=== PATIENT | female | born 1940 | race Caucasian/White ===

== ENCOUNTER → 2017-02-26 | Outpatient (CLI) | payer OTHER ==
[~2017-02-26] MED LIST: ALEN70TA4 PO; ASPEC81 PO; CALC-354 PO; CLB/200 PO; CYCL10TA6 PO; LOVA20TA4 PO; MULT-506 PO; SYN112 PO; [UNRECOGNIZED DRUG - CODE] PO
--- NOTE | 2017-02-26 13:04 | MAMMOGRAPHY REPORT ---
BILATERAL DIGITAL DIAGNOSTIC MAMMOGRAM TOMOSYNTHESIS WITH CAD AND TARGETED LEFT ULTRASOUND: 7 CLINICAL HISTORY: 77-year-old woman presents for second follow-up of faint clustered microcalcificat ions in the 12:00 left breast. Also time of annual bilateral screening exam. History of prior chris gn left breast surgery. TECHNIQUE: Bilateral CC and MLO to the digital and Tarik of this is images, spot magnification left CC and ML views were obtained. Current study was also evaluated with a Computer Aided Detection (C AD) system. COMPARISON: Comparison is made to exams dated: 06/14/2016 mammogram, 12/07/2015 mammogram, 10/26/2015 ma mmogram, 06/30/2014 mammogram, 04/22/2013 mammogram, and 02/28/2012 mammogram - [facility]. BREAST COMPOSITION: The tissue of both breasts is almost entirely fatty. FINDINGS: There are scattered and grouped stable microcalcifications in the lateral right breast. M ild vascular calcification. No obvious new mass, architectural distortion or suspicious clustered m icro-calcifications are seen in the right breast. There is expected architectural distortion in the anterior upper outer left breast, at the site of p rior benign surgery. There is an increasingly conspicuous 3 mm nodular asymmetry in the lateral mid dle one third of the left breast on the CC view, for which additional sonographic evaluation was per formed. Microcalcifications are again seen in the 12:00 versus retroareolar left breast, measuring around 3 mm. When comparing back to prior spot magnification views, these are unchanged dating back to 12/07/2015, and likely also stable dating back to the 04/22/2013 mammogram. The nodular asymmet ry in the lateral left breast also appears similar on that exam. No other new suspicious microcalci fications are seen. Another 12 month follow-up diagnostic left mammogram including spot magnificati on views is recommended to ensure longer stability. Annual right mammography will be due at that ti sc. Real-time high-resolution ultrasound was performed in the lateral left breast. In the 3:00 axis, 5 cm from the nipple, there is a small anechoic cystic appearing mass measuring 2.0 x 1.6 x 1.9 mm. T his is thought to correlate with the mammographic asymmetry and is considered benign. IMPRESSION: ACR-BI-RADS CATEGORY 3: PROBABLY BENIGN, TARGETED ULTRASOUND ACR-BI-RADS CATEGORY 3: [place] OBABLY BENIGN 1. A 12 month follow-up diagnostic left mammogram including spot magnification views is recommended to ensure longer stability of a small faint cluster of punctate microcalcifications in the 12:00 an terior versus retroareolar left breast. Annual right mammography will be due at that time. 2. A 3 mm nodular asymmetry in the lateral left breast is thought to correlate with a benign anecho ic cyst on ultrasound seen in the 3:00 axis. These results and recommendations were discussed with the patient at the time of the exam. She tent atively scheduled a follow-up appointment prior to leaving our department. Approximately 10% of breast cancers are not detected with mammography. A negative mammographic repor t should not delay biopsy if a clinically suggestive mass is present. Kadie Galvan M.D. ay/:02/26/2017 12:32:46 [employer] Associate: Nicolasa MARTE)(Buzz), [facility] letter sent: Follow Up Recommended 3 BI-RADS Code: ACR-BI-RADS Category 3: Probably Benign Ultrasound BI-RADS: ACR-BI-RADS Category 3: P robably Benign
== END | disposition home or self-care (01) ==
LOC: C.MAMM 10:54
PROVIDERS: ATTEND Family Medicine
DX: Z09 Encounter for follow-up examination after completed treatment for conditions other than malignant neoplasm (principal); R92.0 Mammographic microcalcification found on diagnostic imaging of breast

== ENCOUNTER → 2017-09-26 | Outpatient (CLI) | payer OTHER ==
[2017-09-26 13:13] LABS: ALT/SGPT 34 U/L (12-78); AST/SGOT 33 U/L (15-37); BLOOD UREA NITROGEN 45 mg/dl (7-18); BUN/CREATININE RATIO 34.4 (10-20); CARBON DIOXIDE 28 mmol/L (21-32); CHLORIDE 104 mmol/L (98-107); CREATININE 1.31 mg/dl (0.60-1.20); GLUCOSE,FASTING 102 mg/dl (70-99); POTASSIUM 3.9 mmol/L (3.5-5.1); SODIUM 136 mmol/L (136-145)
[2017-09-26 13:24] LABS: ALB/GLOB RATIO 0.8 (0.9-2); ALKALINE PHOSPHATASE 107 U/L (45-117); CHOLESTEROL 153 mg/dl (0-200); CHOLESTEROL/HDL RATIO 2.8; HDL CHOLESTEROL 54 mg/dl; LDL CHOLESTEROL CALCULATED 78 mg/dl; THYROID STIMULATING HORMONE 0.929 uIu/ml (0.300-4.500); TRIGLYCERIDES 106 mg/dl (0-150); VERY LOW DENSITY LIPOPROT CALC 21 mg/dl
== END | disposition home or self-care (01) ==
LOC: C.LABPBG 09:20
PROVIDERS: ATTEND Physician Assistant
DX: Z00.00 Encounter for general adult medical examination without abnormal findings (principal); E78.5 Hyperlipidemia, unspecified; E03.9 Hypothyroidism, unspecified

== ENCOUNTER → 2018-05-31 | Outpatient (CLI) | payer OTHER ==
[2018-05-31 13:43] LABS: HEMATOCRIT 37.2 % (37-47); HEMOGLOBIN 11.9 g/dL (12.0-16.0); MEAN CELL VOLUME 91.4 fL (80-100); MEAN CORPUSCULAR HEMOGLOBIN 29.2 pg (25-34); MEAN PLATELET VOLUME 10.2 fL (7.4-10.4); PLATELET COUNT 360 K/uL (130-400); RED CELL DISTRIBUTION WIDTH CV 14.8 % (11.5-14.5); RED CELL DISTRIBUTION WIDTH SD 49.7 fL (36.4-46.3); WHITE BLOOD COUNT 6.33 K/uL (4.8-10.8)
[2018-05-31 14:56] LABS: ALBUMIN 3.5 gm/dl (3.4-5.0); ALKALINE PHOSPHATASE 139 U/L (45-117); ALT/SGPT 35 U/L (12-78); AST/SGOT 32 U/L (15-37); BLOOD UREA NITROGEN 35 mg/dl (7-18); CALCIUM 9.2 mg/dl (8.5-10.1); CARBON DIOXIDE 23 mmol/L (21-32); CHOLESTEROL 149 mg/dl (0-200); CREATININE 1.25 mg/dl (0.60-1.20); GLUCOSE 91 mg/dl (70-99); LDL CHOLESTEROL CALCULATED 68 mg/dl; PHOSPHORUS 3.1 mg/dl (2.5-4.9); POTASSIUM 3.9 mmol/L (3.5-5.1); SODIUM 140 mmol/L (136-145); TOTAL PROTEIN 7.8 gm/dl (6.4-8.2)
== END | disposition home or self-care (01) ==
LOC: C.LABPBG 10:20
PROVIDERS: ATTEND Family Medicine
DX: N18.9 Chronic kidney disease, unspecified (principal); E78.5 Hyperlipidemia, unspecified; I12.9 Hypertensive chronic kidney disease with stage 1 through stage 4 chronic kidney disease, or unspecified chronic kidney disease; E03.9 Hypothyroidism, unspecified; M19.90 Unspecified osteoarthritis, unspecified site; M48.061 Spinal stenosis, lumbar region without neurogenic claudication

== ENCOUNTER 2019-08-05 20:01 | Inpatient (IN) ==
--- NOTE | 2019-08-05 20:22 | CT Scan Report ---
HEAD CT NONCONTRAST CT DOSE: 614.27 mGy.cm HISTORY: Right-sided weakness. Stroke evaluation TECHNIQUE: Multiaxial CT images of the head were performed without the use of intravenous contrast. A utomated exposure control was utilized for this study. A dose lowering technique was utilized adheri ng to the principles of ALARA. Comparison: Head CT 08/17/2018. Findings: The paranasal sinuses and mastoid air cells are clear. The calvarium and skull base are int act. There is no mass, hematoma, midline shift, acute infarct. White matter hypodensity is nonspecifi c but suggestive of microvascular ischemic change. The ventricles and sulci demonstrate mild age-rela shivani involutional changes. Old punctate lacunar infarcts within the right basal ganglia. This remains unchanged. Impression: No significant change compared to the prior study. No acute intracranial abnormality. Electronically signed by: Mannie Montelongo M.D. 08/05/2019 8:19 PM
[2019-08-05 20:33] LABS: Basophils # (auto) 0.02 K/uL (0-0.2); Basophils % (auto) 0.2 %; Eosinophils # (auto) 0.06 K/uL (0-0.5); Eosinophils % (auto) 0.7 %; Hematocrit (blood only) 34.5 % (37-47); Hemoglobin 11.4 g/dL (12.0-16.0); Immature Granulocytes # (auto) 0.01 K/uL (0.00-0.02); Immature Granulocytes % (auto) 0.1 %; Lymphocytes # (auto) 1.89 K/uL (1.2-3.4); Lymphocytes % (auto) 23.6 %; Mean Corpuscular Hemoglobin 29.4 pg (25-34); Mean Corpuscular Volume 88.9 fL (80-100); Mean Platelet Volume 9.6 fL (7.4-10.4); Monocytes # (auto) 0.61 K/uL (0.11-0.59); Monocytes % (auto) 7.6 %; Neutrophils # (auto) 5.43 K/uL (1.4-6.5); Neutrophils % (auto) 67.8 %; Platelet Count 344 K/uL (130-400); RDW Standard Deviation 48.8 fL (36.4-46.3); Red Blood Count 3.88 M/uL (4.2-5.4); White Blood Count 8.02 K/uL (4.8-10.8)
[2019-08-05 20:45] LABS: Partial Thromboplastin Ratio 0.8; Partial Thromboplastin Time 22.4 Seconds (21.0-31.0); Prothrombin Time 9.8 Seconds (9.0-12.0)
[2019-08-05 20:49] LABS: Alanine Aminotransferase 25 U/L (12-78); Albumin Level 3.8 gm/dl (3.4-5.0); Aspartate Aminotransferase 26 U/L (15-37); BUN Creatinine Ratio 31.4 (10-20); Blood Urea Nitrogen 53 mg/dl (7-18); Calcium 10.2 mg/dl (8.5-10.1); Carbon Dioxide 26 mmol/L (21-32); Chloride 105 mmol/L (98-107); Est GFR (African American) 32.2; Est GFR (Non-African American) 27.8; Glucose 96 mg/dl (70-99); Magnesium 1.9 mg/dl (1.8-2.4); Potassium 4.1 mmol/L (3.5-5.1); Sodium 139 mmol/L (136-145)
[2019-08-05 20:53] LABS: Albumin Globulin Ratio 0.9 (0.9-2); Alkaline Phosphatase 126 U/L (45-117); Bilirubin,Total 0.2 mg/dl (0.2-1); Globulin 4.3 gm/dl (2.5-4.0); Total Protein 8.1 gm/dl (6.4-8.2)
[2019-08-05] MEDS ORDERED: SODIUM CHLORIDE 0.9% 1000ML 250 ML IV ONE (21:07)
--- NOTE | 2019-08-05 22:09 | Emergency Department Note ---
Entered by Octavia Park acting as a scribe for History of Present Illness General Chief complaint: Stroke Alert Stated complaint: STROKE ALERT History of Present Illness Provider complaint: stroke-like symptoms Onset (ago): hour(s) 3 Pain Consistency: + other (episode) Maximum Pain Intensity: 8 Quality: + other (stroke-like symptoms) Associated symptoms: + denies other symptoms (recent falls, pain in her right arm, headache, blurry vision, being on blood thinners), + weakness and + other (went for 1 hour walk just prior to onset of symptoms, tried to write write something but her right hand would not work," dropping everything she tried to greens picker ); no headaches Treatments prior to arrival: other (3L oxygen via nasal cannula) The patient is an 79 year old female who presents to the ED with complaints of an episode of stroke-like symptoms that started 3 hours ago. The patient states that she went for a 1 hour long walk with her walker 4 hours ago. The patient states that her symptoms started directly after this walk. The patient states that she tried to write something but her right hand would not work. The patient states that she was also dropping everything that she tried to greens picker. The patient notes that she feels weaker than usual. The patient denies recent falls, pain in her right arm, headache, blurry vision and being on blood thinners. Per EMS, the patient was given 3L of oxygen via nasal cannula en route. Home Medications Home Medications Medication Instructions Recorded Confirmed Type celecoxib 200 mg capsule 200 mg PO DAILY #90 cap 04/14/19 08/05/19 Rx cholecalciferol (vitamin D3) 2,000 2,000 unit PO DAILY #90 cap 04/14/19 08/05/19 Rx unit capsule furosemide 20 mg tablet 20 mg PO DAILY #90 tab 04/14/19 08/05/19 Rx lovastatin 20 mg tablet 20 mg PO .COMPLEX #90 tab 04/14/19 08/05/19 Rx valsartan 320 1 tab PO DAILY #90 tab 04/14/19 08/05/19 Rx mg-hydrochlorothiazide 25 mg tablet levothyroxine 112 mcg tablet 112 mcg PO DAILY #90 tab 06/10/19 08/05/19 Rx tramadol 50 mg tablet 50 mg PO DAILY #30 tab 07/17/19 08/05/19 Rx acetaminophen [Tylenol Extra 500 mg PO Q6H PRN 08/05/19 08/05/19 History Strength] lidocaine 1 patch TOP DAILY PRN 08/05/19 08/05/19 History Allergies Allergy/AdvReac Type Severity Reaction Status Date / Time Sulfa (Sulfonamide Allergy Mild ITCHING- Verified 08/05/19 21:36 Antibiotics) PT TAKES CELEBREX AT HOME Past Med/Surg History Medical History Chronic kidney disease, stage 3 (moderate) Urinary incontinence Obstructive sleep apnea Venous hypertension Hearing difficulty Dyslipidemia Acid reflux Anemia Anxiety Arthritis, degenerative Hypertension Hypothyroidism Idiopathic scoliosis Lumbar spinal stenosis Lymphedema Osteoporosis Venous insufficiency SBO (small bowel obstruction) Contusion of right shoulder Surgical History H/O: knee surgery History of appendectomy History of appendectomy History of back surgery History of bilateral hip replacements History of colonoscopy History of esophagogastroduodenoscopy WITH BIOPSY History of lumbar fusion ;VERTEBRAL History of surgery UTERINE SURGERY History of total hip replacement RIGHT HIP- 02/17 History of total knee arthroplasty LEFT KNEE- 06/18 Family History Father Cardiac disorder Hypertension Mother History of cholecystectomy Hypertension Kidney disease History of kidney stones Grandmother Myocardial infarction 56 Social History Preferred Language: Maldivian Visual Impairment: No Limitations Hearing Ability: Hard of Hearing marital status: Current Living Situation: Spouse current occupational status: retired Feels Safe at Home: Yes Smoking Status: Never smoker Second Hand Exposure: No ; Hx Alcohol Use: Yes Alcohol Intake Frequency: Weekly Hx Substance Use: No Dental Care, Regularly: Yes Physical Activity Frequency: Daily Seatbelt Use: always Review of Systems See HPI for pertinent positives & negatives. and A total of 10 systems reviewed and were otherwise negative Physical Exam Vital Signs Vital Signs - 24 hr 08/05/19 20:00 08/05/19 20:50 08/05/19 21:08 Temperature 36.5 C Temperature Source Oral Sepsis Recent Fever Within 48 Hours No Sepsis New/Unexplained Change in Mental Status No Sepsis Action Taken by Nursing No Action Required Pulse Rate 90 Pulse Rate [Apical] 88 81 Pulse Rhythm Regular Pulse Strength Normal Respiratory Rate 16 20 20 Respiratory Effort / Characteristics Non-Labored Spontaneous Non-Labored Spontaneous Non-Labored Spontaneous Respiratory Depth Normal Normal Normal Respiratory Pattern Regular Regular Regular Blood Pressure 184/80 H Blood Pressure [Left Arm] 146/72 H 148/55 H Blood Pressure Mean 114 Blood Pressure Mean [Left Arm] 96 86 Blood Pressure Position Lying Blood Pressure Position [Left Arm] Lying Lying Pulse Oximetry 98 98 98 Oxygen Delivery Method Room Air Room Air Room Air GENERAL: Awake, alert, weak-appearing, in no distress, no slurred speech HENT: Normocephalic, atraumatic. EYES: Normal conjunctiva. Sclera non-icteric. NECK: Supple. No nuchal rigidity. RESPIRATORY: No wheezes. Normal respiratory effort. Diminished bases. CARDIAC: Normal rate. Normal rhythm. Extremities warm and well perfused. GI: Soft, non-distended. No tenderness to palpation. MUSCULOSKELETAL: Atraumatic. Chest examination reveals no tenderness. LOWER EXTREMITIES: Calves are non-tender. 2+ lower extremity edema, right greater than left. NEURO: Cranial nerves 2-10 grossly intact. No facial droop. Decreased strength in right upper extremity/hand. Inability to lift either lower extremity. Intact dorsal-plantar flexion. SKIN: Warm and dry. No jaundice noted. Scattered bruising on UEs 2/2 IV start attempts. Course 2001: Past medical records reviewed. The patient was evaluated in room B01. A complete history and physical exam was performed. 2008: I discussed the patient's case with Brooklyn Chicas. She will evaluate the patient via telestroke. 2036: I discussed telestroke and TPA considerations with the patient and she declined. 2055: I updated the patient's family on the test results and plan for admission/MRIs. 2103: I discussed the patient's case with Dr. Cedeno [facility], Hospitalist. He will evaluate the patient for further management. Consultations Consultation #1: I discussed the patient's case with Brooklyn Chicas. She will evaluate the patient via telestroke. Time: 20:09 Consultation #2: I discussed the patient's case with Dr. Cedeno [facility], Hospitalist. He will evaluate the patient for further management. Time: 21:04 Medical Decision Making Differential Diagnosis Differential diagnosis: Etiologies such as metabolic, infection, hypo/hyperglycemia, electrolyte abnormalities, cardiac sources, intracerebral event, toxicologic, neurologic, as well as others were entertained. Medical Records Attestation: I reviewed the patient's medical records. Home Medications Current Medication List: was personally reviewed by me Laboratory Data Attestation: I reviewed the patient's lab results. Result diagrams: 08/05/19 20:19 08/05/19 20:19 Lab Results 08/05/19 08/05/19 08/05/19 Range/Units 20:19 20:19 20:19 WBC 8.02 (4.8-10.8) K/uL RBC 3.88 L (4.2-5.4) M/uL Hgb 11.4 L (12.0-16.0) g/dL Hct 34.5 L (37-47) % MCV 88.9 (80-100) fL MCH 29.4 (25-34) pg MCHC 33.0 (32-36) g/dL RDW Std Deviation 48.8 H (36.4-46.3) fL RDW Coeff of Rika 15.0 H (11.5-14.5) % Plt Count 344 (130-400) K/uL MPV 9.6 (7.4-10.4) fL Immature Gran % (Auto) 0.1 % Neut % (Auto) 67.8 % Lymph % (Auto) 23.6 % Morrow % (Auto) 7.6 % Eos % (Auto) 0.7 % Baso % (Auto) 0.2 % Immature Gran # (Auto) 0.01 (0.00-0.02) K/uL Neut # (Auto) 5.43 (1.4-6.5) K/uL Lymph # (Auto) 1.89 (1.2-3.4) K/uL Morrow # (Auto) 0.61 H (0.11-0.59) K/uL Eos # (Auto) 0.06 (0-0.5) K/uL Baso # (Auto) 0.02 (0-0.2) K/uL PT 9.8 (9.0-12.0) Seconds INR 1.0 (0.9-1.1) APTT 22.4 (21.0-31.0) Seconds PTT Ratio 0.8 Sodium 139 (136-145) mmol/L Potassium 4.1 (3.5-5.1) mmol/L Chloride 105 (98-107) mmol/L Carbon Dioxide 26 (21-32) mmol/L Anion Gap 8.0 (3-11) BUN 53 H (7-18) mg/dl Creatinine 1.70 H (0.6-1.2) mg/dl Est Cr Clr Drug Dosing Not Reportable Est GFR ( Amer) 32.2 Est GFR (Non-Af Amer) 27.8 BUN/Creatinine Ratio 31.4 H (10-20) Glucose 96 (70-99) mg/dl Calcium 10.2 H (8.5-10.1) mg/dl Magnesium 1.9 (1.8-2.4) mg/dl Total Bilirubin 0.2 (0.2-1) mg/dl AST 26 (15-37) U/L ALT 25 (12-78) U/L Alkaline Phosphatase 126 H (45-117) U/L Troponin I 0.020 (0-0.045) ng/ml Total Protein 8.1 (6.4-8.2) gm/dl Albumin 3.8 (3.4-5.0) gm/dl Globulin 4.3 H (2.5-4.0) gm/dl Albumin/Globulin Ratio 0.9 (0.9-2) Blood Type Antibody Screen 08/05/19 Range/Units 20:19 WBC (4.8-10.8) K/uL RBC (4.2-5.4) M/uL Hgb (12.0-16.0) g/dL Hct (37-47) % MCV (80-100) fL MCH (25-34) pg MCHC (32-36) g/dL RDW Std Deviation (36.4-46.3) fL RDW Coeff of Rika (11.5-14.5) % Plt Count (130-400) K/uL MPV (7.4-10.4) fL Immature Gran % (Auto) % Neut % (Auto) % Lymph % (Auto) % [place]row % (Auto) % Eos % (Auto) % Baso % (Auto) % Immature Gran # (Auto) (0.00-0.02) K/uL Neut # (Auto) (1.4-6.5) K/uL Lymph # (Auto) (1.2-3.4) K/uL [place]row # (Auto) (0.11-0.59) K/uL Eos # (Auto) (0-0.5) K/uL Baso # (Auto) (0-0.2) K/uL PT (9.0-12.0) Seconds INR (0.9-1.1) APTT (21.0-31.0) Seconds PTT Ratio Sodium (136-145) mmol/L Potassium (3.5-5.1) mmol/L Chloride (98-107) mmol/L Carbon Dioxide (21-32) mmol/L Anion Gap (3-11) BUN (7-18) mg/dl Creatinine (0.6-1.2) mg/dl Est Cr Clr Drug Dosing Est GFR ( Amer) Est GFR (Non-Af Amer) BUN/Creatinine Ratio (10-20) Glucose (70-99) mg/dl Calcium (8.5-10.1) mg/dl Magnesium (1.8-2.4) mg/dl Total Bilirubin (0.2-1) mg/dl AST (15-37) U/L ALT (12-78) U/L Alkaline Phosphatase (45-117) U/L Troponin I (0-0.045) ng/ml Total Protein (6.4-8.2) gm/dl Albumin (3.4-5.0) gm/dl Globulin (2.5-4.0) gm/dl Albumin/Globulin Ratio (0.9-2) Blood Type AB Positive Antibody Screen NEGATIVE Imaging Data Radiologist's Impression: Radiology results as stated below per my review and the radiologist's interpretation: HEAD CT NONCONTRAST CT DOSE: 614.27 mGy.cm HISTORY: Right-sided weakness. Stroke evaluation TECHNIQUE: Multiaxial CT images of the head were performed without the use of intravenous contrast. Automated exposure control was utilized for this study. A dose lowering technique was utilized adhering to the principles of ALARA. Comparison: Head CT 08/17/2018. Findings: The paranasal sinuses and mastoid air cells are clear. The calvarium and skull base are intact. There is no mass, hematoma, midline shift, acute infarct. White matter hypodensity is nonspecific but suggestive of microvascular ischemic change. The ventricles and sulci demonstrate mild age-related involutional changes. Old punctate lacunar infarcts within the right basal ganglia. This remains unchanged. Impression: No significant change compared to the prior study. No acute intracranial abnormality. Electronically signed by: Mannie Montelongo M.D. 08/05/2019 8:19 PM ECG Data Attestation: I personally reviewed and interpreted this ECG as follows: Indication: other (stroke) Rate (beats per minute): 88 Rhythm: normal sinus ECG [place]: Normal ECG ST segments: Normal ST segments ECG Findings: Other (normal interval, no ectopy) Blood Pressure Blood Pressure Findings: Elevated blood pressure Blood Pressure Disposition: further management by hospitalist CLAIRE Narrative Patient is a 79-year-old with a past medical history including small bowel obstruction and chronic kidney disease presenting to the emergency department today via EMS with the onset of difficulty using her right hand and noted around 5 PM. Was not walking for the ER before then with her walker and did not notice significant problems. States at that point she tried to write and had some issues. Later called EMS and came here for further evaluation. Arrived just past the 3-hour mayur when she noted symptoms starting and thus will not be pr oceeding with TPA; do not feel in discussion with her that she meets criteria for extended window TPA. Discussed with the risks and benefits and she agrees to not use TPA. No significant lower extremity deficits noted though she is debilitated from prior orthopedic surgeries here and lymphedema. No significant facial droop or aphasia noted. Updated family and they arrived. GFR is low enough to preclude the use of IV contrast for CT angiograms. Kidney function is somewhat worse than priors. MRI MRA of the head have been ordered. Labs show no other significant abnormality with a detectable troponin that is been stable from previous values and not typical given her kidney dysfunction. Symptoms of her right arm weakness could be from overuse from her increased walking with a walker today however given the weakness I do of concern suspect with her comorbidities could definitely represent stroke. Discussed with the hospitalist and the family and will proceed with admission. Impression & Plan Right arm weakness, Stroke Discharge Plan Visit Data Chief Complaint: Stroke Alert Stated Complaint: STROKE ALERT ED Provider: Pierce Sepulveda Discharge Problem: Right arm weakness, Stroke Patient Disposition: Being Evaluated by Hospitalist Forms Stand Alone Forms: My [facility] [employer] Prescriptions Prescriptions: No Action levothyroxine 112 mcg tablet 112 mcg PO DAILY Qty: 90 RF: 1 tramadol 50 mg tablet 50 mg PO DAILY Qty: 30 RF: 0 celecoxib 200 mg capsule 200 mg PO DAILY Qty: 90 RF: 3 cholecalciferol (vitamin D3) [Vitamin D3] 2,000 unit capsule 2,000 unit PO DAILY Qty: 90 RF: 3 furosemide 20 mg tablet 20 mg PO DAILY Qty: 90 RF: 3 lovastatin 20 mg tablet 20 mg PO .COMPLEX Qty: 90 RF: 3 valsartan-hydrochlorothiazide [Diovan HCT] 320-25 mg tablet 1 tab PO DAILY Qty: 90 RF: 3 lidocaine 5 % adhesive patch,medicated 1 patch TOP DAILY PRN (Reason: Pain) RF: 0 acetaminophen [Tylenol Extra Strength] 500 mg Tablet 500 mg PO Q6H PRN (Reason: Pain) RF: 0 Referrals Referrals: Tami Shelby DO [Primary Care Provider] - Discharge Problem: Stroke Qualifiers: CVA mechanism: unspecified Qualified Code(s): I63.9 - Cerebral infarction, u nspecified The scribe's documentation has been prepared under my direction and personally reviewed by me in its entirety. I confirm that the note above accurately reflects all work, treatment, procedures, and medical decision making performed by me.
--- NOTE | 2019-08-05 22:38 | Magnetic Resonance Report ---
Brain MRI WITHOUT CONTRAST HISTORY: stroke, R weakness TECHNIQUE: Multiplanar multisequence MRI of the brain was performed without the use of contrast. COMPARISON STUDY: Head CT 08/05/2019. FINDINGS: Questionable small focus of restricted diffusion seen within the lateral cortex of the left parietal lobe on image 15 favors artifact. Otherwise, no areas of restricted diffusion to suggest ac ravinder infarction. The midline structures are intact. Multiple scattered foci of T2 hyperintensity seen within the white matter of the supratentorial brain. This is nonspecific but favors microvascular isc hemic change. There is no mass, hematoma, midline shift. Old small infarct seen within the right occi pital lobe. Old punctate lacunar infarct within the right cerebellar hemisphere. The paranasal sinuse s and mastoid air cells are clear. The major vascular flow voids at the skull base are well-maintaine d. Mild atrophic changes within the brain. IMPRESSION: No acute intracranial abnormality. Scattered foci of T2 hyperintensity seen within the periventricula r and subcortical white matter are nonspecific but favor moderate microvascular ischemic change. Electronically signed by: Mannie Montelongo M.D. 08/05/2019 10:37 PM
--- NOTE | 2019-08-05 22:42 | Magnetic Resonance Report ---
NECK MRA HISTORY: stroke, R weakness TECHNIQUE: Gadolinium-enhanced MRA of the neck was performed both before and after the intravenous ad ministration of contrast. 2-D [id number] imaging was not obtained as the patient terminated the e xam early. All measurements were calculated based on NASCET criteria. COMPARISON STUDY: None. FINDINGS: Motion artifact obscures the proximal right common carotid artery and the takeoff of the ri ght vertebral artery. Otherwise, the aortic arch and remaining proximal great vessels are widely reinoso nt. There is no definite stenosis, occlusion, or dissection identified within the bilateral common c arotid, internal carotid, or vertebral arteries. IMPRESSION: Motion artifact. However, no definite stenosis, occlusion, or dissection identified within the caroti d or vertebral arteries. Electronically signed by: Mannie Montelongo M.D. 08/05/2019 10:40 PM
--- NOTE | 2019-08-05 22:44 | Magnetic Resonance Report ---
Brain MRA HISTORY: R weakness TECHNIQUE: 3-D [id number] MRA of the brain was performed without contrast. COMPARISON STUDY: None. FINDINGS: Visualized intracranial internal carotid arteries, distal vertebral arteries, and basilar a rtery are widely patent. There is no significant stenosis, occlusion, or aneurysm seen within the ruslan ateral ACAs, MCAs, or audio/video technician. IMPRESSION: No significant stenosis, occlusion, or aneurysm within the [place]. Electronically signed by: Mannie Montelongo M.D. 08/05/2019 10:42 PM
[2019-08-05 23:44] LABS: Appearance Urine Clear (Clear); Bacteria Urine Automated Negative (Negative); Bilirubin Urine Negative (Negative); Blood Urine Negative (Negative); Cast Urine Automated 0 /lpf (0-5); Color Urine Yellow; Glucose Urine UA Negative (Negative); Ketones Urine Negative (Negative); Leukocyte Esterase Urine Trace (Negative); Nitrite Urine Negative (Negative); Protein Urine Negative (Negative); RBC Urine Automated 0-4 /hpf (0-4); Specific Gravity Urine 1.012 (1.000-1.030); Urobilinogen Urine Negative (Negative); pH Urine 5.5 (4.5-7.5)
[2019-08-06] MEDS ORDERED: ONDANSETRON INJ 2 MG/ML 2 ML VIAL IV PRN ×3 (00:31→08:59)
[2019-08-06] MEDS ORDERED: PHARMACIST DISCHARGE MED REC CONSULT PRN ×2 (00:31→08:59)
[2019-08-06] MEDS: ACETAMINOPHEN 325 MG TAB PO PRN ×3 (01:34→20:02)
--- NOTE | 2019-08-06 01:50 | History & Physical Report ---
Date of Service August 06, 2019 Assessment & Plan (1) Right arm weakness: 79-year-old female with a past medical history of hyperlipidemia, hypertension, diabetes, CKD 3, hypothyroidism, anxiety, ANTWAN, neuropathy presents with strokelike symptoms. Symptoms include upper and lower extremity weakness. The predominant symptom is right upper extremity weakness. The symptoms began this evening at 1700. Hospital stroke protocol was initiated, patient did not receive TPA. Is being admitted for continued work-up of right upper extremity weakness. Right upper extremity weakness CT head unremarkable MRI brain, no acute finding but did show signs of possible microvascular ischemia MRA neck/brain, unremarkable Starting aspirin, neurology consulted, appreciate recommendations Continue stroke protocolaspiration precautions, fall precautions, neurochecks Hyperlipidemia/hypertension Continue valsartan/hydrochlorothiazide Diabetes Sliding scale insulin, carb consistent diet Venous stasis Continue furosemide Osteoarthritis Hold Celebrex Tylenol for pain, K pad CODE STATUSDNR/DNI Dietcarb consistent DVT prophylaxisSCDs (2) Stroke: (3) Chronic kidney disease, stage 3 (moderate): (4) Obstructive sleep apnea: (5) Dyslipidemia: (6) Anxiety: (7) Hypertension: (8) Hypothyroidism: History of Present Illness Primary Care Provider: Tami Shelby DO 79-year-old female with a past medical history of hyperlipidemia, hypertension, diabetes, CKD 3, hypothyroidism, anxiety, ANTWAN, neuropathy presents with strokelike symptoms. Symptoms include upper and lower extremity weakness. The predominant symptom is right upper extremity weakness. The symptoms began this evening at 1700. She states that she was getting dinner together when she felt tingling in her hands. She states that she has neuropathy at baseline, but this felt different. She started noticing that she was weakness in her hands and she was dropping things. In addition, when she sat down to write a note she was unable to move the pen properly. She states that she could still think about what she wanted to say and write. She denies any dysarthria, slurred speech or comprehension issues. She became worried, when she went to stand up and walk towards the living room and actually fell on the ground. Her witness the fall. There was no head injury. She reports that she had a the day, traveling from [place] to [place]. She denies any recent illness. Review of systems Constitutional; no fevers, chills, night sweats HEENT; no runny nose, no throat pain, no sinus pressure Chest; no chest pain, no palpitations, no edema Respiratory; no shortness of breath, no wheezing, no cough Abdomen; no abdominal pain, no nausea/vomiting/diarrhea Allergies Allergy/AdvReac Type Severity Reaction Status Date / Time Sulfa (Sulfonamide Allergy Mild ITCHING- Verified 08/05/19 21:36 Antibiotics) PT TAKES CELEBREX AT HOME Home Medications Home Medications Medication Instructions Recorded Confirmed Type celecoxib 200 mg capsule 200 mg PO DAILY #90 cap 04/14/19 08/05/19 Rx cholecalciferol (vitamin D3) 2,000 2,000 unit PO DAILY #90 cap 04/14/19 08/05/19 Rx unit capsule furosemide 20 mg tablet 20 mg PO DAILY #90 tab 04/14/19 08/05/19 Rx lovastatin 20 mg tablet 20 mg PO .COMPLEX #90 tab 04/14/19 08/05/19 Rx valsartan 320 1 tab PO DAILY #90 tab 04/14/19 08/05/19 Rx mg-hydrochlorothiazide 25 mg tablet levothyroxine 112 mcg tablet 112 mcg PO DAILY #90 tab 06/10/19 08/05/19 Rx tramadol 50 mg tablet 50 mg PO DAILY #30 tab 07/17/19 08/05/19 Rx acetaminophen [Tylenol Extra 500 mg PO Q6H PRN 08/05/19 08/05/19 History Strength] lidocaine 1 patch TOP DAILY PRN 08/05/19 08/05/19 History Past Med/Surg History Medical History Chronic kidney disease, stage 3 (moderate) Urinary incontinence Obstructive sleep apnea Venous hypertension Hearing difficulty Dyslipidemia Acid reflux Anemia Anxiety Arthritis, degenerative Hypertension Hypothyroidism Idiopathic scoliosis Lumbar spinal stenosis Lymphedema Osteoporosis Venous insufficiency SBO (small bowel obstruction) Contusion of right shoulder Surgical History H/O: knee surgery History of appendectomy History of appendectomy History of back surgery History of bilateral hip replacements History of colonoscopy History of esophagogastroduodenoscopy WITH BIOPSY History of lumbar fusion ;VERTEBRAL History of surgery UTERINE SURGERY History of total hip replacement RIGHT HIP- 02/17 History of total knee arthroplasty LEFT KNEE- 06/18 Family History Father , age 80 of heart disease Cardiac disorder Hypertension Osteoarthritis Mother , age 82 of uncertain cause History of cholecystectomy Hypertension Kidney disease History of kidney stones Grandmother Myocardial infarction 56 Social History Preferred Language: [place]i Communication Ability: Effective Visual Impairment: No Limitations Hearing Ability: Hard of Hearing Beliefs That Will Affect Care: None marital status: Current Living Situation: Spouse current occupational status: retired Other Information That Helps Us Care for You: 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 Feels Safe at Home: Yes Safety Concerns: Feels Safe At This Time Smoking Status: Never smoker Second Hand Exposure: No ; Hx Alcohol Use: Yes Alcohol type: wine Alcohol Intake Frequency: Weekly Alcohol Intake Frequency Comment: One glass wine per week Hx Substance Use: No Dental Care, Regularly: Yes Physical Activity Frequency: Daily Seatbelt Use: always Review of Systems Review of Systems: All systems reviewed & are unremarkable except as noted in HPI & below Physical Exam Constitutional: WD/WN, vitals as above Eyes: PERRL, conjunctivae normal, anicteric sclerae ENMT: external ear and nose normal, oropharynx normal Neck: trachea midline, no thyromegaly Respiratory: normal respiratory effort, lungs clear to auscultation Cardiovascular: RRR, no murmur, no edema Gastrointestinal (Abdomen): normal bowel sounds, soft, nontender, no hepatosplenomegaly Musculoskeletal: Head/Neck/Chest: + head abnormal to inspection, normocephalic, head atraumatic and neck supple Extremities: + abnormal strength (Right upper extremity weakness, 3 out of 5. The rest of her extremities had 5 out of 5 strength) Skin: no rashes, warm and dry Neurologic: PERRL, EOMI, accommodation nl, no face palsy, no dysarthria normal touch/pain/proprioception and CN's II-XI intact bilaterally; not confused Speech / Cognition: normal speech, no expressive aphasia, no receptive aphasia and normal cognition Psychiatric: A+Ox3, euthymic affect Results & Data Vital Signs (Past 12 Hours) Vital Signs Temp Pulse Pulse Resp BP BP Pulse Ox 08/05/19 23:31 81 18 142/60 H 96 08/05/19 21:08 81 20 148/55 H 98 08/05/19 20:50 88 20 146/72 H 98 08/05/19 20:00 36.5 C 90 16 184/80 H 98 Code Status & VTE Plan Code Status full VTE Prophylaxis Plan VTE Prophylaxis will be ordered: Yes Supervising Physician Co-Signing Physician Notes Attending addendum: I have physically seen this patient, have supervised the medical residents activities, and agree with the H&P unless as otherwise noted. Assessment and Plan: Right upper extremity weakness- Initially presented a stroke alert to the ED. CT head without acute events. MRI brain with small vessel disease. MRA neck and head unremarkable. Start baby aspirin 81 mg chewable daily. Admit per stroke protocol. Permissive hypertension. Remaining orders and notations as noted. PG Care Time/CCT Total # of Minutes Spent Total Time Spent with Patient: Total time spent is greater than 50% in coordination of care (as documented) at patient's floor/unit and/or counseling patient: Resident Activity Tracking Resident Involvement: Resident Care Provided Care Provided: Adult Hospital Medicine (1) Stroke CVA mechanism: unspecified Qualified Code(s): I63.9 - Cerebral infarction, unspecified
[2019-08-06] MEDS ORDERED: ASPIRIN 81 MG ECTAB PO STA (02:00)
[2019-08-06] MEDS ORDERED: GLUCOSE 40% GEL 15 GM TUBE PO PRN (02:15)
[2019-08-06] MEDS ORDERED: CARBOHYDRATES FOR HYPOGLYCEMIA PO PRN (02:15)
[2019-08-06] MEDS ORDERED: GLUCAGON FOR INJ 1 MG VIAL SQ PRN (02:15)
[2019-08-06] MEDS ORDERED: GLUCOSE 10 TABS/TUBE PO PRN (02:15)
[2019-08-06] MEDS ORDERED: DEXTROSE 50% 50 ML SYRINGE IV PRN (02:15)
[2019-08-06] MEDS: LEVOTHYROXINE SODIUM 112 MCG TABLET PO SCH (05:13)
[2019-08-06 06:11] LABS: Basophils # (auto) 0.02 K/uL (0-0.2); Basophils % (auto) 0.3 %; Eosinophils # (auto) 0.09 K/uL (0-0.5); Eosinophils % (auto) 1.5 %; Hematocrit (blood only) 29.7 % (37-47); Hemoglobin 10.2 g/dL (12.0-16.0); Immature Granulocytes # (auto) 0.01 K/uL (0.00-0.02); Immature Granulocytes % (auto) 0.2 %; Lymphocytes # (auto) 2.08 K/uL (1.2-3.4); Lymphocytes % (auto) 34.9 %; Mean Corpuscular Hemoglobin 29.7 pg (25-34); Mean Corpuscular Hgb Conc 34.3 g/dL (32-36); Mean Corpuscular Volume 86.6 fL (80-100); Mean Platelet Volume 9.1 fL (7.4-10.4); Monocytes # (auto) 0.68 K/uL (0.11-0.59); Monocytes % (auto) 11.4 %; Neutrophils # (auto) 3.08 K/uL (1.4-6.5); Neutrophils % (auto) 51.7 %; Platelet Count 304 K/uL (130-400); RDW Coefficient of Variation 14.9 % (11.5-14.5); RDW Standard Deviation 47.3 fL (36.4-46.3); Red Blood Count 3.43 M/uL (4.2-5.4); White Blood Count 5.96 K/uL (4.8-10.8)
[2019-08-06 06:18] LABS: Estimated Average Glucose 123 mg/dl; Hemoglobin A1C 5.9 % (4.5-5.6)
[2019-08-06 06:22] LABS: Prothrombin Time 10.3 Seconds (9.0-12.0)
[2019-08-06 06:34] LABS: BUN Creatinine Ratio 34.9 (10-20); Calcium 9.6 mg/dl (8.5-10.1); Creatinine Clr Calc Pharmacy 36.2 ml/min; Est GFR (African American) 42.2; Est GFR (Non-African American) 36.4; Potassium 3.8 mmol/L (3.5-5.1)
[2019-08-06] MEDS ORDERED: INSULIN ASPART 100 UNITS/ML 3 ML PEN SC SCH (07:30)
[2019-08-06] MEDS: LIDOCAINE 5% 1 PATCH TD SCH (07:30)
[2019-08-06] MEDS: ASPIRIN 81 MG ECTAB PO SCH (07:31)
[2019-08-06] MEDS: hydroCHLOROthiazide 25 MG TAB PO SCH (07:31)
[2019-08-06] MEDS: FUROSEMIDE 20 MG TAB PO SCH (07:31)
[2019-08-06] MEDS: VALSARTAN 80 MG TAB PO SCH (07:31)
--- NOTE | 2019-08-06 08:55 | Neurology Consultation ---
Date of Consultation August 06, 2019 Assessment & Plan (1) Right arm weakness: (2) Lumbar spinal stenosis: (3) Chronic cerebral ischemia: Patient has a history of acute right hand weakness and dysesthesias after a prolonged walk using a walker August 05. This morning, there are no sensory deficits in the hand and her weakness is about 50 percent improved. She does have other right upper extremity weakness in the deltoid and rotator muscles. This is consistent with a chronic right rotator cuff injury. The left rotator cuff is also somewhat weak but not as bad as the right. MRI of the brain was unremarkable for stroke. MR angiography of the head neck were unremarkable. Overall, I do not believe this was a TIA or stroke. I think this is more consistent with a mechanical issue with the right upper extremity from the overuse of the arms with her prolonged walk with a walker. Positive Tinel sign and hand symptoms/history point towards a carpal tunnel syndrome that was aggravated with the walker. I believe the shoulder girdle was aggravated by the walk as well. Fortunately she is much better today. Patient does have stroke risk factors including hypertension and dyslipidemia. She has a history of chronic cerebral ischemia noted on MRI. Patient has a history of lumbar spinal stenosis post 2 major lumbar spine surgeries with persistent lower extremity weakness. EMG done in July of 2018 showed old scattered bilateral radiculopathy at multiple levels. Recommendations; 1. Because of her chronic cerebral ischemia I think it is reasonable for her to remain on 81 milligram aspirin tablet daily. 2. Her blood pressure is reasonably controlled currently and her lipid profile is unremarkable as well. She would not be a high-dose statin candidate anyway. 3. An echocardiogram is pending 4. Increase activity as able. Patient would probably benefit from some physical therapy and occupational therapy. 5. EMG and nerve conduction studies of both upper extremities as an outpatient would be reasonable as well. 6. Otherwise, I see no need for additional neurologic testing or treatment changes at this time. Overall, I spent a total of 90 minutes with this case including review of records, review of MRI films, direct evaluation patient bedside, and discussing the case with the patient at bedside, her RN, and Dr. Arrington , including differential diagnosis and treatment options. History of Present Illness Reason for Consultation: Patient is an 79 year old, who I was asked to see the request of Dr. Rivera, for neurologic consultation regarding acute onset right hand weakness question stroke. Requesting Physician: Dr. Rivera Attending Physician: Zaid Arrington History of Present Illness This patient has a history of hypertension and dyslipidemia. She has never been a cigarette smoker. Patient has a history of severe osteoarthritis and degenerative changes with longstanding lumbar spinal stenosis, requiring decompressive surgery in 1999 ([place]) and again decompression with fusion from T10-S1 [place] [address] Sanford. The patient has had bilateral lower extremity weakness and intermittent numbness and tingling in the feet and lower legs for over 5 years. She currently has to walk with a walker for the last year. She has had bilateral knee replacements twice on each side. She walked with a cane for many years and ended having rotator cuff problems because of the pressure she put on her arms using the cane. This is also a bit of a problem using the walker as well. Her biceps are weak bilaterally and over the last year she has had occasional tingling in the right hand that increases with activity. Around 3 o'clock in the afternoon on August 05, she went outside for a walk with her walker. She walked for about an hour but noted she had to stop because she was getting very tired and there was pressure on her arms. Typically she will walk 30-45 minutes but occasionally she will walk as much as 60 minutes. She went inside and did not notice any pain in her arms but her arms were tired. The right hand had little bit of tingling to it and she started to write and noticed that she could not hold a pen or feel the pen. 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 This only involve the hand and did not involve the upper arm, face, or leg. The left side was unchanged as well. She had no neck pain. Her right shoulder however was feeling weaker and worse because of the long walk she had with a walker. She arrived to the emergency room on August 05 2000 hours with a temperature 36.5, pulse 90 and regular, respirations 16, blood pressure 184/80, and O2 satu ration 98 percent. Exam noted some weakness in the right hand and both legs were weak. Her speech was unremarkable and she had no facial droop. Her mentation was clear. She was at the outer window for tPA and tele stroke and consultation with the patient elected not to use tPA as she was probably outside the window. CT scan of the head was unremarkable for acute changes. CBC showed anemia BUN was 53 and creatinine was 1.7. Urinalysis was unremarkable. MR angiography of the head and neck were unremarkable with no significant stenoses or vessel anomalies. MRI of the brain was unremarkable with no acute stroke or other acute changes. There was moderate generalized atrophy and old small vessel ischemic changes only. I reviewed these films. Today, CBC showed anemia, hemoglobin A1c was 5.9, BUN was 47 and creatinine 1.3, triglycerides 95 in total cholesterol 48. This morning, she feels nothing new in her limbs and feels that although the right hand has a little bit of tingling it is not numb and she can feel a pen if she holds it. Her flame planer is improved but not back to normal yet (about 40-50 percent better) She has no new issues and blood pressure was 127/68. Allergies Allergy/AdvReac Type Severity Reaction Status Date / Time Sulfa (Sulfonamide Allergy Mild ITCHING- Verified 08/05/19 21:36 Antibiotics) PT TAKES CELEBREX AT HOME Home Medications Home Medications Medication Instructions Recorded Confirmed Type celecoxib 200 mg capsule 200 mg PO DAILY #90 cap 04/14/19 08/05/19 Rx cholecalciferol (vitamin D3) 2,000 2,000 unit PO DAILY #90 cap 04/14/19 08/05/19 Rx unit capsule furosemide 20 mg tablet 20 mg PO DAILY #90 tab 04/14/19 08/05/19 Rx lovastatin 20 mg tablet 20 mg PO .COMPLEX #90 tab 04/14/19 08/05/19 Rx valsartan 320 1 tab PO DAILY #90 tab 04/14/19 08/05/19 Rx mg-hydrochlorothiazide 25 mg tablet levothyroxine 112 mcg tablet 112 mcg PO DAILY #90 tab 06/10/19 08/05/19 Rx tramadol 50 mg tablet 50 mg PO DAILY #30 tab 07/17/19 08/05/19 Rx acetaminophen [Tylenol Extra 500 mg PO Q6H PRN 08/05/19 08/05/19 History Strength] lidocaine 1 patch TOP DAILY PRN 08/05/19 08/05/19 History Patient History Medical History Chronic kidney disease, stage 3 (moderate) Urinary incontinence Obstructive sleep apnea Venous hypertension Hearing difficulty Dyslipidemia Acid reflux Anemia Anxiety Arthritis, degenerative Hypertension Hypothyroidism Idiopathic scoliosis Lumbar spinal stenosis Lymphedema Osteoporosis Venous insufficiency SBO (small bowel obstruction) Contusion of right shoulder Surgical History H/O: knee surgery History of appendectomy History of appendectomy History of back surgery History of bilateral hip replacements History of colonoscopy History of esophagogastroduodenoscopy WITH BIOPSY History of lumbar fusion ;VERTEBRAL History of surgery UTERINE SURGERY History of total hip replacement RIGHT HIP- 02/17 History of total knee arthroplasty LEFT KNEE- 06/18 Family History Father , age 80 of heart disease Cardiac disorder Hypertension Osteoarthritis Mother , age 82 of uncertain cause History of cholecystectomy Hypertension Kidney disease History of kidney stones Grandmother Myocardial infarction 56 Social History Preferred Language: Swedish Visual Impairment: No Limitations Hearing Ability: Hard of Hearing Beliefs That Will Affect Care: None marital status: Current Living Situation: Spouse current occupational status: retired Other Information That Helps Us Care for You: 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 Feels Safe at Home: Yes Safety Concerns: Feels Safe At This Time Smoking Status: Never smoker Second Hand Exposure: No ; Hx Alcohol Use: Yes Alcohol type: wine Alcohol Intake Frequency: Weekly Alcohol Intake Frequency Comment: One glass wine per week Hx Substance Use: No Dental Care, Regularly: Yes Physical Activity Frequency: Daily Seatbelt Use: always Review of Systems Constitutional: + fatigue; no fever and no weakness Eyes: no diplopia, no eye pain and no worsening vision Ear, Nose, Mouth, Throat: + hearing loss; no ear pain, no tinnitus, no dizziness, no snoring, no hoarseness and no dysphagia Respiratory: no cough and no dyspnea Cardiovascular: no chest pain, no palpitations and no lightheadedness Gastrointestinal: no abdominal pain, no nausea and no vomiting Genitourinary: + urinary incontinence; no dysuria and no urinary frequency Musculoskeletal: + back pain; no neck pain, no radicular pain, no joint pain and no myalgia Integumentary: no rash and no lesions Neurologic: + gait abnormality, + localized weakness, + tingling and + numbness; no generalized weakness, no tremor(s), no abnormal movements, no dizziness, no headache(s), no abnormal speech, no confusion and no memory loss Psychiatric: no depression, no irritability, no anxiety, no difficulty concentrating, no confusion and no hallucinations Endocrine: + fatigue; no flushing Hematologic / Lymphatic: no easy bleeding and no easy bruising Allergy / Immunological: no urticaria and no problem reported Physical Exam Physical Exam: The patient is right-handed. The patient is awake, alert, and attentive. Speech is normal without any aphasia or dysarthria. She can name objects, repeat phrases, and has normal spontaneous speech. Mentation and thought processes are intact, with orientation to person, place and time, and normal fund of knowledge. Attention and concentration are normal. Mood and affect are normal and appropriate. General appearance and grooming are normal. Short and long-term memory are intact. The discs are sharp with positive venous pulsations bilaterally. There are no exudates, hemorrhages, or blood vessel changes seen. Pupils are 4 mm bilaterally and reactive to light. Extraocular eye muscles are intact without nystagmus. Visual acuity and visual canales seem normal grossly to confrontation. There are no deficits to sensation in the face in all 3 distributions of the fifth cranial nerve bilaterally. Corneal reflexes are positive bilaterally. Facial strength and symmetry was normal bilaterally. Hearing is mildly decreased to voice bilaterally. Palate moves well without asymmetry. There is normal sternocleidomastoid and trapezius (shoulder shrug) strength bilaterally. Tongue is midline with good strength bilaterally. Neck has a full range of motion without discomfort. There are no cervical bruits bilaterally. There are no cranial or ocular bruits. Heart is without murmur. There is a regular rhythm and rate. Cervical, thoracic, and lumbar spine are nontender to palpation. Gait is poor and she has poor balance. Stance with feet together and eyes open needs the assistance of 1 as she has back pain and a stooped posture. Stance sitting is normal. With outstretched arms there is no drift. There are no resting, postural, or action tremors. There is no ataxia with finger to nose testing. There is good facility in the hands (the right is reasonable when the shoulder is isolated away). No other abnormal involuntary movements are noted. Motor strength is 4+/5 diffusely in the arms bilaterally including biceps, triceps, brachioradialis, wrist flexors and extensors, flame planer, and intrinsic hand muscles. The deltoid is 4-/5 on the right and 4/5 on the left. Motor strength is 4+/5 diffusely in the legs bilaterally including hip flexors, quadriceps, hamstrings, gastrocnemius, tibialis anterior, tibialis posterior, and Peroneii muscles. Toe extensors are normal and there is good bulk in the extensor digitorum brevis muscles bilaterally. Rotator muscles at the shoulder are 4/5 internally and 3/5 externally bilaterally. The limbs have good tone without rigidity or spasticity. There is no atrophy noted in the muscles. Muscle bulk is normal, there is no tenderness to palpation, no myotonia to percussion, and no fasciculations seen. Sensory examination is intact to touch and pin throughout all 4 limbs diffusely. She has a mildly positive Tinel sign over the median nerve at the wrist on the right. Reflexes are 2/4 in the biceps, triceps, and brachioradialis tendons bilaterally. Achilles tendon reflexes are absent bilaterally and quadriceps tendon reflexes are 1/4 bilaterally. There is no clonus bilaterally. Toes are neutral with plantar stimulation bilaterally. Peripheral pulses are present and of normal quality distally in all 4 limbs. There is peripheral edema noted in the lower extremities right greater than left side. Results & Data Vital Signs (Past 12 Hours) Vital Signs Temp Pulse Pulse Resp BP Pulse Ox Pulse Ox 08/06/19 04:15 36.3 C L 80 20 127/68 96 08/06/19 03:09 82 08/06/19 00:31 36.6 C 81 20 163/81 H 96 96 08/05/19 23:31 81 18 142/60 H 96 08/05/19 21:08 81 20 148/55 H 98 08/05/19 20:50 88 20 146/72 H 98 Diagnostic Findings Brain MRI WITHOUT CONTRAST HISTORY: stroke, R weakness TECHNIQUE: Multiplanar multisequence MRI of the brain was performed without the use of contrast. COMPARISON STUDY: Head CT 08/05/2019. FINDINGS: Questionable small focus of restricted diffusion seen within the lateral cortex of the left parietal lobe on image 15 favors artifact. Otherwise, no areas of restricted diffusion to suggest acute infarction. The midline structures are intact. Multiple scattered foci of T2 hyperintensity seen within the white matter of the supratentorial brain. This is nonspecific but favors savanna rovascular ischemic change. There is no mass, hematoma, midline shift. Old small infarct seen within the right occipital lobe. Old punctate lacunar infarct within the right cerebellar hemisphere. The paranasal sinuses and mastoid air cells are clear. The major vascular flow voids at the skull base are well- maintained. Mild atrophic changes within the brain. IMPRESSION: No acute intracranial abnormality. Scattered foci of T2 hyperintensity seen within the periventricular and subcortical white matter are nonspecific but favor moderate microvascular ischemic change. Electronically signed by: Mannie Montelongo M.D. 08/05/2019 10:37 PM PG Care Time/CCT Total # of Minutes Spent Total Time Spent with Patient: Total time spent is greater than 50% in coordination of care (as documented) at patient's floor/unit and/or counseling patient:
[2019-08-06] MEDS ORDERED: LOVASTATIN 20 MG TAB PO SCH ×3 (08:59→21:00)
[2019-08-06] MEDS ORDERED: LIDOCAINE 5% 1 PATCH TD PRN ×2 (08:59)
[2019-08-06] MEDS ORDERED: ACETAMINOPHEN 500 MG TAB PO PRN (08:59)
[2019-08-06] MEDS ORDERED: ACETAMINOPHEN 325 MG TAB PO PRN ×2 (08:59)
[2019-08-06] MEDS ORDERED: POLYETHYLENE (MIRALAX) 17 GM PACK PO PRN ×2 (08:59)
[2019-08-06] MEDS ORDERED: SODIUM CHLORIDE 0.9% 1000ML 1,000 ML IV SCH (08:59)
[2019-08-06] MEDS ORDERED: FUROSEMIDE 20 MG TAB PO SCH ×2 (09:00)
[2019-08-06] MEDS ORDERED: ASPIRIN 81 MG ECTAB PO SCH (09:00)
[2019-08-06] MEDS ORDERED: LEVOTHYROXINE SODIUM 112 MCG TABLET PO SCH ×2 (09:00)
[2019-08-06 10:17] LABS: Estimated Average Glucose 123 mg/dl; Hemoglobin A1C 5.9 % (4.5-5.6)
--- NOTE | 2019-08-06 18:16 | Hospitalist Progress Note ---
Date of Service August 06, 2019 Assessment & Plan (1) TIA (transient ischemic attack): presented with right hand weakness/numbness and ?right leg weakness. had fall prior to presentation - now stating she simply lost her balance because of not being able to prosthetic aide her walker. [id number] her entire TIA w/u is thus far negative - MRI brain neg CVA; MRA head/neck neg. Echo ordered/pending. Tele thus far neg. still having right hand weakness/numbness which makes me think this is either cervical radiculopathy OR carpal tunnel syndrome. Ordered MRI cervical spine. Agree with Dr Carter to have outpatient NCS/EMG of arms. Cont asa for secondary TIA/stroke prevention. PT/OT evals appreciated. Await echo. (2) Right hand weakness: see discussion above in "TIA" (3) Chronic kidney disease, stage 3 (moderate): creatinine stable BMP in am (4) Obstructive sleep apnea: noted (5) Hypertension: controlled cont home meds (6) Hypothyroidism: TSH wnl cont synthroid (7) Lymphedema: RLE - chronic cont diuretics hopefully home tomorrow Subjective pt continues with right hand weakness - entire hand/all fingers- and all fingers w/ numbness she has had b/l hand numbness in the past but this is much worse and much more severe denies focal RLE weakness tele wnl overnight denies left hand weakness has had neck troubles in the past but denies pain in neck today denies whole arm numbness Review of Systems Constitutional: no fever Respiratory: no cough and no dyspnea Cardiovascular: no chest pain Gastrointestinal: no abdominal pain Physical Exam Constitutional: well developed and well nourished; no acute distress and no altered mental status ENMT: external ear and nose normal, oropharynx normal Neck: passive ROM is restricted; crepitus with passive ROM Respiratory: normal respiratory effort, lungs clear to auscultation Cardiovascular: Rate/Rhythm: regular rate and regular rhythm Heart Sounds: normal S1 and normal S2; no murmur Vessels: no JVD Extremities: + edema (1+ right leg; none on left ) Gastrointestinal (Abdomen): normal bowel sounds, soft, nontender, no hepatosplenomegaly Musculoskeletal: muscle wasting of intrinsic muscles of both hands Neurologic: right hand prosthetic aide 4/5; left hand 5/5; b/l LEs 5/5 strength Psychiatric: A+Ox3, euthymic affect Results & Data Vital Signs (Past 12 Hours) Vital Signs Temp Pulse Resp BP Pulse Ox 08/06/19 15:51 37.1 C 78 20 107/63 95 08/06/19 13:00 36.7 C 78 18 148/73 H 97 Laboratory Results Laboratory Results - last 24 hr 08/05/19 08/05/19 08/05/19 20:19 20:19 20:19 WBC 8.02 RBC 3.88 L Hgb 11.4 L Hct 34.5 L MCV 88.9 MCH 29.4 MCHC 33.0 RDW Std Deviation 48.8 H RDW Coeff of Rika 15.0 H Plt Count 344 MPV 9.6 Immature Gran % (Auto) 0.1 Neut % (Auto) 67.8 Lymph % (Auto) 23.6 [place]row % (Auto) 7.6 Eos % (Auto) 0.7 Baso % (Auto) 0.2 Immature Gran # (Auto) 0.01 Neut # (Auto) 5.43 Lymph # (Auto) 1.89 [place]row # (Auto) 0.61 H Eos # (Auto) 0.06 Baso # (Auto) 0.02 PT 9.8 INR 1.0 APTT 22.4 PTT Ratio 0.8 Sodium 139 Potassium 4.1 Chloride 105 Carbon Dioxide 26 Anion Gap 8.0 BUN 53 H Creatinine 1.70 H Est Cr Clr Drug Dosing Not Reportable Est GFR ( Amer) 32.2 Est GFR (Non-Af Amer) 27.8 BUN/Creatinine Ratio 31.4 H Glucose 96 Estimat Average Glucose Hemoglobin A1c Calcium 10.2 H Magnesium 1.9 Total Bilirubin 0.2 AST 26 ALT 25 Alkaline Phosphatase 126 H Troponin I 0.020 Total Protein 8.1 Albumin 3.8 Globulin 4.3 H Albumin/Globulin Ratio 0.9 Triglycerides Cholesterol LDL Cholesterol, Calc VLDL Cholesterol, Calc HDL Cholesterol Cholesterol/HDL Ratio Urine Color Urine Appearance Urine pH Ur Specific Spur Urine Protein Urine Glucose (UA) Urine Ketones Urine Blood Urine Nitrite Urine Bilirubin Urine Urobilinogen Ur Leukocyte Esterase Urine WBC (Auto) Urine RBC (Auto) U Hyaline Cast (Auto) U Epithel Cells (Auto) Urine Bacteria (Auto) Blood Type Antibody Screen 08/05/19 08/05/19 08/06/19 20:19 23:26 05:51 WBC RBC Hgb Hct MCV MCH MCHC RDW Std Deviation RDW Coeff of Rika Plt Count MPV Immature Gran % (Auto) Neut % (Auto) Lymph % (Auto) [place]row % (Auto) Eos % (Auto) Baso % (Auto) Immature Gran # (Auto) Neut # (Auto) Lymph # (Auto) [place]row # (Auto) Eos # (Auto) Baso # (Auto) PT INR APTT PTT Ratio Sodium Potassium Chloride Carbon Dioxide Anion Gap BUN Creatinine Est Cr Clr Drug Dosing Est GFR ( Amer) Est GFR (Non-Af Amer) BUN/Creatinine Ratio Glucose Estimat Average Glucose 123 Hemoglobin A1c 5.9 H Calcium Magnesium Total Bilirubin AST ALT Alkaline Phosphatase Troponin I Total Protein Albumin Globulin Albumin/Globulin Ratio Triglycerides Cholesterol LDL Cholesterol, Calc VLDL Cholesterol, Calc HDL Cholesterol Cholesterol/HDL Ratio Urine Color Yellow Urine Appearance Clear Urine pH 5.5 Ur Specific Spur 1.012 Urine Protein Negative Urine Glucose (UA) Negative Urine Ketones Negative Urine Blood Negative Urine Nitrite Negative Urine Bilirubin Negative Urine Urobilinogen Negative Ur Leukocyte Esterase Trace H Urine WBC (Auto) 1-5 Urine RBC (Auto) 0-4 U Hyaline Cast (Auto) 0 U Epithel Cells (Auto) 10-20 H Urine Bacteria (Auto) Negative Blood Type AB Positive Antibody Screen NEGATIVE 08/06/19 08/06/19 08/06/19 05:51 05:51 05:51 WBC 5.96 RBC 3.43 L Hgb 10.2 L Hct 29.7 L MCV 86.6 MCH 29.7 MCHC 34.3 RDW Std Deviation 47.3 H RDW Coeff of Rika 14.9 H Plt Count 304 MPV 9.1 Immature Gran % (Auto) 0.2 Neut % (Auto) 51.7 Lymph % (Auto) 34.9 Morrow % (Auto) 11.4 Eos % (Auto) 1.5 Baso % (Auto) 0.3 Immature Gran # (Auto) 0.01 Neut # (Auto) 3.08 Lymph # (Auto) 2.08 Morrow # (Auto) 0.68 H Eos # (Auto) 0.09 Baso # (Auto) 0.02 PT 10.3 INR 1.0 APTT PTT Ratio Sodium 143 Potassium 3.8 Chloride 110 H Carbon Dioxide 25 Anion Gap 7.0 BUN 47 H Creatinine 1.36 H D Est Cr Clr Drug Dosing 36.2 Est GFR ( Amer) 42.2 Est GFR (Non-Af Amer) 36.4 BUN/Creatinine Ratio 34.9 H Glucose 97 Estimat Average Glucose Hemoglobin A1c Calcium 9.6 Magnesium Total Bilirubin AST ALT Alkaline Phosphatase Troponin I Total Protein Albumin Globulin Albumin/Globulin Ratio Triglycerides 95 Cholesterol 148 LDL Cholesterol, Calc 79 VLDL Cholesterol, Calc 19 HDL Cholesterol 50 Cholesterol/HDL Ratio 3 Urine Color Urine Appearance Urine pH Ur Specific Spur Urine Protein Urine Glucose (UA) Urine Ketones Urine Blood Urine Nitrite Urine Bilirubin Urine Urobilinogen Ur Leukocyte Esterase Urine WBC (Auto) Urine RBC (Auto) U Hyaline Cast (Auto) U Epithel Cells (Auto) Urine Bacteria (Auto) Blood Type Antibody Screen 08/06/19 09:21 WBC RBC Hgb Hct MCV MCH MCHC RDW Std Deviation RDW Coeff of Rika Plt Count MPV Immature Gran % (Auto) Neut % (Auto) Lymph % (Auto) Morrow % (Auto) Eos % (Auto) Baso % (Auto) Immature Gran # (Auto) Neut # (Auto) Lymph # (Auto) Morrow # (Auto) Eos # (Auto) Baso # (Auto) PT INR APTT PTT Ratio Sodium Potassium Chloride Carbon Dioxide Anion Gap BUN Creatinine Est Cr Clr Drug Dosing Est GFR ( Amer) Est GFR (Non-Af Amer) BUN/Creatinine Ratio Glucose Estimat Average Glucose 123 Hemoglobin A1c 5.9 H Calcium Magnesium Total Bilirubin AST ALT Alkaline Phosphatase Troponin I Total Protein Albumin Globulin Albumin/Globulin Ratio Triglycerides Cholesterol LDL Cholesterol, Calc VLDL Cholesterol, Calc HDL Cholesterol Cholesterol/HDL Ratio Urine Color Urine Appearance Urine pH Ur Specific Spur Urine Protein Urine Glucose (UA) Urine Ketones Urine Blood Urine Nitrite Urine Bilirubin Urine Urobilinogen Ur Leukocyte Esterase Urine WBC (Auto) Urine RBC (Auto) U Hyaline Cast (Auto) U Epithel Cells (Auto) Urine Bacteria (Auto) Blood Type Antibody Screen PG Care Time/CCT Total # of Minutes Spent Total Time Spent with Patient: Total time spent is greater than 50% in coordination of care (as documented) at patient's floor/unit and/or counseling patient: (1) Hypertension Hypertension type: essential hypertension Qualified Code(s): I10 - Essential (primary) hypertension (2) Hypothyroidism Hypothyroidism type: acquired Qualified Code(s): E03.9 - Hypothyroidism, unspecified
--- NOTE | 2019-08-06 21:30 | Magnetic Resonance Report ---
MR cervical spine wo con HISTORY: Pain. Neuropathy. right hand weakness/numbness/atrophy TECHNIQUE: Multiplanar multisequence MRI of the cervical spine was performed without the use of contr ast. COMPARISON STUDY: None. FINDINGS: Significant degenerative disc change throughout the entire cervical region. Vertebral body stature is normal. No evidence for bone marrow replacing process. Signal characteristics of the cervi steve cord appear unremarkable. C2-C3: No significant central canal or neural foraminal narrowing. C3-C4: No significant central canal or neural foraminal narrowing. C4-C5: Moderate broad-based disc herniation. Moderate impact anterior aspect of the cervical cord. Si gnificant narrowing of the left and right neural foramina. C5-C6: Broad-based bulging disc. Minimal impact anterior cervical cord. Mild osteophytic narrowing of the neural foramina bilaterally. C6-C7: Mild broad-based bulging disc. Minimal impact anterior cervical cord. Significant narrowing of the neural foramina bilaterally on a multifactorial basis. C7-T1: No significant central canal or neural foraminal narrowing. IMPRESSION: 1. Considerable degenerative disc changes throughout. 2. Broad-based disc herniation C4-C5 with moderate impact upon the anterior cervical cord and narrowi ng of the neural foramina bilaterally. 3. Broad-based bulging disc C5-C6 and C6-C7 with moderate to significant narrowing of the neural fora chadd as discussed. The above report was generated using voice recognition software. It may contain grammatical, syntax or spelling errors. Electronically signed by: Matt Garcia M.D. 08/06/2019 9:28 PM
[2019-08-07 06:40] LABS: Basophils # (auto) 0.02 K/uL (0-0.2); Basophils % (auto) 0.3 %; Eosinophils # (auto) 0.08 K/uL (0-0.5); Eosinophils % (auto) 1.3 %; Hematocrit (blood only) 34.1 % (37-47); Hemoglobin 11.2 g/dL (12.0-16.0); Immature Granulocytes # (auto) 0.01 K/uL (0.00-0.02); Immature Granulocytes % (auto) 0.2 %; Lymphocytes # (auto) 2.14 K/uL (1.2-3.4); Lymphocytes % (auto) 34.1 %; Mean Corpuscular Hemoglobin 29.2 pg (25-34); Mean Corpuscular Hgb Conc 32.8 g/dL (32-36); Mean Corpuscular Volume 88.8 fL (80-100); Mean Platelet Volume 9.9 fL (7.4-10.4); Monocytes # (auto) 0.57 K/uL (0.11-0.59); Monocytes % (auto) 9.1 %; Neutrophils # (auto) 3.46 K/uL (1.4-6.5); Platelet Count 346 K/uL (130-400); RDW Coefficient of Variation 15.2 % (11.5-14.5); RDW Standard Deviation 49.2 fL (36.4-46.3); Red Blood Count 3.84 M/uL (4.2-5.4); White Blood Count 6.28 K/uL (4.8-10.8)
[2019-08-07] MEDS: LEVOTHYROXINE SODIUM 112 MCG TABLET PO SCH (06:43)
[2019-08-07 07:12] LABS: BUN Creatinine Ratio 30.2 (10-20); Calcium 9.8 mg/dl (8.5-10.1); Creatinine Clr Calc Pharmacy 38.3 ml/min; Est GFR (African American) 45.4; Est GFR (Non-African American) 39.2; Potassium 4.2 mmol/L (3.5-5.1)
[2019-08-07] MEDS: LIDOCAINE 5% 1 PATCH TD SCH (08:09)
[2019-08-07] MEDS: FUROSEMIDE 20 MG TAB PO SCH (08:09)
[2019-08-07] MEDS: VALSARTAN 80 MG TAB PO SCH (08:10)
[2019-08-07] MEDS: hydroCHLOROthiazide 25 MG TAB PO SCH (08:10)
[2019-08-07] MEDS: ASPIRIN 81 MG ECTAB PO SCH (08:54)
[2019-08-07] MEDS ORDERED: dexAMETHasone 4 MG TAB PO ONE (14:11)
--- NOTE | 2019-08-07 17:53 | Hospitalist Progress Note ---
Date of Service August 07, 2019 Assessment & Plan (1) TIA (transient ischemic attack): presented with right hand weakness/numbness and ?right leg weakness. had fall prior to presentation - now stating she simply lost her balance because of not being able to seed potato cutter her walker. entire TIA w/u negative - MRI brain neg CVA; MRA head/neck neg. Echo w/o source of embolus. Tele negative for PAF. still having right hand weakness/numbness - suspect cervical radiculopathy AND/OR carpal tunnel syndrome on right. [facility] records suggest dx of right-sided carpal tunnel syndrome. I spoke with Dr Sanford who will see her as outpatient for neck issues. Agree with Dr Carter to have outpatient NCS/EMG of arms which will determine if cervical radiculopathy is at play, carpal tunnel, etc. Cont asa for secondary TIA/stroke prevention in the event that her presenting symptoms was indeed from TIA. PT/OT evals appreciated. Can return home with home PT/OT. 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 no new symptoms on right arm or leg. was at bedside during my visit today. tele normal overnight. eating fine. reports that numbness in hands often wakes her up during the night. expresses concerns about her returning home today. he mentions multiple health issues that he is dealing with (recent dx of cancer, lumbar back issues, etc). she and her have both seen Dr Sanford in the past. she indeed had lumbar surgery by Dr Sanford. office note from [facility] from this summer mentions b/l rotator cuff tears, chronic LE weakness, and carpal tunnel syndrome on right. Review of Systems Constitutional: no fever and no chills Respiratory: no cough and no dyspnea Cardiovascular: no chest pain Gastrointestinal: no abdominal pain, no nausea and no vomiting Physical Exam Constitutional: well developed and well nourished; no acute distress and no altered mental status ENMT: external ear and nose normal, oropharynx normal Respiratory: normal respiratory effort, lungs clear to auscultation Cardiovascular: Rate/Rhythm: regular rate and regular rhythm Heart Sounds: normal S1, normal S2 and + murmur (1-2/6 RUSB and LSB) Vessels: no JVD Extremities: + edema (1+ right leg; none on left ) Gastrointestinal (Abdomen): normal bowel sounds, soft, nontender, no hepatosplenomegaly Neurologic: handgrip 4-5/5 right hand; left hand 5/5; muscle wasting of intrinsic muscles of both hands; mild sensory loss of both hands to light touch; +phalen's sign right wrist/hand; right arm strength 5/5; b/l leg strength 5/5; no dysarthria or facial droop Psychiatric: A+Ox3, euthymic affect Results & Data Vital Signs (Past 12 Hours) Vital Signs Temp Pulse Resp BP Pulse Ox 08/07/19 15:51 36.7 C 82 18 114/69 96 08/07/19 11:31 36.7 C 67 16 140/80 98 08/07/19 07:36 36.8 C 70 114/63 95 Laboratory Results Laboratory Results - last 24 hr 08/07/19 08/07/19 06:10 06:10 WBC 6.28 RBC 3.84 L Hgb 11.2 L Hct 34.1 L MCV 88.8 MCH 29.2 MCHC 32.8 RDW Std Deviation 49.2 H RDW Coeff of Rika 15.2 H Plt Count 346 MPV 9.9 Immature Gran % (Auto) 0.2 Neut % (Auto) 55.0 Lymph % (Auto) 34.1 [place] % (Auto) 9.1 Eos % (Auto) 1.3 Baso % (Auto) 0.3 Immature Gran # (Auto) 0.01 Neut # (Auto) 3.46 Lymph # (Auto) 2.14 [place] # (Auto) 0.57 Eos # (Auto) 0.08 Baso # (Auto) 0.02 Sodium 142 Potassium 4.2 Chloride 109 H Carbon Dioxide 25 Anion Gap 8.0 BUN 39 H Creatinine 1.28 H Est Cr Clr Drug Dosing 38.3 Est GFR ( Amer) 45.4 Est GFR (Non-Af Amer) 39.2 BUN/Creatinine Ratio 30.2 H Glucose 104 H Calcium 9.8 Triglycerides 117 Cholesterol 186 LDL Cholesterol, Calc 108 VLDL Cholesterol, Calc 23 HDL Cholesterol 55 Cholesterol/HDL Ratio 3 PG Care Time/CCT Total # of Minutes Spent Total Time Spent with Patient: Total time spent is greater than 50% in coordination of care (as documented) at patient's floor/unit and/or counseling patient: (1) Hypothyroidism Hypothyroidism type: acquired Qualified Code(s): E03.9 - Hypothyroidism, unspecified (2) Hypertension Hypertension type: essential hypertension Qualified Code(s): I10 - Essential (primary) hypertension (3) DJD (degenerative joint disease) of cervical spine Spinal osteoarthritis complication: unspecified spinal osteoarthritis Qualified Code(s): M47.812 - Spondylosis without myelopathy or radiculopathy, cervical region
[2019-08-07] MEDS: ACETAMINOPHEN 325 MG TAB PO PRN (20:15)
[2019-08-08] MEDS: LEVOTHYROXINE SODIUM 112 MCG TABLET PO SCH (06:09)
[2019-08-08 07:07] LABS: Hemoglobin 10.5 g/dL (12.0-16.0); Immature Granulocytes # (auto) 0.01 K/uL (0.00-0.02); Immature Granulocytes % (auto) 0.2 %; Lymphocytes # (auto) 1.82 K/uL (1.2-3.4); Lymphocytes % (auto) 27.7 %; Mean Corpuscular Hemoglobin 29.8 pg (25-34); Mean Corpuscular Hgb Conc 33.9 g/dL (32-36); Mean Corpuscular Volume 88.1 fL (80-100); Mean Platelet Volume 9.6 fL (7.4-10.4); Monocytes % (auto) 7.6 %; Neutrophils # (auto) 4.24 K/uL (1.4-6.5); Neutrophils % (auto) 64.5 %; Platelet Count 328 K/uL (130-400); RDW Coefficient of Variation 15.2 % (11.5-14.5); RDW Standard Deviation 48.7 fL (36.4-46.3); Red Blood Count 3.52 M/uL (4.2-5.4); White Blood Count 6.57 K/uL (4.8-10.8)
[2019-08-08] MEDS: LIDOCAINE 5% 1 PATCH TD SCH (07:42)
[2019-08-08] MEDS: FUROSEMIDE 20 MG TAB PO SCH (07:43)
[2019-08-08] MEDS: VALSARTAN 80 MG TAB PO SCH (07:43)
[2019-08-08] MEDS: hydroCHLOROthiazide 25 MG TAB PO SCH (07:43)
[2019-08-08] MEDS: ASPIRIN 81 MG ECTAB PO SCH (07:43)
[2019-08-08 07:44] LABS: BUN Creatinine Ratio 37.7 (10-20); Calcium 9.2 mg/dl (8.5-10.1); Creatinine Clr Calc Pharmacy 42.4 ml/min; Est GFR (African American) 51.1; Est GFR (Non-African American) 44.1; Potassium 4.1 mmol/L (3.5-5.1)
--- NOTE | 2019-08-08 09:03 | Neurology Progress Note ---
Date of Service August 08, 2019 Assessment & Plan (1) Right arm weakness: (2) Lumbar spinal stenosis: (3) Chronic cerebral ischemia: (4) Cervical spinal stenosis: Patient has a history of acute right hand weakness and dysesthesias after a prolonged walk using a walker August 05. The patient is deficits have improved and she has no numbness or weakness in the right upper extremity compared to baseline but she does have some dysesthesias still in the hand. She does have other right upper extremity weakness in the deltoid and rotator muscles, which I believe is old.. This is consistent with a chronic right rotator cuff injury. The left rotator cuff is also somewhat weak but not as bad as the right. MRI of the brain was unremarkable for stroke. MR angiography of the head neck were unremarkable. Overall, I do not believe this was a TIA or stroke. I think this is more co nsistent with a mechanical issue with the right upper extremity from the overuse of the arms with her prolonged walk with a walker. Positive Tinel sign and hand symptoms/history point towards a carpal tunnel syndrome that was aggravated with the walker. I believe the shoulder girdle was aggravated by the walk as well. Fortunately she is much better today. Patient does have stroke risk factors including hypertension and dyslipidemia. She has a history of chronic cerebral ischemia noted on MRI. Patient has a history of lumbar spinal stenosis post 2 major lumbar spine surgeries with persistent lower extremity weakness. EMG done in July of 2018 showed old scattered bilateral radiculopathy at multiple levels. In addition, the patient has a history of significant cervical spinal stenosis at multiple levels but most prominently at C4-5. This could be giving her some radicular issues in the arms. Recommendations; 1. Because of her chronic cerebral ischemia I think it is reasonable for her to remain on 81 milligram aspirin tablet daily. 2. Her blood pressure is reasonably controlled currently and her lipid profile is unremarkable as well. She would not be a high-dose statin candidate anyway. 3. Increase activity as able. Patient would probably benefit from some physical therapy and occupational therapy. 4. EMG and nerve conduction studies of both upper extremities as an outpatient,. I will evaluate for carpal tunnel syndrome and cervical radiculopathy. 5. We will have to follow her closely to make sure she is not developing a myelopathy from her cervical spinal stenosis. 6. Otherwise, I see no need for additional neurologic testing or treatment changes at this time. Overall, I spent a total of 35 minutes with this case including review of records, review of MRI films, direct evaluation patient bedside, and discussing the case with the patient at bedside and Dr. Arrington , including differential diagnosis and treatment options. Subjective Patient is doing much better since I last saw her 2 days ago. She has much better strength and sensation in her right upper extremity although there still little bit of tingling in the right hand. All fingers are involved. She denies neck pain. MRI of the cervical spine August 06 revealed significant spinal stenosis at C4-5 with lesser stenosis at C6-7 and C5-6. This was due to disc and bone disease. I reviewed these films. CBC showed a mild anemia as before. Chem profile showed a glucose of 111 hemoglobin A1c of 5.9. Echocardiogram was largely unremarkable. Physical Exam Physical Exam: The patient is awake and alert, with normal speech and communication. Mood and affect are normal appropriate. Thought processes are intact good long and short-term memory to conversation. There is no facial droop. Tongue is midline. Extraocular eye muscles are intact without nystagmus. Gait is not tested but stance sitting up in bed is reasonable. Coordination of the arms is normal without tremor or ataxia. Motor strength is 5/5 diffusely in the left up per extremity. The right deltoid is 4/5 and the biceps and triceps are 4+/5. Dry House Operator is 4 +/5 bilaterally. Leg strength is 4/5 diffusely. Results & Data Vital Signs (Past 12 Hours) Vital Signs Temp Pulse Pulse Resp BP BP Pulse Ox 08/08/19 08:14 36.9 C 82 20 126/65 96 08/08/19 00:52 75 08/07/19 23:20 37.0 C 79 18 125/62 95 PG Care Time/CCT Total # of Minutes Spent Total Time Spent with Patient: Total time spent is greater than 50% in coordination of care (as documented) at patient's floor/unit and/or counseling patient:
[2019-08-08] MEDS ORDERED: dexAMETHasone 1 MG TAB PO ONE (09:38)
--- NOTE | 2019-08-08 10:45 | Discharge Summary ---
Date of Service date of admission - August 06, 2019 date of discharge - August 08, 2019 Admission HPI Per Admitting Provider 79-year-old female with a past medical history of hyperlipidemia, hypertension, diabetes, CKD 3, hypothyroidism, anxiety, ANTWAN, neuropathy presents with strokeli ke symptoms. Symptoms include upper and lower extremity weakness. The predominant symptom is right upper extremity weakness. The symptoms began this evening at 1700. She states that she was getting dinner together when she felt tingling in her hands. She states that she has neuropathy at baseline, but this felt different. She started noticing that she was weak in her hands and she was dropping things. In addition, when she sat down to write a note she was unable to move the pen properly. She states that she could still think about what she wanted to say and write. She denies any dysarthria, slurred speech or comprehension issues. She became worried, and when she went to stand up and walk towards the living room she actually fell to the ground. Her witnessed the fall. There was no head injury. She has had other falls in the recent past. Principal Diagnosis possible TIA cervical radiculopathy +/- carpal tunnel syndrome contributing to right hand weakness/numbness Discharge Exam Constitutional well developed and well nourished; no acute distress and no altered mental status ENMT external ear and nose normal, oropharynx normal Respiratory normal respiratory effort, lungs clear to auscultation Cardiovascular Rate/Rhythm: regular rate and regular rhythm Heart Sounds: normal S1, normal S2 and + murmur (1-2/6 RUSB and LSB) Vessels: no JVD Extremities: + edema (1+ right leg; none on left ) Gastrointestinal (Abdomen) normal bowel sounds, soft, nontender, no hepatosplenomegaly Neurologic intrinsic muscle wasting b/l hands; handgrip left 5/5; handgrip right 4-5/5; sensation intact to light touch b/l hands; strength biceps/triceps b/l 5/5; strength b/l legs 5/5 Psychiatric A+Ox3, euthymic affect Discharge Data Allergies Allergy/AdvReac Type Severity Reaction Status Date / Time Sulfa (Sulfonamide Allergy Mild ITCHING- Verified 08/05/19 21:36 Antibiotics) PT TAKES CELEBREX AT HOME Consultations [facility] - Jamshid Carter MD PT, OT, speech Ordered Studies 1. CT head - neg for acute stroke or ICH. 2. MRI brain - neg for acute or old stroke. Microvascular ischemic changes only. 3. echocardiogram - EF >70%. Moderate LVH. Sclerotic aortic valve; trivial . 4. MRI cervical spine - IMPRESSION: 1. Considerable degenerative disc changes throughout. 2. Broad-based disc herniation C4-C5 with moderate impact upon the anterior cervical cord and narrowing of the neural foramina bilaterally. 3. Broad-based bulging disc C5-C6 and C6-C7 with moderate to significant narrowing of the neural foramina as discussed. 5. MRA head/neck - no stenosis, aneurysm, occlusion, etc. Hospital Course (1) TIA (transient ischemic attack): Presented with right hand weakness/numbness and ?right leg weakness. 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 Entire TIA work-up was negative - MRI brain negative CVA; MRA head/neck negative. Echo without source of embolus. Tele negative for PAF. About 36-48 hours into the stay she still was having right hand weakness/numbness - suspect cervical radiculopathy AND/OR carpal tunnel syndrome on right. [facility] records suggest a prior diagnosis of right-sided carpal tunnel syndrome. Seen in consult by Dr Jamshid Carter from [facility]. Since there was a question of right leg weakness in addition to right hand/arm symptoms it was felt she may have had a TIA but this was uncertain. He advised aspirin for secondary TIA/stroke prevention to be on safe side. PT/OT/speech evals were completed; patient was given hand exercises for the right hand weakness. She was cleared for home. Dr Carter recommended outpatient NCS/EMG of the arms which will determine if cervical radiculopathy is causing her right hand symptoms, carpal tunnel syndrome, etc. LDL was 79 on lipid profile check. Since it was uncertain if this was truly a TIA high-intensity statin therapy was deferred. (2) Right hand weakness: see discussion above in "TIA" suspect cervical radiculopathy +/- carpal tunnel syndrome (CTS) patient was given wrist splint for suspected CTS recommended she wear it at minimum at night-time (and daytime if symptoms are s evere) needs NCS/EMG as outpatient - will arrange such at [facility] clinic (3) Carpal tunnel syndrome of right wrist: suspected see discussion above (4) DJD (degenerative joint disease) of cervical spine: mod-severe as seen on CT cervical spine in 2018 and MRI cervical spine this admission. in the event her right hand symptoms were due to radiculopathy from c-spine she was given 2 days of decadron orally here followed by a 5-day course of decadron at discharge. she will follow-up with Dr Tomasz Sanford's office for her neck and hand. (5) Chronic kidney disease, stage 3 (moderate): creatinine stable during the stay creatinine 1.1 at discharge (6) Obstructive sleep apnea: (7) Hypertension: controlled throughout her stay with home regimen of medication (8) Hypothyroidism: TSH wnl cont synthroid (9) Lymphedema: RLE - chronic cont diuretics (10) Arthritis, degenerative: numerous sites - hips, knees, fingers, etc. had been taking celebrex at home since she will be on aspirin and also a short course of decadron recommended to HOLD the celebrex for now to prevent GI upset advised her to discuss with PCP about risks/benefits of resuming the celebrex at a later date Total Time Total Time Spent Total Time Spent (In Minutes): 45 Total Time Includes: Examination of the Patient, Discharge Planning, Medication Reconciliation and Communication With Other Providers Discharge Plan Discharge Items Patient Disposition: Home - Home Health Services Reason For Visit: right hand weakness & numbness Discharge Diagnosis: Right hand weakness & numbness - NO evidence of stroke. MRI brain negative. Question if hand weakness/numbness was from "TIA" vs carpal tunnel syndrome vs pinched nerve in your neck vs combination of factors. Activity: Resume your previous activity Non-emergency contact: Primary Care Provider, Surgeon and Neurologist Call non-emergency contact if: you have any medication questions, your symptoms worsen and you have a fever Follow-up/Referrals: Nakul Carter III, MD [Physician] - (Please, follow up at [facility] with Dr. Carter for nerve conduction studies. *A nurse will contact you with the appointment details. The office is located at [facility] in [place]. If you have any questions, call the office at [phone].) Tami Shelby DO [Primary Care Provider] - 08/13/19 1:20 pm (Please, follow up with Dr. Shelby on SundayAugust 13 at 1:20 pm. *If you need to change this appointment, call the office at [phone].) Leroy Barrett, [Staff Physician] - 08/11/19 11:15 am (Please, follow up at [facility] with Dr. Barrett on SundayAugust 11 at 11:15 am. *THE OFFICE IS LOCATED AT [address] [place] [address] [place]. If you need to change this appointment, call the office at [phone]. The sales operations associate said that they can arrange an appointment for you with Dr. Sanford, at that time, if you wish. They share an office.) Diet: Heart Healthy Addtl Attending Provider Instructions: You were evaluated for worsening numbness of the entire right hand along with hand/arm weakness on the same side. In the midst of this you also had weakness that led to a fall. STROKE WAS RULED OUT as your MRI of the brain was negative for such. Your circulation in your neck and head was normal on imaging. Your echocardiogram was normal. Your heart monitoring did not show atrial fibrillation which is an irregular heart rhythm that can cause strokes or TIAs. At this time your symptoms may be due to TIA (transient ischemic attack) vs carpal tunnel syndrome vs cervical spine arthritis with pinched nerve vs combination of factors. If this was indeed a TIA Dr Carter has recommended that you take aspirin 81mg daily for prevention of another TIA event. Additional recommendations -- 1. for your neck arthritis and the possible carpal tunnel syndrome take dexamethasone 2mg daily for 5 days. Start this TOMORROW on 08/09/19. Take with food. 2. because you will be taking daily aspirin I would STOP your celebrex. Taking celebrex and aspirin together could potentially cause stomach upset or even an ulcer. Please discuss this further with your family doctor. 3. follow-up with Dr Carter's office for nerve conduction studies to determine the exact cause of your hand symptoms. 4. follow-up with Dr Sanford for your neck. 5. see Dr Shelby as scheduled next week. 6. wear the wrist splint on your right wrist at NIGHT-time while sleeping at minimum. If your hand is bothering you severely during the day then try to wear it during the day, as tolerated. Additional TIA instructions - Risk Factors for TIA and Stroke: You can reduce your chances of stroke by working with your medical provider to adopt a healthy lifestyle. Some specific ways to lower your chance of stroke are: * If you are a smoker, now is the time to stop smoking cigarettes * If you are diabetic, improve the control of your blood sugars * Avoid excessive amounts of alcohol * Control high blood pressure * Lose weight if you are overweight * Be sure to lead an active lifestyle * Eat a healthy diet low in salt, cholesterol and fat You should know about other risk factors for stroke that you are unable to control. These include: * Age 55 years or older * Male gender * Certain racial groups: , or / * Family History of Stroke, Mini stroke or Heart Attack * Sickle Cell Disease Follow Up: It is important for you to keep your follow up appointments with your medical provider. Who to Call and When: Medical Emergencies: Call 911 immediately if you experience any of the following warning signs and symptoms of Stroke: * Sudden numbness or weakness of the face, arm or leg, especially on one side of the body * Sudden confusion, trouble speaking or understanding * Sudden trouble seeing in one or both eyes * Sudden trouble walking, dizziness, loss of balance or coordination * Sudden severe headache with no cause Do not delay calling 911 if you experience any warning signs or symptoms of a stroke. Delay in seeking medical attention may affect what treatments can be given to you. . Pending Studies at Discharge: No Stand-Alone Forms: My [facility], Smoking Cessation Medications and DC Order Prescriptions: New aspirin [Ecotrin Low Strength] 81 mg Tablet,Delayed Release (Dr/Ec) 81 mg PO QAM Qty: 90 RF: 3 dexamethasone 2 mg tablet 2 mg PO DAILY 5 Days Qty: 5 RF: 0 Continued levothyroxine 112 mcg tablet 112 mcg PO DAILY Qty: 90 RF: 1 tramadol 50 mg tablet 50 mg PO DAILY Qty: 30 RF: 0 cholecalciferol (vitamin D3) [Vitamin D3] 2,000 unit capsule 2,000 unit PO DAILY Qty: 90 RF: 3 furosemide 20 mg tablet 20 mg PO DAILY Qty: 90 RF: 3 lovastatin 20 mg tablet 20 mg PO .COMPLEX Qty: 90 RF: 3 valsartan-hydrochlorothiazide [Diovan HCT] 320-25 mg tablet 1 tab PO DAILY Qty: 90 RF: 3 acetaminophen [Tylenol Extra Strength] 500 mg Tablet 500 mg PO Q6H PRN (Reason: Pain) RF: 0 Changed lidocaine 5 % adhesive patch,medicated 2 patch TOP DAILY PRN (Reason: Pain) Qty: 60 RF: 0 Discontinued celecoxib 200 mg capsule 200 mg PO DAILY Qty: 90 RF: 3 Discharge Orders: Discharge Order (Routine); Ordered 08/08/19 Ordered By: Zaid Billingsley/Other Patient Handouts: Syndrome Carpal Tunnel, ED Transient Ischemic Attack Admission Data Admit Date/Time: 08/05/19 23:17 Attending Provider: Zaid Arrington Admit Provider: John Carvajal Primary Care Provider: Tami Shelby Other Providers: Nakul Carter III ; Chandana Rivera Other Interventions: Discharge Summary Assessment (RN) Last Done: 08/08/19 11:36 DC Date/Time DO NOT enter until pt leaves facility: 08/08/19 12:55
--- NOTE | 2019-08-22 13:08 | Coding Query ---
CODING QUERY To promote full compliance with coding requirements relating to patient care, provider participation is requested in all cases of cradle placer uncertainty. Please assist us with the question(s) below: Coding Question(s): Possible TIA is documented on the Discharge Summary, however, there is conflicting documentation in the record with documentation of, "Entire TIA work-up was negative", and "Seen in consult by Dr Jamshid Carter from [facility]. Since there was a question of right leg weakness in addition to right hand/arm symptoms it was felt she may have had a TIA but this was uncertain. He advised aspirin for secondary TIA/stroke prevention to be on safe side" and the Neurology Progress Note on 08/08 documents, "Overall, I do not believe this was a TIA or stroke". Please clarify below, in your clinical opinion, regarding Possible TIA. ( x) Possible TIA ( ) TIA is Ruled-Out ( ) Other: Please Specify Physician's Response(s): Thank you Annel Hunt Principal Diagnosis: "that condition established after study, to be chiefly responsible for occasioning the admission of the patient to the hospital for care." Co-Existing Principal Diagnosis: "when two or more diagnoses equally meet the criteria for principal diagnosis as determined by the circumstances of admission, diagnostic work up, and/or therapy provided, and the Alphabetic Index, Tabular List, or another coding guideline does not provide sequencing direction, any one of the diagnoses may be sequenced first." "When the physician has documented what appears to be a current diagnosis in the body of the record, but has not included the diagnosis in the final diagnostic statement, the physician should be asked whether the diagnosis should be added." (Source Coding Clinic 2 QTR90. p3-4) [facility]
== END 2019-08-08 12:55 | disposition home health service (06) | DRG 74 ==
LOC: ED 20:01 → 2N 23:17 → SUATTDRO 23:17 → 2N 23:49

== ENCOUNTER 2019-09-06 16:15 | Inpatient (IN) ==
[2019-09-06] MEDS ORDERED: SODIUM CHLORIDE 0.9% 500 ML IV SCH (16:45)
--- NOTE | 2019-09-06 17:06 | Emergency Department Note ---
Entered by Johanne Chamorro acting as a scribe for Piyush Sharma MD History of Present Illness General Chief complaint: Fall Stated complaint: FELL, NUMBNESS IN RIGHT LEG, UNSTABLE Time Seen by Provider: 09/06/19 16:22 Source: patient and family History of Present Illness Onset (ago): hour(s) (today) Location: head, neck, pelvis and buttocks Maximum Pain Intensity: 5 Current Pain Intensity: 0 Associated symptoms: + denies other symptoms (diarrhea, urinary sx, neck pain, back pain, lumps/bumps on head from fall ); no fever/chills and no nausea/vomiting The patient is an 79 year old female with a history of recurrent falls, trouble ambulating, knee and hip replacements, and chronic left hip pain who presents to the Emergency Room for an evaluation of a fall. The patient explains that she normally uses a walker and a cane to ambulate without trouble. Today she states that she was using her walker to go to the bathroom when all of the sudden she fell backwards onto the floor landing on her buttocks and hitting her posterior head and neck. She explains that her family had to help her get up from the fall. The patient states that she did not get hurt from the fall and explains that she does not have any pain from the fall. She only complains of left hip pain but she reports that this is chronic and not new from the fall. She reports bilateral leg weakness this morning and since the fall she states that she feels like she cannot stand. The patient admits that there is a possibility that she is dehydrated. Of note, she is currently not on blood thinners and has not had any recent medication changes. She denies fever, vomiting, diarrhea, urinary symptoms, neck pain, back pain, and any lumps or bumps on her head from the fall. The patient offers no additional concerns at this time. Home Medications Home Medications Medication Instructions Recorded Confirmed Type acetaminophen [Tylenol Extra 500 mg PO Q6H PRN 08/05/19 09/06/19 History Strength] celecoxib [Celebrex] 200 mg PO QAM 09/06/19 09/06/19 History cholecalciferol (vitamin D3) 2,000 unit PO QAM 09/06/19 09/06/19 History [Vitamin D3] levothyroxine [Synthroid] 112 mcg PO QAM 09/06/19 09/06/19 History lidocaine 1 patch TOP Q12 PRN 09/06/19 09/06/19 History lovastatin 20 mg PO Q OTHER DAY 09/06/19 09/06/19 History valsartan-hydrochlorothiazide 1 tab PO QAM 09/06/19 09/06/19 History [Diovan HCT] Allergies Allergy/AdvReac Type Severity Reaction Status Date / Time Sulfa (Sulfonamide Allergy Mild ITCHING- Verified 09/06/19 18:22 Antibiotics) PT TAKES CELEBREX AT HOME Past Med/Surg History Medical History Acid reflux Anemia Anxiety Arthritis, degenerative Chronic kidney disease, stage 3 (moderate) Contusion of right shoulder Dyslipidemia Hearing difficulty Hypertension Hypothyroidism Idiopathic scoliosis Lumbar spinal stenosis Lymphedema Obstructive sleep apnea Osteoporosis SBO (small bowel obstruction) Urinary incontinence Venous hypertension Venous insufficiency Surgical History H/O: knee surgery History of appendectomy History of appendectomy History of back surgery History of bilateral hip replacements History of colonoscopy History of esophagogastroduodenoscopy WITH BIOPSY History of lumbar fusion ;VERTEBRAL History of surgery UTERINE SURGERY History of total hip replacement RIGHT HIP- 02/17 History of total knee arthroplasty LEFT KNEE- 06/18 Family History Father , age 80 of heart disease Cardiac disorder Hypertension Osteoarthritis Mother , age 82 of uncertain cause History of cholecystectomy Hypertension Kidney disease History of kidney stones Grandmother Myocardial infarction 56 Social History Preferred Language: Malian Communication Ability: Effective Visual Impairment: No Limitations Hearing Ability: Hard of Hearing Irrigation Engineer Required: No Beliefs That Will Affect Care: None marital status: Current Living Situation: Spouse current occupational status: retired 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 Feels Safe at Home: Yes Smoking Status: Never smoker Second Hand Exposure: No ; Hx Alcohol Use: Yes Alcohol type: wine Alcohol Intake Frequency: Weekly Alcohol Intake Frequency Comment: One glass wine per week Hx Substance Use: No caffeine: Yes Dental Care, Regularly: Yes Physical Activity Frequency: Daily Seatbelt Use: always Sunscreen Use: Yes Review of Systems See HPI for pertinent positives & negatives. and A total of 10 systems reviewed and were otherwise negative Physical Exam Vital Signs Vital Signs - 24 hr 09/06/19 16:18 09/06/19 17:19 09/06/19 17:25 Temperature 36.4 C L Temperature Source Oral Pulse Rate 83 Pulse Rate [Finger] 67 Pulse Rate from SpO2 Sensor Respiratory Rate 18 18 Respiratory Effort / Characteristics Non-Labored Non-Labored Respiratory Depth Normal Normal Blood Pressure 166/72 H Blood Pressure [Left Arm] 171/76 H Blood Pressure Mean 103 Blood Pressure Mean [Left Arm] 107 Blood Pressure Position Sitting Pulse Oximetry 99 97 97 Oxygen Delivery Method Room Air Room Air Room Air Sepsis Recent Fever Within 48 Hours No Sepsis New/Unexplained Change in Mental Status No Sepsis Action Taken by Nursing No Action Required 09/06/19 18:30 09/06/19 18:39 Temperature Temperature Source Pulse Rate 75 78 Pulse Rate [Finger] Pulse Rate from SpO2 Sensor 76 77 Respiratory Rate 15 15 Respiratory Effort / Characteristics Respiratory Depth Blood Pressure 143/73 H Blood Pressure [Left Arm] Blood Pressure Mean 97 Blood Pressure Mean [Left Arm] Blood Pressure Position Pulse Oximetry 99 98 Oxygen Delivery Method Sepsis Recent Fever Within 48 Hours Sepsis New/Unexplained Change in Mental Status Sepsis Action Taken by Nursing GENERAL: Patient is in no acute distress. HEENT: No acute trauma, normocephalic atraumatic, mucous membranes moist, no nasal congestion, no scleral icterus. NECK: No stridor, no adenopathy, no meningismus, trachea is midline. No cervical spine tenderness. LUNGS: Clear to auscultation bilaterally, no wheeze, no rhonchi, breath sounds equal. HEART: 2/6 systolic murmur, mild tachycardia, regular rhythm. ABDOMEN: Soft, nontender, bowel sounds positive, no hernias, no peritonitis. EXTREMITIES: No cyanosis, bilateral pedal edema worse on the right, no signs for acute trauma. Chronic lower extremity skin changes noted. NEUROLOGIC: Oriented x 3, no acute motor or sensory deficits, no focal weakness. SKIN: No rash, no jaundice, no diaphoresis. Course Course 1625: Past medical records reviewed. The patient was evaluated in room A10. A complete history and physical exam was performed. 1809: I checked on the patient and updated her and her family on results and findings. I spoke to case management and Dr. Canales, [facility] Hospitalist who accepts the patient for admission. The patient verbally expressed understanding and agreement of the treatment plan. The patient will be evaluated for further treatment. Administered Medications Discontinued Medications Sodium Chloride (Nss) 500 mls @ 999 mls/hr IV .Q31M SANJAY Stop: 09/06/19 17:15 Last Infusion: 09/06/19 18:00 Dose: 0 mls/hr Documented by: [id number] Admin: 09/06/19 17:20 Dose: 999 mls/hr Documented by: [id number] Sodium Chloride (Nss 1000ml) 500 mls @ 999 mls/hr IV .Q31M ONE Stop: 09/06/19 18:27 Last Admin: 09/06/19 18:40 Dose: 999 mls/hr Documented by: [id number] Ceftriaxone Sodium (Rocephin) 2,000 mg in 70 mls @ 140 mls/hr IV NOW STA Stop: 09/06/19 18:36 Last Admin: 09/06/19 18:40 Dose: 140 mls/hr Documented by: [id number] Medical Decision Making Differential Diagnosis Differential diagnosis includes but is not limited to debilitation, severe arthritis, hip fracture, pelvis fracture, UTI, anemia, dehydration, electrolyte imbalance, cardiac ischemia. Medical Records Attestation: I reviewed the patient's medical records. Home Medications Current Medication List: was personally reviewed by me Laboratory Data Attestation: I reviewed the patient's lab results. Result diagrams: 09/06/19 17:17 09/06/19 17:17 Lab Results 09/06/19 09/06/19 09/06/19 Range/Units 17:17 17:17 17:35 WBC 7.04 (4.8-10.8) K/uL RBC 3.63 L (4.2-5.4) M/uL Hgb 10.7 L (12.0-16.0) g/dL Hct 32.8 L (37-47) % MCV 90.4 (80-100) fL MCH 29.5 (25-34) pg MCHC 32.6 (32-36) g/dL RDW Std Deviation 51.5 H (36.4-46.3) fL RDW Coeff of Rika 15.6 H (11.5-14.5) % Plt Count 402 H (130-400) K/uL MPV 9.2 (7.4-10.4) fL Immature Gran % (Auto) 0.1 % Neut % (Auto) 73.4 % Lymph % (Auto) 17.3 % Canyon % (Auto) 8.8 % Eos % (Auto) 0.3 % Baso % (Auto) 0.1 % Immature Gran # (Auto) 0.01 (0.00-0.02) K/uL Neut # (Auto) 5.16 (1.4-6.5) K/uL Lymph # (Auto) 1.22 (1.2-3.4) K/uL Canyon # (Auto) 0.62 H (0.11-0.59) K/uL Eos # (Auto) 0.02 (0-0.5) K/uL Baso # (Auto) 0.01 (0-0.2) K/uL Sodium 140 (136-145) mmol/L Potassium 3.9 (3.5-5.1) mmol/L Chloride 108 H (98-107) mmol/L Carbon Dioxide 27 (21-32) mmol/L Anion Gap 5.0 (3-11) BUN 25 H (7-18) mg/dl Creatinine 1.11 (0.6-1.2) mg/dl Est Cr Clr Drug Dosing Not Reportable Est GFR ( Amer) 53.9 Est GFR (Non-Af Amer) 46.5 BUN/Creatinine Ratio 22.5 H (10-20) Glucose 96 (70-99) mg/dl Calcium 9.4 (8.5-10.1) mg/dl Magnesium 2.0 (1.8-2.4) mg/dl Total Bilirubin 0.3 (0.2-1) mg/dl AST 29 (15-37) U/L ALT 32 (12-78) U/L Alkaline Phosphatase 155 H (45-117) U/L Troponin I 0.066 H* (0-0.045) ng/ml Total Protein 7.3 (6.4-8.2) gm/dl Albumin 3.2 L (3.4-5.0) gm/dl Globulin 4.1 H (2.5-4.0) gm/dl Albumin/Globulin Ratio 0.8 L (0.9-2) TSH 2.850 (0.300-4.500) uIu/ml Urine Color Yellow Urine Appearance Clear (Clear) Urine pH 5.5 (4.5-7.5) Ur Specific [place] 1.018 (1.000-1.030) Urine Protein Negative (Negative) Urine Glucose (UA) Negative (Negative) Urine Ketones Negative (Negative) Urine Blood Trace H (Negative) Urine Nitrite Positive A (Negative) Urine Bilirubin Negative (Negative) Urine Urobilinogen Negative (Negative) Ur Leukocyte Esterase 2+ H (Negative) Urine WBC (Auto) >30 H (0-5) /hpf Urine RBC (Auto) 0-4 (0-4) /hpf U Hyaline Cast (Auto) 1-5 (0-5) /lpf U Epithel Cells (Auto) 5-10 H (0-5) /lpf Urine Bacteria (Auto) 4+ H (Negative) Imaging Data Radiologist's Impression: Radiology results as stated below per my review and the radiologist's interpretation: XR chest 1V portable CLINICAL HISTORY: weakness dyspnea COMPARISON STUDY: 08/17/2018 FINDINGS: Mild stable cardiac enlargement. Compression deformity of a mid thoracic vertebral body unchanged. Lungs otherwise are clear. Postoperative changes thoracolumbar junction unchanged IMPRESSION: Chronic and postoperative change. No acute process. The above report was generated using voice recognition software. It may contain grammatical, syntax or spelling errors. Electronically signed by: Matt Garcia M.D. 09/06/2019 5:06 PM XR hip LT 2V w pelvis CLINICAL HISTORY: fall, pain trauma. Pain. COMPARISON: None. DISCUSSION: Severe degenerative change left hip. Sclerosis of the superior femoral head as well as superior acetabular margin. Total right hip arthroplasty in good position. Good contact between prosthetic in an Bone. There is no evidence for soft tissue swelling. IMPRESSION: Severe degenerative and postoperative changes as described. No acute posttraumatic abnormality. The above report was generated using voice recognition software. It may contain grammatical, syntax or spelling errors. Electronically signed by: Matt Garcia M.D. 09/06/2019 5:10 PM ECG Data Attestation: I personally reviewed and interpreted this ECG as follows: Indication: + other (fall) Rate (beats per minute): 75 Rhythm: + normal sinus ECG ST segments: no ST elevation ECG Findings: + Other (QTc is 422); no PVCs Blood Pressure Blood Pressure Findings: Elevated blood pressure Blood Pressure Disposition: further management by hospitalist MDM Narrative There is no leukocytosis. The patient is mildly anemic but this is baseline looking back at previous testing. No significant electrolyte abnormality or kidney failure. No worrisome liver enzyme elevation. The patient appears to be in a euthyroid state. EKG shows a sinus rhythm, no acute ischemia. Cardiac enzyme testing x1 does show a slight troponin elevation, this could be consistent with cardiac strain or injury. Urinalysis does suggest infection, urine culture is pending. Chest film does not show pneumonia or concerning CHF. Left hip and pelvis films show [id number] arthritis at the left hip, there was no pelvic or hip fracture. The patient received IV ceftriaxone as antibiotic coverage for the UTI. She received IV saline, 2/500 cc saline boluses. Patient presents with weakness to the point where she can no longer walk with her walker. This was a sudden change for her today. She fell but did not suffer any injury from the fall. On work-up, she has an elevation to her cardiac troponin, she has a UTI. I do think hospitalization is warranted. I spoke to the patient and case management. The on-call hospitalist was consulted. Impression & Plan Weakness, Elevated troponin, UTI (urinary tract infection), Fall, Left hip pain Discharge Plan Visit Data Chief Complaint: Fall Stated Complaint: FELL, NUMBNESS IN RIGHT LEG, UNSTABLE ED Provider: Piyush Sharma Discharge Problem: Weakness, Elevated troponin, UTI (urinary tract infection), Fall, Left hip pain Patient Disposition: Being Evaluated by Hospitalist Forms Stand Alone Forms: My [facility] [employer] Prescriptions Prescriptions: No Action acetaminophen [Tylenol Extra Strength] 500 mg Tablet 500 mg PO Q6H PRN (Reason: Pain) RF: 0 celecoxib [Celebrex] 200 mg capsule 200 mg PO QAM RF: 0 lidocaine 5 % adhesive patch,medicated 1 patch TOP Q12 PRN (Reason: Pain) RF: 0 lovastatin 20 mg tablet 20 mg PO Q OTHER DAY RF: 0 levothyroxine [Synthroid] 112 mcg tablet 112 mcg PO QAM RF: 0 valsartan-hydrochlorothiazide [Diovan HCT] 320-25 mg tablet 1 tab PO QAM RF: 0 cholecalciferol (vitamin D3) [Vitamin D3] 2,000 unit capsule 2,000 unit PO QAM RF: 0 Referrals Referrals: Tami Shelby DO [Primary Care Provider] - Discharge Problem: UTI (urinary tract infection) Qualifiers: Urinary tract infection type: site unspecified Hematuria presence: without hematuria Qualified Code(s): N39.0 - Urinary tract infection, site not specified Fall Qualifiers: Encounter type: initial encounter Qualified Code(s): W19.XXXA - Unspecified fall, initial encounter The scribe's documentation has been prepared under my direction and personally reviewed by me in its entirety. I confirm that the note above accurately reflects all work, treatment, procedures, and medical decision making performed by me.
--- NOTE | 2019-09-06 17:11 | XRay Report ---
XR hip LT 2V w pelvis CLINICAL HISTORY: fall, pain trauma. Pain. COMPARISON: None. DISCUSSION: Severe degenerative change left hip. Sclerosis of the superior femoral head as well as barrios perior acetabular margin. Total right hip arthroplasty in good position. Good contact between prosthetic in an Bone. There is no evidence for soft tissue swelling. IMPRESSION: Severe degenerative and postoperative changes as described. No acute posttraumatic abnorm ality. The above report was generated using voice recognition software. It may contain grammatical, syntax or spelling errors. Electronically signed by: Matt Garcia M.D. 09/06/2019 5:10 PM
[2019-09-06 17:26] LABS: Basophils # (auto) 0.01 K/uL (0-0.2); Basophils % (auto) 0.1 %; Eosinophils # (auto) 0.02 K/uL (0-0.5); Eosinophils % (auto) 0.3 %; Hematocrit (blood only) 32.8 % (37-47); Hemoglobin 10.7 g/dL (12.0-16.0); Immature Granulocytes # (auto) 0.01 K/uL (0.00-0.02); Immature Granulocytes % (auto) 0.1 %; Lymphocytes # (auto) 1.22 K/uL (1.2-3.4); Lymphocytes % (auto) 17.3 %; Mean Corpuscular Hemoglobin 29.5 pg (25-34); Mean Corpuscular Hgb Conc 32.6 g/dL (32-36); Mean Corpuscular Volume 90.4 fL (80-100); Mean Platelet Volume 9.2 fL (7.4-10.4); Monocytes # (auto) 0.62 K/uL (0.11-0.59); Monocytes % (auto) 8.8 %; Neutrophils # (auto) 5.16 K/uL (1.4-6.5); Neutrophils % (auto) 73.4 %; Platelet Count 402 K/uL (130-400); RDW Coefficient of Variation 15.6 % (11.5-14.5); RDW Standard Deviation 51.5 fL (36.4-46.3); Red Blood Count 3.63 M/uL (4.2-5.4); White Blood Count 7.04 K/uL (4.8-10.8)
[2019-09-06 17:42] LABS: Alanine Aminotransferase 32 U/L (12-78); Albumin Level 3.2 gm/dl (3.4-5.0); Aspartate Aminotransferase 29 U/L (15-37); BUN Creatinine Ratio 22.5 (10-20); Blood Urea Nitrogen 25 mg/dl (7-18); Calcium 9.4 mg/dl (8.5-10.1); Carbon Dioxide 27 mmol/L (21-32); Chloride 108 mmol/L (98-107); Est GFR (African American) 53.9; Est GFR (Non-African American) 46.5; Glucose 96 mg/dl (70-99); Potassium 3.9 mmol/L (3.5-5.1); Sodium 140 mmol/L (136-145)
[2019-09-06 17:49] LABS: Appearance Urine Clear (Clear); Bacteria Urine Automated 4+ (Negative); Bilirubin Urine Negative (Negative); Blood Urine Trace (Negative); Color Urine Yellow; Glucose Urine UA Negative (Negative); Ketones Urine Negative (Negative); Leukocyte Esterase Urine 2+ (Negative); Nitrite Urine Positive (Negative); Protein Urine Negative (Negative); RBC Urine Automated 0-4 /hpf (0-4); Specific Gravity Urine 1.018 (1.000-1.030); Urobilinogen Urine Negative (Negative); WBC Urine Automated >30 /hpf (0-5); pH Urine 5.5 (4.5-7.5)
[2019-09-06 17:56] LABS: Albumin Globulin Ratio 0.8 (0.9-2); Alkaline Phosphatase 155 U/L (45-117); Bilirubin,Total 0.3 mg/dl (0.2-1); Globulin 4.1 gm/dl (2.5-4.0); Total Protein 7.3 gm/dl (6.4-8.2); Troponin I 0.066 ng/ml (0-0.045)
[2019-09-06] MEDS ORDERED: SODIUM CHLORIDE 0.9% 1000ML 500 ML IV ONE (17:57)
[2019-09-06] MEDS ORDERED: cefTRIAXone SODIUM 2,000 MG/70 ML BAG IV STA (18:07)
[2019-09-06] MEDS ORDERED: POLYETHYLENE (MIRALAX) 17 GM PACK PO PRN (20:30)
[2019-09-06] MEDS ORDERED: ALUMINUM/MAGNESIUM SUSP 30 ML UDC PO PRN (20:30)
[2019-09-06] MEDS ORDERED: MAGNESIUM HYDROXIDE SUSP 30 ML UDC PO PRN (20:30)
[2019-09-06] MEDS ORDERED: ONDANSETRON INJ 2 MG/ML 2 ML VIAL IV PRN (20:30)
[2019-09-06 20:52] LABS: Basophils # (auto) 0.02 K/uL (0-0.2); Basophils % (auto) 0.3 %; Eosinophils # (auto) 0.06 K/uL (0-0.5); Eosinophils % (auto) 0.8 %; Hematocrit (blood only) 31.4 % (37-47); Hemoglobin 10.1 g/dL (12.0-16.0); Immature Granulocytes # (auto) 0.01 K/uL (0.00-0.02); Immature Granulocytes % (auto) 0.1 %; Lymphocytes % (auto) 27.2 %; Mean Corpuscular Hemoglobin 29.4 pg (25-34); Mean Corpuscular Hgb Conc 32.2 g/dL (32-36); Mean Corpuscular Volume 91.5 fL (80-100); Mean Platelet Volume 8.9 fL (7.4-10.4); Monocytes # (auto) 0.77 K/uL (0.11-0.59); Monocytes % (auto) 10.5 %; Neutrophils # (auto) 4.48 K/uL (1.4-6.5); Neutrophils % (auto) 61.1 %; Platelet Count 387 K/uL (130-400); RDW Coefficient of Variation 15.6 % (11.5-14.5); RDW Standard Deviation 52.2 fL (36.4-46.3); Red Blood Count 3.43 M/uL (4.2-5.4); White Blood Count 7.34 K/uL (4.8-10.8)
[2019-09-06 21:08] LABS: Albumin Level 2.9 gm/dl (3.4-5.0); BUN Creatinine Ratio 22.3 (10-20); Calcium 9.2 mg/dl (8.5-10.1); Creatinine Clr Calc Pharmacy 48.4 ml/min; Est GFR (African American) 57.7; Est GFR (Non-African American) 49.8; Potassium 3.9 mmol/L (3.5-5.1)
[2019-09-06 21:17] LABS: Albumin Globulin Ratio 0.7 (0.9-2); Bilirubin,Total 0.3 mg/dl (0.2-1); Globulin 4.1 gm/dl (2.5-4.0); Troponin I 0.073 ng/ml (0-0.045)
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
[2019-09-06] MEDS ORDERED: SODIUM CHLORIDE 0.9% 1000ML 1,000 ML IV SCH (21:30)
[2019-09-06] MEDS ORDERED: VANCOMYCIN CONSULT ACTIVE PRN (21:46)
--- NOTE | 2019-09-06 22:20 | Ultrasound Report ---
US venous doppler LE BI HISTORY: Pain. Edema. possible DVT COMPARISON STUDY: None. FINDINGS: There is normal compressibility, flow, and augmentation within the bilateral lower extremit y deep venous systems. IMPRESSION: No DVT within the right or left lower extremity. note is made of a 4 x 2 cm right popliteal cyst. The above report was generated using voice recognition software. It may contain grammatical, syntax or spelling errors. Electronically signed by: Matt Garcia M.D. 09/06/2019 10:19 PM
[2019-09-06] MEDS: ENOXAPARIN INJ 40 MG/0.4 ML SYR SQ SCH (22:42)
[2019-09-06] MEDS: LIDOCAINE 5% 1 PATCH TD PRN (22:45)
[2019-09-06] MEDS: ACETAMINOPHEN 325 MG TAB PO PRN (22:55)
[2019-09-06] MEDS ORDERED: VANCOMYCIN HCL 2,000 MG in SODIUM CHLORIDE 0.9% 500 ML IV SCH (23:00)
[2019-09-07 02:25] LABS: Basophils # (auto) 0.02 K/uL (0-0.2); Basophils % (auto) 0.3 %; Eosinophils # (auto) 0.11 K/uL (0-0.5); Eosinophils % (auto) 1.5 %; Hematocrit (blood only) 28.7 % (37-47); Hemoglobin 9.1 g/dL (12.0-16.0); Immature Granulocytes # (auto) 0.01 K/uL (0.00-0.02); Immature Granulocytes % (auto) 0.1 %; Lymphocytes # (auto) 1.72 K/uL (1.2-3.4); Lymphocytes % (auto) 23.2 %; Mean Corpuscular Hgb Conc 31.7 g/dL (32-36); Mean Corpuscular Volume 91.4 fL (80-100); Mean Platelet Volume 8.8 fL (7.4-10.4); Monocytes # (auto) 0.72 K/uL (0.11-0.59); Monocytes % (auto) 9.7 %; Neutrophils # (auto) 4.84 K/uL (1.4-6.5); Neutrophils % (auto) 65.2 %; Platelet Count 356 K/uL (130-400); RDW Coefficient of Variation 15.7 % (11.5-14.5); RDW Standard Deviation 52.7 fL (36.4-46.3); Red Blood Count 3.14 M/uL (4.2-5.4); White Blood Count 7.42 K/uL (4.8-10.8)
[2019-09-07 02:45] LABS: Albumin Level 2.5 gm/dl (3.4-5.0); BUN Creatinine Ratio 23.1 (10-20); Calcium 8.5 mg/dl (8.5-10.1); Creatinine Clr Calc Pharmacy 48.4 ml/min; Est GFR (African American) 57.7; Est GFR (Non-African American) 49.8; Potassium 3.8 mmol/L (3.5-5.1)
[2019-09-07 02:57] LABS: Albumin Globulin Ratio 0.7 (0.9-2); Bilirubin,Total 0.3 mg/dl (0.2-1); Globulin 3.6 gm/dl (2.5-4.0); Total Protein 6.1 gm/dl (6.4-8.2); Troponin I 0.066 ng/ml (0-0.045)
[2019-09-07] MEDS: LEVOTHYROXINE SODIUM 112 MCG TABLET PO SCH (05:53)
[2019-09-07] MEDS: VALSARTAN 80 MG TAB PO SCH (07:52)
[2019-09-07] MEDS: CHOLECALCIFEROL 1,000 UNITS TAB PO SCH (07:52)
[2019-09-07] MEDS: ACETAMINOPHEN 325 MG TAB PO PRN ×2 (07:52→22:27)
[2019-09-07] MEDS: CeleBREX 200 MG CAP PO SCH (07:52)
[2019-09-07] MEDS: DOCUSATE SODIUM/SENNA 50/8.6MG TAB PO SCH (07:52)
[2019-09-07] MEDS: hydroCHLOROthiazide 25 MG TAB PO SCH (07:52)
[2019-09-07] MEDS ORDERED: NON-FORMULARY MEDICATION (Valsartan-Hydrochlorothiazide [Diovan Hct] 1 TAB) PO SCH (09:00)
[2019-09-07] MEDS ORDERED: VANCOMYCIN HCL 1,000 MG in SODIUM CHLORIDE 0.9% 250 ML IV SCH (11:00)
--- NOTE | 2019-09-07 11:06 | Orthopedic Consultation ---
Date of Consultation September 07, 2019 Assessment & Plan (1) Osteoarthritis of left hip: She has severe end-stage left hip osteoarthritis with erosion of the femoral head and acetabulum. This has been known to her for quite a long time, and she is already getting treatment for this including hip joint steroid injections. However, her bigger problem is bilateral lower extremity weakness. This is her main reason that she has not gotten her hip replaced yet. This seems to have worsened significantly over the past 2 days. This caused her fall yesterday, and she has been unable to ambulate due to this weakness since then. She denies any change in her pre-existing left hip joint arthritis pain. She denies any change in her lower extremity sensation or bowel/bladder habits to indicate a spinal pathology. I am unsure what is causing her lower extremity weakness; she will require further medical work-up for this. She does not require any acute orthopedic surgical intervention; we will sign off for now. If the weakness improves over time and she would like to further pursue a left total hip arthroplasty, she can follow-up with Dr. Staley at [facility] after discharge. Call [phone] to set up an appointment. Present on Admission?: Yes History of Present Illness Reason for Consultation: Left hip arthritis Attending Physician: Marcell Daniel MD History of Present Illness Ms. Hogan is an 79-year-old female with chronic left hip pain with known severe arthritis in that left hip. She has had progressively worsening weakness in bilateral lower extremities with recurrent falls for quite some time, but had a fall another fall yesterday when her legs gave out. She denies that it was the left hip pain that caused the weakness. After her fall yesterday, she really did not have any significant strength in either leg and was unable to get up. She has been unable to ambulate since then. She denies any obvious change in her left hip pain from before the fall to after. She denies any change in her sensation in either leg. She denies change in her bowel or bladder habits. She has seen Dr. Barrett at [facility] pain management for this left hip pain. She has had 2 left hip joint steroid injections in the past. The first 1 worked for many months, but the second 1 this past spring really did not give her any significant relief. However, she has not pursued a hip replacement on this left side due to her chronic leg weakness. She has previously had a right total hip arthroplasty by Dr. Grace over 10 years ago, with a subsequent revision. She has also had bilateral total knee replacements with revisions of each. Dr. Grace and Dr. Stoddard were involved in those knee surgeries. She has also had lumbar spine surgery by Dr. Sanford. Allergies Allergy/AdvReac Type Severity Reaction Status Date / Time Sulfa (Sulfonamide Allergy Mild ITCHING- Verified 09/06/19 18:22 Antibiotics) PT TAKES CELEBREX AT HOME Home Medications Home Medications Medication Instructions Recorded Confirmed Type acetaminophen [Tylenol Extra 500 mg PO Q6H PRN 08/05/19 09/06/19 History Strength] celecoxib [Celebrex] 200 mg PO QAM 09/06/19 09/06/19 History cholecalciferol (vitamin D3) 2,000 unit PO QAM 09/06/19 09/06/19 History [Vitamin D3] levothyroxine [Synthroid] 112 mcg PO QAM 09/06/19 09/06/19 History lidocaine 1 patch TOP Q12 PRN 09/06/19 09/06/19 History lovastatin 20 mg PO Q OTHER DAY 09/06/19 09/06/19 History valsartan-hydrochlorothiazide 1 tab PO QAM 09/06/19 09/06/19 History [Diovan HCT] Patient History Medical History Acid reflux Anemia Anxiety Arthritis, degenerative Chronic kidney disease, stage 3 (moderate) Contusion of right shoulder Dyslipidemia Hearing difficulty Hypertension Hypothyroidism Idiopathic scoliosis Lumbar spinal stenosis Lymphedema Obstructive sleep apnea Osteoporosis SBO (small bowel obstruction) Urinary incontinence Venous hypertension Venous insufficiency Surgical History H/O: knee surgery History of appendectomy History of appendectomy History of back surgery History of bilateral hip replacements History of colonoscopy History of esophagogastroduodenoscopy WITH BIOPSY History of lumbar fusion ;VERTEBRAL History of surgery UTERINE SURGERY History of total hip replacement RIGHT HIP- 02/17 History of total knee arthroplasty LEFT KNEE- 06/18 Family History Father , age 80 of heart disease Cardiac disorder Hypertension Osteoarthritis Mother , age 82 of uncertain cause History of cholecystectomy Hypertension Kidney disease History of kidney stones Grandmother Myocardial infarction 56 Social History Preferred Language: Latvian Communication Ability: Effective Visual Impairment: No Limitations Hearing Ability: Hard of Hearing Bark Spudder Required: No Beliefs That Will Affect Care: None marital status: Current Living Situation: Spouse current occupational status: retired Other Information That Helps Us Care for You: 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 Feels Safe at Home: Yes Smoking Status: Never smoker Second Hand Exposure: No ; Hx Alcohol Use: Yes Alcohol type: wine Alcohol Intake Frequency: Weekly Alcohol Intake Frequency Comment: One glass wine per week Hx Substance Use: No caffeine: Yes Dental Care, Regularly: Yes Physical Activity Frequency: Daily Seatbelt Use: always Sunscreen Use: Yes Physical Exam Physical Exam: General: The patient appears well developed and well nourished. Awake, alert, and oriented x 3. Appropriate mood and affect. Gait and station were not assessed. Normal coordination and balance. Skin: The skin over the left hip shows no lesion or erythema. Inspection/Palpation: Visual inspection reveals no gross deformity of the left hip. There is no palpable focal swelling. No significant focal tenderness to palpation. Range of Motion: There is limited range of motion of the hip due to pain with arthritis. Stability: There is no gross ligamentous laxity. Strength: She has good ankle plantarflexion and dorsiflexion strength. She has intact great toe plantarflexion, but no significant great toe dorsiflexion strength. Sensation: The patient reports no numbness in the foot. Vascular: Foot is warm and well perfused. No diffuse edema. Results & Data Vital Signs (Past 12 Hours) Vital Signs Temp Pulse Pulse Resp BP Pulse Ox 09/07/19 08:16 36.5 C 77 19 147/78 H 95 09/07/19 08:00 99 H 09/07/19 04:00 36.6 C 85 18 159/81 H 97 09/07/19 00:00 99 H 09/06/19 23:15 36.6 C 78 18 144/74 H 97 Diagnostic Findings Left hip x-rays were reviewed. They show severe end-stage arthritis of the left hip joint. There is complete collapse of the joint space, with subchondral cyst formation and erosion of the superior aspect of the femoral head and superior acetabulum. There is resultant proximal migration of the femur. No acute fractures are seen. Also noted is a right total hip arthroplasty in good position. Also noted is lumbar spine hardware. (1) Osteoarthritis of left hip Osteoarthritis type: primary Qualified Code(s): M16.12 - Unilateral primary osteoarthritis, left hip
--- NOTE | 2019-09-07 12:13 | Hospitalist Progress Note ---
Date of Service September 07, 2019 Assessment & Plan (1) Discharge planning issues: Patient would most likely benefit from SNF physical and occupational therapy, after evaluation by orthopedics and their recommendations. (2) Weakness: PT/OT Ms. Hogan had a similar presentation earlier in the month and was worked up for a TIA. MRI, MRA head and neck were normal, echo without any evidence for thrombus at that time. She did follow up with Dr. 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 No myopathy or cervical radiculopathy. Will consult neurology - will hold off on ordering neuropathy lab work for now and await neurology input. May want to consider SPEP, UPEP, GMi/anti-MAG antibodies and LP depending on their recommendations. (3) Idiopathic polyneuropathy: As above (4) Elevated troponin: Peaked at 0.073 and trended down. No chest pain BNP pending (5) Fall: Discontinue ceftriaxone and vancomycin for right lower extremity cellulitis. Ms. Hogan reports her right leg is actually better than baseline at present and that it is always somewhat red and swollen. PT/OT Ortho consult - no further intervention at this time Total right hip arthroplasty in is in good position. Good contact between prostatic in the bone. There is no evidence of soft tissue swelling. Pain management She did not lose consciousness during the fall but it also does not sound mechanical. She describes it as her legs just giving out on her which has been happening over the last year (6) UTI (urinary tract infection): Discontinue antibiotics Patient does have culture growing gram negatives but she is having no symptoms - no aches, chills, dysuria, or leukocytosis (7) Left hip pain: Consulted ortho - no intervention at this time (8) DVT prophylaxis: enoxaparin Subjective Ms. Hogan is very weak. She denies any back pain or changes to bowels or bladder. She denies any headache. She hit her left knee during her fall and it is painful. ROS Constitutional: no chills, aches, sweats or fever Respiratory: no sob,cough, sputum, or wheezing Cardiac: no chest pain, palpitations, edema, orthopnea or lightheadedness GI: no abdominal pain, nausea, vomiting, diarrhea or constipation : no dysuria or hesitancy Extremities: see HPI Skin: right lower leg erythema All other systems reviewed and negative Physical Exam Physical Exam: General: no distress Eyes: normal inspection, PERLL Respiratory: chest non tender, clear to auscultation, normal breath sounds, no respiratory distress, no accessory muscle use Cardiac: regular rate and rhythm, no rub or gallop, no murmur, right leg with greater edema than left GI/: active bowel sounds, no abd pain or tenderness, soft, non distended Extremities: severe weakness bilateral lower extremities, upper extremities weak with right more so than left Neuro/Psych: alert and oriented x 3, normal mood and affect, CN II - XII intact, right arm drift Skin: normal color, dry, erythema bilaterally, right greater than left Results & Data Vital Signs (Past 12 Hours) Vital Signs Temp Pulse Pulse Resp BP Pulse Ox 09/07/19 11:03 36.7 C 79 19 125/61 96 09/07/19 08:16 36.5 C 77 19 147/78 H 95 09/07/19 08:00 99 H 09/07/19 04:00 36.6 C 85 18 159/81 H 97 PG Care Time/CCT Total # of Minutes Spent Total Time Spent with Patient: Total time spent is greater than 50% in coordination of care (as documented) at patient's floor/unit and/or counseling patient: (1) UTI (urinary tract infection) Hematuria presence: without hematuria Urinary tract infection type: site unspecified Qualified Code(s): N39.0 - Urinary tract infection, site not specified (2) Fall Encounter type: initial encounter Qualified Code(s): W19.XXXA - Unspecified fall, initial encounter
[2019-09-07] MEDS ORDERED: cefTRIAXone SODIUM 2,000 MG in DEXTROSE 5% 50 ML IV SCH (18:00)
[2019-09-07] MEDS: LIDOCAINE 5% 1 PATCH TD PRN (20:57)
[2019-09-07] MEDS: ENOXAPARIN INJ 40 MG/0.4 ML SYR SQ SCH (20:58)
[2019-09-08] MEDS: ACETAMINOPHEN 325 MG TAB PO PRN ×2 (03:39→22:02)
[2019-09-08] MEDS: LEVOTHYROXINE SODIUM 112 MCG TABLET PO SCH (06:20)
[2019-09-08 07:35] LABS: Basophils # (auto) 0.02 K/uL (0-0.2); Basophils % (auto) 0.2 %; Eosinophils # (auto) 0.13 K/uL (0-0.5); Eosinophils % (auto) 1.6 %; Hematocrit (blood only) 30.6 % (37-47); Immature Granulocytes # (auto) 0.01 K/uL (0.00-0.02); Immature Granulocytes % (auto) 0.1 %; Lymphocytes # (auto) 1.68 K/uL (1.2-3.4); Lymphocytes % (auto) 20.9 %; Mean Corpuscular Hemoglobin 29.5 pg (25-34); Mean Corpuscular Hgb Conc 32.7 g/dL (32-36); Mean Corpuscular Volume 90.3 fL (80-100); Mean Platelet Volume 9.4 fL (7.4-10.4); Monocytes # (auto) 0.77 K/uL (0.11-0.59); Monocytes % (auto) 9.6 %; Neutrophils # (auto) 5.42 K/uL (1.4-6.5); Neutrophils % (auto) 67.6 %; Platelet Count 368 K/uL (130-400); RDW Coefficient of Variation 15.9 % (11.5-14.5); RDW Standard Deviation 52.5 fL (36.4-46.3); Red Blood Count 3.39 M/uL (4.2-5.4); White Blood Count 8.03 K/uL (4.8-10.8)
[2019-09-08 08:04] LABS: Albumin Level 2.7 gm/dl (3.4-5.0); BUN Creatinine Ratio 19.7 (10-20); Calcium 9.2 mg/dl (8.5-10.1); Creatinine Clr Calc Pharmacy 52.3 ml/min; Est GFR (African American) 62.7; Est GFR (Non-African American) 54.1; Potassium 3.5 mmol/L (3.5-5.1)
[2019-09-08 08:07] LABS: Albumin Globulin Ratio 0.7 (0.9-2); Bilirubin,Total 0.4 mg/dl (0.2-1); Globulin 3.9 gm/dl (2.5-4.0); Total Protein 6.6 gm/dl (6.4-8.2)
[2019-09-08] MEDS: DOCUSATE SODIUM/SENNA 50/8.6MG TAB PO SCH (08:28)
[2019-09-08] MEDS: hydroCHLOROthiazide 25 MG TAB PO SCH (08:28)
[2019-09-08] MEDS: CeleBREX 200 MG CAP PO SCH (08:29)
[2019-09-08] MEDS: VALSARTAN 80 MG TAB PO SCH (08:29)
[2019-09-08] MEDS: CHOLECALCIFEROL 1,000 UNITS TAB PO SCH (08:29)
--- NOTE | 2019-09-08 11:06 | Neurology Consultation ---
Date of Consultation September 08, 2019 Assessment & Plan (1) Weakness: Persistent, progressive generalized weakness, especially the proximal legs with associated ambulatory dysfunction, inability to get up out of chairs or go up and down steps. No associated bulbar symptoms such as ptosis, o phthalmoplegia, or dysphagia. Has asymmetric quadriceps weakness, left greater than right. Has some associated distal lower extremity sensory loss and absent Achilles tendon reflexes. Proximal upper extremity weakness, especially with right shoulder abduction. Rotator cuff pathology not excluded. At this point, it is unclear to me if this patient's lower extremity weakness is due to the polyneuropathy identified on the upper extremity EMG completed last month. Clinically, she has bilateral quadriceps weakness, left greater than right. She could have femoral neuropathies or an acquired myositis such as inclusion body myositis or polymyositis. A neuromuscular junction disorder such as myasthenia gravis is also possible although she does not have associated ptosis or ophthalmoplegia. A multifocal neuropathy is also possible. I do not believe the observed mild cervical spinal stenosis is clinically significant. The extent to which her bilateral total knee arthroplasties and bilateral total knee arthroplasty revisions contributes to her lower extremity weakness is not entirely clear. She has been seen recently by orthopedics although the focus was primarily on the left hip. I would recommend some additional lab evaluation including a CK, aldolase, ESR, vitamin B12 level, acetylcholine receptor antibodies, WILLIAM screen with titer, rheumatoid factor. Patient should also have an outpatient EMG with repetitive stimulation of both lower limbs. I do not have a specific treatment recommendation at this time other than PT/OT and continued use of a walker. She will likely need inpatient rehabilitation. She should probably have a hospital follow-up with Dr. Carter as well, who has seen her previously. History of Present Illness Reason for Consultation: Progressive weakness, neuropathy Requesting Physician: LEVI Adair Attending Physician: García Vasquez DO History of Present Illness The patient is an 79-year-old female with a chief complaint of persistent, progressive generalized weakness and associated difficulty with ambulation that has been present for the past few years and has been getting progressively worse over the past few months. She complains of weakness affecting her proximal legs with inability to stand up out of chairs or go up and down steps. She has been using a walker for quite some time. She complains of some numbness and tingling affecting the distal lower limbs as well. Past medical history notable for lumbar spinal stenosis for which she underwent decompressive surgery several years ago with Dr. Sanford. She denies significant low back pain. History also notable for bilateral total knee arthroplasties and bilateral total knee revisions. She has also had a right total hip arthroplasty. Patient also has a chronic right rotator cuff injury. She denies experiencing diplopia, ptosis, or problems with speech or swallowing. She complains of diffuse musculoskeletal pain. An EMG of the upper limbs completed last month with Dr. Carter suggested an underlying polyneuropathy involving sensory motor fibers of mixed pathology. There is no evidence of myopathy or cervical radiculopathy bilaterally. An EMG of the lower limbs was not done. The question for neurology appears to be whether or not her chronic, progressive generalized weakness is related to the peripheral neuropathy seen on her upper limb EMG done last month and if additional testing for neuropathy needs to be completed. Allergies Allergy/AdvReac Type Severity Reaction Status Date / Time Sulfa (Sulfonamide Allergy Mild ITCHING- Verified 09/06/19 18:22 Antibiotics) PT TAKES CELEBREX AT HOME Home Medications Home Medications Medication Instructions Recorded Confirmed Type acetaminophen [Tylenol Extra 500 mg PO Q6H PRN 08/05/19 09/06/19 History Strength] celecoxib [Celebrex] 200 mg PO QAM 09/06/19 09/06/19 History cholecalciferol (vitamin D3) 2,000 unit PO QAM 09/06/19 09/06/19 History [Vitamin D3] levothyroxine [Synthroid] 112 mcg PO QAM 09/06/19 09/06/19 History lidocaine 1 patch TOP Q12 PRN 09/06/19 09/06/19 History lovastatin 20 mg PO Q OTHER DAY 09/06/19 09/06/19 History valsartan-hydrochlorothiazide 1 tab PO QAM 09/06/19 09/06/19 History [Diovan HCT] Patient History Medical History Acid reflux Anemia Anxiety Arthritis, degenerative Chronic kidney disease, stage 3 (moderate) Contusion of right shoulder Dyslipidemia Hearing difficulty Hypertension Hypothyroidism Idiopathic scoliosis Lumbar spinal stenosis Lymphedema Obstructive sleep apnea Osteoporosis SBO (small bowel obstruction) Urinary incontinence Venous hypertension Venous insufficiency Surgical History H/O: knee surgery History of appendectomy History of appendectomy History of back surgery History of bilateral hip replacements History of colonoscopy History of esophagogastroduodenoscopy WITH BIOPSY History of lumbar fusion ;VERTEBRAL History of surgery UTERINE SURGERY History of total hip replacement RIGHT HIP- 02/17 History of total knee arthroplasty LEFT KNEE- 06/18 Family History Father , age 80 of heart disease Cardiac disorder Hypertension Osteoarthritis Mother , age 82 of uncertain cause History of cholecystectomy Hypertension Kidney disease History of kidney stones Grandmother Myocardial infarction 56 Social History Preferred Language: Jordanian Communication Ability: Effective Visual Impairment: No Limitations Hearing Ability: Hard of Hearing Auto Clutch Rebuilder Required: No Beliefs That Will Affect Care: None marital status: Current Living Situation: Spouse current occupational status: retired Other Information That Helps Us Care for You: 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 Feels Safe at Home: Yes Smoking Status: Never smoker Second Hand Exposure: No ; Hx Alcohol Use: Yes Alcohol type: wine Alcohol Intake Frequency: Weekly Alcohol Intake Frequency Comment: One glass wine per week Hx Substance Use: No caffeine: Yes Dental Care, Regularly: Yes Physical Activity Frequency: Daily Seatbelt Use: always Sunscreen Use: Yes Review of Systems Constitutional: no fever and no chills Eyes: no blind spots and no diplopia Ear, Nose, Mouth, Throat: no tinnitus and no hearing loss Respiratory: no cough and no dyspnea Cardiovascular: no chest pain and no palpitations Gastrointestinal: no nausea and no vomiting Genitourinary: no urinary incontinence Musculoskeletal: + joint pain and + myalgia; no back pain Integumentary: no rash and no lesions Neurologic: as per Subjective / HPI Psychiatric: no depression and no anxiety Hematologic / Lymphatic: no easy bleeding and no easy bruising Physical Exam Physical Exam: The patient is a well-developed, well-nourished elderly female. She is alert and fully oriented. Recent and remote memory intact. Attention and concentration normal. Patient exhibits a normal spontaneous speech pattern as well as an age-appropriate fund of knowledge. Visual canales full to confrontation. Visual acuity normal. Pupils equal round reactive to light and accommodation. Eye movements normal. There is no ptosis, nystagmus, or oph thalmoplegia. Facial sensation intact. There is no facial droop or weakness. Hearing intact. Palate elevates to midline. Shoulder shrug intact. Tongue protrudes to midline. There is diminished sensation to vibration and temperature sensation at the ankles bilaterally. Deep tendon reflexes are intact and symmetrical for the arms and legs bilaterally although absent at the Achilles tendons bilaterally. Plantar responses downgoing bilaterally. There is no dysdiadochokinesia with [id number] bilaterally. Patient has difficulty performing [id number] bilaterally due to bilateral lower extremity weakness. Ophthalmoscopic examination reveals normal-appearing optic disks and posterior segments. No papilledema or hemorrhages. Carotid pulses normal bilaterally, no bruits to auscultation. Gait and station not tested due to weakness and safety concerns. Patient exhibits normal muscle strength and tone for the upper limbs bilaterally. She exhibits bilateral lower extremity weak ness, especially proximal and quadriceps muscle groups, left greater than right. Left quadricep strength 3 out of 5. Right quadricep strength 4 out of 5. There is no foot drop bilaterally. Strength testing for the upper limbs reveals some proximal weakness as well, right greater than left (rotator cuff issue?) Strength for the head and neck flexors and extensors is normal. Muscle tone normal. No atrophy. No abnormal movements observed. 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 There are bulging disks at C5-6 and C6-7 as well. Spinal cord signal normal. I reviewed the images as well as the radiology interpretation of this test. MRI of the brain completed August 05, 2019 reveals a moderate degree of scattered periventricular and subcortical microvascular ischemic change. There is a small chronic lacunar infarct within the right cerebellar hemisphere and right occipital lobe. There is mild generalized atrophy. I reviewed the images as well as the radiology interpretation of this test. MRA of the neck completed August 05, 2013- for definite stenosis, occlusion, or dissection. MRA of the head completed August 05, 2019- for stenosis, occlusion, or aneurysm. Lower extremity ultrasound completed September 06, 2019 reveals a 4 x 2 cm right popliteal cyst. Electrocardiogram reveals a normal sinus rhythm, 79 bpm. An echocardiogram completed August 07, 2019 reveals a normal left ventricular size with hyperdynamic systolic function, ejection fraction greater than 70%, no regional wall motion abnormalities. No obvious atrial septal defect. No visualized right to left shunt. PG Care Time/CCT Total # of Minutes Spent Total Time Spent with Patient: Total time spent is greater than 50% in coordination of care (as documented) at patient's floor/unit and/or counseling patient:
--- NOTE | 2019-09-08 11:13 | Hospitalist Progress Note ---
Date of Service September 08, 2019 Assessment & Plan (1) Discharge planning issues: I did note the recommendations of PT and OT, recommending acute inpatient rehab. I did transmit this recommendation to the patient she is agreeable to this.. (2) Weakness: Patient is have a history of recently diagnosed polyneuropathy which may be exacerbated by recently discovered urinary tract infection. I do see neurology is plan to see the patient and will await their input. In the meantime, we will treat her urinary tract infection as noted below. We will check x-ray of left knee as patient is complaining of pain. (3) Idiopathic polyneuropathy: As above (4) Elevated troponin: Peaked at 0.073 and trended down. No chest pain BNP noted to be normal and patient has no evidence of acute CHF. (5) Fall: Agree with discontinuation of the antibiotics as previously ordered. We will restart oral Keflex for her urinary tract infection as she does have 2 colonies of E. coli, one resistant to amoxicillin. Patient will require PT/OT and likely inpatient SNF placement. (6) UTI (urinary tract infection): Will restart Keflex as noted above for occult urinary tract infection as possible cause of her weakness. Plan for a short course. (7) Left hip pain: Consulted ortho - no intervention at this time (8) DVT prophylaxis: enoxaparin Subjective Patient tells me she is little depressed secondary to her multiple medical issues. Was not hoping to spend her time in the hospital for the holidays. She is also complaining of severe left knee pain which starts laterally and radiates to the inside. She tells me this pain is new and she did not mention it previously. Of note, the patient has a previous history of TKA on the left side. Her left hip is also in pain although no worse than previous. Physical Exam Physical Exam: Gen: AAOx3, NAD HEENT: neck supple, no JVD. MMM. Heart: RR, no murmurs Lungs: clear to auscultation in all canales Abd: soft, nontender, nondistended. Normal BS Neuro: awake, alert. Nonfocal Psych: appropriate mood and affect Ext: Left knee without effusion. Has evidence of previous surgery. Nontender. Knee flexion with pain on that side. On right pretibial area, evidence of chronic venous stasis change and minimal edema. No erythema. Nontender. Results & Data Vital Signs (Past 12 Hours) Vital Signs Temp Pulse Pulse Resp BP Pulse Ox 09/08/19 08:05 36.3 C L 73 17 167/78 H 95 09/08/19 04:20 36.8 C 76 18 161/70 H 95 09/08/19 00:00 80 PG Care Time/CCT Total # of Minutes Spent Total Time Spent with Patient: Total time spent is greater than 50% in coordination of care (as documented) at patient's floor/unit and/or counseling patient: (1) Fall Encounter type: initial encounter Qualified Code(s): W19.XXXA - Unspecified fall, initial encounter (2) UTI (urinary tract infection) Hematuria presence: without hematuria Urinary tract infection type: site unspecified Qualified Code(s): N39.0 - Urinary tract infection, site not specified
[2019-09-08] MEDS: cephALEXin 250 MG CAP PO SCH ×3 (12:35→20:56)
[2019-09-08 13:17] LABS: Lyme Ab IgG w/WB Rflx Negative (Negative); Lyme Ab IgM w/WB Rflx Negative (Negative)
--- NOTE | 2019-09-08 16:01 | XRay Report ---
XR knee LT 4V HISTORY: 79 years-old Female acute pain . Acute left-sided knee pain COMPARISON: Left knee radiographs 07/18/2013 TECHNIQUE: 4 views of the left knee FINDINGS: Left knee total joint arthroplasty and patella resurfacing. Demineralized appearance the bones. No ac ravinder fracture or dislocation. Progressive soft tissue calcifications of the upper calf. No large joint effusion or opaque foreign body. IMPRESSION: 1. Demineralized appearance of the bones without acute fracture or dislocation. 2. Total joint arthroplasty appears intact without evidence of hardware complication. The above report was generated using voice recognition software. It may contain grammatical, syntax o r spelling errors. Electronically signed by: Clint Quesada M.D. 09/08/2019 4:00 PM
[2019-09-08] MEDS: ENOXAPARIN INJ 40 MG/0.4 ML SYR SQ SCH (20:57)
[2019-09-08] MEDS ORDERED: LOVASTATIN 20 MG TAB PO SCH (21:00)
[2019-09-09] MEDS: LEVOTHYROXINE SODIUM 112 MCG TABLET PO SCH (06:05)
[2019-09-09] MEDS: ACETAMINOPHEN 325 MG TAB PO PRN ×2 (06:06→21:54)
[2019-09-09 07:26] LABS: Basophils # (auto) 0.02 K/uL (0-0.2); Basophils % (auto) 0.3 %; Eosinophils # (auto) 0.12 K/uL (0-0.5); Eosinophils % (auto) 1.7 %; Hematocrit (blood only) 30.4 % (37-47); Immature Granulocytes # (auto) 0.01 K/uL (0.00-0.02); Immature Granulocytes % (auto) 0.1 %; Lymphocytes # (auto) 1.65 K/uL (1.2-3.4); Mean Corpuscular Hemoglobin 29.7 pg (25-34); Mean Corpuscular Hgb Conc 32.9 g/dL (32-36); Mean Corpuscular Volume 90.2 fL (80-100); Mean Platelet Volume 9.5 fL (7.4-10.4); Monocytes # (auto) 0.83 K/uL (0.11-0.59); Monocytes % (auto) 11.6 %; Neutrophils # (auto) 4.55 K/uL (1.4-6.5); Neutrophils % (auto) 63.3 %; Platelet Count 367 K/uL (130-400); RDW Coefficient of Variation 15.8 % (11.5-14.5); RDW Standard Deviation 51.9 fL (36.4-46.3); Red Blood Count 3.37 M/uL (4.2-5.4); White Blood Count 7.18 K/uL (4.8-10.8)
[2019-09-09] MEDS: DOCUSATE SODIUM/SENNA 50/8.6MG TAB PO SCH (07:38)
[2019-09-09] MEDS: hydroCHLOROthiazide 25 MG TAB PO SCH (07:39)
[2019-09-09] MEDS: VALSARTAN 80 MG TAB PO SCH (07:39)
[2019-09-09] MEDS: CeleBREX 200 MG CAP PO SCH (07:40)
[2019-09-09] MEDS: cephALEXin 250 MG CAP PO SCH ×4 (07:40→20:38)
[2019-09-09] MEDS: CHOLECALCIFEROL 1,000 UNITS TAB PO SCH (07:40)
[2019-09-09 08:01] LABS: Albumin Level 2.5 gm/dl (3.4-5.0); BUN Creatinine Ratio 20.8 (10-20); Calcium 9.2 mg/dl (8.5-10.1); Creatinine Clr Calc Pharmacy 56.1 ml/min; Est GFR (African American) 68.6; Est GFR (Non-African American) 59.2; Potassium 3.6 mmol/L (3.5-5.1)
[2019-09-09 08:03] LABS: Albumin Globulin Ratio 0.7 (0.9-2); Bilirubin,Total 0.4 mg/dl (0.2-1); Globulin 3.8 gm/dl (2.5-4.0); Total Protein 6.3 gm/dl (6.4-8.2)
--- NOTE | 2019-09-09 11:01 | Hospitalist Progress Note ---
Date of Service September 09, 2019 Assessment & Plan (1) Discharge planning issues: I did note the recommendations of PT and OT, recommending acute inpatient rehab. Patient is unsure if she can tolerate 3 hours of therapy and was not seen by either service since last week. Will await their re-eval. I did discuss with case management regarding eventual placement upon discharge. (2) Weakness: Patient is have a history of recently diagnosed polyneuropathy which may be exacerbated by recently discovered urinary tract infection. I do see neurology is plan to see the patient and will await their input. In the meantime, we will treat her urinary tract infection as noted below. X-ray of the knee reviewed, patient has a total joint arthroplasty that appears to be intact. (3) Idiopathic polyneuropathy: As above (4) Elevated troponin: Continues to trend down, patient has no chest pain, shortness of breath, or other symptoms. BNP noted to be normal and patient has no evidence of acute CHF. For hypertension, patient is on valsartan 320 and HCTZ 25. We will add low-dose beta-donald with Toprol 25 mg daily. Monitor blood pressure which is been elevated since presentation. (5) Fall: Agree with discontinuation of the antibiotics as previously ordered. We will restart oral Keflex for her urinary tract infection as she does have 2 colonies of E. coli, one resistant to amoxicillin. Patient will require PT/OT and likely inpatient SNF placement. (6) UTI (urinary tract infection): Will restart Keflex as noted above for occult urinary tract infection as possible cause of her weakness. Plan for a short course. (7) Left hip pain: Consulted ortho - no intervention at this time (8) DVT prophylaxis: enoxaparin Subjective Patient seen and examined today. She is worried about her blood pressure which is mildly elevated at 164/72 today. Patient is also complaining of a headache and was just given Tylenol. She notes that she continues to be weak. I did see neurology's input and they are suggesting a continued work-up for polyneuropathy to be performed after the patient's discharge. Patient is aware of this. Physical Exam Physical Exam: Gen: AAOx3, mild distress secondary to headache HEENT: neck supple, no JVD. MMM. Heart: RR, no murmurs Lungs: clear to auscultation in all canales Abd: soft, nontender, nondistended. Normal BS Neuro: awake, alert. Nonfocal Psych: appropriate mood and affect Ext: No clubbing, cyanosis, edema Results & Data Vital Signs (Past 12 Hours) Vital Signs Temp Pulse Pulse Resp BP BP Pulse Ox 09/09/19 07:48 36.9 C 86 18 164/72 H 98 09/09/19 04:37 36.5 C 83 18 178/76 H 95 09/09/19 00:00 84 09/08/19 23:59 37.1 C 81 22 156/76 H 95 PG Care Time/CCT Total # of Minutes Spent Total Time Spent with Patient: Total time spent is greater than 50% in coordination of care (as documented) at patient's floor/unit and/or counseling patient: (1) Fall Encounter type: initial encounter Qualified Code(s): W19.XXXA - Unspecified fall, initial encounter (2) UTI (urinary tract infection) Hematuria presence: without hematuria Urinary tract infection type: site unspecified Qualified Code(s): N39.0 - Urinary tract infection, site not specified
[2019-09-09] MEDS: METOPROLOL SUCC 25MG EXT REL TAB PO SCH (12:22)
[2019-09-09] MEDS ORDERED: ACETAMINOPHEN 500 MG TAB PO PRN (18:09)
[2019-09-09] MEDS: ENOXAPARIN INJ 40 MG/0.4 ML SYR SQ SCH (20:38)
[2019-09-10] MEDS: LEVOTHYROXINE SODIUM 112 MCG TABLET PO SCH (05:27)
[2019-09-10 06:47] LABS: Basophils # (auto) 0.02 K/uL (0-0.2); Basophils % (auto) 0.3 %; Eosinophils # (auto) 0.12 K/uL (0-0.5); Eosinophils % (auto) 1.6 %; Hematocrit (blood only) 30.7 % (37-47); Hemoglobin 10.2 g/dL (12.0-16.0); Immature Granulocytes # (auto) 0.01 K/uL (0.00-0.02); Immature Granulocytes % (auto) 0.1 %; Lymphocytes # (auto) 1.79 K/uL (1.2-3.4); Lymphocytes % (auto) 23.8 %; Mean Corpuscular Hgb Conc 33.2 g/dL (32-36); Mean Corpuscular Volume 90.3 fL (80-100); Mean Platelet Volume 9.7 fL (7.4-10.4); Monocytes # (auto) 0.94 K/uL (0.11-0.59); Monocytes % (auto) 12.5 %; Neutrophils # (auto) 4.65 K/uL (1.4-6.5); Neutrophils % (auto) 61.7 %; Platelet Count 373 K/uL (130-400); RDW Coefficient of Variation 15.9 % (11.5-14.5); White Blood Count 7.53 K/uL (4.8-10.8)
[2019-09-10 07:25] LABS: Albumin Level 2.6 gm/dl (3.4-5.0); BUN Creatinine Ratio 17.8 (10-20); Calcium 9.3 mg/dl (8.5-10.1); Creatinine Clr Calc Pharmacy 48.6 ml/min; Est GFR (African American) 57.7; Est GFR (Non-African American) 49.8; Potassium 3.7 mmol/L (3.5-5.1)
[2019-09-10 07:29] LABS: Albumin Globulin Ratio 0.7 (0.9-2); Bilirubin,Total 0.4 mg/dl (0.2-1); Total Protein 6.6 gm/dl (6.4-8.2)
[2019-09-10] MEDS: DOCUSATE SODIUM/SENNA 50/8.6MG TAB PO SCH (08:30)
[2019-09-10] MEDS: VALSARTAN 80 MG TAB PO SCH (08:31)
[2019-09-10] MEDS: CHOLECALCIFEROL 1,000 UNITS TAB PO SCH (08:31)
[2019-09-10] MEDS: hydroCHLOROthiazide 25 MG TAB PO SCH (08:31)
[2019-09-10] MEDS: cephALEXin 250 MG CAP PO SCH ×2 (08:32→12:32)
[2019-09-10] MEDS: METOPROLOL SUCC 25MG EXT REL TAB PO SCH (08:32)
[2019-09-10] MEDS: CeleBREX 200 MG CAP PO SCH (08:32)
[2019-09-10] MEDS: LIDOCAINE 5% 1 PATCH TD PRN (09:40)
--- NOTE | 2019-09-10 12:02 | Hospitalist Progress Note ---
Date of Service September 10, 2019 Assessment & Plan (1) Discharge planning issues: I did note the recommendations of PT and OT, recommending acute inpatient rehab. Patient is unsure if she can tolerate 3 hours of therapy and was not seen by either service since last week. Will await their re-eval. I did discuss with case management regarding eventual placement upon discharge. (2) Weakness: Patient is have a history of recently diagnosed polyneuropathy which may be exacerbated by recently discovered urinary tract infection. I do see neurology is plan to see the patient and will await their input. In the meantime, we will treat her urinary tract infection as noted below. X-ray of the knee reviewed, patient has a total joint arthroplasty that appears to be intact. (3) Idiopathic polyneuropathy: As above (4) Elevated troponin: Continues to trend down, patient has no chest pain, shortness of breath, or other symptoms. BNP noted to be normal and patient has no evidence of acute CHF. For hypertension, patient is on valsartan 320 and HCTZ 25. We will add low-dose beta-donald with Toprol 25 mg daily. Monitor blood pressure which is been elevated since presentation. (5) Fall: Agree with discontinuation of the antibiotics as previously ordered. We will restart oral Keflex for her urinary tract infection as she does have 2 colonies of E. coli, one resistant to amoxicillin. Patient will require PT/OT and likely inpatient SNF placement. (6) UTI (urinary tract infection): Will restart Keflex as noted above for occult urinary tract infection as possible cause of her weakness. Plan for a short course. (7) Left hip pain: Consulted ortho - no intervention at this time (8) DVT prophylaxis: enoxaparin Results & Data Vital Signs (Past 12 Hours) Vital Signs Temp Pulse Resp BP Pulse Ox 09/10/19 07:23 36.4 C L 67 20 168/71 H 95 PG Care Time/CCT Total # of Minutes Spent Total Time Spent with Patient: Total time spent is greater than 50% in coordination of care (as documented) at patient's floor/unit and/or counseling patient: (1) Fall Encounter type: initial encounter Qualified Code(s): W19.XXXA - Unspecified fall, initial encounter (2) UTI (urinary tract infection) Hematuria presence: without hematuria Urinary tract infection type: site unspecified Qualified Code(s): N39.0 - Urinary tract infection, site not specified
--- NOTE | 2019-09-10 12:03 | Discharge Summary ---
Date of Service September 10, 2019 Admission HPI Per Admitting Provider Patient is an 79-year-old female with past medical history of right hand weakness, idiopathic polyneuropathy severe osteoarthritis of the left hip who presents to the emergency room with history of recurrent falls and trouble ambulating. Patient had a knee and hip replacements and chronic left hip pain and she was treated in the past by [facility]. Patient says that she normally uses a walker and cane to ambulate without problem. She said she chronically has swollen lower extremities lymphedema and her lower extremities are warm to touch and inflamed. Patient reports going to [facility] but states that success was not significant. Today patient was using her walker trying to get to the bathroom when she suddenly fell backwards on the floor landing on her buttock and hitting the posterior head and neck. Patient explains that her family had to help her to get up from the floor. The patient states that she did not get hurt from the fall and explained that she does not have any pain from the fall. Patient only complains of left hip pain which is chronic for her and nothing new. Patient reports bilateral leg weakness this morning and since the fall she states that she feels like she cannot stand anymore. Patient is not on blood thinners and she does not have any new medication changes. Patient denies fever, chills, chest pain, shortness of breath abdominal pain frequency or urgency. Patient was recently admitted for TIA/stroke and it was not completely clear that patient did not suffer from TIA and she was placed on aspirin 81 mg daily and EMG to evaluate for for carpal tunnel syndrome and cervical radiculopathy. EMG and MVC findings: This study is remarkable for a poly-neuropathy involving sensory and motor fibers of mixed pathology. There was no myopathy or cervical radiculopathy bilaterally. Decision was made to admit patient for frequent falls, PT OT evaluation and further management and treatment. Admission Exam Per Admitting Provider Constitutional: WD/WN, vitals as above well developed and + morbidly obese Resting in the bed Eyes: PERRL, conjunctivae normal, anicteric sclerae ENMT: external ear and nose normal, oropharynx normal Neck: trachea midline, no thyromegaly Respiratory: normal respiratory effort, lungs clear to auscultation Cardiovascular: Heart Sounds: normal S1 and normal S2 Palpation: normal PMI Vessels: dorsalis pedis pulses present Musculoskeletal: no cyanosis or clubbing, extremities motor strength 5/5 Skin: no rashes, warm and dry Right leg is warm and swollen. Patient says it always looks like that. Neurologic: patellar DTR's 2+ bilat, sensation intact Psychiatric: A+Ox3, euthymic affect Lymphatic: no cervical or axillary lymphadenopathy Principal Diagnosis 1. Generalized weakness 2. Polyneuropathy 3. Urinary tract infection with E. coli 4. Hypertension by history Discharge Exam Gen: AAOx3, NAD HEENT: neck supple, no JVD. MMM. Heart: RR, no murmurs Lungs: clear to auscultation in all canales Abd: soft, nontender, nondistended. Normal BS Neuro: awake, alert. Nonfocal Psych: appropriate mood and affect Ext: No clubbing, cyanosis, edema Discharge Data Allergies Allergy/AdvReac Type Severity Reaction Status Date / Time Sulfa (Sulfonamide Allergy Mild ITCHING- Verified 09/06/19 18:22 Antibiotics) PT TAKES CELEBREX AT HOME Consultations 09/06/19 18:06 ED Decision to Admit Stat 09/06/19 21:20 Consult Orthopedic Surgery Routine 09/07/19 12:05 Consult Neurology Routine Ordered Studies 09/06/19 21:[address] [facility] Hospital Course (1) Discharge planning issues: Patient is now agreeable to going to [facility] for rehab. I do see that arrangements have been made for patient be picked up at 230 this afternoon. Patient is agreeable to this course. I did also discuss with the patient's . (2) Weakness: Patient is have a history of recently diagnosed polyneuropathy which may be exacerbated by recently discovered urinary tract infection. I do see neurology is plan to see the patient and will await their input. In the meantime, we will treat her urinary tract infection as noted below. X-ray of the knee reviewed, patient has a total joint arthroplasty that appears to be intact. (3) Idiopathic polyneuropathy: Patient has history of idiopathic polyneuropathy. She was seen by neurology and recommendations for repeat EMG along with laboratory work. They suggested an outpatient follow-up once the patient has been discharged to proceed with this. Information was given to the patient regarding follow-up with neurology after discharge. (4) Elevated troponin: Continues to trend down, patient has no chest pain, shortness of breath, or other symptoms. BNP noted to be normal and patient has no evidence of acute CHF. For hypertension, patient is on valsartan 320 and HCTZ 25. We will add low-dose beta-donald with Toprol 25 mg daily. Blood pressure continues to be elevated on day of discharge although with pulses down to 67. Patient will continue medications as noted above, will likely need titration versus another agent after discharge and will defer this to inpatient rehab if hypertension persists. (5) Fall: Agree with discontinuation of the antibiotics as previously ordered. We will restart oral Keflex for her urinary tract infection as she does have 2 colonies of E. coli, one resistant to amoxicillin. Patient to finish 4 more days of antibiotics after discharge. (6) UTI (urinary tract infection): Will restart Keflex as noted above for occult urinary tract infection as possible cause of her weakness. Plan for a short course. (7) Left hip pain: Consulted ortho - no intervention at this time (8) DVT prophylaxis: enoxaparin Total Time Total Time Spent Total Time Spent (In Minutes): Time to prepare discharge in excess of 30 minutes Total Time Includes: Examination of the Patient, Discharge Planning and Medication Reconciliation Discharge Plan Discharge Items Patient Disposition: Transfer Inpatient Rehab Fac Reason For Visit: FREQUENT FALLS, ELEVATED TROPONIN Discharge Diagnosis: 1. Generalized weakness, multifactorial 2. Polyneuropathy 3. Urinary tract infection 4. left hip pain, evidence of severe osteoarthritis Activity: Resume your previous activity Lifting: Gradually increase as tolerated Sexual Activity: When tolerated Weightbearing: Full weightbearing Non-emergency contact: Primary Care Provider Call non-emergency contact if: your symptoms worsen and your temperature is above 101 Follow-up/Referrals: Nakul Carter III, MD [Physician] - (Follow-up for outpatient EMG study.) Mauri Staley DO [Physician] - Diet: Heart Healthy Addtl Attending Provider Instructions: Finish PT/OT at [facility], follow with neurology and orthopedics at discharge. Pending Studies at Discharge: No Stand-Alone Forms: My [facility] Skilled Items Patient informed of condition?: Yes DNR: No Discharge Level of Care: Acute rehab Communicable Disease: No Discharge Prognosis: Stable Lines: None Urinary Catheter: No Medications and DC Order Prescriptions: New cephalexin 250 mg Capsule 250 mg PO QID 4 Days Qty: 16 RF: 0 metoprolol succinate 25 mg Tablet Extended Release 24 Hr 25 mg PO QAM Qty: 30 RF: 0 enoxaparin 40 mg/0.4 mL Syringe 40 mg subcut Q24H Qty: 4 RF: 0 Continued acetaminophen [Tylenol Extra Strength] 500 mg Tablet 500 mg PO Q6H PRN (Reason: Pain) RF: 0 celecoxib [Celebrex] 200 mg capsule 200 mg PO QAM RF: 0 lidocaine 5 % adhesive patch,medicated 1 patch TOP Q12 PRN (Reason: Pain) RF: 0 lovastatin 20 mg tablet 20 mg PO Q OTHER DAY RF: 0 levothyroxine [Synthroid] 112 mcg tablet 112 mcg PO QAM RF: 0 valsartan-hydrochlorothiazide [Diovan HCT] 320-25 mg tablet 1 tab PO QAM RF: 0 cholecalciferol (vitamin D3) [Vitamin D3] 2,000 unit capsule 2,000 unit PO QAM RF: 0 Discharge Orders: Discharge Order (Routine); Ordered 09/10/19 Ordered By: García Vasquez Admission Data Admit Date/Time: 09/06/19 19:23 Attending Provider: García Vasquez Admit Provider: Deepthi Canales Primary Care Provider: Tami Shelby Other Providers: Marcell Daniel ; Oscar Giang ; [facility] ; Deepthi Canales ; Meng Ochoa ; Imani Sepulveda
[2019-09-12 08:38] LABS: Anti Nuclear Antibody Screen NEGATIVE
[2019-09-12 08:39] LABS: Receptor Binding Ab <0.30
[2019-09-12 08:40] LABS: Acetylcholine Recep Modulating 15; Acetylcholine Recept Blocking <15
[2019-09-12 08:41] LABS: Aldolase 5.5
[2019-09-12 08:42] LABS: Rheumatoid Factor <14
== END 2019-09-10 14:46 | DRG 74 ==
LOC: ED 16:15 → SUATTDRO 19:23 → 2S 19:23 → 4W 09-09 16:35

== ENCOUNTER 2020-02-28 09:44 | Inpatient (IN) ==
[2020-02-28] MEDS ORDERED: ONDANSETRON INJ 2 MG/ML 2 ML VIAL IV STA (09:55)
[2020-02-28] MEDS ORDERED: SODIUM CHLORIDE 0.9% 1000ML 1,000 ML IV SCH (10:00)
--- NOTE | 2020-02-28 10:09 | Emergency Department Note ---
History of Present Illness General Chief Complaint: GI Assessment Source: patient and EMS Mode of arrival: EMS Limitations: no limitations History of Present Illness Provider Complaint: abdominal pain Onset (ago): 1 day(s) Pain Consistency: constant Location: diffuse Radiation: none Migration to: no migration Severity: severe Maximum Pain Intensity: 8 Current Pain Intensity: 8 Quality: + aching and + fullness Relieved By: + nothing Exacerbated By: + vomiting and + movement Context: + history of similar episodes; no foreign travel and no recent antibiotic use Associated Symptoms: + nausea, + vomiting and + constipation The patient is an 80-year-old female who presents to the ED with a chief complaint of no bowel movement for the past 5 days. She also reports abdominal pain that started yesterday. She has had 4 episodes of nausea and vomiting since her pain started yesterday. She has a reported history of small bowel obstruction. The patient had an enema yesterday that did not seem to improve her symptoms. EMS stated that her blood pressure was low. The patient has no other complaints at this time. Her symptoms are moderate. Home Medications Home Medications Medication Instructions Recorded Confirmed Type acetaminophen [Tylenol Extra 500 mg PO Q6H PRN 08/05/19 02/28/20 History Strength] cholecalciferol (vitamin D3) 2,000 unit PO QAM 09/06/19 02/28/20 History [Vitamin D3] lidocaine 1 patch TOP Q12 PRN 09/06/19 02/28/20 History hydrochlorothiazide 25 mg tablet 25 mg PO DAILY #90 tab 09/24/19 02/28/20 Rx valsartan 320 mg tablet 320 mg PO DAILY #90 tab 10/27/19 02/28/20 Rx lovastatin 20 mg tablet 20 mg PO Q OTHER DAY #45 tab 10/31/19 02/28/20 Rx metoprolol succinate 25 mg 50 mg PO QAM #180 tab 10/31/19 02/28/20 Rx tablet,extended release 24 hr celecoxib 200 mg capsule 200 mg PO DAILY #90 cap 12/15/19 02/28/20 Rx Wheelchair (Manual or Powered) #1 ea 12/19/19 12/19/19 Rx furosemide 20 mg tablet 20 mg PO Q OTHER DAY 30 Days #15 12/19/19 02/28/20 Rx tab hydrocodone 5 mg-acetaminophen 325 1 tab PO Q12H PRN #30 tab 01/15/20 02/28/20 Rx mg tablet cyclobenzaprine 10 mg tablet 10 mg PO TID PRN #30 tab 01/30/20 02/28/20 Rx levothyroxine 150 mcg tablet 150 mcg PO DAILY #30 tab 02/20/20 02/28/20 Rx aspirin 81 mg PO DAILY 02/28/20 02/28/20 History lorazepam 0 mg PO DAILY PRN 02/28/20 02/28/20 History ctdvdfcv-huz-ID-lycopen-lutein 1 tab PO DAILY 02/28/20 02/28/20 History [Centrum Silver] Allergies Allergy/AdvReac Type Severity Reaction Status Date / Time Sulfa (Sulfonamide Allergy Mild ITCHING- Verified 02/28/20 11:06 Antibiotics) PT TAKES CELEBREX AT HOME Past Med/Surg History Medical History Acid reflux Anemia Anxiety Arthritis, degenerative Chronic kidney disease, stage 3 (moderate) Dyslipidemia Elevated alkaline phosphatase level Hypertension Hypothyroidism Idiopathic polyneuropathy Idiopathic scoliosis Lumbar spinal stenosis Lymphedema Obstructive sleep apnea Osteoarthritis of left hip Osteoporosis Prediabetes SBO (small bowel obstruction) Urinary incontinence Venous hypertension Surgical History (Updated 02/03/20 @ 14:59 by Tami Shelby DO) History of appendectomy History of back surgery (11/2011) post spine fixation devin History of esophagogastroduodenoscopy WITH BIOPSY History of lumbar fusion (1990) ;VERTEBRAL History of surgery UTERINE SURGERY History of total hip replacement (02/2013) RIGHT HIP- 02/17 History of total knee arthroplasty LEFT KNEE- 06/18 Hx of arthroscopy of shoulder (1997) S/P arthroscopic knee surgery (2008) Status post right knee replacement Social History Preferred Language: Luxembourger Communication Ability: Effective Visual Impairment: No Limitations Hearing Ability: Hard of Hearing Quality Compliance Consultant Required: No Beliefs That Will Affect Care: None marital status: Current Living Situation: Spouse current occupational status: retired 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 Feels Safe at Home: Yes Smoking Status: Never smoker Second Hand Exposure: No ; Hx Alcohol Use: Yes Alcohol type: wine Alcohol Intake Frequency: Weekly Alcohol Intake Frequency Comment: One glass wine per week Hx Substance Use: No caffeine: Yes Dental Care, Regularly: Yes Physical Activity Frequency: Daily Seatbelt Use: always Sunscreen Use: Yes Review of Systems A total of 10 systems reviewed and were otherwise negative Physical Exam Vital Signs: Vital Signs - 24 hr 02/28/20 09:44 02/28/20 09:49 02/28/20 09:53 Temperature 36.5 C Temperature Source Oral Pulse Rate 114 H 117 H 116 H Pulse Rate [Apical ] 114 H Pulse Rate from Sp O2 Sensor Pulse Rhythm Regular Pulse Rhythm [Apic al] Regular Pulse Strength Normal Pulse Strength [Ap ical] Normal Respiratory Rate 24 21 22 Respiratory Effort / Characteristics Non-Labored Sponta neous Respiratory Depth Normal Respiratory Patter n Regular Blood Pressure 148/103 H 148/123 H Blood Pressure [Ri ght Arm] 148/103 H Blood Pressure Evy n 118 132 Blood Pressure Evy n [Right Arm] 118 Blood Pressure Pos ition Lying Blood Pressure Pos ition [Right Arm] Lying Pulse Oximetry 100 100 98 Oxygen Delivery Me thod Nasal Cannula Nasal Cannula Nasal Cannula Oxygen Flow Rate 2 2 2 Sepsis Recent Feve r Within 48 Hours No Sepsis New/Unexpla ined Change in Men venessa Status No Sepsis Action Take n by Nursing No Action Required 02/28/20 10:00 02/28/20 10:10 02/28/20 10:20 Temperature Temperature Source Pulse Rate 117 H 116 H 112 H Pulse Rate [Apical ] Pulse Rate from Sp O2 Sensor Pulse Rhythm Pulse Rhythm [Apic al] Pulse Strength Pulse Strength [Ap ical] Respiratory Rate 24 22 20 Respiratory Effort / Characteristics Respiratory Depth Respiratory Patter n Blood Pressure Blood Pressure [Ri ght Arm] Blood Pressure Evy n Blood Pressure Evy n [Right Arm] Blood Pressure Pos ition Blood Pressure Pos ition [Right Arm] Pulse Oximetry 98 100 Oxygen Delivery Me thod Nasal Cannula Nasal Cannula Oxygen Flow Rate 2 2 Sepsis Recent Feve r Within 48 Hours Sepsis New/Unexpla ined Change in Men venessa Status Sepsis Action Take n by Nursing 02/28/20 10:21 02/28/20 10:22 02/28/20 10:28 Temperature Temperature Source Pulse Rate 111 H 111 H 111 H Pulse Rate [Apical ] Pulse Rate from Sp O2 Sensor 111 H 110 H Pulse Rhythm Pulse Rhythm [Apic al] Pulse Strength Pulse Strength [Ap ical] Respiratory Rate 17 20 23 Respiratory Effort / Characteristics Respiratory Depth Respiratory Patter n Blood Pressure 76/48 L 81/50 L 103/82 Blood Pressure [Ri ght Arm] Blood Pressure Evy n 55 61 88 Blood Pressure Evy n [Right Arm] Blood Pressure Pos ition Blood Pressure Pos ition [Right Arm] Pulse Oximetry 100 100 Oxygen Delivery Me thod Nasal Cannula Nasal Cannula Oxygen Flow Rate 2 2 Sepsis Recent Feve r Within 48 Hours Sepsis New/Unexpla ined Change in Men venessa Status Sepsis Action Take n by Nursing 02/28/20 10:40 02/28/20 10:41 02/28/20 10:42 Temperature Temperature Source Pulse Rate 112 H 109 H 103 H Pulse Rate [Apical ] Pulse Rate from Sp O2 Sensor 112 H 109 H 102 H Pulse Rhythm Regular Pulse Rhythm [Apic al] Pulse Strength Pulse Strength [Ap ical] Respiratory Rate 23 16 18 Respiratory Effort / Characteristics Respiratory Depth Respiratory Patter n Blood Pressure 109/64 Blood Pressure [Ri ght Arm] Blood Pressure Evy n 70 Blood Pressure Evy n [Right Arm] Blood Pressure Pos ition Blood Pressure Pos ition [Right Arm] Pulse Oximetry 100 100 100 Oxygen Delivery Me thod Nasal Cannula Room Air Oxygen Flow Rate 2 Sepsis Recent Feve r Within 48 Hours Sepsis New/Unexpla ined Change in Men venessa Status Sepsis Action Take n by Nursing 02/28/20 10:45 02/28/20 10:50 02/28/20 10:51 Temperature Temperature Source Pulse Rate 107 H 106 H 102 H Pulse Rate [Apical ] Pulse Rate from Sp O2 Sensor 107 H 106 H 106 H Pulse Rhythm Pulse Rhythm [Apic al] Pulse Strength Pulse Strength [Ap ical] Respiratory Rate 21 18 19 Respiratory Effort / Characteristics Respiratory Depth Respiratory Patter n Blood Pressure 110/65 97/70 L Blood Pressure [Ri ght Arm] Blood Pressure Evy n 69 72 Blood Pressure Evy n [Right Arm] Blood Pressure Pos ition Blood Pressure Pos ition [Right Arm] Pulse Oximetry 100 99 100 Oxygen Delivery Me thod Oxygen Flow Rate Sepsis Recent Feve r Within 48 Hours Sepsis New/Unexpla ined Change in Men venessa Status Sepsis Action Take n by Nursing 02/28/20 10:55 02/28/20 10:56 02/28/20 11:00 Temperature Temperature Source Pulse Rate 111 H 113 H 103 H Pulse Rate [Apical ] Pulse Rate from Sp O2 Sensor 113 H 112 H 103 H Pulse Rhythm Pulse Rhythm [Apic al] Pulse Strength Pulse Strength [Ap ical] Respiratory Rate 22 18 21 Respiratory Effort / Characteristics Respiratory Depth Respiratory Patter n Blood Pressure 100/63 93/46 L Blood Pressure [Ri ght Arm] Blood Pressure Evy n 72 61 Blood Pressure Evy n [Right Arm] Blood Pressure Pos ition Blood Pressure Pos ition [Right Arm] Pulse Oximetry 96 97 95 Oxygen Delivery Me thod Oxygen Flow Rate Sepsis Recent Feve r Within 48 Hours Sepsis New/Unexpla ined Change in Men venessa Status Sepsis Action Take n by Nursing 02/28/20 11:01 02/28/20 11:05 02/28/20 11:10 Temperature Temperature Source Pulse Rate 103 H 103 H 100 H Pulse Rate [Apical ] Pulse Rate from Sp O2 Sensor 104 H 103 H 100 H Pulse Rhythm Pulse Rhythm [Apic al] Pulse Strength Pulse Strength [Ap ical] Respiratory Rate 20 18 17 Respiratory Effort / Characteristics Respiratory Depth Respiratory Patter n Blood Pressure 106/58 L 110/59 L Blood Pressure [Ri ght Arm] Blood Pressure Evy n 83 77 Blood Pressure Evy n [Right Arm] Blood Pressure Pos ition Blood Pressure Pos ition [Right Arm] Pulse Oximetry 94 100 97 Oxygen Delivery Me thod Oxygen Flow Rate Sepsis Recent Feve r Within 48 Hours Sepsis New/Unexpla ined Change in Men venessa Status Sepsis Action Take n by Nursing 02/28/20 11:11 02/28/20 11:15 02/28/20 11:20 Temperature Temperature Source Pulse Rate 103 H 105 H 108 H Pulse Rate [Apical ] Pulse Rate from Sp O2 Sensor 100 H 105 H 106 H Pulse Rhythm Pulse Rhythm [Apic al] Pulse Strength Pulse Strength [Ap ical] Respiratory Rate 15 18 15 Respiratory Effort / Characteristics Respiratory Depth Respiratory Patter n Blood Pressure 116/48 L 116/65 Blood Pressure [Ri ght Arm] Blood Pressure Evy n 72 78 Blood Pressure Evy n [Right Arm] Blood Pressure Pos ition Blood Pressure Pos ition [Right Arm] Pulse Oximetry 100 100 100 Oxygen Delivery Me thod Oxygen Flow Rate Sepsis Recent Feve r Within 48 Hours Sepsis New/Unexpla ined Change in Men venessa Status Sepsis Action Take n by Nursing 02/28/20 11:25 02/28/20 11:30 02/28/20 11:31 Temperature Temperature Source Pulse Rate 106 H 105 H 102 H Pulse Rate [Apical ] Pulse Rate from Sp O2 Sensor 105 H 105 H 101 H Pulse Rhythm Pulse Rhythm [Apic al] Pulse Strength Pulse Strength [Ap ical] Respiratory Rate 16 15 18 Respiratory Effort / Characteristics Respiratory Depth Respiratory Patter n Blood Pressure 109/58 L 100/64 Blood Pressure [Ri ght Arm] Blood Pressure Evy n 88 73 Blood Pressure Evy n [Right Arm] Blood Pressure Pos ition Blood Pressure Pos ition [Right Arm] Pulse Oximetry 96 99 98 Oxygen Delivery Me thod Oxygen Flow Rate Sepsis Recent Feve r Within 48 Hours Sepsis New/Unexpla ined Change in Men venessa Status Sepsis Action Take n by Nursing 02/28/20 11:35 Temperature Temperature Source Pulse Rate 99 H Pulse Rate [Apical ] Pulse Rate from Sp O2 Sensor 102 H Pulse Rhythm Pulse Rhythm [Apic al] Pulse Strength Pulse Strength [Ap ical] Respiratory Rate 17 Respiratory Effort / Characteristics Respiratory Depth Respiratory Patter n Blood Pressure 97/50 L Blood Pressure [Ri ght Arm] Blood Pressure Evy n 62 Blood Pressure Evy n [Right Arm] Blood Pressure Pos ition Blood Pressure Pos ition [Right Arm] Pulse Oximetry 100 Oxygen Delivery Me thod Oxygen Flow Rate Sepsis Recent Feve r Within 48 Hours Sepsis New/Unexpla ined Change in Men venessa Status Sepsis Action Take n by Nursing Physical Exam: CONSTITUTIONAL/VITAL SIGNS: Reviewed / noted above. GENERAL: Non-toxic in appearance. INTEGUMENTARY: Warm, dry, and [place]. HEAD: Normocephalic. EYES: without scleral icterus or trauma. ENT/OROPHARYNX: clear and moist. LYMPHADENOPATHY/NECK: Is supple without lymphadenopathy or meningismus. RESPIRATORY: Lungs clear and equal. CARDIOVASCULAR: Regular rate and rhythm. GI/ABDOMEN: Soft and diffusely tender. No organomegaly or pulsatile mass. No rebound or guarding. Decreased bowel sounds. EXTREMITIES: Warm and well perfused. BACK: No CVA tenderness. NEUROLOGICAL: Intact without focal deficits. PSYCHIATRIC: normal affect. MUSCULOSKELETAL: Normally developed with good muscle tone. TRIAGE NURSING DOCUMENTATION REVIEWED. Course Administered Medications Discontinued Medications Sodium Chloride (Nss 1000ml) 1,000 mls @ 999 mls/hr IV .[id number] SANJAY Stop: 02/28/20 11:00 Last Infusion: 02/28/20 11:38 Dose: 0 mls/hr Documented by: [id number] Admin: 02/28/20 10:10 Dose: 999 mls/hr Documented by: [id number] Piperacillin Sod/Tazobactam Sod (Zosyn) 4.5 gm in 120 mls @ 240 mls/hr IV NOW ONE Stop: 02/28/20 11:27 Last Infusion: 02/28/20 11:38 Dose: 0 mls/hr Documented by: [id number] Admin: 02/28/20 11:05 Dose: 240 mls/hr Documented by: [id number] Morphine Sulfate (Morphine Sulfate) 2 mg IV NOW STA Stop: 02/28/20 10:11 Last Admin: 02/28/20 10:50 Dose: 2 mg Documented by: [id number] Ondansetron HCl (Zofran) 4 mg IV NOW STA Stop: 02/28/20 09:56 Last Admin: 02/28/20 10:10 Dose: 4 mg Documented by: [id number] Medical Decision Making Differential Diagnosis Differential considered: pancreatitis, hepatitis, acute cholecystitis, AAA, UTI, pyelonephritis, kidney stones, appendicitis, diverticulitis, shingles, bowel obstruction, mesenteric ischemia, intussusception,hernia. Medical Records Attestation: I reviewed the patient's medical records. Home Medications Current Medication List: was personally reviewed by me Laboratory Data Attestation: I reviewed the patient's lab results. Result diagrams: 02/28/20 10:05 02/28/20 10:05 Lab Results 02/28/20 02/28/20 02/28/20 Range/Units 09:57 10:05 10:05 WBC 31.06 H* (4.8-10.8) K/uL RBC 4.17 L (4.2-5.4) M/uL Hgb 12.4 (12.0-16.0) g/dL POC Hgb (12.0-16.0) g/dl Hct 36.4 L (37-47) % POC Hct (37-47) % MCV 87.3 (80-100) fL MCH 29.7 (25-34) pg MCHC 34.1 (32-36) g/dL RDW Std Deviation 51.6 H (36.4-46.3) fL RDW Coeff of Rika 16.4 H (11.5-14.5) % Plt Count 410 H (130-400) K/uL MPV 10.3 (7.4-10.4) fL Immature Gran % (Auto) 0.5 % Neut % (Auto) 92.1 % Lymph % (Auto) 3.3 % Desha % (Auto) 4.0 % Eos % (Auto) 0.0 % Baso % (Auto) 0.1 % Immature Gran # (Auto) 0.17 H (0.00-0.02) K/uL Neut # (Auto) 28.62 H (1.4-6.5) K/uL Lymph # (Auto) 1.02 L (1.2-3.4) K/uL Desha # (Auto) 1.23 H (0.11-0.59) K/uL Eos # (Auto) 0.00 (0-0.5) K/uL Baso # (Auto) 0.02 (0-0.2) K/uL POC Sodium (135-144) mmol/L Sodium 136 (136-145) mmol/L POC Potassium (3.3-5.0) mmol/L Potassium 5.1 (3.5-5.1) mmol/L POC Chloride (101-112) mmol/L Chloride 102 (98-107) mmol/L Carbon Dioxide 18 L (21-32) mmol/L POC Total CO2 (24-31) mmol/L Anion Gap 16.0 H (3-11) POC Anion Gap (16-25) mmol/L POC BUN (7-18) mg/dl BUN 87 H (7-18) mg/dl Creatinine 2.55 H (0.6-1.2) mg/dl POC Creatinine (0.6-1.3) mg/dl Est Cr Clr Drug Dosing 17.9 ml/min Est GFR ( Amer) 19.6 Est GFR (Non-Af Amer) 16.9 BUN/Creatinine Ratio 33.9 H (10-20) Glucose 161 H (70-99) mg/dl POC Glucose 130 H (70-99) mg/dl POC Glucose (other) (70-99) mg/dl Lactate (0.4-2.0) mmol/L Calcium 10.0 (8.5-10.1) mg/dl POC Ioniz Calcium Luis M (1.12-1.32) mmol/l Total Bilirubin 1.0 (0.2-1) mg/dl AST 37 (15-37) U/L ALT 33 (12-78) U/L Alkaline Phosphatase 293 H (45-117) U/L Total Protein 7.3 (6.4-8.2) gm/dl Albumin 2.8 L (3.4-5.0) gm/dl Globulin 4.5 H (2.5-4.0) gm/dl Albumin/Globulin Ratio 0.6 L (0.9-2) Lipase 202 (73-393) U/L Urine Color Urine Appearance (Clear) Urine pH (4.5-7.5) Ur Specific Randolph (1.000-1.030) Urine Protein (Negative) Urine Glucose (UA) (Negative) Urine Ketones (Negative) Urine Blood (Negative) Urine Nitrite (Negative) Urine Bilirubin (Negative) Urine Urobilinogen (Negative) Ur Leukocyte Esterase (Negative) Urine WBC (Auto) (0-5) /hpf Urine RBC (Auto) (0-4) /hpf U Hyaline Cast (Auto) (0-5) /lpf U Epithel Cells (Auto) (0-5) /lpf Urine Bacteria (Auto) (Negative) Ur Renal Epithelial Cell 02/28/20 02/28/20 02/28/20 Range/Units 10:05 10:11 10:20 WBC (4.8-10.8) K/uL RBC (4.2-5.4) M/uL Hgb (12.0-16.0) g/dL POC Hgb 13.3 (12.0-16.0) g/dl Hct (37-47) % POC Hct 39 (37-47) % MCV (80-100) fL MCH (25-34) pg MCHC (32-36) g/dL RDW Std Deviation (36.4-46.3) fL RDW Coeff of Rika (11.5-14.5) % Plt Count (130-400) K/uL MPV (7.4-10.4) fL Immature Gran % (Auto) % Neut % (Auto) % Lymph % (Auto) % Desha % (Auto) % Eos % (Auto) % Baso % (Auto) % Immature Gran # (Auto) (0.00-0.02) K/uL Neut # (Auto) (1.4-6.5) K/uL Lymph # (Auto) (1.2-3.4) K/uL Desha # (Auto) (0.11-0.59) K/uL Eos # (Auto) (0-0.5) K/uL Baso # (Auto) (0-0.2) K/uL POC Sodium 134 L (135-144) mmol/L Sodium (136-145) mmol/L POC Potassium 5.1 H (3.3-5.0) mmol/L Potassium (3.5-5.1) mmol/L POC Chloride 105 (101-112) mmol/L Chloride (98-107) mmol/L Carbon Dioxide (21-32) mmol/L POC Total CO2 17 L (24-31) mmol/L Anion Gap (3-11) POC Anion Gap 18.0 (16-25) mmol/L POC BUN 76 H (7-18) mg/dl BUN (7-18) mg/dl Creatinine (0.6-1.2) mg/dl POC Creatinine 2.4 H (0.6-1.3) mg/dl Est Cr Clr Drug Dosing ml/min Est GFR ( Amer) Est GFR (Non-Af Amer) BUN/Creatinine Ratio (10-20) Glucose (70-99) mg/dl POC Glucose (70-99) mg/dl POC Glucose (other) 154 H (70-99) mg/dl Lactate 3.1 H* (0.4-2.0) mmol/L Calcium (8.5-10.1) mg/dl POC Ioniz Calcium Luis M 1.20 (1.12-1.32) mmol/l Total Bilirubin (0.2-1) mg/dl AST (15-37) U/L ALT (12-78) U/L Alkaline Phosphatase (45-117) U/L Total Protein (6.4-8.2) gm/dl Albumin (3.4-5.0) gm/dl Globulin (2.5-4.0) gm/dl Albumin/Globulin Ratio (0.9-2) Lipase (73-393) U/L Urine Color Dark Yellow Urine Appearance Cloudy A (Clear) Urine pH 5.0 (4.5-7.5) Ur Specific [place] 1.020 (1.000-1.030) Urine Protein Trace H (Negative) Urine Glucose (UA) Negative (Negative) Urine Ketones Negative (Negative) Urine Blood Trace H (Negative) Urine Nitrite Negative (Negative) Urine Bilirubin Negative (Negative) Urine Urobilinogen Negative (Negative) Ur Leukocyte Esterase 2+ H (Negative) Urine WBC (Auto) 1-5 (0-5) /hpf Urine RBC (Auto) 0-4 (0-4) /hpf U Hyaline Cast (Auto) 10-30 H (0-5) /lpf U Epithel Cells (Auto) >30 H (0-5) /lpf Urine Bacteria (Auto) 4+ H (Negative) Ur Renal Epithelial Cell Not Reportable Imaging Data Radiologist's Impression: CT scan of the abdomen and pelvis:1. Mild thickening and pericolonic fat stranding surrounding the majority of the colon. Findings are consistent with a pancolitis and therefore favor an infectious or inflammatory process. 2. Bilateral nephrolithiasis. No hydronephrosis. 3. A 5 mm indeterminate pulmonary nodule within the right middle lobe. 4. Soft tissue thickening and deformity within the left femoral head with a small joint effusion. There appears to be cement within the left hip space. Sclerosis and erosive change seen within the left acetabulum. There is also bony fragmentation within the left hip and erosion of the left femoral head. Findings raise the possibility of a chronic osteoarthritis/septic arthritis. 5. Additional findings as described above. ECG Data Attestation: I personally reviewed and interpreted this ECG as follows: Indication: abdominal pain Rate (beats per minute): 115 Rhythm: sinus tachycardia Findings: no PVC and no ST elevation Blood Pressure Blood Pressure Findings: Normal blood pressure MDM Narrative The patient is an 80-year-old female who presents to the ED with a chief complaint of no bowel movement for the past 5 days. She also reports abdominal pain that started yesterday. She has had 4 episodes of nausea and vomiting since her pain started yesterday. She has a reported history of small bowel obstruction. The patient had an enema yesterday that did not seem to improve her symptoms. EMS stated that her blood pressure was low. The patient has no other complaints at this time. Her symptoms are moderate. The patient's vital signs are stable. She is currently not hypotensive despite prehospital stating that she was. Her abdominal exam reveals diffuse abdominal tenderness. The patient's white blood cell count is 31,000. EKG showed a sinus tach at a rate of 115. The nurse reported her stool being guaiac positive and black. Lactic acid level was elevated at 3.1. BUN is 87 and creatinine is 2.55. This is up from 1.13 on 10/20/2019. Lipase was negative. Urine appears contaminated. A CT scan of the abdomen pelvis reveals findings concerning for pancolitis. There is also suggestion of a chronic osteo-or septic arthritis of the left hip. I did move the hip. It does not appear to be giving the patient pain. The patient was given 2 L of normal saline IV fluids as well as IV Zosyn. She was also give n IV morphine for pain and IV Zofran. She will be seen by the hospitalist for further inpatient evaluation and care. Impression & Plan Pancolitis, Leukocytosis, Abdominal pain, Acute kidney injury Critical Care Time Critical Care Time: Yes Total Critical Care Time: 40 I have personally spent 40 minutes of critical care time in the direct management of this patient. This includes bedside care, interpretation of diagnostic studies, and testing, discussion with consultants, patient, and family members, and other required patient management activities. This 40 minutes is in excess of all separately billable procedures. Discharge Plan Visit Data Chief Complaint: GI Assessment ED Provider: Andrews Avila Discharge Problem: Pancolitis, Leukocytosis, Abdominal pain, Acute kidney injury Patient Disposition: Being Evaluated by Hospitalist Forms Stand Alone Forms: My [facility] Prescriptions Prescriptions: No Action hydrochlorothiazide 25 mg tablet 25 mg PO DAILY Qty: 90 RF: 3 valsartan 320 mg tablet 320 mg PO DAILY Qty: 90 RF: 1 metoprolol succinate 25 mg tablet extended release 24 hr 50 mg PO QAM Qty: 180 RF: 1 Hold Instructions: Home Medication placed on hold at Doctor's office lovastatin 20 mg tablet 20 mg PO Q OTHER DAY Qty: 45 RF: 1 celecoxib [Celebrex] 200 mg capsule 200 mg PO DAILY Qty: 90 RF: 1 hydrocodone-acetaminophen 5-325 mg tablet 1 tab PO Q12H PRN (Reason: pain) Qty: 30 RF: 0 cyclobenzaprine 10 mg tablet 10 mg PO TID PRN (Reason: Pain) Qty: 30 RF: 0 levothyroxine 150 mcg tablet 150 mcg PO DAILY Qty: 30 RF: 2 (DME) Power Wheelchair Device See Rx Instructions .ROUTE .MEDSUPPLY Qty: 1 RF: 0 furosemide [Lasix] 20 mg tablet 20 mg PO Q OTHER DAY 30 Days Qty: 15 RF: 2 acetaminophen [Tylenol Extra Strength] 500 mg Tablet 500 mg PO Q6H PRN (Reason: Pain) RF: 0 aspirin 81 mg Tablet,Delayed Release (Dr/Ec) 81 mg PO DAILY RF: 0 lorazepam 0.5 mg Tablet 0 mg PO DAILY PRN (Reason: Anxiety) RF: 0 Centrum Silver 0.4-300-250 mg-mcg-mcg Tablet 1 tab PO DAILY RF: 0 lidocaine 5 % adhesive patch,medicated 1 patch TOP Q12 PRN (Reason: Pain) RF: 0 cholecalciferol (vitamin D3) [Vitamin D3] 2,000 unit capsule 2,000 unit PO QAM RF: 0 Referrals Referrals: Tami Shelby DO [Primary Care Provider] - Discharge Problem: Abdominal pain Qualifiers: Abdominal location: generalized Qualified Code(s): R10.84 - Generalized abdominal pain
[2020-02-28] MEDS ORDERED: MoRPHine SULFATE 2 MG/ML CARP IV STA (10:10)
[2020-02-28 10:24] LABS: iSTAT Creatinine 2.4 mg/dl (0.6-1.3); iSTAT Hemoglobin 13.3 g/dl (12.0-16.0); iSTAT Ionized Calcium 1.2 mmol/l (1.12-1.32); iSTAT Potassium 5.1 mmol/L (3.3-5.0)
[2020-02-28 10:31] LABS: Albumin Level 2.8 gm/dl (3.4-5.0); BUN Creatinine Ratio 33.9 (10-20); Creatinine Clr Calc Pharmacy 17.9 ml/min; Est GFR (African American) 19.6; Est GFR (Non-African American) 16.9; Potassium 5.1 mmol/L (3.5-5.1)
[2020-02-28 10:34] LABS: Albumin Globulin Ratio 0.6 (0.9-2); Globulin 4.5 gm/dl (2.5-4.0); Hematocrit (blood only) 36.4 % (37-47); Hemoglobin 12.4 g/dL (12.0-16.0); Mean Corpuscular Hemoglobin 29.7 pg (25-34); Mean Corpuscular Hgb Conc 34.1 g/dL (32-36); Mean Corpuscular Volume 87.3 fL (80-100); Mean Platelet Volume 10.3 fL (7.4-10.4); Platelet Count 410 K/uL (130-400); RDW Coefficient of Variation 16.4 % (11.5-14.5); RDW Standard Deviation 51.6 fL (36.4-46.3); Red Blood Count 4.17 M/uL (4.2-5.4); Total Protein 7.3 gm/dl (6.4-8.2); White Blood Count 31.06 K/uL (4.8-10.8)
[2020-02-28 10:35] LABS: Basophils # (auto) 0.02 K/uL (0-0.2); Basophils % (auto) 0.1 %; Immature Granulocytes # (auto) 0.17 K/uL (0.00-0.02); Immature Granulocytes % (auto) 0.5 %; Lymphocytes # (auto) 1.02 K/uL (1.2-3.4); Lymphocytes % (auto) 3.3 %; Monocytes # (auto) 1.23 K/uL (0.11-0.59); Neutrophils # (auto) 28.62 K/uL (1.4-6.5); Neutrophils % (auto) 92.1 %
[2020-02-28 10:38] LABS: Appearance Urine Cloudy (Clear); Bacteria Urine Automated 4+ (Negative); Blood Urine Trace (Negative); Color Urine Dark Yellow; Epithelial Cell Urine Auto >30 /lpf (0-5); Glucose Urine UA Negative (Negative); Ketones Urine Negative (Negative); Leukocyte Esterase Urine 2+ (Negative); Nitrite Urine Negative (Negative); Protein Urine Trace (Negative); RBC Urine Automated 0-4 /hpf (0-4); Urobilinogen Urine Negative (Negative)
[2020-02-28 10:47] LABS: Bilirubin Urine Negative (Negative); Ictotest Urine Negative (Negative)
[2020-02-28] MEDS ORDERED: PIPERACILL/TAZOBAC CONSULT ACTIVE PRN ×2 (10:58→17:36)
[2020-02-28] MEDS ORDERED: PIPERACILLIN/TAZOBACTAM 4.5 GM/120 ML BAG IV ONE (10:58)
--- NOTE | 2020-02-28 11:32 | CT Scan Report ---
ABDOMEN AND PELVIS CT WITHOUT CONTRAST CT DOSE: 1263.91 mGy.cm HISTORY: Generalized abdominal pain. TECHNIQUE: Multiaxial CT images of the abdomen and pelvis were performed without contrast. A dose lo wering technique was utilized adhering to the principles of ALARA. COMPARISON STUDY: None. FINDINGS: There is a 5 mm nodule within the right middle lobe on image 20. No pneumoperitoneum. No pn eumatosis. There is a right total hip arthroplasty. Old right pubic ring fractures are noted. Soft ti ssue thickening and deformity within the left femoral head with a small joint effusion. There appears to be cement within the left hip space. Sclerosis and erosive change seen within the left acetabulum . There is also bony fragmentation within the left hip and erosion of the left femoral head. Findings raise the possibility of a chronic osteoarthritis/septic arthritis. Posterior decompression fusion w ithin the lower thoracic and lumbar spine. Dense mitral annulus calcifications are noted. Tiny fat-co ntaining umbilical hernia. Streak artifact from the patient's overlapping arms results in suboptimal evaluation abdominal structures. However, the unenhanced liver, gallbladder, pancreas, spleen, and ad renal glands are within normal limits. There are multiple bilateral renal calculi with the largest on the right measuring 7 mm. No ureteral stones. No hydronephrosis. The bladder is decompressed by a Fo [place] catheter. Normal caliber abdominal aorta. No retroperitoneal lymphadenopathy. Evidence for prior appendectomy. Prior hysterectomy. Colonic diverticulosis. Trace pelvic free fluid. Mild thickening an d pericolonic fat stranding surrounding the majority of the colon. Findings are consistent with a riggs colitis. No dilated loops of small bowel to suggest an obstruction. IMPRESSION: 1. Mild thickening and pericolonic fat stranding surrounding the majority of the colon. Findings are consistent with a pancolitis and therefore favor an infectious or inflammatory process. 2. Bilateral nephrolithiasis. No hydronephrosis. 3. A 5 mm indeterminate pulmonary nodule within the right middle lobe. 4. Soft tissue thickening and deformity within the left femoral head with a small joint effusion. The re appears to be cement within the left hip space. Sclerosis and erosive change seen within the left acetabulum. There is also bony fragmentation within the left hip and erosion of the left femoral head . Findings raise the possibility of a chronic osteoarthritis/septic arthritis. 5. Additional findings as described above. ACT 112: Negative or not required by law. Electronically signed by: Mannie Montelongo M.D. 02/28/2020 11:31 AM
[2020-02-28] MEDS ORDERED: SODIUM CHLORIDE 0.9% 1000ML 1,000 ML IV ONE (11:52)
--- NOTE | 2020-02-28 12:39 | XRay Report ---
XR chest 1V portable HISTORY: Generalized abdominal pain. COMPARISON: Chest 09/06/2019. FINDINGS: No pneumothorax. No pleural effusions. Advanced degenerative changes within the shoulders a re again noted. Posterior fusion hardware within the lumbar spine. Mitral anus calcifications. The he art remains enlarged. A few left basilar linear densities favor scarring or atelectasis. This remains unchanged. Focal hazy density within the right medial lung base. This likely represents vascular escrow clerk wding. There is no airspace opacities seen on the same day abdomen and pelvis CT at this location. No evidence for pulmonary edema. IMPRESSION: Chronic and postoperative change. No acute process within the chest. ACT 112: Negative or not required by law. Electronically signed by: Mannie Montelongo M.D. 02/28/2020 12:37 PM
--- NOTE | 2020-02-28 13:01 | History & Physical Report ---
Date of Service February 28, 2020 Assessment & Plan (1) Leukocytosis: Uncertain etiology, early sepsis given hypoTN, elevated lactic acid Pancolitis vs septic hip vs UTI Lactic acid elevated, repeat with slight improvement Blood cx drawn AFTER intial abx Zosyn started in the ED, will continue IVF HypoTN noted (2) ARF (acute renal failure): Cr 2.5 on admission Baseline 1.0 IVF (3) Pancolitis: Noted on CTAP Uncertain if this is etiology of pt's concerns given prior constipation Monitor with zosyn (4) Hypertension: HypoTN noted Holding home meds (5) Osteoarthritis of left hip: Noted as severe Pt states she cannot have surgery due to other health issues Abn CT read as OA vs septic arthritis Pt follows with Dr. Staley, c/s pending (6) Abnormal CT of the chest: Pulm nodule noted on CTAP, 5mm (7) Abnormal finding on urinalysis: UA noted for leuk est, neg nitrites Urine cx pending (8) Prediabetes: Denies hx of pre-DM No current DM meds A1c pending (9) Idiopathic polyneuropathy: Noted (10) Obstructive sleep apnea: States no current tx for this (11) Hypothyroidism: continue home meds (12) Dyslipidemia: continue home meds (13) Anxiety: continue home meds (14) Chronic kidney disease, stage 3 (moderate): See above (15) DVT prophylaxis: SCDs Pt takes aspirin 81mg for prevention, will hold other rx DVT proph to avoid GIB given high flow diarrhea History of Present Illness Primary Care Provider: Tami Shelby, DO 80 y/o F c/o n/v/d, abd pain. Pt states she did have have a bowel movement for about 5 days. She takes a stool softener PRN, so she tried taking this, but it did not help. Yesterday, pt tried an enema, however this progressed to watery stools repeatedly throughout the night without any formed stool. Her last diarrhea was in the ED. She has only had the one episode since coming to the ED. In addition to the watery diarrhea, pt developed n/v and RLQ abd pain last night as well. She states her last emesis was early this AM. She is still nauseated, but no emesis since [facility] [facility]. She feels bloated. Pt denies fever, SOB, chest pain, LE pain or swelling. She states she has never had diarrhea or abd pain like this prior. Pt states that she generally has constipation issues, but maybe 2-3 days between bowel movements at the worst. Never 5 days. Pt was given IVF, abx, zofran in the ED and states she feels much improved, but not at her usual. Still with mild nausea and abd pain. Allergies Allergy/AdvReac Type Severity Reaction Status Date / Time Sulfa (Sulfonamide Allergy Mild ITCHING- Verified 02/28/20 11:06 Antibiotics) PT TAKES CELEBREX AT HOME Home Medications Home Medications Medication Instructions Recorded Confirmed Type acetaminophen [Tylenol Extra 500 mg PO Q6H PRN 08/05/19 02/28/20 History Strength] cholecalciferol (vitamin D3) 2,000 unit PO QAM 09/06/19 02/28/20 History [Vitamin D3] lidocaine 1 patch TOP Q12 PRN 09/06/19 02/28/20 History hydrochlorothiazide 25 mg tablet 25 mg PO DAILY #90 tab 09/24/19 02/28/20 Rx valsartan 320 mg tablet 320 mg PO DAILY #90 tab 10/27/19 02/28/20 Rx lovastatin 20 mg tablet 20 mg PO Q OTHER DAY #45 tab 10/31/19 02/28/20 Rx metoprolol succinate 25 mg 50 mg PO QAM #180 tab 10/31/19 02/28/20 Rx tablet,extended release 24 hr celecoxib 200 mg capsule 200 mg PO DAILY #90 cap 12/15/19 02/28/20 Rx Wheelchair (Manual or Powered) #1 ea 12/19/19 12/19/19 Rx furosemide 20 mg tablet 20 mg PO Q OTHER DAY 30 Days #15 12/19/19 02/28/20 Rx tab hydrocodone 5 mg-acetaminophen 325 1 tab PO Q12H PRN #30 tab 01/15/20 02/28/20 Rx mg tablet cyclobenzaprine 10 mg tablet 10 mg PO TID PRN #30 tab 01/30/20 02/28/20 Rx levothyroxine 150 mcg tablet 150 mcg PO DAILY #30 tab 02/20/20 02/28/20 Rx aspirin 81 mg PO DAILY 02/28/20 02/28/20 History lorazepam 0 mg PO DAILY PRN 02/28/20 02/28/20 History zmeupgvn-ivs-LR-lycopen-lutein 1 tab PO DAILY 02/28/20 02/28/20 History [Centrum Silver] Past Med/Surg History Medical History Acid reflux Anemia Anxiety Arthritis, degenerative Chronic kidney disease, stage 3 (moderate) Dyslipidemia Elevated alkaline phosphatase level Hypertension Hypothyroidism Idiopathic polyneuropathy Idiopathic scoliosis Lumbar spinal stenosis Lymphedema Obstructive sleep apnea Osteoarthritis of left hip Osteoporosis Prediabetes SBO (small bowel obstruction) Urinary incontinence Venous hypertension Surgical History History of appendectomy History of back surgery (11/2011) post spine fixation devin History of esophagogastroduodenoscopy WITH BIOPSY History of lumbar fusion (1990) ;VERTEBRAL History of surgery UTERINE SURGERY History of total hip replacement (02/2013) RIGHT HIP- 02/17 History of total knee arthroplasty LEFT KNEE- 06/18 Hx of arthroscopy of shoulder (1997) S/P arthroscopic knee surgery (2008) Status post right knee replacement Family History Father , age 80 of heart disease Cardiac disorder Hypertension Osteoarthritis Mother , age 82 of uncertain cause History of cholecystectomy Hypertension Kidney disease History of kidney stones Grandmother Myocardial infarction 56 Denies family history of Ovarian cancer Prostate cancer Breast cancer Colorectal cancer Social History Preferred Language: [place] Communication Ability: Effective Visual Impairment: No Limitations Hearing Ability: Hard of Hearing Manager Fine Required: No Beliefs That Will Affect Care: None marital status: Current Living Situation: Spouse current occupational status: retired 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 Feels Safe at Home: Yes Smoking Status: Never smoker Second Hand Exposure: No ; Hx Alcohol Use: Yes Alcohol type: wine Alcohol Intake Frequency: Weekly Alcohol Intake Frequency Comment: One glass wine per week Hx Substance Use: No caffeine: Yes Dental Care, Regularly: Yes Physical Activity Frequency: Daily Seatbelt Use: always Sunscreen Use: Yes Review of Systems Review of Systems: Pertinent positives and negatives reviewed in HPI--all others negative Physical Exam Constitutional: WD/WN, vitals as above Eyes: normal visual canales by confrontation and + anicteric sclerae Neck: normal visual inspection and trachea midline Respiratory: normal respiratory effort, lungs clear to auscultation Cardiovascular: Rate/Rhythm: regular rate and regular rhythm Gastrointestinal (Abdomen): Inspection/Auscultation: + abdomen distended (mild) Percussion/Palpation: + abdomen tender (diffuse) and abdomen soft Musculoskeletal: Head/Neck/Chest: normocephalic and head atraumatic negative for edema, peripheral pulses intact Skin: no rashes, warm and dry Neurologic: awake; not confused Speech / Cognition: normal speech Psychiatric: A+Ox3, euthymic affect Results & Data Results & Data ([facility]) Vital Signs (Past 12 Hours) Vital Signs Temp Pulse Pulse Resp BP BP Pulse Ox 02/28/20 12:20 102 H 18 100 02/28/20 12:17 103 H 18 100 02/28/20 11:55 98/61 L 02/28/20 11:50 99 H 17 94/61 L 100 02/28/20 11:47 98 H 17 119/51 L 100 02/28/20 11:45 98 H 14 89/54 L 100 02/28/20 11:41 105 H 18 100 02/28/20 11:40 105 H 19 105/60 100 02/28/20 11:35 99 H 17 97/50 L 100 02/28/20 11:31 102 H 18 98 02/28/20 11:30 105 H 15 100/64 99 02/28/20 11:25 106 H 16 109/58 L 96 02/28/20 11:20 108 H 15 116/65 100 02/28/20 11:15 105 H 18 116/48 L 100 02/28/20 11:11 103 H 15 100 02/28/20 11:10 100 H 17 110/59 L 97 02/28/20 11:05 103 H 18 106/58 L 100 02/28/20 11:01 103 H 20 94 02/28/20 11:00 103 H 21 93/46 L 95 02/28/20 10:56 113 H 18 97 02/28/20 10:55 111 H 22 100/63 96 02/28/20 10:51 102 H 19 100 02/28/20 10:50 106 H 18 97/70 L 99 02/28/20 10:45 107 H 21 110/65 100 02/28/20 10:42 103 H 18 100 02/28/20 10:41 109 H 16 109/64 100 02/28/20 10:40 112 H 23 100 02/28/20 10:28 111 H 23 103/82 100 02/28/20 10:22 111 H 20 81/50 L 100 02/28/20 10:21 111 H 17 76/48 L 02/28/20 10:20 112 H 20 02/28/20 10:10 116 H 22 100 02/28/20 10:00 117 H 24 98 02/28/20 09:53 116 H 22 98 02/28/20 09:49 117 H 21 148/123 H 100 02/28/20 09:44 36.5 C 114 H 114 H 24 148/103 H 148/103 H 100 Diagnostic Findings CXR: neg for acute CTAP: 1. Mild thickening and pericolonic fat stranding surrounding the majority of the colon. Findings are consistent with a pancolitis and therefore favor an infectious or inflammatory process. 2. Bilateral nephrolithiasis. No hydronephrosis. 3. A 5 mm indeterminate pulmonary nodule within the right middle lobe. 4. Soft tissue thickening and deformity within the left femoral head with a sm all joint effusion. There appears to be cement within the left hip space. Sclerosis and erosive change seen within the left acetabulum. There is also bony fragmentation within the left hip and erosion of the left femoral head. Findings raise the possibility of a chronic osteoarthritis/septic arthritis. 5. Additional findings as described above. Code Status & VTE Plan Code Status Full code VTE Prophylaxis Plan VTE Prophylaxis will be ordered: Yes PG Care Time/CCT Total # of Minutes Spent Total Time Spent with Patient: Total time spent is greater than 50% in coordination of care (as documented) at patient's floor/unit and/or counseling patient: Coding Level of Care Code 18035 Initial Inpt Care Lvl 3 Diagnoses Leukocytosis D72.829 ARF (acute renal failure) N17.9 Pancolitis K51.00 Hypertension I10 Hypertension type: essential hypertension Osteoarthritis of left hip M16.12 Osteoarthritis type: primary Abnormal CT of the chest R93.89 Abnormal finding on urinalysis R82.90 Prediabetes R73.03 Idiopathic polyneuropathy G60.9 Obstructive sleep apnea G47.33 Hypothyroidism E03.9 Hypothyroidism type: acquired Dyslipidemia E78.5 Anxiety F41.9 Chronic kidney disease, stage 3 (moderate) N18.3 DVT prophylaxis Z29.9 (1) Osteoarthritis of left hip Osteoarthritis type: primary Qualified Code(s): M16.12 - Unilateral primary osteoarthritis, left hip (2) Hypothyroidism Hypothyroidism type: acquired Qualified Code(s): E03.9 - Hypothyroidism, unspecified (3) Hypertension Hypertension type: essential hypertension Qualified Code(s): I10 - Essential (primary) hypertension
[2020-02-28] MEDS ORDERED: SODIUM CHLORIDE 0.9% 1000ML 500 ML IV ONE (16:32)
[2020-02-28] MEDS: SODIUM CHLORIDE 0.9% 1000ML 1,000 ML IV SCH (17:10)
[2020-02-28] MEDS ORDERED: MICONAZOLE NITRATE POWDER 43 GM EXT PRN (18:31)
[2020-02-28] MEDS ORDERED: MAGNESIUM HYDROXIDE SUSP 30 ML UDC PO PRN (18:53)
[2020-02-28] MEDS: PIPERACILLIN/TAZOBACTAM 3.375 GM in DEXTROSE 5% 100 ML IV SCH (19:37)
[2020-02-28] MEDS ORDERED: LORazepam 0.5 MG TAB PO PRN (19:41)
--- NOTE | 2020-02-28 21:33 | XRay Report ---
XR hip LT 2V w pelvis CLINICAL HISTORY: Abnormal CT of the left hip. COMPARISON STUDY: Abdomen and pelvis CT 02/28/2020. Left hip 09/06/2019. FINDINGS: Near complete erosion of the left femoral head with widening and erosive change of the left acetabulum. There is also sclerosis within the left hip. No acute fracture or dislocation. The right total arthroplasty. The hardware is intact. Mild bony fragmentation of the left hip. IMPRESSION: Near complete erosion of the left femoral head with erosive change, fragmentation, scler osis within the left hip. In conjunction with the same day CT this is concerning for a chronic osteom yelitis/septic arthritis. Long-standing avascular necrosis or a neuropathic joint could also have a s imilar appearance. ACT 112: Negative or not required by law. Electronically signed by: Mannie Montelongo M.D. 02/28/2020 9:31 PM
[2020-02-28] MEDS: ONDANSETRON INJ 2 MG/ML 2 ML VIAL IV PRN (21:43)
[2020-02-29] MEDS ORDERED: SODIUM CHLORIDE 0.9% 1000ML 500 ML IV ONE (03:38)
[2020-02-29] MEDS: SODIUM CHLORIDE 0.9% 1000ML 1,000 ML IV SCH ×3 (05:16→22:30)
[2020-02-29] MEDS: LEVOTHYROXINE SODIUM 150 MCG TABLET PO SCH (05:58)
[2020-02-29] MEDS: PIPERACILLIN/TAZOBACTAM 3.375 GM in DEXTROSE 5% 100 ML IV SCH ×2 (06:22→18:10)
[2020-02-29 07:12] LABS: Hematocrit (blood only) 31.8 % (37-47); Hemoglobin 10.6 g/dL (12.0-16.0); Mean Corpuscular Hemoglobin 29.4 pg (25-34); Mean Corpuscular Hgb Conc 33.3 g/dL (32-36); Mean Corpuscular Volume 88.1 fL (80-100); Mean Platelet Volume 10.3 fL (7.4-10.4); Platelet Count 376 K/uL (130-400); RDW Coefficient of Variation 16.9 % (11.5-14.5); RDW Standard Deviation 53.7 fL (36.4-46.3); Red Blood Count 3.61 M/uL (4.2-5.4); White Blood Count 29.03 K/uL (4.8-10.8)
[2020-02-29 07:38] LABS: BUN Creatinine Ratio 34.4 (10-20); Calcium 8.2 mg/dl (8.5-10.1); Est GFR (African American) 24.2; Est GFR (Non-African American) 20.9; Magnesium 1.3 mg/dl (1.8-2.4); Phosphorus 3.9 mg/dl (2.5-4.9); Potassium 4.2 mmol/L (3.5-5.1)
[2020-02-29 07:49] LABS: Basophils # (auto) 0.01 K/uL (0-0.2); Echinocytes 1+; Immature Granulocytes # (auto) 0.09 K/uL (0.00-0.02); Immature Granulocytes % (auto) 0.3 %; Lymphocytes # (auto) 1.41 K/uL (1.2-3.4); Lymphocytes % (auto) 4.9 %; Monocytes # (auto) 1.45 K/uL (0.11-0.59); Neutrophils # (auto) 26.07 K/uL (1.4-6.5); Neutrophils % (auto) 89.8 %
[2020-02-29] MEDS: MAGNESIUM SULFATE / D5W 1 GM/100 ML BAG IV SCH ×2 (08:24→10:50)
[2020-02-29] MEDS: ASPIRIN 81 MG ECTAB PO SCH (08:24)
[2020-02-29] MEDS: LOVASTATIN 20 MG TAB PO SCH (08:24)
[2020-02-29] MEDS: ONDANSETRON INJ 2 MG/ML 2 ML VIAL IV PRN ×3 (08:25→22:34)
[2020-02-29] MEDS: CHOLECALCIFEROL 1,000 UNITS 25 MCG TAB PO SCH (08:25)
[2020-02-29] MEDS: CEROVITE ADV FORMULA TAB PO SCH (08:25)
[2020-02-29] MEDS: LIDOCAINE 5% 1 PATCH TD SCH (08:26)
[2020-02-29] MEDS: CALCIUM CARBONATE 500 MG CHEWABLE TAB PO PRN (09:26)
--- NOTE | 2020-02-29 09:44 | Electrocardiogram Report ---
Test Reason : Blood Pressure : / mmHG Vent. Rate : 115 BPM Atrial Rate : 115 BPM P-R Int : 114 ms QRS Dur : 084 ms QT Int : 296 ms P-R-T Axes : 054 -16 033 degrees QTc Int : 409 ms Sinus tachycardia Inferior infarct , age undetermined Abnormal ECG When compared with ECG of 07-SEP-2019 06:39, Inferior infarct is now Present Confirmed by Howie Jeter ([id number]) on 02/29/2020 9:44:15 AM Referred By: REFERRED SELF Confirmed By:Howie Jeter
--- NOTE | 2020-02-29 12:02 | Hospitalist Progress Note ---
Date of Service February 29, 2020 Assessment & Plan (1) Sepsis: * Secondary to pancolitis/UTI (E coli in urine) vs septic hip , although white count elevated to 30k on admission, down to 29k less likely septic hip. Hypotension noted on admission. Elevated lactic acid. * Blood cx drawn AFTER initial abx -- follow * Continue Zosyn IV * Lactic elevated at 3.8 today after initially trending down. * IVF increased to 125cc/hr * Lactic trending down, 2.9 on repeat * Cdiff ordered -- would initiate Vanco PO pending results. * Stool studies pending * Hemoccult + * GI Consultation -- appreciate recommendations * Low threshold for repeat imaging if abdominal pain were to worsen/etc (2) UTI (urinary tract infection): * See above, E.Coli >100,000CFU. Sensitivities pending (3) Pancolitis: * Noted on CTAP * Monitor with Zosyn -- may need additional coverage pending results of cdiff * Low threshold for repeat imaging if concerns for ischemic bowel (4) Acute on chronic kidney failure: * Cr 2.5 on admission * Cr improved to 2.14 * IVF increased to 125/r * Continue to monitor (5) Hypertension: * HypoTN noted down to 50s systolically on 02/27. IVF increased as above * Holding home meds * BP stable at 112/72 * Continue to monitor (6) Osteoarthritis of left hip: * Noted as severe. Follows locally with Dr. Staley * Pt states she cannot have surgery due to other health issues * Abn CT read as OA vs septic arthritis * Ortho consult -- appreciate recommendations (7) Abnormal CT of the chest: * Pulm nodule noted on CTAP, 5mm * Follow up outpatient (8) Abnormal finding on urinalysis: * UA noted for leuk est, neg nitrites * Culture with E.coli, sensitivities to follow (Of note, patient previously with E. Coli UTI with int. immanuel to Unasyn and <=16 for Zosyn -- could consider switching to different agent as patient with only minimal improvement) * Continue Zosyn as previously ordered for now --> if no improvement after 48 hours, consider switching to cephalosporin + flagyl or other anaerobic coverage (9) Prediabetes: * Denies hx of pre-DM. A1c 5.8 * No current DM meds. Will need counselled on this (10) Idiopathic polyneuropathy: * Noted (11) Obstructive sleep apnea: * States no current tx for this (12) Hypothyroidism: * Continue home levothyroxine 150mcg daily. * Last TSH 5.12. * Repeat TSH 1.44, wnl (13) Dyslipidemia: * Continue home lovastatin (14) Anxiety: * Continue home ativan (15) Chronic kidney disease, stage 3 (moderate): * See above (16) Leukocytosis: * Improving, minimally * See above (17) Hypomagnesemia: * Mag 1.3 -- ordered 2gm IV given CKD. Episode of SVT morning of 02/28 * Repeat mag this afternoon -- replace as needed (18) DVT prophylaxis: * SCDs * Pt takes aspirin 81mg for prevention, will hold other rx DVT proph to avoid GIB given high flow diarrhea and heme+ stool Dispo: from home, likely to remain inpatient additional 2-3 nights. cdiff pending. +/- repeat imaging Admission and Anticipated Discharge Date Admission Date: February 28, 2020 Subjective Patient evaluated this morning. States she feels much better than when she came in yesterday, although does continue to have abdominal pain, now moreso LLQ compared to the RLQ when she came in. Improved energy, but still feels a little weak. She states she had two episodes of diarrhea this morning. Denies preston blood. Some nausea and indigestion, but this has improved with Tums this morning. Still with anorexia secondary to nausea. She states she has not had a fever but she does note chills. Some pain in Left hip, but not increased from previous days. States she has been followed by Orthopedics as an outpatient and was seen last week. Discussed lab findings and repeat labs this afternoon. Review of Systems Review of Systems: All systems reviewed & are unremarkable except as noted in HPI & below Constitutional: + chills and + anorexia; no fever Respiratory: no cough and no change in sputum Cardiovascular: no chest pain, no palpitations and no edema Gastrointestinal: + abdominal pain, + nausea, + vomiting and + diarrhea/loose stools; no hematemesis Genitourinary: no dysuria and no urinary frequency Integumentary: no rash and no lesions Neurologic: no falls, no numbness and no paresthesia Endocrine: no polydipsia and no polyphagia Physical Exam Constitutional: well developed, well nourished, + ill appearing and + obese; no acute distress Eyes: + anicteric sclerae and PERRL ENMT: Ears: no hearing impairment and no EAC abnormality Neck: trachea midline, no thyromegaly Respiratory: normal respiratory effort; no respiratory distress and no labored breathing Auscultation: lungs clear to auscultation bilaterally Cardiovascular: Rate/Rhythm: regular rate and regular rhythm Heart Sounds: no gallop, no murmur and no cardiac rub Extremities: + edema (non-pitting) Gastrointestinal (Abdomen): Inspection/Auscultation: + abdomen distended and normal bowel sounds Percussion/Palpation: + abdomen tender (diffusely, although greatest LLQ); no guarding, abdomen not rigid and no hepatosplenomegaly Musculoskeletal: no cyanosis or clubbing, extremities motor strength 5/5 Skin: warm, dry areas of erythema to b/l buttocks Neurologic: patellar DTR's 2+ bilat, sensation intact Psychiatric: A+Ox3, euthymic affect Lymphatic: no cervical or axillary lymphadenopathy Results & Data Results & Data ([facility]) Vital Signs (Past 12 Hours) Vital Signs Temp Pulse Pulse Resp BP Pulse Ox 02/29/20 10:58 102 H 02/29/20 08:00 36.5 C 102 H 18 114/73 99 02/29/20 03:22 36.2 C L 101 H 16 106/54 L 100 Laboratory Results 02/29/20 02/29/20 02/29/20 Range/Units 14:00 13:47 13:47 WBC (4.8-10.8) K/uL RBC (4.2-5.4) M/uL Hgb (12.0-16.0) g/dL Hct (37-47) % MCV (80-100) fL MCH (25-34) pg MCHC (32-36) g/dL RDW Std Deviation (36.4-46.3) fL RDW Coeff of Rika (11.5-14.5) % Plt Count (130-400) K/uL MPV (7.4-10.4) fL Immature Gran % (Auto) % Neut % (Auto) % Lymph % (Auto) % Burt % (Auto) % Eos % (Auto) % Baso % (Auto) % Immature Gran # (Auto) (0.00-0.02) K/uL Neut # (Auto) (1.4-6.5) K/uL Lymph # (Auto) (1.2-3.4) K/uL Burt # (Auto) (0.11-0.59) K/uL Eos # (Auto) (0-0.5) K/uL Baso # (Auto) (0-0.2) K/uL Echinocytes Sodium Pending (136-145) mmol/L Potassium Pending (3.5-5.1) mmol/L Chloride Pending (98-107) mmol/L Carbon Dioxide Pending (21-32) mmol/L Anion Gap Pending (3-11) BUN Pending (7-18) mg/dl Creatinine Pending (0.6-1.2) mg/dl Est Cr Clr Drug Dosing Pending ml/min Est GFR ( Amer) Pending Est GFR (Non-Af Amer) Pending BUN/Creatinine Ratio Pending (10-20) Glucose Pending (70-99) mg/dl Lactate Pending (0.4-2.0) mmol/L Calcium Pending (8.5-10.1) mg/dl Phosphorus (2.5-4.9) mg/dl Magnesium Pending (1.8-2.4) mg/dl Total Bilirubin (0.2-1) mg/dl Direct Bilirubin (0-0.2) mg/dl AST (15-37) U/L ALT (12-78) U/L Alkaline Phosphatase (45-117) U/L Total Protein (6.4-8.2) gm/dl Albumin (3.4-5.0) gm/dl Stool Occult Bld Scrn (Negative) 02/29/20 02/29/20 02/29/20 Range/Units 12:22 12:06 09:25 WBC (4.8-10.8) K/uL RBC (4.2-5.4) M/uL Hgb (12.0-16.0) g/dL Hct (37-47) % MCV (80-100) fL MCH (25-34) pg MCHC (32-36) g/dL RDW Std Deviation (36.4-46.3) fL RDW Coeff of Rika (11.5-14.5) % Plt Count (130-400) K/uL MPV (7.4-10.4) fL Immature Gran % (Auto) % Neut % (Auto) % Lymph % (Auto) % Burt % (Auto) % Eos % (Auto) % Baso % (Auto) % Immature Gran # (Auto) (0.00-0.02) K/uL Neut # (Auto) (1.4-6.5) K/uL Lymph # (Auto) (1.2-3.4) K/uL Burt # (Auto) (0.11-0.59) K/uL Eos # (Auto) (0-0.5) K/uL Baso # (Auto) (0-0.2) K/uL Echinocytes Sodium (136-145) mmol/L Potassium (3.5-5.1) mmol/L Chloride (98-107) mmol/L Carbon Dioxide (21-32) mmol/L Anion Gap (3-11) BUN (7-18) mg/dl Creatinine (0.6-1.2) mg/dl Est Cr Clr Drug Dosing ml/min Est GFR ( Amer) Est GFR (Non-Af Amer) BUN/Creatinine Ratio (10-20) Glucose (70-99) mg/dl Lactate 3.8 H* (0.4-2.0) mmol/L Calcium (8.5-10.1) mg/dl Phosphorus (2.5-4.9) mg/dl Magnesium (1.8-2.4) mg/dl Total Bilirubin 0.6 (0.2-1) mg/dl Direct Bilirubin 0.3 H (0-0.2) mg/dl AST 25 (15-37) U/L ALT 22 (12-78) U/L Alkaline Phosphatase 177 H (45-117) U/L Total Protein 5.8 L D (6.4-8.2) gm/dl Albumin 1.9 L (3.4-5.0) gm/dl Stool Occult Bld Scrn Positive A (Negative) 02/29/20 02/29/20 Range/Units 06:05 06:05 WBC 29.03 H (4.8-10.8) K/uL RBC 3.61 L (4.2-5.4) M/uL Hgb 10.6 L (12.0-16.0) g/dL Hct 31.8 L (37-47) % MCV 88.1 (80-100) fL MCH 29.4 (25-34) pg MCHC 33.3 (32-36) g/dL RDW Std Deviation 53.7 H (36.4-46.3) fL RDW Coeff of Rika 16.9 H (11.5-14.5) % Plt Count 376 (130-400) K/uL MPV 10.3 (7.4-10.4) fL Immature Gran % (Auto) 0.3 % Neut % (Auto) 89.8 % Lymph % (Auto) 4.9 % Burt % (Auto) 5.0 % Eos % (Auto) 0.0 % Baso % (Auto) 0.0 % Immature Gran # (Auto) 0.09 H (0.00-0.02) K/uL Neut # (Auto) 26.07 H (1.4-6.5) K/uL Lymph # (Auto) 1.41 (1.2-3.4) K/uL Burt # (Auto) 1.45 H (0.11-0.59) K/uL Eos # (Auto) 0.00 (0-0.5) K/uL Baso # (Auto) 0.01 (0-0.2) K/uL Echinocytes 1+ Sodium 141 (136-145) mmol/L Potassium 4.2 D (3.5-5.1) mmol/L Chloride 109 H (98-107) mmol/L Carbon Dioxide 18 L (21-32) mmol/L Anion Gap 14.0 H (3-11) BUN 74 H (7-18) mg/dl Creatinine 2.14 H D (0.6-1.2) mg/dl Est Cr Clr Drug Dosing 21.0 ml/min Est GFR ( Amer) 24.2 Est GFR (Non-Af Amer) 20.9 BUN/Creatinine Ratio 34.4 H (10-20) Glucose 113 H (70-99) mg/dl Lactate (0.4-2.0) mmol/L Calcium 8.2 L D (8.5-10.1) mg/dl Phosphorus 3.9 (2.5-4.9) mg/dl Magnesium 1.3 L (1.8-2.4) mg/dl Total Bilirubin (0.2-1) mg/dl Direct Bilirubin (0-0.2) mg/dl AST (15-37) U/L ALT (12-78) U/L Alkaline Phosphatase (45-117) U/L Total Protein (6.4-8.2) gm/dl Albumin (3.4-5.0) gm/dl Stool Occult Bld Scrn (Negative) PG Care Time/CCT Total # of Minutes Spent Total Time Spent with Patient: Total time spent is greater than 50% in coordination of care (as documented) at patient's floor/unit and/or counseling patient: Coding Level of Care Code 72500 Subseq Hosp Care Lvl 3 Diagnoses Sepsis A41.9 UTI (urinary tract infection) N39.0 Pancolitis K51.00 Acute on chronic kidney failure N17.9; N18.9 Hypertension I10 Hypertension type: essential hypertension Osteoarthritis of left hip M16.12 Osteoarthritis type: primary Abnormal CT of the chest R93.89 Abnormal finding on urinalysis R82.90 Prediabetes R73.03 Idiopathic polyneuropathy G60.9 Obstructive sleep apnea G47.33 Hypothyroidism E03.9 Hypothyroidism type: acquired Dyslipidemia E78.5 Anxiety F41.9 Chronic kidney disease, stage 3 (moderate) N18.3 Leukocytosis D72.829 Hypomagnesemia E83.42 DVT prophylaxis Z29.9 (1) Osteoarthritis of left hip Osteoarthritis type: primary Qualified Code(s): M16.12 - Unilateral primary osteoarthritis, left hip (2) Hypothyroidism Hypothyroidism type: acquired Qualified Code(s): E03.9 - Hypothyroidism, unspecified (3) Hypertension Hypertension type: essential hypertension Qualified Code(s): I10 - Essential (primary) hypertension
[2020-02-29 12:55] LABS: Albumin Level 1.9 gm/dl (3.4-5.0); Bilirubin Direct 0.3 mg/dl (0-0.2); Bilirubin,Total 0.6 mg/dl (0.2-1); Total Protein 5.8 gm/dl (6.4-8.2)
--- NOTE | 2020-02-29 14:09 | Orthopedic Consultation ---
Date of Consultation February 29, 2020 Assessment & Plan (1) Osteoarthritis of left hip: She has had longstanding arthritic change in the left hip. 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 It is possible that she has gone on to collapse of the femoral head with secondary debris and concomitant acetabular change. She does not have any history that would be consistent with the development of osteomyelitis in the left hip. She does have significant collapse of the femoral head on x-ray but that may be related to collapse secondary to neurogenic hip/avascular aggressive femoral head. I recommendation for now is to continue to monitor her hip pain. If this starts to increase in nature or if her blood cultures are positive for bacteria that would be more concerning for an orthopedic infection rather than something like E. coli as she has a UTI then my recommendation would be for radiology to perform an aspiration either under ultrasound or CT guidance. History of Present Illness Reason for Consultation: Abnormal findings on CT scan Attending Physician: Tarik Rosario MD History of Present Illness Patient is an 80-year-old female who was admitted to the hospital for evaluation treatment of abdominal pain nausea and vomiting. During her evaluation CT of the abdomen and pelvis were obtained. There is significant changes on the left hip. She has a long history of arthritic pain and change in the left hip. She denies any significant changes in that pain over the last several months. Prior to presentation she does not recall any episodes of fevers or chills or increase in her left hip pain. She states currently the hip is at baseline has pain with ambulation but no significant changes in her level of pain over the last several months. Allergies Allergy/AdvReac Type Severity Reaction Status Date / Time Sulfa (Sulfonamide Allergy Mild ITCHING- Verified 02/28/20 11:06 Antibiotics) PT TAKES CELEBREX AT HOME latex Allergy Rash Verified 02/28/20 18:46 Home Medications Home Medications Medication Instructions Recorded Confirmed Type acetaminophen [Tylenol Extra 500 mg PO Q6H PRN 08/05/19 02/28/20 History Strength] cholecalciferol (vitamin D3) 2,000 unit PO QAM 09/06/19 02/28/20 History [Vitamin D3] lidocaine 1 patch TOP Q12 PRN 09/06/19 02/28/20 History hydrochlorothiazide 25 mg tablet 25 mg PO DAILY #90 tab 09/24/19 02/28/20 Rx valsartan 320 mg tablet 320 mg PO DAILY #90 tab 10/27/19 02/28/20 Rx lovastatin 20 mg tablet 20 mg PO Q OTHER DAY #45 tab 10/31/19 02/28/20 Rx metoprolol succinate 25 mg 50 mg PO QAM #180 tab 10/31/19 02/28/20 Rx tablet,extended release 24 hr celecoxib 200 mg capsule 200 mg PO DAILY #90 cap 12/15/19 02/28/20 Rx Wheelchair (Manual or Powered) #1 ea 12/19/19 12/19/19 Rx furosemide 20 mg tablet 20 mg PO Q OTHER DAY 30 Days #15 12/19/19 02/28/20 Rx tab hydrocodone 5 mg-acetaminophen 325 1 tab PO Q12H PRN #30 tab 01/15/20 02/28/20 Rx mg tablet cyclobenzaprine 10 mg tablet 10 mg PO TID PRN #30 tab 01/30/20 02/28/20 Rx levothyroxine 150 mcg tablet 150 mcg PO DAILY #30 tab 02/20/20 02/28/20 Rx aspirin 81 mg PO DAILY 02/28/20 02/28/20 History lorazepam 0 mg PO DAILY PRN 02/28/20 02/28/20 History [id number]-PR-lycopen-lutein 1 tab PO DAILY 02/28/20 02/28/20 History [Centrum Silver] Patient History Medical History Acid reflux Anemia Anxiety Arthritis, degenerative Chronic kidney disease, stage 3 (moderate) Dyslipidemia Elevated alkaline phosphatase level Hypertension Hypothyroidism Idiopathic polyneuropathy Idiopathic scoliosis Lumbar spinal stenosis Lymphedema Obstructive sleep apnea Osteoarthritis of left hip Osteoporosis Prediabetes SBO (small bowel obstruction) Urinary incontinence Venous hypertension Surgical History History of appendectomy History of back surgery (11/2011) post spine fixation devin History of esophagogastroduodenoscopy WITH BIOPSY History of lumbar fusion (1990) ;VERTEBRAL History of surgery UTERINE SURGERY History of total hip replacement (02/2013) RIGHT HIP- 02/17 History of total knee arthroplasty LEFT KNEE- 06/18 Hx of arthroscopy of shoulder (1997) S/P arthroscopic knee surgery (2008) Status post right knee replacement Family History Father , age 80 of heart disease Cardiac disorder Hypertension Osteoarthritis Mother , age 82 of uncertain cause History of cholecystectomy Hypertension Kidney disease History of kidney stones Grandmother Myocardial infarction 56 Denies family history of Ovarian cancer Prostate cancer Breast cancer Colorectal cancer Social History Preferred Language: German Communication Ability: Effective Visual Impairment: No Limitations Hearing Ability: Hard of Hearing 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 Feels Safe at Home: Yes Safety Concerns: Feels Safe At This Time Smoking Status: Never smoker Second Hand Exposure: No ; Hx Alcohol Use: Yes Alcohol type: wine Alcohol Intake Frequency: Weekly Alcohol Intake Frequency Comment: One glass wine per week Hx Substance Use: No caffeine: Yes Dental Care, Regularly: Yes Physical Activity Frequency: Daily Seatbelt Use: always Sunscreen Use: Yes Physical Exam Constitutional: WD/WN, vitals as above Respiratory: normal respiratory effort Cardiovascular: Extremities: no edema Musculoskeletal: Left hip: No erythema. No tenderness palpation. No swelling. No tenderness along the thigh or calf she has no significant pain with internal or external rotation of the hip. She has some pain at terminal flexion but is not overly significant. Results & Data ([facility]) Vital Signs (Past 12 Hours) Vital Signs Temp Pulse Pulse Resp BP Pulse Ox 02/29/20 11:00 36.3 C L 88 112/72 100 02/29/20 10:58 102 H 02/29/20 08:00 36.5 C 102 H 18 114/73 99 02/29/20 03:22 36.2 C L 101 H 16 106/54 L 100 (1) Osteoarthritis of left hip Osteoarthritis type: primary Qualified Code(s): M16.12 - Unilateral primary osteoarthritis, left hip
[2020-02-29 14:21] LABS: BUN Creatinine Ratio 32.4 (10-20); Creatinine Clr Calc Pharmacy 21.8 ml/min; Est GFR (African American) 25.4; Est GFR (Non-African American) 21.9; Potassium 3.6 mmol/L (3.5-5.1)
[2020-02-29 14:48] LABS: Thyroid Stimulating Hormone 1.44 uIu/ml (0.300-4.500)
[2020-02-29 18:32] LABS: Cdiff Antigen Positive; Cdiff Toxin A+B Negative Cdiff Toxin (Negative)
[2020-02-29] MEDS: CYCLOBENZAPRINE HCL 10 MG TAB PO PRN (20:48)
[2020-02-29] MEDS: ACETAMINOPHEN 325 MG TAB PO PRN (20:48)
[2020-03-01] MEDS: PIPERACILLIN/TAZOBACTAM 3.375 GM in DEXTROSE 5% 100 ML IV SCH (05:53)
[2020-03-01] MEDS: LEVOTHYROXINE SODIUM 150 MCG TABLET PO SCH (06:00)
[2020-03-01] MEDS: SODIUM CHLORIDE 0.9% 1000ML 1,000 ML IV SCH ×3 (06:02→23:27)
[2020-03-01 06:13] LABS: Hematocrit (blood only) 26.2 % (37-47); Hemoglobin 8.8 g/dL (12.0-16.0); Mean Corpuscular Hemoglobin 29.3 pg (25-34); Mean Corpuscular Hgb Conc 33.6 g/dL (32-36); Mean Corpuscular Volume 87.3 fL (80-100); Mean Platelet Volume 9.9 fL (7.4-10.4); Platelet Count 318 K/uL (130-400); RDW Coefficient of Variation 16.9 % (11.5-14.5); RDW Standard Deviation 53.7 fL (36.4-46.3); White Blood Count 17.19 K/uL (4.8-10.8)
[2020-03-01 06:39] LABS: Albumin Level 1.7 gm/dl (3.4-5.0); BUN Creatinine Ratio 28.7 (10-20); Calcium 7.6 mg/dl (8.5-10.1); Creatinine Clr Calc Pharmacy 27.1 ml/min; Est GFR (African American) 33.2; Est GFR (Non-African American) 28.6; Potassium 3.1 mmol/L (3.5-5.1)
[2020-03-01 06:41] LABS: Basophils # (auto) 0.01 K/uL (0-0.2); Basophils % (auto) 0.1 %; Eosinophils # (auto) 0.02 K/uL (0-0.5); Eosinophils % (auto) 0.1 %; Immature Granulocytes # (auto) 0.05 K/uL (0.00-0.02); Immature Granulocytes % (auto) 0.3 %; Lymphocytes # (auto) 1.49 K/uL (1.2-3.4); Lymphocytes % (auto) 8.7 %; Monocytes # (auto) 1.26 K/uL (0.11-0.59); Monocytes % (auto) 7.3 %; Neutrophils # (auto) 14.36 K/uL (1.4-6.5); Neutrophils % (auto) 83.5 %
[2020-03-01 06:42] LABS: Albumin Globulin Ratio 0.5 (0.9-2); Bilirubin,Total 0.5 mg/dl (0.2-1); Globulin 3.7 gm/dl (2.5-4.0); Total Protein 5.4 gm/dl (6.4-8.2)
[2020-03-01] MEDS: CEROVITE ADV FORMULA TAB PO SCH (08:06)
[2020-03-01] MEDS: CHOLECALCIFEROL 1,000 UNITS 25 MCG TAB PO SCH (08:07)
[2020-03-01] MEDS: ASPIRIN 81 MG ECTAB PO SCH (08:07)
[2020-03-01] MEDS: LIDOCAINE 5% 1 PATCH TD SCH (08:08)
[2020-03-01] MEDS ORDERED: POTASSIUM CHLORIDE 20 MEQ TABCR PO STA (08:23)
--- NOTE | 2020-03-01 08:57 | Gastrointestinal Consultation ---
Date of Consultation March 01, 2020 Assessment & Plan (1) C. difficile colitis: Patient presenting with signs and symptoms suggestive of C. difficile colitis. This is confirmed by the C. difficile PCR which was done yesterday afternoon. Given the patient's discomfort uncontrolled diarrhea and significant elevation of her white blood cell count I would recommend Combination therapy of vancomycin with metronidazole. Recommendations Vancomycin 125 mg 4 times daily for 14 days Metronidazole 500 mg IV 3 times daily Once clinical condition improves and the metronidazole may be discontinued Recommend daily KUBs Can use Bentyl 10 mg twice daily for cramping History of Present Illness Reason for Consultation: diarrhea Requesting Physician: Dr. Daniel Attending Physician: Marcell Daniel MD History of Present Illness The patient is an 80-year-old female who presented to the hospital with over a week of abdominal discomfort cramping bloating and loose to liquid bowel movements with urgency incontinence. She does not recall any recent forces of antibiotics and no recent medication changes. She does recall having a colonoscopy with Dr. Garcia which showed diverticulosis of the sigmoid colon and was otherwise unremarkable. The patient had a history of an endoscopically unresectable colon polyp in 2006 and underwent ileocecectomy treatment. Allergies Allergy/AdvReac Type Severity Reaction Status Date / Time Sulfa (Sulfonamide Allergy Mild ITCHING- Verified 02/28/20 11:06 Antibiotics) PT TAKES CELEBREX AT HOME latex Allergy Rash Verified 02/28/20 18:46 Home Medications Home Medications Medication Instructions Recorded Confirmed Type acetaminophen [Tylenol Extra 500 mg PO Q6H PRN 08/05/19 02/28/20 History Strength] cholecalciferol (vitamin D3) 2,000 unit PO QAM 09/06/19 02/28/20 History [Vitamin D3] lidocaine 1 patch TOP Q12 PRN 09/06/19 02/28/20 History hydrochlorothiazide 25 mg tablet 25 mg PO DAILY #90 tab 09/24/19 02/28/20 Rx valsartan 320 mg tablet 320 mg PO DAILY #90 tab 10/27/19 02/28/20 Rx lovastatin 20 mg tablet 20 mg PO Q OTHER DAY #45 tab 10/31/19 02/28/20 Rx metoprolol succinate 25 mg 50 mg PO QAM #180 tab 10/31/19 02/28/20 Rx tablet,extended release 24 hr celecoxib 200 mg capsule 200 mg PO DAILY #90 cap 12/15/19 02/28/20 Rx Wheelchair (Manual or Powered) #1 ea 12/19/19 12/19/19 Rx furosemide 20 mg tablet 20 mg PO Q OTHER DAY 30 Days #15 12/19/19 02/28/20 Rx tab hydrocodone 5 mg-acetaminophen 325 1 tab PO Q12H PRN #30 tab 01/15/20 02/28/20 Rx mg tablet cyclobenzaprine 10 mg tablet 10 mg PO TID PRN #30 tab 01/30/20 02/28/20 Rx levothyroxine 150 mcg tablet 150 mcg PO DAILY #30 tab 02/20/20 02/28/20 Rx aspirin 81 mg PO DAILY 02/28/20 02/28/20 History lorazepam 0 mg PO DAILY PRN 02/28/20 02/28/20 History [id number]-SG-lycopen-lutein 1 tab PO DAILY 02/28/20 02/28/20 History [Centrum Silver] Patient History Medical History Acid reflux Anemia Anxiety Arthritis, degenerative Chronic kidney disease, stage 3 (moderate) Dyslipidemia Elevated alkaline phosphatase level Hypertension Hypothyroidism Idiopathic polyneuropathy Idiopathic scoliosis Lumbar spinal stenosis Lymphedema Obstructive sleep apnea Osteoarthritis of left hip Osteoporosis Prediabetes SBO (small bowel obstruction) Urinary incontinence Venous hypertension Surgical History History of appendectomy History of back surgery (11/2011) post spine fixation devin History of esophagogastroduodenoscopy WITH BIOPSY History of lumbar fusion (1990) ;VERTEBRAL History of surgery UTERINE SURGERY History of total hip replacement (02/2013) RIGHT HIP- 02/17 History of total knee arthroplasty LEFT KNEE- 06/18 Hx of arthroscopy of shoulder (1997) S/P arthroscopic knee surgery (2008) Status post right knee replacement Family History Father , age 80 of heart disease Cardiac disorder Hypertension Osteoarthritis Mother , age 82 of uncertain cause History of cholecystectomy Hypertension Kidney disease History of kidney stones Grandmother Myocardial infarction 56 Denies family history of Ovarian cancer Prostate cancer Breast cancer Colorectal cancer Social History Preferred Language: Ukrainian Communication Ability: Effective Visual Impairment: No Limitations Hearing Ability: Hard of Hearing 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 Feels Safe at Home: Yes Safety Concerns: Feels Safe At This Time Smoking Status: Never smoker Second Hand Exposure: No ; Hx Alcohol Use: Yes Alcohol type: wine Alcohol Intake Frequency: Weekly Alcohol Intake Frequency Comment: One glass wine per week Hx Substance Use: No caffeine: Yes Dental Care, Regularly: Yes Physical Activity Frequency: Daily Seatbelt Use: always Sunscreen Use: Yes Review of Systems Constitutional: + malaise; no fever, no sweats and no weight loss Eyes: no diplopia Ear, Nose, Mouth, Throat: no ear trauma Respiratory: no change in sputum Cardiovascular: no chest pain with activity Gastrointestinal: + bloating, + nausea, + cramping, + change in stools and + fecal incontinence; no hematemesis Genitourinary: + urinary frequency Musculoskeletal: no radicular pain Neurologic: no problem reported Psychiatric: no hopelessness Endocrine: no polydipsia Hematologic / Lymphatic: no coagulopathy Physical Exam Constitutional: well developed and well nourished; no acute distress Eyes: no conjunctival abnormality Neck: trachea midline, no thyromegaly Respiratory: normal respiratory effort, lungs clear to auscultation Cardiovascular: Heart Sounds: + murmur Gastrointestinal (Abdomen): Percussion/Palpation: + abdomen tender and abdomen soft; no guarding Results & Data ([facility]) Vital Signs (Past 12 Hours) Vital Signs Temp Pulse Pulse Resp BP Pulse Ox 03/01/20 07:43 36.4 C L 86 17 159/86 H 100 02/29/20 23:50 90 02/29/20 23:41 36.2 C L 90 20 103/53 L 94 Laboratory Results Laboratory Results - last 24 hr 02/29/20 02/29/20 02/29/20 09:25 12:06 12:22 WBC RBC Hgb Hct MCV MCH MCHC RDW Std Deviation RDW Coeff of Rika Plt Count MPV Immature Gran % (Auto) Neut % (Auto) Lymph % (Auto) Coffey % (Auto) Eos % (Auto) Baso % (Auto) Immature Gran # (Auto) Neut # (Auto) Lymph # (Auto) Coffey # (Auto) Eos # (Auto) Baso # (Auto) Sodium Potassium Chloride Carbon Dioxide Anion Gap BUN Creatinine Est Cr Clr Drug Dosing Est GFR ( Amer) Est GFR (Non-Af Amer) BUN/Creatinine Ratio Glucose Lactate 3.8 H* Calcium Magnesium Total Bilirubin 0.6 Direct Bilirubin 0.3 H AST 25 ALT 22 Alkaline Phosphatase 177 H Total Protein 5.8 L D Albumin 1.9 L Globulin Albumin/Globulin Ratio TSH Stool Occult Bld Scrn Positive A Stl C. diff Tox B Gene Stl C.difficile Tox A&B 02/29/20 02/29/20 02/29/20 13:47 13:47 14:00 WBC RBC Hgb Hct MCV MCH MCHC RDW Std Deviation RDW Coeff of Rika Plt Count MPV Immature Gran % (Auto) Neut % (Auto) Lymph % (Auto) Coffey % (Auto) Eos % (Auto) Baso % (Auto) Immature Gran # (Auto) Neut # (Auto) Lymph # (Auto) Coffey # (Auto) Eos # (Auto) Baso # (Auto) Sodium 139 Potassium 3.6 Chloride 109 H Carbon Dioxide 19 L Anion Gap 11.0 BUN 67 H Creatinine 2.06 H Est Cr Clr Drug Dosing 21.8 Est GFR ( Amer) 25.4 Est GFR (Non-Af Amer) 21.9 BUN/Creatinine Ratio 32.4 H Glucose 123 H Lactate 2.9 H* Calcium 8.0 L Magnesium 2.0 Total Bilirubin Direct Bilirubin AST ALT Alkaline Phosphatase Total Protein Albumin Globulin Albumin/Globulin Ratio TSH 1.440 Stool Occult Bld Scrn Stl C. diff Tox B Gene Stl C.difficile Tox A&B 02/29/20 03/01/20 03/01/20 16:20 05:45 05:45 WBC 17.19 H D RBC 3.00 L Hgb 8.8 L Hct 26.2 L MCV 87.3 MCH 29.3 MCHC 33.6 RDW Std Deviation 53.7 H RDW Coeff of Rika 16.9 H Plt Count 318 MPV 9.9 Immature Gran % (Auto) 0.3 Neut % (Auto) 83.5 Lymph % (Auto) 8.7 Coffey % (Auto) 7.3 Eos % (Auto) 0.1 Baso % (Auto) 0.1 Immature Gran # (Auto) 0.05 H Neut # (Auto) 14.36 H Lymph # (Auto) 1.49 Coffey # (Auto) 1.26 H Eos # (Auto) 0.02 Baso # (Auto) 0.01 Sodium 142 Potassium 3.1 L Chloride 115 H Carbon Dioxide 18 L Anion Gap 9.0 BUN 47 H Creatinine 1.65 H D Est Cr Clr Drug Dosing 27.1 Est GFR ( Amer) 33.2 Est GFR (Non-Af Amer) 28.6 BUN/Creatinine Ratio 28.7 H Glucose 102 H Lactate Calcium 7.6 L Magnesium Total Bilirubin 0.5 Direct Bilirubin AST 19 ALT 19 Alkaline Phosphatase 218 H Total Protein 5.4 L Albumin 1.7 L Globulin 3.7 Albumin/Globulin Ratio 0.5 L TSH Stool Occult Bld Scrn Stl C. diff Tox B Gene Positive Cdiff Gene H Stl C.difficile Tox A&B Negative Cdiff Toxin Diagnostic Findings BDOMEN AND PELVIS CT WITHOUT CONTRAST CT DOSE: 1263.91 mGy.cm HISTORY: Generalized abdominal pain. TECHNIQUE: Multiaxial CT images of the abdomen and pelvis were performed without contrast. A dose lowering technique was utilized adhering to the principles of ALARA. COMPARISON STUDY: None. FINDINGS: There is a 5 mm nodule within the right middle lobe on image 20. No pneumoperitoneum. No pneumatosis. There is a right total hip arthroplasty. Old right pubic ring fractures are noted. Soft tissue thickening and deformity with in the left femoral head with a small joint effusion. There appears to be cement within the left hip space. Sclerosis and erosive change seen within the left acetabulum. There is also bony fragmentation within the left hip and erosion of the left femoral head. Findings raise the possibility of a chronic osteoarthritis/septic arthritis. Posterior decompression fusion within the lower thoracic and lumbar spine. Dense mitral annulus calcifications are noted. Tiny fat-containing umbilical hernia. Streak artifact from the patient's overlapping arms results in suboptimal evaluation abdominal structures. However, the unenhanced liver, gallbladder, pancreas, spleen, and adrenal glands are within normal limits. There are multiple bilateral renal calculi with the largest on the right measuring 7 mm. No ureteral stones. No hydronephrosis. The bladder is decompressed by a Morel catheter. Normal caliber abdominal aorta. No retroperitoneal lymphadenopathy. Evidence for prior appendectomy. Prior hyst erectomy. Colonic diverticulosis. Trace pelvic free fluid. Mild thickening and pericolonic fat stranding surrounding the majority of the colon. Findings are consistent with a pancolitis. No dilated loops of small bowel to suggest an obstruction. IMPRESSION: 1. Mild thickening and pericolonic fat stranding surrounding the majority of the colon. Findings are consistent with a pancolitis and therefore favor an infectious or inflammatory process. 2. Bilateral nephrolithiasis. No hydronephrosis. 3. A 5 mm indeterminate pulmonary nodule within the right middle lobe. 4. Soft tissue thickening and deformity within the left femoral head with a small joint effusion. There appears to be cement within the left hip space. Sclerosis and erosive change seen within the left acetabulum. There is also bony fragmentation within the left hip and erosion of the left femoral head. Findings raise the possibility of a chronic osteoarthritis/septic arthritis. 5. Additional findings as described above.
[2020-03-01] MEDS: CALCIUM CARBONATE 500 MG CHEWABLE TAB PO PRN (09:00)
[2020-03-01] MEDS: metroNIDAZOLE 500 MG/100 ML BAG IV SCH ×2 (10:37→17:51)
[2020-03-01] MEDS: VANCOMYCIN HCL 125 MG/2.5ML SOLN PO SCH ×3 (11:48→23:16)
[2020-03-01] MEDS: RASPBERRY SYRUP 5 ML UDP PO SCH ×3 (11:48→23:17)
[2020-03-01] MEDS ORDERED: PIPERACILLIN/TAZOBACTAM 3.375 GM in DEXTROSE 5% 100 ML IV SCH (14:00)
--- NOTE | 2020-03-01 17:01 | Hospitalist Progress Note ---
Date of Service March 01, 2020 Assessment & Plan (1) Sepsis: * Secondary to C diff infection - patient positive for C diff gene but not toxin. Given symptoms and significant leukocytosis will treat as active infection per GI. IV metronidazole and po vancomycin * Blood cx drawn AFTER initial abx -- ngtd * discontinue Zosyn IV - patient growing E Coli in urine but never had any urinary symptoms, infectious source appears to be C diff * Lactic elevated at 3.8 today after initially trending down. * IVF increased to 125cc/hr due to increase in lactate which trended down- will continue * Stool culture negative * Hemoccult + * GI Consultation -- appreciate recommendations * leukocytosis improved to 17 from 31 (2) C. difficile colitis: As above (3) Pancolitis: * Noted on CTAP * daily KUBs per GI (4) Acute on chronic kidney failure: * Cr 2.5 on admission * Cr improved to 1.65 * Continue IVF (5) Blood loss anemia: Hgb 8.8 down from 10.6 with black stools. Stable on recheck Repeat hgb am (6) Hypertension: * HypoTN noted down to 50s systolically on 02/27. Resolved * continue IVF (7) Osteoarthritis of left hip: * Noted as severe. Follows locally with Dr. Staley * Ortho consulted - history of avascular necrosis - recommends treating hip pain. Cultures thus far positive for E.Coli. No growth from blood cultures so at this time would not recommend aspirating (8) Abnormal CT of the chest: * Pulm nodule noted on CTAP, 5mm * Follow up outpatient (9) Prediabetes: * Denies hx of pre-DM. A1c 5.8 * No current DM meds. Will need counselled on this and follow up (10) Idiopathic polyneuropathy: * Noted (11) Obstructive sleep apnea: * States no current tx for this (12) Hypothyroidism: * Continue home levothyroxine 150mcg daily. * Last TSH 5.12. * Repeat TSH 1.44, wnl (13) Dyslipidemia: * Continue home lovastatin (14) Anxiety: * Continue home ativan (15) Chronic kidney disease, stage 3 (moderate): * See above (16) Hypomagnesemia: * replaced adn resolved (17) DVT prophylaxis: * SCDs * Pt takes aspirin 81mg for prevention, will hold other rx DVT proph to avoid GIB given high flow diarrhea and heme+ stool Dispo: from home, likely to remain inpatient additional 2-3 nights. cdiff pending. +/- repeat imaging Admission and Anticipated Discharge Date Admission Date: February 28, 2020 Supervising Physician Co-Signing Physician Notes I supervised Marnie Zhao NP on this patient's care. I examined the patient today independently of her. I discussed the plan of care with her with the plan being as written in her note except for any following changes/exceptions: None. KUB this evening shows Questionable pneumatosis in the left midabdomen. No bowel obstruction. Will get CT a/p stat. Consult surgery. Patient was just examined and in no major distress, but still having watery BMs. Pain is improved from this morning and yesterday, but a bit lower in her abdomen. Subjective Ms. Hogan was experiencing some chest pain this morning 8/10 following taking her morning pills. She describes it as feeling like there was something stuck in there. Later in the morning she was experiencing decreased pain 3/10 but reported pain when swallowing her potassium pills. She is not sob. The pain is reproduced when palpating over the epigastrum. She is not nauseas, no vomiting. She continues to have diarrhea that is black. Her hip pain has improved. ROS Constitutional: no chills, aches, sweats or fever Respiratory: no sob,cough, sputum, or wheezing Cardiac: no chest pain, palpitations, edema, orthopnea or lightheadedness GI: see HPI : no dysuria or hesitancy Extremities: no joint pain or weakness Skin: no rash All other systems reviewed and negative Physical Exam Physical Exam: General: no distress Eyes: normal inspection, PERLL Respiratory: chest non tender, clear to auscultation, normal breath sounds, no respiratory distress, no accessory muscle use Cardiac: regular rate and rhythm, no rub or gallop, no murmur, no edema, no jvd GI/: active bowel sounds, no abd pain or tenderness, soft, non distended Extremities: normal range of motion, normal strength, non tender Neuro/Psych: alert and oriented x 3, normal mood and affect Skin: normal color, dry Results & Data Results & Data ([facility]) Vital Signs (Past 12 Hours) Vital Signs Temp Pulse Pulse Resp BP Pulse Ox 03/01/20 15:10 36.6 C 88 18 139/76 100 03/01/20 12:01 36.7 C 82 18 146/79 H 100 03/01/20 09:16 86 18 156/84 H 100 03/01/20 08:00 91 H 03/01/20 07:43 36.4 C L 86 17 159/86 H 100 PG Care Time/CCT Total # of Minutes Spent Total Time Spent with Patient: Total time spent is greater than 50% in coordination of care (as documented) at patient's floor/unit and/or counseling patient: Coding Level of Care Code 75326 Subseq Hosp Care Lvl 3 Diagnoses Sepsis A41.9 C. difficile colitis A04.72 Pancolitis K51.00 Acute on chronic kidney failure N17.9; N18.9 Blood loss anemia D50.0 Hypertension I10 Hypertension type: essential hypertension Osteoarthritis of left hip M16.12 Osteoarthritis type: primary Abnormal CT of the chest R93.89 Prediabetes R73.03 Idiopathic polyneuropathy G60.9 Obstructive sleep apnea G47.33 Hypothyroidism E03.9 Hypothyroidism type: acquired Dyslipidemia E78.5 Anxiety F41.9 Chronic kidney disease, stage 3 (moderate) N18.3 Hypomagnesemia E83.42 DVT prophylaxis Z29.9 (1) Osteoarthritis of left hip Osteoarthritis type: primary Qualified Code(s): M16.12 - Unilateral primary o steoarthritis, left hip (2) Hypothyroidism Hypothyroidism type: acquired Qualified Code(s): E03.9 - Hypothyroidism, unspecified (3) Hypertension Hypertension type: essential hypertension Qualified Code(s): I10 - Essential (primary) hypertension
--- NOTE | 2020-03-01 18:51 | XRay Report ---
XR KUB/Abdomen 1 view CLINICAL HISTORY: 80 years-old Female presenting with colitis. TECHNIQUE: Single supine view of the abdomen was obtained. COMPARISON: CT from 02/28/2020. FINDINGS: Nonobstructive bowel gas pattern. Questionable pneumatosis in the left midabdomen. No gross pneumoper itoneum. Nephrolithiasis better appreciated on recent CT. Extensive thoracolumbar fusion hardware with moderate to severe levoscoliosis and multilevel degenera tive changes. Total right hip arthroplasty. Deforming changes of the left hip joint with dissolution of the acetabulum and left femoral head. Lung bases clear. IMPRESSION: 1. Questionable pneumatosis in the left midabdomen. No bowel obstruction. 2. Destructive changes of the left hip. Septic arthritis not excluded. However, this may relate to c hronic arthropathy. The report will be called/faxed according to standard departmental protocol. ACT 112: Negative or not required by law. Electronically signed by: Tomi Farias M.D. 03/01/2020 6:50 PM
[2020-03-01] MEDS ORDERED: PIPERACILL/TAZOBAC CONSULT ACTIVE PRN (20:05)
--- NOTE | 2020-03-01 20:11 | CT Scan Report ---
CT abd pelvis wo con CLINICAL HISTORY: 80 years-old Female presenting with pneumatosis on KUB. TECHNIQUE: Multidetector CT of the abdomen and pelvis was performed without the use of intravenous co ntrast. IV contrast: None. One or more dose lowering techniques were used consistent with the princip les of ALARA (as low as reasonably achievable), including automatic exposure control, mA or kV adjust ment to individual patient size, and/or use of iterative reconstruction. COMPARISON: 02/28/2020 and plain radiograph of the pelvis from 09/06/2019. CT DOSE (mGy.cm): The estimated cumulative dose is 986.99 mGy.cm. 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 Total right hip arthroplasty. Image quality and therefore diagnostic sensitivity degraded by positioning of the arms at the sides. Lung bases: Mitral annular calcification. Normal heart size. Small left pleural effusion new from helen or. Dependent atelectasis greater on the left. Liver: Normal morphology. Normal density. Biliary: No gross biliary ductal dilatation allowing for noncontrast technique. Normal gallbladder. Pancreas: Mild parenchymal atrophy. Spleen: Normal noncontrast appearance. Adrenal glands: Normal noncontrast appearance. Kidneys and ureters: Bilateral nonobstructing nephrolithiasis with a greater stone burden on the righ t. CT renal cysts also suspected. No hydronephrosis. Ureters nondistended. Bladder: Decompressed with a Morel catheter. Pelvic organs: Uterus surgically absent. Bowel: Fluid in the rectum suggests a diarrheal state. Diverticulosis of the mid to upper rectum and the distal sigmoid colon. Mild wall thickening noted diffusely in the colon as well as fluid. Postsur gical changes of ileocecectomy with a neoterminal ileum in the right lower quadrant. No bowel obstruc tion. Fluid also noted throughout nondistended loops of small bowel. Mild wall thickening and periduo denal inflammatory change along the duodenal bulb and descending portion. Peritoneal cavity: No free fluid or intraperitoneal gas. Lymph nodes: No gross lymphadenopathy allowing for noncontrast technique. Vasculature: Atherosclerosis of the normal caliber abdominal aorta. Abdominal wall: Diastasis of the rectus abdominis. Small fat-containing umbilical hernia. Musculoskeletal: Fatty atrophy of the right psoas, which is asymmetric to the left. Extensive thoraco lumbar fusion hardware in the setting of degenerative change and scoliosis. Old bilateral posterior r ib fractures. Severe deforming changes of the right hip. The right femoral head appears surgically ab sent. Destructive osseous changes of the acetabulum may also in part be postsurgical. A joint effusio n with extensive debris in the hip joint is evident. Total right hip arthroplasty. IMPRESSION: 1. No evidence of pneumatosis. The finding on radiograph likely reflects gas within small bowel loop s rather than within the small bowel wall. 2. Findings suggest a mild enterocolitis with diarrheal state and mild involvement of the duodenum. This is likely on an infectious or inflammatory basis. This is similar to prior. 3. Deforming and destructive changes of the left hip. This has significantly progressed since [facility]. Presumably septic arthritis has been excluded or addressed. Correlate with surgical history. 4. Bilateral nonobstructing nephrolithiasis. 5. Small left pleural effusion new from prior. ACT 112: Negative or not required by law. Electronically signed by: Tomi Farias M.D. 03/01/2020 8:09 PM
[2020-03-01] MEDS ORDERED: PIPERACILLIN/TAZOBACTAM 3.375 GM in DEXTROSE 5% 100 ML IV STA (20:13)
[2020-03-01] MEDS: ACETAMINOPHEN 325 MG TAB PO PRN (21:15)
[2020-03-02] MEDS: metroNIDAZOLE 500 MG/100 ML BAG IV SCH ×3 (01:19→17:42)
[2020-03-02] MEDS: PIPERACILLIN/TAZOBACTAM 3.375 GM in DEXTROSE 5% 100 ML IV SCH ×2 (02:15→11:29)
[2020-03-02] MEDS: VANCOMYCIN HCL 125 MG/2.5ML SOLN PO SCH ×3 (05:24→17:42)
[2020-03-02] MEDS: RASPBERRY SYRUP 5 ML UDP PO SCH ×3 (05:24→17:42)
[2020-03-02] MEDS: LEVOTHYROXINE SODIUM 150 MCG TABLET PO SCH (05:30)
[2020-03-02] MEDS: LOVASTATIN 20 MG TAB PO SCH (08:18)
[2020-03-02] MEDS: ASPIRIN 81 MG ECTAB PO SCH (08:19)
[2020-03-02] MEDS: CEROVITE ADV FORMULA TAB PO SCH (08:19)
[2020-03-02] MEDS: CHOLECALCIFEROL 1,000 UNITS 25 MCG TAB PO SCH (08:19)
[2020-03-02] MEDS: LIDOCAINE 5% 1 PATCH TD SCH (08:20)
--- NOTE | 2020-03-02 08:30 | XRay Report ---
XR KUB/Abdomen 1 view CLINICAL HISTORY: colitis pain COMPARISON STUDY: 03/01/2020 FINDINGS: Unchanged postoperative changes to the right hip as well as thoracolumbar spine. Nonobstructive bowel pattern. Nephrocalcinosis considered unchanged. No evidence for pneumatosis. Unc hanged appearance to the left hip as previously described. IMPRESSION: 1. No evidence for pneumatosis. 2. Improved bowel pattern now considered nonobstructive. 3. Unchanged postoperative changes to the spine, right hip, as well as previously described destructi ve changes left hip. ACT 112: Negative or not required by law. The above report was generated using voice recognition software. It may contain grammatical, syntax or spelling errors. Electronically signed by: Matt Garcia M.D. 03/02/2020 8:29 AM
[2020-03-02 08:32] LABS: Basophils # (auto) 0.01 K/uL (0-0.2); Basophils % (auto) 0.1 %; Eosinophils # (auto) 0.04 K/uL (0-0.5); Eosinophils % (auto) 0.4 %; Hematocrit (blood only) 25.4 % (37-47); Hemoglobin 8.5 g/dL (12.0-16.0); Immature Granulocytes # (auto) 0.06 K/uL (0.00-0.02); Immature Granulocytes % (auto) 0.6 %; Lymphocytes # (auto) 1.46 K/uL (1.2-3.4); Lymphocytes % (auto) 14.9 %; Mean Corpuscular Hemoglobin 29.4 pg (25-34); Mean Corpuscular Hgb Conc 33.5 g/dL (32-36); Mean Corpuscular Volume 87.9 fL (80-100); Mean Platelet Volume 9.7 fL (7.4-10.4); Monocytes # (auto) 0.95 K/uL (0.11-0.59); Monocytes % (auto) 9.7 %; Neutrophils # (auto) 7.27 K/uL (1.4-6.5); Neutrophils % (auto) 74.3 %; Platelet Count 323 K/uL (130-400); RDW Coefficient of Variation 16.8 % (11.5-14.5); RDW Standard Deviation 53.9 fL (36.4-46.3); Red Blood Count 2.89 M/uL (4.2-5.4); White Blood Count 9.79 K/uL (4.8-10.8)
[2020-03-02 09:15] LABS: Albumin Globulin Ratio 0.5 (0.9-2); Albumin Level 1.7 gm/dl (3.4-5.0); BUN Creatinine Ratio 20.9 (10-20); Bilirubin,Total 0.3 mg/dl (0.2-1); Creatinine Clr Calc Pharmacy 42.8 ml/min; Est GFR (Non-African American) 48.3; Globulin 3.5 gm/dl (2.5-4.0); Potassium 2.9 mmol/L (3.5-5.1); Total Protein 5.2 gm/dl (6.4-8.2)
[2020-03-02] MEDS ORDERED: POTASSIUM CHLORIDE 40 MEQ in SODIUM CHLORIDE 0.9% 1000ML 1,000 ML IV SCH (09:45)
[2020-03-02] MEDS ORDERED: POTASSIUM CHLORIDE 20 MEQ/15 ML UDC PO ONE (09:45)
--- NOTE | 2020-03-02 10:14 | Gastroenterology Progress Note ---
Date of Service March 02, 2020 Assessment & Plan (1) C. difficile colitis: Pt is a 80 y/o female w hx of ileocectomy (hx of bowel obstruction), currently admitted w diarrhea symptoms, Cdiff positive. She is still having issues w stool incontinence overnight, loose stools and abd cramping, mild nausea - Continue Vancomycin and Flagyl antibx - Add Bentyl 10mg BID prn abd cramping - Add Questran 4g BID - Has Zofran prn nausea - Advance diet slowly as tolerated Admission and Anticipated Discharge Date Admission Date: February 28, 2020 Supervising Physician Co-Signing Physician Notes The patient appears to be somewhat improved today after beginning her on therapy with vancomycin and metronidazole. Recommendations Begin Questran 1 time daily Bentyl 10 mg twice daily as needed for cramping Continue vancomycin and metronidazole as previously suggested Subjective Pt reports having loose stools still. Last night had a bout of stool incontinence. Cannot tell if stool has blood in it or now. She is also c/o mild nausea, cramping Review of Systems Review of Systems: All systems reviewed & are unremarkable except as noted in HPI & below Physical Exam Constitutional: WD/WN, vitals as above well groomed, cooperative and comfortable Eyes: PERRL, conjunctivae normal, anicteric sclerae ENMT: external ear and nose normal, oropharynx normal Respiratory: normal respiratory effort, lungs clear to auscultation Cardiovascular: RRR, no murmur, no edema Gastrointestinal (Abdomen): Inspection/Auscultation: + hypoactive bowel sounds Percussion/Palpation: + abdomen tender (mild TTP mid abd ) and abdomen soft Skin: no rashes, warm and dry no jaundice Psychiatric: A+Ox3, euthymic affect Lymphatic: no lymphedema Results & Data ([facility]) Vital Signs (Past 12 Hours) Vital Signs Temp Pulse Pulse Resp BP BP Pulse Ox 03/02/20 06:40 36.6 C 81 18 142/65 H 100 03/02/20 02:53 36.7 C 84 18 170/71 H 100 03/01/20 22:47 36.8 C 83 18 156/81 H 100 03/01/20 22:20 78
[2020-03-02] MEDS: CHOLESTYRAMINE LIGHT 4 GM PKT PO SCH ×2 (11:23→21:37)
[2020-03-02] MEDS: DICYCLOMINE HCL 10 MG CAP PO PRN (11:44)
--- NOTE | 2020-03-02 14:01 | Hospitalist Progress Note ---
Date of Service March 02, 2020 Assessment & Plan (1) Sepsis: * Secondary to C diff infection - patient positive for C diff gene but not toxin. Given symptoms and significant leukocytosis, treated as active infection per GI. * Continue IV metronidazole and po vancomycin * Blood cx drawn AFTER initial abx -- ngtd * discontinue Zosyn IV - patient growing E Coli in urine but never had any urinary symptoms, infectious source appears to be C diff * Lactic elevated at 3.8 today after initially trending down. * IVF increased to 125cc/hr due to increase in lactate which trended down- will continue * Stool culture negative * Hemoccult + * GI Consultation -- appreciate recommendations * leukocytosis resolved (2) C. difficile colitis: As above (3) Pancolitis: * Noted on CTAP * daily KUBs per GI - no sign of obstruction, CT without contrast last night mild enterocolitis (4) Acute on chronic kidney failure: * Possibly secondary to ATN given sepsis and hypotension on admission * Cr 2.5 on admission * resolved with IVF (5) Blood loss anemia: Hgb 8.5 down from 10.6 with black stools. Repeat hgb am (6) Hypertension: * HypoTN noted down to 50s systolically on 02/27. Resolved * continue IVF (7) Osteoarthritis of left hip: * Noted as severe. Follows locally with Dr. Staley * Ortho consulted - history of avascular necrosis - recommends treating hip pain. Urine cultures thus far positive for E.Coli. No growth from blood cultures so at this time would not recommend aspirating (8) Abnormal CT of the chest: * Pulm nodule noted on CTAP, 5mm * Follow up outpatient (9) Prediabetes: * Denies hx of pre-DM. A1c 5.8 * No current DM meds. Will need counselled on this and follow up (10) Idiopathic polyneuropathy: * Noted (11) Obstructive sleep apnea: * States no current tx for this (12) Hypothyroidism: * Continue home levothyroxine 150mcg daily. * Last TSH 5.12. * Repeat TSH 1.44, wnl (13) Dyslipidemia: * Continue home lovastatin (14) Anxiety: * Continue home ativan (15) Chronic kidney disease, stage 3 (moderate): * See above (16) Hypomagnesemia: * resolved (17) DVT prophylaxis: * SCDs * Pt takes aspirin 81mg for prevention, will hold other rx DVT proph to avoid GIB given high flow diarrhea and heme+ stool, anemia Admission and Anticipated Discharge Date Admission Date: February 28, 2020 Subjective Ms. Hogan is feeling generally unwell. She continues to have some discomfort while swallowing pills. Her hip is not particularly painful. ROS Constitutional: no chills, aches, sweats or fever Respiratory: no sob,cough, sputum, or wheezing Cardiac: no chest pain, palpitations, edema, orthopnea or lightheadedness GI: no abdominal pain, nausea, vomiting, diarrhea or constipation : no dysuria or hesitancy Extremities: no joint pain or weakness Skin: no rash All other systems reviewed and negative Physical Exam Physical Exam: General: no distress Eyes: normal inspection, PERLL Respiratory: chest non tender, clear to auscultation, normal breath sounds, no respiratory distress, no accessory muscle use Cardiac: regular rate and rhythm, no rub or gallop, no murmur, no edema, no jvd GI/: active bowel sounds, no abd pain or tenderness, soft, non distended Extremities: normal range of motion, normal strength, non tender Neuro/Psych: alert and oriented x 3, normal mood and affect Skin: normal color, dry Results & Data Results & Data ([facility]) Vital Signs (Past 12 Hours) Vital Signs Temp Pulse Resp BP BP Pulse Ox 03/02/20 11:37 36.6 C 76 18 137/79 98 03/02/20 06:40 36.6 C 81 18 142/65 H 100 03/02/20 02:53 36.7 C 84 18 170/71 H 100 PG Care Time/CCT Total # of Minutes Spent Total Time Spent with Patient: Total time spent is greater than 50% in coordination of care (as documented) at patient's floor/unit and/or counseling patient: Coding Level of Care Code 22072 Subseq Hosp Care Lvl 3 Diagnoses Sepsis A41.9 C. difficile colitis A04.72 Pancolitis K51.00 Acute on chronic kidney failure N17.9; N18.9 Blood loss anemia D50.0 Hypertension I10 Hypertension type: essential hypertension Osteoarthritis of left hip M16.12 Osteoarthritis type: primary Abnormal CT of the chest R93.89 Prediabetes R73.03 Idiopathic polyneuropathy G60.9 Obstructive sleep apnea G47.33 Hypothyroidism E03.9 Hypothyroidism type: acquired Dyslipidemia E78.5 Anxiety F41.9 Chronic kidney disease, stage 3 (moderate) N18.3 Hypomagnesemia E83.42 DVT prophylaxis Z29.9 (1) Osteoarthritis of left hip Osteoarthritis type: primary Qualified Code(s): M16.12 - Unilateral primary osteoarthritis, left hip (2) Hypothyroidism Hypothyroidism type: acquired Qualified Code(s): E03.9 - Hypothyroidism, unspecified (3) Hypertension Hypertension type: essential hypertension Qualified Code(s): I10 - Essential (primary) hypertension
[2020-03-02] MEDS: CYCLOBENZAPRINE HCL 10 MG TAB PO PRN (14:16)
--- NOTE | 2020-03-02 15:19 | Electrocardiogram Report ---
Test Reason : Blood Pressure : / mmHG Vent. Rate : 087 BPM Atrial Rate : 087 BPM P-R Int : 084 ms QRS Dur : 092 ms QT Int : 370 ms P-R-T Axes : 017 -30 052 degrees QTc Int : 445 ms Sinus rhythm with short AZ with Premature atrial complexes Left axis deviation Low voltage QRS Abnormal ECG When compared with ECG of 28-FEB-2020 09:54, Premature atrial complexes are now Present AZ interval has decreased Criteria for Inferior infarct are no longer Present Nonspecific T wave abnormality now evident in Lateral leads Confirmed by Jose Alfredo De ([id number]) on 03/02/2020 3:19:38 PM Referred By: REFERRED SELF Confirmed By:Jose Alfredo De
[2020-03-02] MEDS: ACETAMINOPHEN 325 MG TAB PO PRN (20:14)
[2020-03-02] MEDS ORDERED: MICONAZOLE NITRATE POWDER 43 GM EXT PRN (23:45)
[2020-03-03] MEDS: VANCOMYCIN HCL 125 MG/2.5ML SOLN PO SCH ×4 (00:05→17:44)
[2020-03-03] MEDS: RASPBERRY SYRUP 5 ML UDP PO SCH ×4 (00:06→17:44)
[2020-03-03] MEDS: DICYCLOMINE HCL 10 MG CAP PO PRN (00:07)
[2020-03-03] MEDS: metroNIDAZOLE 500 MG/100 ML BAG IV SCH ×3 (02:10→17:44)
[2020-03-03] MEDS: LEVOTHYROXINE SODIUM 150 MCG TABLET PO SCH (05:34)
[2020-03-03 09:17] LABS: Basophils # (auto) 0.02 K/uL (0-0.2); Basophils % (auto) 0.2 %; Eosinophils # (auto) 0.06 K/uL (0-0.5); Eosinophils % (auto) 0.6 %; Hematocrit (blood only) 26.9 % (37-47); Hemoglobin 8.8 g/dL (12.0-16.0); Immature Granulocytes # (auto) 0.13 K/uL (0.00-0.02); Immature Granulocytes % (auto) 1.3 %; Lymphocytes # (auto) 1.64 K/uL (1.2-3.4); Lymphocytes % (auto) 16.7 %; Mean Corpuscular Hemoglobin 28.9 pg (25-34); Mean Corpuscular Hgb Conc 32.7 g/dL (32-36); Mean Corpuscular Volume 88.2 fL (80-100); Mean Platelet Volume 9.7 fL (7.4-10.4); Monocytes # (auto) 1.25 K/uL (0.11-0.59); Monocytes % (auto) 12.7 %; Neutrophils # (auto) 6.73 K/uL (1.4-6.5); Neutrophils % (auto) 68.5 %; Nucleated RBC # (auto) 0.02 K/uL (0-0); Nucleated RBC % (auto) 0.2 %; Platelet Count 365 K/uL (130-400); RDW Coefficient of Variation 16.8 % (11.5-14.5); RDW Standard Deviation 54.4 fL (36.4-46.3); Red Blood Count 3.05 M/uL (4.2-5.4); White Blood Count 9.83 K/uL (4.8-10.8)
[2020-03-03] MEDS: CHOLECALCIFEROL 1,000 UNITS 25 MCG TAB PO SCH (09:37)
[2020-03-03] MEDS: CEROVITE ADV FORMULA TAB PO SCH (09:38)
[2020-03-03] MEDS: LIDOCAINE 5% 1 PATCH TD SCH (09:38)
[2020-03-03] MEDS: ASPIRIN 81 MG ECTAB PO SCH (09:38)
[2020-03-03] MEDS: ONDANSETRON INJ 2 MG/ML 2 ML VIAL IV PRN ×2 (09:48→20:35)
[2020-03-03 09:50] LABS: Albumin Globulin Ratio 0.5 (0.9-2); Albumin Level 1.7 gm/dl (3.4-5.0); Bilirubin,Total 0.3 mg/dl (0.2-1); Calcium 7.8 mg/dl (8.5-10.1); Creatinine Clr Calc Pharmacy 56.3 ml/min; Est GFR (African American) 77.2; Est GFR (Non-African American) 66.6; Globulin 3.7 gm/dl (2.5-4.0); Potassium 2.9 mmol/L (3.5-5.1); Total Protein 5.4 gm/dl (6.4-8.2)
[2020-03-03] MEDS: CHOLESTYRAMINE LIGHT 4 GM PKT PO SCH (09:51)
--- NOTE | 2020-03-03 10:47 | Gastroenterology Progress Note ---
Date of Service March 03, 2020 Assessment & Plan (1) C. difficile colitis: Pt is a 80 y/o female w hx of ileocectomy (hx of bowel obstruction), currently admitted w diarrhea symptoms, Cdiff positive. Loose stools better, still w mild abd cramping. However increased n/v which she attributed to Questran ingestion - DC Questran. - Continue Vancomycin and Flagyl antibx - Bentyl 10mg BID prn abd cramping - Has Zofran prn nausea - Advance diet slowly as tolerated Admission and Anticipated Discharge Date Admission Date: February 28, 2020 Supervising Physician Co-Signing Physician Notes I have seen and examined the patient with LEVI Klein whose note reflects our findings and plan. Slowly improving C diff. Abd non-tender. COntinue with flagyl and oral vanco. Advance diet. Subjective Pt having n/v overnight and this AM. Feels it's related to ingestion of Questran. Loose stools not as much. Mild abd cramping Review of Systems Review of Systems: All systems reviewed & are unremarkable except as noted in HPI & below Physical Exam Constitutional: WD/WN, vitals as above well groomed, cooperative and comfortable Eyes: PERRL, conjunctivae normal, anicteric sclerae ENMT: external ear and nose normal, oropharynx normal Respiratory: normal respiratory effort, lungs clear to auscultation Cardiovascular: RRR, no murmur, no edema Gastrointestinal (Abdomen): Inspection/Auscultation: normal bowel sounds Percussion/Palpation: + abdomen tender (mild TTP mid abd ) and abdomen soft Skin: no rashes, warm and dry no jaundice Psychiatric: A+Ox3, euthymic affect Lymphatic: no lymphedema Results & Data ([facility]) Vital Signs (Past 12 Hours) Vital Signs Temp Pulse Pulse Resp BP Pulse Ox 03/03/20 07:00 36.4 C L 83 18 168/90 H 98 03/03/20 04:00 36.8 C 78 20 165/81 H 97 03/03/20 00:10 81 03/02/20 23:00 37 C 87 20 144/66 H 97
[2020-03-03] MEDS: POTASSIUM CHLORIDE / WTR 10 MEQ/100 ML PLCT IV SCH ×2 (11:49→11:51)
[2020-03-03] MEDS ORDERED: POTASSIUM CHLORIDE 20 MEQ/15 ML UDC PO STA (13:15)
--- NOTE | 2020-03-03 18:10 | Hospitalist Progress Note ---
Date of Service March 03, 2020 Assessment & Plan (1) Sepsis: * Secondary to C diff infection - patient positive for C diff gene but not toxin. Given symptoms and significant leukocytosis, treated as active infection per GI. * Continue IV metronidazole and po vancomycin * Blood cx drawn AFTER initial abx -- ngtd * discontinued Zosyn IV - patient growing E Coli in urine but never had any urinary symptoms, infectious source appears to be C diff * IVF increased to 125cc/hr due to increase in lactate which trended down- will continue * Stool culture negative * Hemoccult + * GI Consultation -- appreciate recommendations * leukocytosis resolved (2) C. difficile colitis: As above (3) Pancolitis: * Noted on CTAP * KUB 03/01 and 03/02 - no sign of obstruction, CT without contrast 03/01 with mild enterocolitis (4) Acute on chronic kidney failure: * Possibly secondary to ATN given sepsis and hypotension on admission * Cr 2.5 on admission * resolved with IVF (5) Blood loss anemia: Hgb 8.8 and stable for the last couple of days - down from 10.6 with black stools. Continue to monitor (6) Hypertension: * HypoTN noted down to 50s systolically on 02/27. Resolved * continue IVF (7) Osteoarthritis of left hip: * Noted as severe. Follows locally with Dr. Staley * Ortho consulted - history of avascular necrosis - recommends treating hip pain. Urine cultures thus far positive for E.Coli. No growth from blood cultures so at this time would not recommend aspirating (8) Abnormal CT of the chest: * Pulm nodule noted on CTAP, 5mm * Follow up outpatient (9) Prediabetes: * Denies hx of pre-DM. A1c 5.8 * No current DM meds. Will need counselled on this and follow up (10) Idiopathic polyneuropathy: * Noted (11) Obstructive sleep apnea: * States no current tx for this (12) Hypothyroidism: * Continue home levothyroxine 150mcg daily. * Last TSH 5.12. * Repeat TSH 1.44, wnl (13) Dyslipidemia: * Continue home lovastatin (14) Anxiety: * Continue home ativan (15) Chronic kidney disease, stage 3 (moderate): * See above (16) Hypomagnesemia: * resolved (17) DVT prophylaxis: * SCDs * Pt takes aspirin 81mg for prevention, will hold other rx DVT proph to avoid GIB given high flow diarrhea and heme+ stool, anemia Patient's sister updated over the phone per her request. She is very concerned about patient returning home given her poor mobility and with his own health problems. She reports patient is mostly wheelchair bound and requires much help to get from wheelchair to bathroom. Will await PT/OT sandhya for help determining discharge plan Admission and Anticipated Discharge Date Admission Date: February 28, 2020 Subjective Ms. Hogan continues to feel unwell. Her diarrhea is slowing down. No nausea or vomiting. Hip pain is tolerable. ROS Constitutional: no chills, aches, sweats or fever Respiratory: no sob,cough, sputum, or wheezing Cardiac: no chest pain, palpitations, edema, orthopnea or lightheadedness GI: no abdominal pain, nausea, vomiting, diarrhea or constipation : no dysuria or hesitancy Extremities: no joint pain or weakness Skin: no rash All other systems reviewed and negative Physical Exam Physical Exam: General: no distress Eyes: normal inspection, PERLL Respiratory: chest non tender, clear to auscultation, normal breath sounds, no respiratory distress, no accessory muscle use Cardiac: regular rate and rhythm, no rub or gallop, no murmur, no edema, no jvd GI/: active bowel sounds, no abd pain or tenderness, soft, non distended Extremities: normal range of motion, normal strength, non tender Neuro/Psych: alert and oriented x 3, normal mood and affect Skin: normal color, dry Results & Data Results & Data ([facility]) Vital Signs (Past 12 Hours) Vital Signs Temp Pulse Pulse Resp BP Pulse Ox 03/03/20 16:00 85 03/03/20 15:00 36.6 C 100 H 18 150/64 H 99 03/03/20 12:20 36.6 C 79 18 158/84 H 98 03/03/20 07:00 36.4 C L 83 18 168/90 H 98 PG Care Time/CCT Total # of Minutes Spent Total Time Spent with Patient: Total time spent is greater than 50% in coordination of care (as documented) at patient's floor/unit and/or counseling patient: Coding Level of Care Code 46736 Subseq Hosp Care Lvl 3 Diagnoses Sepsis A41.9 C. difficile colitis A04.72 Pancolitis K51.00 Acute on chronic kidney failure N17.9; N18.9 Blood loss anemia D50.0 Hypertension I10 Hypertension type: essential hypertension Osteoarthritis of left hip M16.12 Osteoarthritis type: primary Abnormal CT of the chest R93.89 Prediabetes R73.03 Idiopathic polyneuropathy G60.9 Obstructive sleep apnea G47.33 Hypothyroidism E03.9 Hypothyroidism type: acquired Dyslipidemia E78.5 Anxiety F41.9 Chronic kidney disease, stage 3 (moderate) N18.3 Hypomagnesemia E83.42 DVT prophylaxis Z29.9 (1) Osteoarthritis of left hip Osteoarthritis type: primary Qualified Code(s): M16.12 - Unilateral primary osteoarthritis, left hip (2) Hypothyroidism Hypothyroidism type: acquired Qualified Code(s): E03.9 - Hypothyroidism, unspecified (3) Hypertension Hypertension type: essential hypertension Qualified Code(s): I10 - Essential (primary) hypertension
[2020-03-04] MEDS: RASPBERRY SYRUP 5 ML UDP PO SCH ×4 (00:18→18:32)
[2020-03-04] MEDS: VANCOMYCIN HCL 125 MG/2.5ML SOLN PO SCH ×4 (00:19→18:32)
[2020-03-04] MEDS: metroNIDAZOLE 500 MG/100 ML BAG IV SCH (01:29)
[2020-03-04] MEDS: LEVOTHYROXINE SODIUM 150 MCG TABLET PO SCH (05:55)
[2020-03-04 07:43] LABS: Basophils # (auto) 0.04 K/uL (0-0.2); Basophils % (auto) 0.5 %; Eosinophils # (auto) 0.06 K/uL (0-0.5); Eosinophils % (auto) 0.8 %; Hematocrit (blood only) 28.5 % (37-47); Immature Granulocytes # (auto) 0.18 K/uL (0.00-0.02); Immature Granulocytes % (auto) 2.4 %; Lymphocytes # (auto) 1.88 K/uL (1.2-3.4); Lymphocytes % (auto) 24.8 %; Mean Corpuscular Hemoglobin 27.9 pg (25-34); Mean Corpuscular Hgb Conc 31.6 g/dL (32-36); Mean Corpuscular Volume 88.2 fL (80-100); Mean Platelet Volume 9.9 fL (7.4-10.4); Monocytes % (auto) 18.4 %; Neutrophils # (auto) 4.03 K/uL (1.4-6.5); Neutrophils % (auto) 53.1 %; Platelet Count 396 K/uL (130-400); RDW Coefficient of Variation 16.8 % (11.5-14.5); RDW Standard Deviation 54.3 fL (36.4-46.3); Red Blood Count 3.23 M/uL (4.2-5.4); White Blood Count 7.59 K/uL (4.8-10.8)
[2020-03-04 08:10] LABS: BUN Creatinine Ratio 10.6 (10-20); Calcium 7.7 mg/dl (8.5-10.1); Creatinine Clr Calc Pharmacy 65.4 ml/min; Est GFR (African American) 93.5; Est GFR (Non-African American) 80.7; Potassium 3.3 mmol/L (3.5-5.1)
[2020-03-04] MEDS: LIDOCAINE 5% 1 PATCH TD SCH (09:22)
[2020-03-04] MEDS: ASPIRIN 81 MG ECTAB PO SCH (09:23)
[2020-03-04] MEDS: LOVASTATIN 20 MG TAB PO SCH (09:23)
[2020-03-04] MEDS: CHOLECALCIFEROL 1,000 UNITS 25 MCG TAB PO SCH (09:23)
[2020-03-04] MEDS: CEROVITE ADV FORMULA TAB PO SCH (09:23)
--- NOTE | 2020-03-04 09:23 | Gastroenterology Progress Note ---
Date of Service March 04, 2020 Assessment & Plan (1) C. difficile colitis: Pt is a 80 y/o female w hx of ileocectomy (hx of bowel obstruction), currently admitted w diarrhea symptoms, Cdiff positive (gene positive, toxin negative). Loose stools was better w Questran though pt had increased nausea and vomiting while ingesting this med. Once med is stopped, she started having loose stools again. Nausea, no vomiting today - Trial FL diet; advance diet as tolerated - DC Flagyl as it may contribute to nausea. Will continue Vancomycin 125mg QID - Trial Colestipol 1g BID - Bentyl 10mg BID prn abd cramping - Has Zofran prn nausea Admission and Anticipated Discharge Date Admission Date: February 28, 2020 Supervising Physician Co-Signing Physician Notes I have seen and examined the patient with LEVI Weinberg whose note reflects our findings and plan. agree with addition of colestipol. Flagyl stopped as may be contributing to her nausea. Continue oral vancomycin. Abd benign. Subjective Pt reports still having nausea. Loose stools this AM. Denies abd pain. She would like to try a bit more solid foods. Review of Systems Review of Systems: All systems reviewed & are unremarkable except as noted in HPI & below Physical Exam Constitutional: WD/WN, vitals as above well groomed, cooperative and comfortable Eyes: PERRL, conjunctivae normal, anicteric sclerae ENMT: external ear and nose normal, oropharynx normal Respiratory: normal respiratory effort, lungs clear to auscultation Cardiovascular: RRR, no murmur, no edema Gastrointestinal (Abdomen): normal bowel sounds, soft, nontender, no hepatosplenomegaly Skin: no rashes, warm and dry no jaundice Psychiatric: A+Ox3, euthymic affect Lymphatic: no lymphedema Results & Data ([facility]) Vital Signs (Past 12 Hours) Vital Signs Temp Pulse Pulse Resp BP Pulse Ox 03/04/20 07:49 36.2 C L 96 H 18 170/86 H 96 03/04/20 07:40 82 03/04/20 03:00 36.8 C 80 20 167/72 H 97 03/04/20 00:31 87 03/03/20 23:17 37.2 C 86 20 166/91 H 97
[2020-03-04] MEDS ORDERED: POTASSIUM CHLORIDE 20 MEQ/15 ML UDC PO STA (10:50)
[2020-03-04] MEDS ORDERED: PANTOprazole 40 MG TAB PO SCH (11:15)
[2020-03-04] MEDS: CeleBREX 200 MG CAP PO SCH ×2 (12:20→20:26)
[2020-03-04] MEDS: CYCLOBENZAPRINE HCL 10 MG TAB PO PRN (14:07)
--- NOTE | 2020-03-04 15:10 | Hospitalist Progress Note ---
Date of Service March 04, 2020 Assessment & Plan (1) Sepsis: * Secondary to C diff infection - patient positive for C diff gene but not toxin. Given symptoms and significant leukocytosis, treated as active infection per GI. * DC IV metronidazole per GI and continue po vancomycin * Blood cx drawn AFTER initial abx -- ngtd * discontinued Zosyn IV - patient growing E Coli in urine but never had any urinary symptoms, infectious source is C diff * Stool culture negative * Hemoccult + * GI Consultation -- appreciate recommendations - added cholestipol and bentyl * leukocytosis resolved (2) C. difficile colitis: As above (3) Pancolitis: * Noted on CTAP * KUB 03/01 and 03/02 - no sign of obstruction, CT without contrast 03/01 with mild enterocolitis (4) Acute on chronic kidney failure: * Possibly secondary to ATN given sepsis and hypotension on admission * Cr 2.5 on admission * resolved with IVF (5) Blood loss anemia: Hgb 9 and stable for the last couple of days - down from 10.6 with black stools. Continue to monitor (6) Hypertension: * HypoTN noted down to 50s systolically on 02/27. Resolved * continue IVF (7) Osteoarthritis of left hip: * Noted as severe. Follows locally with Dr. Staley * Ortho consulted - history of avascular necrosis - recommends treating hip pain. Urine cultures thus far positive for E.Coli. No growth from blood cultures so at this time would not recommend aspirating (8) Abnormal CT of the chest: * Pulm nodule noted on CTAP, 5mm * Follow up outpatient (9) Prediabetes: * Denies hx of pre-DM. A1c 5.8 * No current DM meds. Will need counselled on this and follow up (10) Idiopathic polyneuropathy: * Noted (11) Obstructive sleep apnea: * States no current tx for this (12) Hypothyroidism: * Continue home levothyroxine 150mcg daily. * Last TSH 5.12. * Repeat TSH 1.44, wnl (13) Dyslipidemia: * Continue home lovastatin (14) Anxiety: * Continue home ativan (15) Chronic kidney disease, stage 3 (moderate): * See above (16) Hypomagnesemia: * resolved (17) DVT prophylaxis: * SCDs * Pt takes aspirin 81mg for prevention, will hold other rx DVT proph to avoid GIB given high flow diarrhea and heme+ stool, anemia Dispo: transfer off med tele to med surg (18) Gout: Admission and Anticipated Discharge Date Admission Date: February 28, 2020 Subjective Ms. Hogan is still feeling a bit unwell. She is still having diarrhea though it is improving. Her pain in her belly is improved today though she was a bit nauseas. updated over the phone ROS Constitutional: no chills, aches, sweats or fever Respiratory: no sob,cough, sputum, or wheezing Cardiac: no chest pain, palpitations, edema, orthopnea or lightheadedness GI: no abdominal pain, nausea, vomiting, diarrhea or constipation : no dysuria or hesitancy Extremities: no joint pain or weakness Skin: no rash All other systems reviewed and negative Physical Exam Physical Exam: General: no distress Eyes: normal inspection, PERLL Respiratory: chest non tender, clear to auscultation, normal breath sounds, no respiratory distress, no accessory muscle use Cardiac: regular rate and rhythm, no rub or gallop, no murmur, no edema, no jvd GI/: active bowel sounds, no abd pain or tenderness, soft, non distended Extremities: normal range of motion, normal strength, non tender Neuro/Psych: alert and oriented x 3, normal mood and affect Skin: normal color, dry Results & Data Results & Data ([facility]) Vital Signs (Past 12 Hours) Vital Signs Temp Pulse Pulse Resp BP Pulse Ox 03/04/20 11:08 36.7 C 97 H 18 132/72 100 03/04/20 09:27 158/84 H 03/04/20 07:49 36.2 C L 96 H 18 170/86 H 96 03/04/20 07:40 82 PG Care Time/CCT Total # of Minutes Spent Total Time Spent with Patient: Total time spent is greater than 50% in coordination of care (as documented) at patient's floor/unit and/or counseling patient: Coding Level of Care Code 80534 Subseq Hosp Care Lvl 2 Diagnoses Sepsis A41.9 C. difficile colitis A04.72 Pancolitis K51.00 Acute on chronic kidney failure N17.9; N18.9 Blood loss anemia D50.0 Hypertension I10 Hypertension type: essential hypertension Osteoarthritis of left hip M16.12 Osteoarthritis type: primary Abnormal CT of the chest R93.89 Prediabetes R73.03 Idiopathic polyneuropathy G60.9 Obstructive sleep apnea G47.33 Hypothyroidism E03.9 Hypothyroidism type: acquired Dyslipidemia E78.5 Anxiety F41.9 Chronic kidney disease, stage 3 (moderate) N18.3 Hypomagnesemia E83.42 DVT prophylaxis Z29.9 Gout M10.9 (1) Osteoarthritis of left hip Osteoarthritis type: primary Qualified Code(s): M16.12 - Unilateral primary osteoarthritis, left hip (2) Hypothyroidism Hypothyroidism type: acquired Qualified Code(s): E03.9 - Hypothyroidism, unspecified (3) Hypertension Hypertension type: essential hypertension Qualified Code(s): I10 - Essential (primary) hypertension
[2020-03-04] MEDS: FAMOTIDINE 20 MG TAB PO SCH (20:26)
[2020-03-04] MEDS: COLESTIPOL HCL 1 GM TAB PO SCH (22:55)
[2020-03-05] MEDS: VANCOMYCIN HCL 125 MG/2.5ML SOLN PO SCH ×4 (00:08→18:33)
[2020-03-05] MEDS: RASPBERRY SYRUP 5 ML UDP PO SCH ×4 (00:08→18:32)
[2020-03-05 05:59] LABS: Hematocrit (blood only) 27.7 % (37-47); Hemoglobin 9.1 g/dL (12.0-16.0); Mean Corpuscular Hemoglobin 29.1 pg (25-34); Mean Corpuscular Hgb Conc 32.9 g/dL (32-36); Mean Corpuscular Volume 88.5 fL (80-100); Nucleated RBC # (auto) 0.05 K/uL (0-0); Nucleated RBC % (auto) 0.6 %; Platelet Count 411 K/uL (130-400); RDW Standard Deviation 54.4 fL (36.4-46.3); Red Blood Count 3.13 M/uL (4.2-5.4); White Blood Count 9.17 K/uL (4.8-10.8)
[2020-03-05] MEDS: LEVOTHYROXINE SODIUM 150 MCG TABLET PO SCH (06:02)
[2020-03-05 06:26] LABS: Albumin Level 1.7 gm/dl (3.4-5.0); BUN Creatinine Ratio 6.8 (10-20); Calcium 7.4 mg/dl (8.5-10.1); Creatinine Clr Calc Pharmacy 55.1 ml/min; Est GFR (African American) 76.1; Est GFR (Non-African American) 65.7; Potassium 3.6 mmol/L (3.5-5.1)
[2020-03-05 06:28] LABS: Basophils # (auto) 0.02 K/uL (0-0.2); Basophils % (auto) 0.2 %; Dohle Bodies 1+; Eosinophils # (auto) 0.04 K/uL (0-0.5); Eosinophils % (auto) 0.4 %; Immature Granulocytes % (auto) 2.2 %; Lymphocytes # (auto) 1.93 K/uL (1.2-3.4); Monocytes # (auto) 1.23 K/uL (0.11-0.59); Monocytes % (auto) 13.4 %; Neutrophils # (auto) 5.75 K/uL (1.4-6.5); Neutrophils % (auto) 62.8 %
[2020-03-05 06:29] LABS: Albumin Globulin Ratio 0.5 (0.9-2); Bilirubin,Total 0.3 mg/dl (0.2-1); Globulin 3.5 gm/dl (2.5-4.0); Total Protein 5.2 gm/dl (6.4-8.2)
[2020-03-05] MEDS: ASPIRIN 81 MG ECTAB PO SCH (08:26)
[2020-03-05] MEDS: CeleBREX 200 MG CAP PO SCH ×2 (08:27→21:41)
[2020-03-05] MEDS: CHOLECALCIFEROL 1,000 UNITS 25 MCG TAB PO SCH (08:27)
[2020-03-05] MEDS: FAMOTIDINE 20 MG TAB PO SCH ×2 (08:28→21:41)
[2020-03-05] MEDS: CEROVITE ADV FORMULA TAB PO SCH (08:28)
[2020-03-05] MEDS: LIDOCAINE 5% 1 PATCH TD SCH (08:31)
--- NOTE | 2020-03-05 09:15 | Gastroenterology Progress Note ---
Date of Service March 05, 2020 Assessment & Plan (1) C. difficile colitis: Pt is a 80 y/o female w hx of ileocectomy (hx of bowel obstruction), currently admitted w diarrhea symptoms, Cdiff positive (gene positive, toxin negative). Symptomatically improved now. - Advance diet as tolerated - Complete Vancomycin 125mg QID x 14 day course - Colestipol 1g BID to help form up stools. OK to DC if getting constipated - Bentyl 10mg BID prn abd cramping - Antiemetics prn - No contraindication for DC home from GI standpoint if continues to do well and tolerating diet advancement. Will sign off; pls recall prn Admission and Anticipated Discharge Date Admission Date: February 28, 2020 Supervising Physician Co-Signing Physician Notes I saw and evaluated the patient. She does appear much improved today and is now having solid bowel movements. Complete an additional 14 days of vancomycin 4 times daily Please call with any questions or concerns GI to sign off presently Subjective Pt reports she feels much better today. No longer having nausea, tolerating FL diet well. Abd pain mild. Feels gassy but hasn't been able to pass much stool at all last night and none today. Review of Systems Review of Systems: All systems reviewed & are unremarkable except as noted in HPI & below Physical Exam Constitutional: WD/WN, vitals as above well groomed, cooperative and comfortable Eyes: PERRL, conjunctivae normal, anicteric sclerae ENMT: external ear and nose normal, oropharynx normal Respiratory: normal respiratory effort, lungs clear to auscultation Cardiovascular: RRR, no murmur, no edema Gastrointestinal (Abdomen): Inspection/Auscultation: normal bowel sounds Percussion/Palpation: + abdomen tender (mild generalized) and abdomen soft Skin: no rashes, warm and dry no jaundice Psychiatric: A+Ox3, euthymic affect Lymphatic: no lymphedema Results & Data ([facility]) Vital Signs (Past 12 Hours) Vital Signs Temp Pulse Pulse Resp BP BP Pulse Ox 03/05/20 07:50 36.8 C 94 H 18 134/75 99 03/05/20 07:25 92 H 03/04/20 23:49 104 H 03/04/20 23:00 37.0 C 108 H 18 140/85 98
[2020-03-05] MEDS: COLESTIPOL HCL 1 GM TAB PO SCH ×2 (09:22→21:42)
[2020-03-05] MEDS: CYCLOBENZAPRINE HCL 10 MG TAB PO PRN (11:38)
--- NOTE | 2020-03-05 15:04 | Hospitalist Progress Note ---
Date of Service March 05, 2020 Assessment & Plan (1) Sepsis: * Secondary to C diff infection - patient positive for C diff gene but not toxin. Given symptoms and significant leukocytosis, treated as active infection per GI. * DC'd IV metronidazole per GI and continue po vancomycin - will need 14 days total * Blood cx drawn AFTER initial abx -- ngtd * discontinued Zosyn IV - patient growing E Coli in urine but never had any urinary symptoms, infectious source is C diff * Stool culture negative * Hemoccult + * GI Consultation -- appreciate recommendations - added cholestipol and bentyl - they are ok with patient discharge at this point * leukocytosis resolved (2) C. difficile colitis: As above (3) Pancolitis: * Noted on CTAP * KUB 03/01 and 03/02 - no sign of obstruction, CT without contrast 03/01 with mild enterocolitis (4) Acute on chronic kidney failure: * Possibly secondary to ATN given sepsis and hypotension on admission * Cr 2.5 on admission * resolved with IVF (5) Blood loss anemia: Hgb 9 and stable for the last couple of days - down from 10.6 with black stools. (6) Hypertension: * HypoTN noted down to 50s systolically on 02/27. Resolved * continue IVF (7) Osteoarthritis of left hip: * Noted as severe. Follows locally with Dr. Staley * Ortho consulted - history of avascular necrosis - recommends treating hip pain. Urine cultures thus far positive for E.Coli. No growth from blood cultures so at this time would not recommend aspirating * patient is wheelchair bound at baseline (8) Abnormal CT of the chest: * Pulm nodule noted on CTAP, 5mm * Follow up outpatient (9) Prediabetes: * Denies hx of pre-DM. A1c 5.8 * No current DM meds. Will need counselled on this and follow up (10) Idiopathic polyneuropathy: * Noted (11) Obstructive sleep apnea: * States no current tx for this (12) Hypothyroidism: * Continue home levothyroxine 150mcg daily. * Last TSH 5.12. * Repeat TSH 1.44, wnl (13) Dyslipidemia: * Continue home lovastatin (14) Anxiety: * Continue home ativan (15) Chronic kidney disease, stage 3 (moderate): * See above (16) Hypomagnesemia: * resolved (17) Gout: Left great toe Uric acid normal Resumed patient's celecoxib 03/04 and increased to bid to treat the gout. (18) DVT prophylaxis: * SCDs * Pt takes aspirin 81mg for prevention, will hold other rx DVT proph to avoid GIB given high flow diarrhea and heme+ stool, anemia Dispo: if stools continue to be manageable tomorrow and taking good po, can prepare to discharge to rehab updated by phone Admission and Anticipated Discharge Date Admission Date: February 28, 2020 Subjective Ms. Hogan is feeling better today. Her pain has improved. Her stools have slowed to a more manageable pace. She is no longer nauseas ROS Constitutional: no chills, aches, sweats or fever Respiratory: no sob,cough, sputum, or wheezing Cardiac: no chest pain, palpitations, edema, orthopnea or lightheadedness GI: no abdominal pain, nausea, vomiting, diarrhea or constipation : no dysuria or hesitancy Extremities: no joint pain or weakness Skin: no rash All other systems reviewed and negative Physical Exam Physical Exam: General: no distress Eyes: normal inspection, PERLL Respiratory: chest non tender, clear to auscultation, normal breath sounds, no respiratory distress, no accessory muscle use Cardiac: regular rate and rhythm, no rub or gallop, no murmur, no edema, no jvd GI/: active bowel sounds, no abd pain or tenderness, soft, non distended Extremities: normal range of motion, normal strength, non tender Neuro/Psych: alert and oriented x 3, normal mood and affect Skin: normal color, dry Results & Data Results & [facility] ([facility]) Vital Signs (Past 12 Hours) Vital Signs Temp Pulse Pulse Resp BP Pulse Ox 03/05/20 11:23 36.9 C 108 H 20 108/70 97 03/05/20 07:50 36.8 C 94 H 18 134/75 99 03/05/20 07:25 92 H PG Care Time/CCT Total # of Minutes Spent Total Time Spent with Patient: Total time spent is greater than 50% in coordination of care (as documented) at patient's floor/unit and/or counseling patient: Coding Level of Care Code 72036 Subseq Hosp Care Lvl 2 Diagnoses Sepsis A41.9 C. difficile colitis A04.72 Pancolitis K51.00 Acute on chronic kidney failure N17.9; N18.9 Blood loss anemia D50.0 Hypertension I10 Hypertension type: essential hypertension Osteoarthritis of left hip M16.12 Osteoarthritis type: primary Abnormal CT of the chest R93.89 Prediabetes R73.03 Idiopathic polyneuropathy G60.9 Obstructive sleep apnea G47.33 Hypothyroidism E03.9 Hypothyroidism type: acquired Dyslipidemia E78.5 Anxiety F41.9 Chronic kidney disease, stage 3 (moderate) N18.3 Hypomagnesemia E83.42 Gout M10.9 DVT prophylaxis Z29.9 (1) Hypertension Hypertension type: essential hypertension Qualified Code(s): I10 - Essential (primary) hypertension (2) Osteoarthritis of left hip Osteoarthritis type: primary Qualified Code(s): M16.12 - Unilateral primary osteoarthritis, left hip (3) Hypothyroidism Hypothyroidism type: acquired Qualified Code(s): E03.9 - Hypothyroidism, unspecified
[2020-03-05] MEDS: ACETAMINOPHEN 325 MG TAB PO PRN (21:40)
[2020-03-06] MEDS: RASPBERRY SYRUP 5 ML UDP PO SCH ×5 (00:01→23:17)
[2020-03-06] MEDS: VANCOMYCIN HCL 125 MG/2.5ML SOLN PO SCH ×5 (00:01→23:16)
[2020-03-06] MEDS: LEVOTHYROXINE SODIUM 150 MCG TABLET PO SCH (06:21)
[2020-03-06] MEDS: FAMOTIDINE 20 MG TAB PO SCH ×2 (08:40→21:21)
[2020-03-06] MEDS: CeleBREX 200 MG CAP PO SCH ×2 (08:40→21:21)
[2020-03-06] MEDS: CEROVITE ADV FORMULA TAB PO SCH (08:40)
[2020-03-06] MEDS: ASPIRIN 81 MG ECTAB PO SCH (08:49)
[2020-03-06] MEDS: LOVASTATIN 20 MG TAB PO SCH (08:49)
[2020-03-06] MEDS: CHOLECALCIFEROL 1,000 UNITS 25 MCG TAB PO SCH (08:49)
[2020-03-06] MEDS: LIDOCAINE 5% 1 PATCH TD SCH (08:49)
[2020-03-06 09:34] LABS: Hematocrit (blood only) 30.7 % (37-47); Hemoglobin 10.2 g/dL (12.0-16.0); Mean Corpuscular Hemoglobin 29.4 pg (25-34); Mean Corpuscular Hgb Conc 33.2 g/dL (32-36); Mean Corpuscular Volume 88.5 fL (80-100); Mean Platelet Volume 9.7 fL (7.4-10.4); Platelet Count 432 K/uL (130-400); RDW Coefficient of Variation 17.4 % (11.5-14.5); RDW Standard Deviation 55.1 fL (36.4-46.3); Red Blood Count 3.47 M/uL (4.2-5.4); White Blood Count 14.11 K/uL (4.8-10.8)
[2020-03-06 10:28] LABS: BUN Creatinine Ratio 9.5 (10-20); Basophils # (auto) 0.04 K/uL (0-0.2); Basophils % (auto) 0.3 %; Calcium 7.6 mg/dl (8.5-10.1); Creatinine Clr Calc Pharmacy 35.9 ml/min; Eosinophils # (auto) 0.04 K/uL (0-0.5); Eosinophils % (auto) 0.3 %; Est GFR (African American) 45.5; Est GFR (Non-African American) 39.3; Immature Granulocytes # (auto) 0.17 K/uL (0.00-0.02); Immature Granulocytes % (auto) 1.2 %; Lymphocytes # (auto) 1.36 K/uL (1.2-3.4); Lymphocytes % (auto) 9.6 %; Monocytes # (auto) 0.54 K/uL (0.11-0.59); Monocytes % (auto) 3.8 %; Neutrophils # (auto) 11.96 K/uL (1.4-6.5); Neutrophils % (auto) 84.8 %
[2020-03-06] MEDS: COLESTIPOL HCL 1 GM TAB PO SCH ×2 (10:33→23:15)
--- NOTE | 2020-03-06 12:31 | Hospitalist Progress Note ---
Date of Service March 06, 2020 Assessment & Plan (1) Sepsis: * Secondary to C diff infection - patient positive for C diff gene but not toxin. Given symptoms and significant leukocytosis, treated as active infection per GI. * DC'd IV metronidazole per GI and continue po vancomycin - will need 14 days total * Blood cx drawn AFTER initial abx -- ngtd * discontinued Zosyn IV - patient growing E Coli in urine but never had any urinary symptoms, infectious source is C diff * Stool culture negative * Hemoccult + * GI Consultation -- appreciate recommendations - continue colestipol - they are ok with patient discharge at this point * leukocytosis resolved (2) C. difficile colitis: As above (3) Pancolitis: * Noted on CTAP * KUB 03/01 and 03/02 - no sign of obstruction, CT without contrast 03/01 with mild enterocolitis (4) Acute on chronic kidney failure: * Possibly secondary to ATN given sepsis and hypotension on admission * Cr 2.5 on admission * resolved with IVF (5) Blood loss anemia: Hgb 9 and stable for the last couple of days - down from 10.6 with black stools. (6) Hypertension: * HypoTN noted down to 50s systolically on 02/27. Resolved * continue IVF (7) Osteoarthritis of left hip: * Noted as severe. Follows locally with Dr. Staley * Ortho consulted - history of avascular necrosis - recommends treating hip pain. Urine cultures thus far positive for E.Coli. No growth from blood cultures so at this time would not recommend aspirating * patient is wheelchair bound at baseline (8) Abnormal CT of the chest: * Pulm nodule noted on CTAP, 5mm * Follow up outpatient (9) Prediabetes: * Denies hx of pre-DM. A1c 5.8 * No current DM meds. Will need counselled on this and follow up (10) Idiopathic polyneuropathy: * Noted (11) Obstructive sleep apnea: * States no current tx for this (12) Hypothyroidism: * Continue home levothyroxine 150mcg daily. * Last TSH 5.12. * Repeat TSH 1.44, wnl (13) Dyslipidemia: * Continue home lovastatin (14) Anxiety: * Continue home ativan (15) Chronic kidney disease, stage 3 (moderate): * See above (16) Hypomagnesemia: * resolved (17) Gout: Left great toe Uric acid normal Resumed patient's celecoxib 03/04 and increased to bid to treat the gout. Pain improving today, no worsening of erythema (18) DVT prophylaxis: * SCDs * Pt takes aspirin 81mg for prevention, will hold other rx DVT proph to avoid GIB given high flow diarrhea and heme+ stool, anemia Dispo: can likely discharge to rehab tomorrow Admission and Anticipated Discharge Date Admission Date: February 28, 2020 Subjective Ms. Hogan reports a large bowel movement this morning but that overall her bowels are slowing. Her nausea has improved. ROS Constitutional: no chills, aches, sweats or fever Respiratory: no sob,cough, sputum, or wheezing Cardiac: no chest pain, palpitations, edema, orthopnea or lightheadedness GI: no abdominal pain, nausea, vomiting, diarrhea or constipation : no dysuria or hesitancy Extremities: no joint pain or weakness Skin: no rash All other systems reviewed and negative Physical Exam Physical Exam: General: no distress Eyes: normal inspection, PERLL Respiratory: chest non tender, clear to auscultation, normal breath sounds, no respiratory distress, no accessory muscle use Cardiac: regular rate and rhythm, no rub or gallop, no murmur, no edema, no jvd GI/: active bowel sounds, no abd pain or tenderness, soft, non distended Extremities: normal range of motion, normal strength, non tender Neuro/Psych: alert and oriented x 3, normal mood and affect Skin: normal color, dry Results & Data Results & Data ([facility]) Vital Signs (Past 12 Hours) Vital Signs Temp Pulse Resp BP BP Pulse Ox 03/06/20 07:28 37.1 C 93 H 18 130/74 99 03/06/20 03:10 36.7 C 93 H 18 121/63 99 PG Care Time/CCT Total # of Minutes Spent Total Time Spent with Patient: Total time spent is greater than 50% in coordination of care (as documented) at patient's floor/unit and/or counseling patient: Coding Level of Care Code 52014 Subseq Hosp Care Lvl 2 Diagnoses Sepsis A41.9 C. difficile colitis A04.72 Pancolitis K51.00 Acute on chronic kidney failure N17.9; N18.9 Blood loss anemia D50.0 Hypertension I10 Hypertension type: essential hypertension Osteoarthritis of left hip M16.12 Osteoarthritis type: primary Abnormal CT of the chest R93.89 Prediabetes R73.03 Idiopathic polyneuropathy G60.9 Obstructive sleep apnea G47.33 Hypothyroidism E03.9 Hypothyroidism type: acquired Dyslipidemia E78.5 Anxiety F41.9 Chronic kidney disease, stage 3 (moderate) N18.3 Hypomagnesemia E83.42 Gout M10.9 DVT prophylaxis Z29.9 (1) Osteoarthritis of left hip Osteoarthritis type: primary Qualified Code(s): M16.12 - Unilateral primary osteoarthritis, left hip (2) Hypothyroidism Hypothyroidism type: acquired Qualified Code(s): E03.9 - Hypothyroidism, unspecified (3) Hypertension Hypertension type: essential hypertension Qualified Code(s): I10 - Essential (primary) hypertension
[2020-03-06] MEDS ORDERED: SODIUM CHLORIDE 0.9% 1000ML 1,000 ML IV SCH (22:30)
[2020-03-06] MEDS ORDERED: PIPERACILL/TAZOBAC CONSULT ACTIVE PRN (22:36)
[2020-03-06] MEDS ORDERED: PIPERACILLIN/TAZOBACTAM 3.375 GM in DEXTROSE 5% 100 ML IV ONE (22:45)
[2020-03-07] MEDS ORDERED: PIPERACILLIN/TAZOBACTAM 3.375 GM in DEXTROSE 5% 100 ML IV SCH (04:00)
[2020-03-07] MEDS: VANCOMYCIN HCL 125 MG/2.5ML SOLN PO SCH ×4 (05:37→23:15)
[2020-03-07] MEDS: LEVOTHYROXINE SODIUM 150 MCG TABLET PO SCH (05:37)
[2020-03-07] MEDS: RASPBERRY SYRUP 5 ML UDP PO SCH ×4 (05:37→23:15)
[2020-03-07 06:17] LABS: Basophils # (auto) 0.03 K/uL (0-0.2); Basophils % (auto) 0.2 %; Eosinophils # (auto) 0.06 K/uL (0-0.5); Eosinophils % (auto) 0.5 %; Hematocrit (blood only) 29.4 % (37-47); Hemoglobin 9.8 g/dL (12.0-16.0); Immature Granulocytes % (auto) 0.8 %; Lymphocytes # (auto) 1.46 K/uL (1.2-3.4); Lymphocytes % (auto) 11.3 %; Mean Corpuscular Hemoglobin 29.6 pg (25-34); Mean Corpuscular Hgb Conc 33.3 g/dL (32-36); Mean Corpuscular Volume 88.8 fL (80-100); Mean Platelet Volume 10.5 fL (7.4-10.4); Monocytes # (auto) 0.43 K/uL (0.11-0.59); Monocytes % (auto) 3.3 %; Neutrophils # (auto) 10.86 K/uL (1.4-6.5); Neutrophils % (auto) 83.9 %; Platelet Count 305 K/uL (130-400); RDW Coefficient of Variation 17.6 % (11.5-14.5); RDW Standard Deviation 56.6 fL (36.4-46.3); Red Blood Count 3.31 M/uL (4.2-5.4); White Blood Count 12.94 K/uL (4.8-10.8)
[2020-03-07 06:53] LABS: BUN Creatinine Ratio 12.9 (10-20); Calcium 7.2 mg/dl (8.5-10.1); Creatinine Clr Calc Pharmacy 34.8 ml/min; Est GFR (African American) 43.4; Est GFR (Non-African American) 37.5; Potassium 4.1 mmol/L (3.5-5.1)
[2020-03-07] MEDS: SODIUM CHLORIDE 0.9% 1000ML 1,000 ML IV SCH ×2 (08:00→15:23)
[2020-03-07] MEDS: LIDOCAINE 5% 1 PATCH TD SCH (08:36)
[2020-03-07] MEDS: FAMOTIDINE 20 MG TAB PO SCH ×2 (08:36→20:17)
[2020-03-07] MEDS: ASPIRIN 81 MG ECTAB PO SCH (08:36)
[2020-03-07] MEDS: CHOLECALCIFEROL 1,000 UNITS 25 MCG TAB PO SCH (08:36)
[2020-03-07] MEDS: CEROVITE ADV FORMULA TAB PO SCH (08:36)
[2020-03-07] MEDS ORDERED: HEPARIN SOD 5,000 UNIT/0.5 ML VIAL SQ SCH (09:00)
--- NOTE | 2020-03-07 10:23 | Ultrasound Report ---
US venous doppler LE RT CLINICAL HISTORY: lower extremity edema PAIN. EDEMA. COMPARISON STUDY: No previous studies for comparison. FINDINGS: Thrombus within the posterior tibial vein, peroneal vein, as well as anterior tibial veins. All remaining venous structures are patent. IMPRESSION: Acute deep venous thrombosis right leg as described ACT 112: Negative or not required by law. The above report was generated using voice recognition software. It may contain grammatical, syntax or spelling errors. Electronically signed by: Matt Garcia M.D. 03/07/2020 10:22 AM
[2020-03-07] MEDS: COLESTIPOL HCL 1 GM TAB PO SCH ×2 (11:05→21:37)
[2020-03-07] MEDS: APIXABAN 5 MG TABLET PO SCH ×2 (12:02→20:17)
--- NOTE | 2020-03-07 13:58 | Hospitalist Progress Note ---
Date of Service March 07, 2020 Assessment & Plan (1) Sepsis: * Secondary to C diff infection - patient positive for C diff gene but not toxin. Given symptoms and significant leukocytosis, treated as active infection per GI. * DC'd IV metronidazole per GI and continue po vancomycin - will need 14 days total * Blood cx drawn AFTER initial abx -- ngtd * discontinued Zosyn IV - patient growing E Coli in urine but never had any urinary symptoms, infectious source is C diff * Stool culture negative * Hemoccult + * GI Consultation -- appreciate recommendations - continue colestipol * leukocytosis resolved (2) C. difficile colitis: As above (3) Pancolitis: * Noted on CTAP * KUB 03/01 and 03/02 - no sign of obstruction, CT without contrast 03/01 with mild enterocolitis (4) Leukocytosis: Leukocytosis had resolved but now with elevated white count without obvious source - no sob, no cough, no urinary symptoms. Initially gave Zosyn again but I think without an obvious source it will cloud the picture so will take back off. Urine re-cultured. No new abdominal pain, belly is soft and non distended. Hip pain has improved since admission. Will recheck cbc am (5) Acute on chronic kidney failure: * Possibly secondary to ATN given sepsis and hypotension on admission * Cr 2.5 on admission * resolved with IVF but now with increase in creatinine to 1.32 - given 2L at 125 ml overnight and today and will decrease IVF to 80 mls per hour. Celecoxib restarted for gout and will now discontinue (6) Blood loss anemia: Now back to baseline Hgb, had been having black stools with heme positive stool, secondary to colitis (7) Deep vein thrombosis of right lower extremity: Per nursing patient was refusing SCDS. Today with swelling of the right lower leg and pain in her calf Posterior tibial vein, peroneal vein, as well as anterior tibial veins. Initiated Eliquis - risks and benefits discussed with patient Monitor CBC (8) Hypertension: * HypoTN noted down to 50s systolically on 02/27. Resolved * continue IVF (9) Osteoarthritis of left hip: * Noted as severe. Follows locally with Dr. Staley * Ortho consulted - history of avascular necrosis - recommends treating hip pain. Urine cultures thus far positive for E.Coli. No growth from blood cultures so at this time would not recommend aspirating * patient is wheelchair bound at baseline (10) Abnormal CT of the chest: * Pulm nodule noted on CTAP, 5mm * Follow up outpatient (11) Prediabetes: * Denies hx of pre-DM. A1c 5.8 * No current DM meds. Will need counselled on this and follow up (12) Idiopathic polyneuropathy: * Noted (13) Obstructive sleep apnea: * States no current tx for this (14) Hypothyroidism: * Continue home levothyroxine 150mcg daily. * Last TSH 5.12. * Repeat TSH 1.44, wnl (15) Dyslipidemia: * Continue home lovastatin (16) Anxiety: * Continue home ativan (17) Chronic kidney disease, stage 3 (moderate): * See above (18) Hypomagnesemia: * resolved (19) Gout: Left great toe Uric acid normal Resumed patient's celecoxib 03/04 and increased to bid to treat the gout with improvement of pain and erythema. However kidney function increased so will discontinue. Will hold off on further treatment for now as toe looks normal today (20) DVT prophylaxis: * SCDs * Pt takes aspirin 81mg for prevention, had been holding other rx DVT proph to avoid GIB given high flow diarrhea and heme+ stool, anemia however now with DVT will initiate Eliquis Given slight worsening in kidney function and leukocytosis, will keep patient in the hospital tonight Sister and updated over the phone. They are very adamant that Mr. Hogan be called before any discharge plan is solidified so please call before organizing discharge to [facility]. Admission and Anticipated Discharge Date Admission Date: February 28, 2020 Subjective Some diarrhea over the night. No abdominal pain, mild tenderness. No nausea or vomiting. No sob or cough, no chest pain. Reports hip is tolerable, no increase in pain ROS Constitutional: no chills, aches, sweats or fever Respiratory: no sob,cough, sputum, or wheezing Cardiac: no chest pain, palpitations, edema, orthopnea or lightheadedness GI: see HPI : no dysuria or hesitancy Extremities: no joint pain or weakness Skin: no rash All other systems reviewed and negative Physical Exam Physical Exam: General: no distress Eyes: normal inspection, PERLL Respiratory: chest non tender, clear to auscultation, normal breath sounds, no respiratory distress, no accessory muscle use Cardiac: regular rate and rhythm, no rub or gallop, systolic murmur, +1 pitting edema right lower extremity GI/: active bowel sounds, no abd pain or tenderness, soft, non distended Extremities: normal range of motion, normal strength, non tender Neuro/Psych: alert and oriented x 3, normal mood and affect Skin: normal color, dry Results & Data Results & Data ([facility]) Vital Signs (Past 12 Hours) Vital Signs Temp Pulse Pulse Resp BP Pulse Ox 03/07/20 11:37 36.6 C 93 H 18 146/79 H 95 03/07/20 07:35 81 03/07/20 06:57 36.5 C 84 18 134/78 98 03/07/20 03:27 36.3 C L 84 18 134/79 97 PG Care Time/CCT Total # of Minutes Spent Total Time Spent with Patient: Total time spent is greater than 50% in coordination of care (as documented) at patient's floor/unit and/or counseling patient: Coding Level of Care Code 36568 Subseq Hosp Care Lvl 3 Diagnoses Sepsis A41.9 C. difficile colitis A04.72 Pancolitis K51.00 Leukocytosis D72.829 Acute on chronic kidney failure N17.9; N18.9 Blood loss anemia D50.0 Deep vein thrombosis of right lower extremity I82.401 Hypertension I10 Hypertension type: essential hypertension Osteoarthritis of left hip M16.12 Osteoarthritis type: primary Abnormal CT of the chest R93.89 Prediabetes R73.03 Idiopathic polyneuropathy G60.9 Obstructive sleep apnea G47.33 Hypothyroidism E03.9 Hypothyroidism type: acquired Dyslipidemia E78.5 Anxiety F41.9 Chronic kidney disease, stage 3 (moderate) N18.3 Hypomagnesemia E83.42 Gout M10.9 DVT prophylaxis Z29.9 (1) Osteoarthritis of left hip Osteoarthritis type: primary Qualified Code(s): M16.12 - Unilateral primary osteoarthritis, left hip (2) Hypothyroidism Hypothyroidism type: acquired Qualified Code(s): E03.9 - Hypothyroidism, unspecified (3) Hypertension Hypertension type: essential hypertension Qualified Code(s): I10 - Essential (primary) hypertension
[2020-03-07] MEDS: ACETAMINOPHEN 325 MG TAB PO PRN (23:15)
[2020-03-08] MEDS: SODIUM CHLORIDE 0.9% 1000ML 1,000 ML IV SCH ×2 (04:20→16:35)
[2020-03-08] MEDS: RASPBERRY SYRUP 5 ML UDP PO SCH ×4 (05:54→23:13)
[2020-03-08] MEDS: VANCOMYCIN HCL 125 MG/2.5ML SOLN PO SCH ×4 (05:54→23:13)
[2020-03-08] MEDS: LEVOTHYROXINE SODIUM 150 MCG TABLET PO SCH (05:55)
[2020-03-08 07:16] LABS: Hematocrit (blood only) 24.1 % (37-47); Hemoglobin 7.8 g/dL (12.0-16.0); Mean Corpuscular Hemoglobin 28.5 pg (25-34); Mean Corpuscular Hgb Conc 32.4 g/dL (32-36); Mean Platelet Volume 9.5 fL (7.4-10.4); Platelet Count 460 K/uL (130-400); RDW Coefficient of Variation 17.7 % (11.5-14.5); Red Blood Count 2.74 M/uL (4.2-5.4)
[2020-03-08 07:34] LABS: Basophils # (auto) 0.02 K/uL (0-0.2); Basophils % (auto) 0.2 %; Eosinophils # (auto) 0.06 K/uL (0-0.5); Eosinophils % (auto) 0.6 %; Immature Granulocytes # (auto) 0.09 K/uL (0.00-0.02); Immature Granulocytes % (auto) 0.9 %; Lymphocytes # (auto) 1.38 K/uL (1.2-3.4); Lymphocytes % (auto) 13.4 %; Monocytes % (auto) 4.9 %; Neutrophils # (auto) 8.25 K/uL (1.4-6.5); RBC Morphology Unremarkable
[2020-03-08 07:38] LABS: BUN Creatinine Ratio 15.1 (10-20); Calcium 7.1 mg/dl (8.5-10.1); Creatinine Clr Calc Pharmacy 47.9 ml/min; Est GFR (Non-African American) 54.4; Potassium 3.6 mmol/L (3.5-5.1)
[2020-03-08] MEDS: LOVASTATIN 20 MG TAB PO SCH (07:59)
[2020-03-08] MEDS: ASPIRIN 81 MG ECTAB PO SCH (07:59)
[2020-03-08] MEDS: FAMOTIDINE 20 MG TAB PO SCH (07:59)
[2020-03-08] MEDS: APIXABAN 5 MG TABLET PO SCH ×2 (07:59→21:49)
[2020-03-08] MEDS: CHOLECALCIFEROL 1,000 UNITS 25 MCG TAB PO SCH (07:59)
[2020-03-08] MEDS: LIDOCAINE 5% 1 PATCH TD SCH ×2 (07:59→08:02)
[2020-03-08] MEDS: CEROVITE ADV FORMULA TAB PO SCH ×2 (07:59→08:02)
--- NOTE | 2020-03-08 08:46 | Hospitalist Progress Note ---
Date of Service March 08, 2020 Assessment & Plan (1) Sepsis: * Secondary to C diff infection - Resolved * po vancomycin - will need 14 days total * Blood cx drawn AFTER initial abx -- ngtd * discontinued Zosyn IV - patient growing E Coli in urine but never had any urinary symptoms, infectious source is C diff * Stool culture negative * GI Consultation -- appreciate recommendations - continue colestipol Consider adding Metamucil for water absorption * leukocytosis resolved (2) C. difficile colitis: As above (3) Pancolitis: * Noted on CT abdomen/pelvis Secondary to C. difficile colitis No sign of megacolon * KUB 03/01 and 03/02 - no sign of obstruction, CT without contrast 03/01 with mild enterocolitis (4) Acute on chronic kidney failure: * Possibly secondary to ATN given sepsis and hypotension on admission * Cr 2.5 on admission * resolved with IVF but now with increase in creatinine to 1.32 - given 2L at 125 ml overnight and today and will decrease IVF to 80 mls per hour. Celecoxib restarted for gout and will now discontinue (5) Blood loss anemia: pt has been having some black stools at home, none here did have a dip in her hgb 03/08 will follow while on eliquis concern for acute blood loss anemia will follow am hgb on 03/09 (6) Deep vein thrombosis of right lower extremity: Per nursing patient was refusing SCDS. Today with swelling of the right lower leg and pain in her calf Posterior tibial vein, peroneal vein, as well as anterior tibial veins. Initiated Eliquis - Dr Fisher discussed risks and benefits with patient according to notation prior to starting (7) Hypertension: * HypoTN noted down to 50s systolically on 02/27. Resolved (8) Osteoarthritis of left hip: * Noted as severe. Follows locally with Dr. Staley * Ortho consulted - history of avascular necrosis - recommends treating hip pain. Urine cultures thus far positive for E.Coli. No growth from blood cultures so at this time would not recommend aspirating * patient is wheelchair bound at baseline (9) Abnormal CT of the chest: * Pulm nodule noted on CTAP, 5mm * Follow up outpatient, pulmonry nodule program notified (10) Prediabetes: * Denies hx of pre-DM. A1c 5.8 * No current DM meds. follow up with pcp (11) Idiopathic polyneuropathy: * Noted (12) Obstructive sleep apnea: * States no current tx for this (13) Hypothyroidism: * Continue home levothyroxine 150mcg daily. * Last TSH 5.12. * Repeat TSH 1.44, wnl (14) Dyslipidemia: * Continue home lovastatin (15) Anxiety: * Continue home ativan (16) Chronic kidney disease, stage 3 (moderate): * See above (17) Hypomagnesemia: * resolved (18) Gout: Left great toe Uric acid normal Resumed patient's celecoxib 03/04 and increased to bid to treat the gout with improvement of pain and erythema. However kidney function increased so will discontinue. Will hold off on further treatment for now as toe looks normal today (19) DVT prophylaxis: * SCDs * Pt takes aspirin 81mg for prevention, had been holding other rx DVT proph to avoid GIB given high flow diarrhea and heme+ stool, anemia however now with DVT will initiate Eliquis Sister and updated over the phone. They are very adamant that Mr. Hogan be called before any discharge plan is solidified so please call before organizing discharge to [facility]. Admission and Anticipated Discharge Date Admission Date: February 28, 2020 Subjective pt has only complaints of continued diarrhea, no black stools or increased abdominal or back pain, she has been with increasing ambulation Review of Systems Review of Systems: Mild distress and fatigue no headache, blurry or double vision no speech or swallowing issues no chest pain, pressure or palpitations no shortness of breath, cough or wheezes no abdominal pain, nausea or vomiting, She has had Persistent diarrhea But no melena no dysuria, hematuria or frequency no focal joint pain or swelling no back pain, CVA tenderness or radicular pain no bruising, bleeding or rashes no focal signs of weakness or numbness or altered sensation no complaints or anxiety or depression Physical Exam Physical Exam: The patient appeared well nourished and normally developed. Vital signs as documented. Head exam is normocephalic atraumatic no scleral icterus Neck is without JVD, thyromegaly, or carotid bruits. Lungs are clear to auscultation, no focal loss of breath sounds Cardiac exam, Rhythm is regular.. No murmurs, rubs or gallops. Abdominal exam reveals normal bowel sounds, soft non tender, no masses Extremities are nonedematous and both pedal pulses are normal. Neurologic exam is alert and oriented, no focal loss of strength or sensation Skin is without bruises or rashes Psychologically is without concerns for anxiety or depression Results & Data Results & Data ([facility]) Vital Signs (Past 12 Hours) Vital Signs Temp Pulse Pulse Resp BP BP Pulse Ox 03/08/20 08:06 97.7 F 101 H 18 146/79 H 98 03/08/20 07:26 95 H 03/08/20 03:50 98.2 F 96 H 18 122/69 99 03/08/20 00:00 98 03/07/20 23:31 113 H 03/07/20 23:00 98.6 F 110 H 18 138/58 L PG Care Time/CCT Total # of Minutes Spent Total Time Spent with Patient: Total time spent is greater than 50% in coordination of care (as documented) at patient's floor/unit and/or counseling patient: Coding Level of Care Code 51080 Subseq Hosp Care Lvl 3 Diagnoses Sepsis A41.9 C. difficile colitis A04.72 Pancolitis K51.00 Acute on chronic kidney failure N17.9; N18.9 Blood loss anemia D50.0 Deep vein thrombosis of right lower extremity I82.401 Hypertension I10 Hypertension type: essential hypertension Osteoarthritis of left hip M16.12 Osteoarthritis type: primary Abnormal CT of the chest R93.89 Prediabetes R73.03 Idiopathic polyneuropathy G60.9 Obstructive sleep apnea G47.33 Hypothyroidism E03.9 Hypothyroidism type: acquired Dyslipidemia E78.5 Anxiety F41.9 Chronic kidney disease, stage 3 (moderate) N18.3 Hypomagnesemia E83.42 Gout M10.9 DVT prophylaxis Z29.9 (1) Osteoarthritis of left hip Osteoarthritis type: primary Qualified Code(s): M16.12 - Unilateral primary osteoarthritis, left hip (2) Hypothyroidism Hypothyroidism type: acquired Qualified Code(s): E03.9 - Hypothyroidism, unspecified (3) Hypertension Hypertension type: essential hypertension Qualified Code(s): I10 - Essential (primary) hypertension
[2020-03-08] MEDS: PANTOprazole 40 MG in SYRINGE 0 ML IV SCH ×2 (09:53→21:08)
[2020-03-08] MEDS: COLESTIPOL HCL 1 GM TAB PO SCH ×2 (09:54→21:07)
[2020-03-08 11:15] LABS: Hematocrit (blood only) 25.7 % (37-47); Hemoglobin 8.5 g/dL (12.0-16.0)
[2020-03-09] MEDS: SODIUM CHLORIDE 0.9% 1000ML 1,000 ML IV SCH ×2 (04:16→16:14)
[2020-03-09] MEDS: VANCOMYCIN HCL 125 MG/2.5ML SOLN PO SCH ×2 (05:32→12:22)
[2020-03-09] MEDS: LEVOTHYROXINE SODIUM 150 MCG TABLET PO SCH (05:32)
[2020-03-09] MEDS: RASPBERRY SYRUP 5 ML UDP PO SCH ×2 (05:32→12:22)
[2020-03-09] MEDS: PANTOprazole 40 MG in SYRINGE 0 ML IV SCH ×2 (08:27→20:28)
[2020-03-09] MEDS: CHOLECALCIFEROL 1,000 UNITS 25 MCG TAB PO SCH (08:27)
[2020-03-09] MEDS: CEROVITE ADV FORMULA TAB PO SCH (08:27)
[2020-03-09] MEDS: LIDOCAINE 5% 1 PATCH TD SCH (08:27)
[2020-03-09] MEDS: ASPIRIN 81 MG ECTAB PO SCH (08:28)
[2020-03-09] MEDS: APIXABAN 5 MG TABLET PO SCH (08:38)
--- NOTE | 2020-03-09 08:41 | Hospitalist Progress Note ---
Date of Service March 09, 2020 Assessment & Plan (1) Sepsis: * Secondary to C diff infection - Resolved * Persistent diarrhea while on oral vancomycin was changed with Dificid. * Blood cx drawn AFTER initial abx -- ngtd * discontinued Zosyn IV - patient growing E Coli in urine but never had any urinary symptoms, infectious source is C diff * Stool culture negative * GI Consultation -- appreciate recommendations - continue colestipol Consider adding Metamucil for water absorption * leukocytosis resolved (2) C. difficile colitis: Initial concern for C. difficile gene positive toxin negative with recommendations by gastroenterology to treat for active infection. Transition to Dificid at this time with a repeat GI consultation for anemia while on anticoagulation with blood noted in her diarrhea. (3) Pancolitis: * Noted on CT abdomen/pelvis Secondary to C. difficile colitis No sign of megacolon * KUB 03/01 and 03/02 - no sign of obstruction, CT without contrast 03/01 with mild enterocolitis colitis was felt secondary to C. difficile however now that is not improving may consider alternative causes (4) Acute on chronic kidney failure: * Possibly secondary to ATN given sepsis and hypotension on admission * Cr 2.5 on admission * resolved with IVF but now with increase in creatinine to 1.32 - given 2L at 125 ml overnight and today and will decrease IVF to 80 mls per hour. Celecoxib restarted for gout and now discontinued (5) Blood loss anemia: pt has been having some black stools at home, none here did have a dip in her hgb 03/08 will follow while on eliquis concern for acute blood loss anemia follow am hgb on 03/09 remains less than 8 Patient consented for 1 unit packed red blood cells. nursing reports rust colored stools, gastroenterology wishes to pursue upper endoscopy to rule out upper bleed first and may consider lower colonoscopy if symptoms persist (6) Deep vein thrombosis of right lower extremity: Per nursing patient was refusing SCDS. Today with swelling of the right lower leg and pain in her calf Posterior tibial vein, peroneal vein, as well as anterior tibial veins. Initiated Eliquis - Dr Fisher discussed risks and benefits with patient according to notation prior to starting however with now acute blood loss anemia noted on Eliquis this medication is held repeat an ultrasound of her leg will be undertaken to evaluate for clot burden (7) Hypertension: * . Resolved (8) Osteoarthritis of left hip: * Noted as severe. Follows locally with Dr. Staley * Ortho consulted - history of avascular necrosis - recommends treating hip pa in. Urine cultures thus far positive for E.Coli. No growth from blood cultures so at this time would not recommend aspirating * patient is wheelchair bound at baseline (9) Abnormal CT of the chest: * Pulm nodule noted on CTAP, 5mm * Follow up outpatient, pulmonry nodule program notified (10) Prediabetes: * Denies hx of pre-DM. A1c 5.8 * No current DM meds. follow up with pcp (11) Idiopathic polyneuropathy: * Noted (12) Obstructive sleep apnea: * States no current tx for this (13) Hypothyroidism: * Continue home levothyroxine 150mcg daily. * Last TSH 5.12. * Repeat TSH 1.44, wnl (14) Dyslipidemia: * Continue home lovastatin (15) Anxiety: * Continue home ativan (16) Chronic kidney disease, stage 3 (moderate): * See above (17) Hypomagnesemia: * resolved (18) Gout: Left great toe Uric acid normal Resumed patient's celecoxib 03/04 and increased to bid to treat the gout with improvement of pain and erythema. However kidney function increased so will discontinue. Will hold off on further treatment for now as toe looks normal today (19) DVT prophylaxis: * SCDs * Pt takes aspirin 81mg for prevention, Sister and updated over the phone. They are very adamant that Mr. Hogan be called before any discharge plan is solidified so please call before organizing discharge to [facility]. Admission and Anticipated Discharge Date Admission Date: February 28, 2020 Updated family on 03/09 including her and her sister who is a retired ICU nurse. Subjective this pt is concerned wtih persistent diarrhea despite being treated for c diff with oral vancomycin for approximately 5-6 days, she has some pat colored stools and a drop in her hgb, while being treated for an acute DVT on eliquis. This pt anemia has worsened requiring one unit of blood transfusion Review of Systems Review of Systems: Will need repeat heel radiograph GENERAL: No fever or chills, easy fatigue, loss of appetite, or significant weight change. All lesions on mild distress and fatigue no headache, blurry or double vision no speech or swallowing issues no chest pain, pressure or palpitations no shortness of breath, cough or wheezes no abdominal pain, nausea or vomiting persistent diarrhea no dysuria, hematuria or frequency no focal joint pain or swelling no back pain, CVA tenderness or radicular pain no bruising, gross bleeding or rashes no focal signs of weakness or numbness or altered sensation no complaints or anxiety or depression Physical Exam Physical Exam: The patient appeared mildly uncomfortable Vital signs as documented. Lungs are clear to auscultation and appear unlabored Cardiac exam, Rhythm is regular.. No murmurs, rubs or gallops. Abdominal exam reveals normal to hyperactive bowel sounds, soft non tender, no masses Extremities are right leg is slightly more swollen than the left there is no v enous cords or Homans sign present Neurologic exam is alert and oriented, no focal loss of strength or sensation Skin is without bruises or rashes Psychologically is without concerns for anxiety or depression Results & Data Results & Data ([facility]) Vital Signs (Past 12 Hours) Vital Signs Temp Pulse Pulse Resp BP Pulse Ox 03/09/20 07:24 97 H 03/09/20 06:42 97.7 F 95 H 19 153/81 H 97 03/09/20 03:11 99.1 F 100 H 18 123/69 94 03/08/20 23:18 98.1 F 103 H 19 122/66 96 03/08/20 23:17 104 H 03/08/20 23:00 104 H PG Care Time/CCT Total # of Minutes Spent Total Time Spent with Patient: Total time spent is greater than 50% in coordination of care (as documented) at patient's floor/unit and/or counseling patient: Coding Level of Care Code 73029 Subseq Hosp Care Lvl 3 Diagnoses Sepsis A41.9 C. difficile colitis A04.72 Pancolitis K51.00 Acute on chronic kidney failure N17.9; N18.9 Blood loss anemia D50.0 Deep vein thrombosis of right lower extremity I82.401 Hypertension I10 Hypertension type: essential hypertension Osteoarthritis of left hip M16.12 Osteoarthritis type: primary Abnormal CT of the chest R93.89 Prediabetes R73.03 Idiopathic polyneuropathy G60.9 Obstructive sleep apnea G47.33 Hypothyroidism E03.9 Hypothyroidism type: acquired Dyslipidemia E78.5 Anxiety F41.9 Chronic kidney disease, stage 3 (moderate) N18.3 Hypomagnesemia E83.42 Gout M10.9 DVT prophylaxis Z29.9 (1) Osteoarthritis of left hip Osteoarthritis type: primary Qualified Code(s): M16.12 - Unilateral primary osteoarthritis, left hip (2) Hypothyroidism Hypothyroidism type: acquired Qualified Code(s): E03.9 - Hypothyroidism, unspecified (3) Hypertension Hypertension type: essential hypertension Qualified Code(s): I10 - Essential (primary) hypertension
[2020-03-09 09:04] LABS: Basophils # (auto) 0.02 K/uL (0-0.2); Basophils % (auto) 0.3 %; Eosinophils # (auto) 0.04 K/uL (0-0.5); Eosinophils % (auto) 0.6 %; Hematocrit (blood only) 23.5 % (37-47); Hemoglobin 7.8 g/dL (12.0-16.0); Immature Granulocytes # (auto) 0.06 K/uL (0.00-0.02); Immature Granulocytes % (auto) 0.9 %; Lymphocytes # (auto) 1.67 K/uL (1.2-3.4); Lymphocytes % (auto) 24.1 %; Mean Corpuscular Hemoglobin 28.9 pg (25-34); Mean Corpuscular Hgb Conc 33.2 g/dL (32-36); Mean Platelet Volume 9.3 fL (7.4-10.4); Monocytes # (auto) 0.75 K/uL (0.11-0.59); Monocytes % (auto) 10.8 %; Neutrophils # (auto) 4.39 K/uL (1.4-6.5); Neutrophils % (auto) 63.3 %; Platelet Count 460 K/uL (130-400); RDW Coefficient of Variation 17.5 % (11.5-14.5); RDW Standard Deviation 54.9 fL (36.4-46.3); White Blood Count 6.93 K/uL (4.8-10.8)
[2020-03-09 09:34] LABS: Polychromasia 1+
[2020-03-09 09:36] LABS: BUN Creatinine Ratio 14.7 (10-20); Calcium 6.8 mg/dl (8.5-10.1); Creatinine Clr Calc Pharmacy 58.5 ml/min; Est GFR (African American) 79.6; Est GFR (Non-African American) 68.7; Potassium 3.6 mmol/L (3.5-5.1)
[2020-03-09] MEDS: COLESTIPOL HCL 1 GM TAB PO SCH ×2 (11:32→22:00)
[2020-03-09] MEDS ORDERED: SODIUM CHLORIDE 0.9% 250 ML IV PRN ×2 (12:27→13:04)
[2020-03-09] MEDS: FIDAXOMICIN 200 MG TAB PO SCH ×2 (13:03→20:27)
--- NOTE | 2020-03-09 14:48 | Gastroenterology Progress Note ---
Date of Service March 09, 2020 Assessment & Plan (1) Diarrhea: (2) Acute on chronic anemia: 80 y/o female with h/o ileocectomy, admitted with diarrhea, CT showing pancolitis, with (+) C diff gene but (-) toxin, however per pt, she is not improved with PO Vancomycin, Colestipol and Bentyl. Over the weekend had newly dx'd DVT and pt was placed on Eliquis, however this is on hold (last dose 03/08/20), as HGB has dropped to 7.8 and pt reports intermittent rust colored stools (was having black stools prior to admission). Question whether she has C. diff vs. another process such as microscopic colitis, IBD, Celiac, etc, along with GI source of bleeding (PUD, AVM, etc). On exam abd is soft, VSS. - Plan for EGD and flex sig tomorrow - Trend H&H, transfuse PRN - Monitor GI output - Clear liquids today - NPO after midnight - Continue PPI BID - Tap water enema this afternoon/evening x 1, then repeat tomorrow AM prior to procedure - Pending endoscopy results, consider Imodium to help loose stools Admission and Anticipated Discharge Date Admission Date: February 28, 2020 Supervising Physician Co-Signing Physician Notes I performed a history and physical examination of the patient today, including specifically on physical exam - soft abdomen. I have discussed the patient's management with the advanced practitioner. Please refer to the nurse practitioner's note for the documented findings and plan of care. EGD/Flex sig tomorrow. Subjective Pt is an 80 y/o female with PMhx hypothyroidism, HTN, CKD III, h/ ileocectomy (for large appendiceal polyp 2006), seen last week by GI service for diarrhea, found to be positive for C. diff gene, neg for C diff toxin, and tx with PO Vancomycin QID along with Colestipol 1 gm BID and Bentyl. Noncon CTAP 02/27 with pancolitis, repeat CT 03/01 with mild enterocolitis, KUB 03/01 and 03/02 with no obstruction. GI recalled on this pt due to worsening anemia with ongoing loose/explosive stools, in the setting of recently dx'd DVT last weekend for which pt was started on Eliquis. Last dose was 03/08. Today pt had HGB of 7.8 (baseline 10). BUN WNL, WBC WNL. Pt reports having "rust" colored stool at times. Prior to admission she was having some black stool but has had none this admission. She reports having approx 5 loose/explosive stools daily this admission; though today has only had 1. Denies abd pain, melena, hematochezia, nausea, vomiting, hematemesis, dysphagia, regurgitation, heartburn, fever, chills, chest pain, dyspnea. VSS. No NSAIDS, tobacco, ETOH. Denies h/o PUD, no EGD. Last colonoscopy 2017: Sig tics, unremarkable colon enteric anastomosis Review of Systems 2 Constitutional: no fever and no chills Respiratory: no cough and no dyspnea Cardiovascular: no chest pain and no dyspnea Gastrointestinal: as per Subjective / HPI Physical Exam Constitutional: well developed; no acute distress somewhat pale, chronically ill Respiratory: normal respiratory effort, lungs clear to auscultation Cardiovascular: Rate/Rhythm: regular rate and regular rhythm Gastrointestinal (Abdomen): Inspection/Auscultation: abdomen normal to inspection and normal bowel sounds; abdomen not distended Percussion/Palpation: abdomen soft; abdomen nontender Skin: no rashes, warm and dry Psychiatric: A+Ox3, euthymic affect Results & Data ([facility]) Vital Signs (Past 12 Hours) Vital Signs Temp Pulse Pulse Resp BP Pulse Ox 03/09/20 11:16 36.6 C 83 18 127/74 99 03/09/20 07:24 97 H 03/09/20 06:42 36.5 C 95 H 19 153/81 H 97 03/09/20 03:11 37.3 C 100 H 18 123/69 94 Laboratory Results 03/09/20 03/09/20 03/09/20 Range/Units 13:16 08:40 08:40 WBC 6.93 (4.8-10.8) K/uL RBC 2.70 L (4.2-5.4) M/uL Hgb 7.8 L (12.0-16.0) g/dL Hct 23.5 L (37-47) % MCV 87.0 (80-100) fL MCH 28.9 (25-34) pg MCHC 33.2 (32-36) g/dL RDW Std Deviation 54.9 H (36.4-46.3) fL RDW Coeff of Rika 17.5 H (11.5-14.5) % Plt Count 460 H (130-400) K/uL MPV 9.3 (7.4-10.4) fL Immature Gran % (Auto) 0.9 % Neut % (Auto) 63.3 % Lymph % (Auto) 24.1 % [place] % (Auto) 10.8 % Eos % (Auto) 0.6 % Baso % (Auto) 0.3 % Immature Gran # (Auto) 0.06 H (0.00-0.02) K/uL Neut # (Auto) 4.39 (1.4-6.5) K/uL Lymph # (Auto) 1.67 (1.2-3.4) K/uL [place] # (Auto) 0.75 H (0.11-0.59) K/uL Eos # (Auto) 0.04 (0-0.5) K/uL Baso # (Auto) 0.02 (0-0.2) K/uL Polychromasia 1+ Sodium 138 (136-145) mmol/L Potassium 3.6 (3.5-5.1) mmol/L Chloride 111 H (98-107) mmol/L Carbon Dioxide 19 L (21-32) mmol/L Anion Gap 7.0 (3-11) BUN 12 (7-18) mg/dl Creatinine 0.80 (0.6-1.2) mg/dl Est Cr Clr Drug Dosing 58.5 ml/min Est GFR ( Amer) 79.6 Est GFR (Non-Af Amer) 68.7 BUN/Creatinine Ratio 14.7 (10-20) Glucose 114 H (70-99) mg/dl Calcium 6.8 L (8.5-10.1) mg/dl Blood Type AB Positive Antibody Screen POSITIVE A Antibody Identification Pending Antibody ID Comment Pending Crossmatch See Detail
[2020-03-09] MEDS: DICYCLOMINE HCL 10 MG CAP PO PRN (20:27)
[2020-03-09] MEDS: ACETAMINOPHEN 325 MG TAB PO PRN (22:53)
[2020-03-10] MEDS: SODIUM CHLORIDE 0.9% 1000ML 1,000 ML IV SCH ×2 (05:54→18:56)
[2020-03-10] MEDS: LEVOTHYROXINE SODIUM 150 MCG TABLET PO SCH (05:55)
[2020-03-10 06:45] LABS: Hematocrit (blood only) 27.2 % (37-47); Hemoglobin 9.2 g/dL (12.0-16.0); Mean Corpuscular Hemoglobin 29.3 pg (25-34); Mean Corpuscular Hgb Conc 33.8 g/dL (32-36); Mean Corpuscular Volume 86.6 fL (80-100); Mean Platelet Volume 9.1 fL (7.4-10.4); Platelet Count 446 K/uL (130-400); RDW Coefficient of Variation 17.3 % (11.5-14.5); RDW Standard Deviation 54.8 fL (36.4-46.3); Red Blood Count 3.14 M/uL (4.2-5.4); White Blood Count 5.81 K/uL (4.8-10.8)
--- NOTE | 2020-03-10 08:02 | Ultrasound Report ---
ULTRASOUND BILATERAL LOWER EXTREMITY VENOUS CLINICAL HISTORY: Deep venous thrombosis. COMPARISON STUDY: Right lower extremity venous ultrasound dated 03/06/2020. Bilateral lower extremity venous ultrasound dated 09/06/2019. TECHNIQUE: Real-time, grayscale, and color Doppler sonography of the deep veins of the right and left lower extremity was performed from the inguinal crease to the calf. Compression and augmentation wer e utilized. FINDINGS: Right lower extremity: There is nonocclusive deep venous thrombosis identified in the popliteal vein. Broken flow is again seen within the right posterior tibial vein, the peroneal vein, and the anterio r tibial vein in the calf. The common femoral and superficial femoral veins are patent and normally c ompressible. The greater saphenous vein and the profunda femoris vein at the junction with the common femoral vein are clear. Soft tissue edema is present in the calf. Left lower extremity: There is nonocclusive deep venous thrombosis in the proximal superficial femora l vein. There is broken flow within the left peroneal vein in the calf which also likely represents d eep venous thrombosis. The common femoral vein, the mid to distal superficial femoral vein, and the p opliteal vein A\are patent and normally compressible. The greater saphenous vein and the profunda fem khris vein at the junction with the common femoral vein are clear. Soft tissue edema is present in the calf. IMPRESSION: 1. Bilateral nonocclusive deep venous thrombosis as above. Thrombus within the right popliteal vein i s new from 03/07/2020. 2. Nonocclusive DVT is also identified within both calves. ACT 112: Negative or not required by law. Electronically signed by: Piyush Coffey M.D. 03/10/2020 8:01 AM
--- NOTE | 2020-03-10 08:53 | Anesthesiology Consultation ---
Date of Service March 10, 2020 Assessment & Plan (1) Encounter for pre-operative examination: History Surgery Operation Date: 03/10/20 17:30 Proposed Procedures p Esophagogastroduodenoscopy Dr Amber Clark MD s Flexible Sigmoidoscopy Dr Amber Clark MD Height/Weight Height: 5 ft 5 in Weight: 88.1 kg Allergies Allergy/AdvReac Type Severity Reaction Status Date / Time Sulfa (Sulfonamide Allergy Mild ITCHING- Verified 02/28/20 11:06 Antibiotics) PT TAKES CELEBREX AT HOME latex Allergy Rash Verified 02/28/20 18:46 Medications Home Medications Medication Instructions Recorded Confirmed Last Taken acetaminophen [Tylenol Extra 500 mg PO Q6H PRN 08/05/19 02/28/20 02/27/20 Strength] cholecalciferol (vitamin D3) 2,000 unit PO QAM 09/06/19 02/28/20 09/06/19 [Vitamin D3] lidocaine 1 patch TOP Q12 PRN 09/06/19 02/28/20 09/05/19 hydrochlorothiazide 25 mg tablet 25 mg PO DAILY #90 tab 09/24/19 02/28/20 02/27/20 lovastatin 20 mg tablet 20 mg PO Q OTHER DAY #45 tab 10/31/19 02/28/20 02/27/20 metoprolol succinate 25 mg 50 mg PO QAM #180 tab 10/31/19 02/28/20 Unknown tablet,extended release 24 hr celecoxib 200 mg capsule 200 mg PO DAILY #90 cap 12/15/19 02/28/20 02/27/20 Wheelchair (Manual or Powered) #1 ea 12/19/19 12/19/19 Unknown furosemide 20 mg tablet 20 mg PO Q OTHER DAY 30 Days #15 12/19/19 02/28/20 Unknown tab hydrocodone 5 mg-acetaminophen 325 1 tab PO Q12H PRN #30 tab 01/15/20 02/28/20 Unknown mg tablet cyclobenzaprine 10 mg tablet 10 mg PO TID PRN #30 tab 01/30/20 02/28/20 02/27/20 levothyroxine 150 mcg tablet 150 mcg PO DAILY #30 tab 02/20/20 02/28/20 02/27/20 aspirin 81 mg PO DAILY 02/28/20 02/28/2002/26/20 lorazepam 0 mg PO DAILY PRN 02/28/20 02/28/20 02/28/20 09:00 Unknown [id number]-zrf-GN-lycopen-lutein 1 tab PO DAILY 02/28/20 02/28/20 02/27/20 [Centrum Silver] valsartan 320 mg tablet 320 mg PO DAILY #90 tab 03/03/20 Unknown Active Medications Generic Name Dose Route Start Last Admin Trade Name Freq PRN Reason Stop Dose Admin Acetaminophen 650 mg 02/28/20 18:53 03/09/20 22:53 Tylenol PO 03/29/20 18:52 650 mg Q4H PRN Administration Pain or Fever Apixaban 10 mg 03/07/20 11:15 03/09/20 08:38 Eliquis PO Not Given BID SANJAY Aspirin 81 mg 02/29/20 09:00 03/09/20 08:28 Ecotrin Ectab PO 03/30/20 08:59 Not Given DAILY SANJAY Calcium Carbonate 500 mg 02/29/20 08:51 03/01/20 09:00 Tums PO 03/30/20 08:50 500 mg Q6H PRN Administration Indigestion Colestipol HCl 1 gm 03/04/20 22:00 03/09/20 22:00 Colestid PO 04/03/20 21:59 1 gm BID@1000,2200 SANJAY Administration Cyclobenzaprine HCl 10 mg 02/28/20 19:10 03/05/20 11:38 Flexeril PO 03/29/20 19:09 10 mg TID PRN Administration MUSCLE SPASMS Dicyclomine HCl 10 mg 03/02/20 08:50 03/09/20 20:27 Bentyl PO 04/01/20 08:49 10 mg BID PRN Administration Cramping Fidaxomicin 200 mg 03/09/20 12:35 03/09/20 20:27 Dificid PO 03/19/20 12:34 200 mg BID SANJAY Administration Sodium Chloride 1,000 mls @ 80 mls/hr 03/07/20 08:00 03/10/20 05:54 Nss 1000ml IV 04/06/20 07:59 80 mls/hr .[id number] SANJAY Administration Pantoprazole Sodium 40 mg/ 10 mls @ 5 mls/min 03/08/20 09:30 03/10/20 09:28 Syringe IV 04/07/20 09:29 5 mls/min BID SANJAY Administration Levothyroxine Sodium 150 mcg 02/29/20 06:30 03/10/20 05:55 Synthroid PO 03/30/20 06:29 150 mcg DAILYBB SANJAY Administration Lidocaine 1 patch 02/29/20 09:00 03/10/20 09:28 Lidoderm 5% TD 03/30/20 08:59 1 patch DAILY@0900 SANJAY Administration Lorazepam 0.5 mg 02/28/20 19:41 03/08/20 21:52 Ativan PO 03/29/20 19:40 0.5 mg DAILY PRN Administration Anxiety Lovastatin 20 mg 02/29/20 09:00 03/10/20 11:10 Mevacor PO 03/30/20 08:59 Not Given Q48H SANJAY Miscellaneous 1 ea 02/29/20 21:00 03/09/20 20:28 Remove Lidoderm Patch N/A 03/30/20 20:59 1 ea DAILY@2100 SANJAY Administration Multivitamins/Minerals 1 tab 02/29/20 09:00 03/10/20 11:10 Multivitamin W/ Minerals Tab PO 03/30/20 08:59 Not Given DAILY SANJAY Ondansetron HCl 4 mg 02/28/20 18:17 03/03/20 20:35 Zofran IV 03/29/20 18:16 4 mg Q4H PRN Administration Nausea Saccharomyces Boulardii 250 mg 03/10/20 09:00 03/10/20 11:10 Florastor PO 04/09/20 08:59 Not Given DAILY SANJAY Vitamin D 2,000 units 02/29/20 09:00 03/10/20 11:10 Vitamin D3 PO 03/30/20 08:59 Not Given DAILY SANJAY Past Medical History Medical History Acid reflux Anemia Anxiety Arthritis, degenerative Chronic kidney disease, stage 3 (moderate) Dyslipidemia Elevated alkaline phosphatase level Hypertension Hypothyroidism Idiopathic polyneuropathy Idiopathic scoliosis Lumbar spinal stenosis Lymphedema Obstructive sleep apnea Osteoarthritis of left hip Osteoporosis Prediabetes SBO (small bowel obstruction) Urinary incontinence Venous hypertension Past Family History Family History Father , age 80 of heart disease Cardiac disorder Hypertension Osteoarthritis Mother , age 82 of uncertain cause History of cholecystectomy Hypertension Kidney disease History of kidney stones Grandmother Myocardial infarction 56 Denies family history of Ovarian cancer Prostate cancer Breast cancer Colorectal cancer Past Surgical History Surgical History History of appendectomy History of back surgery (11/2011) post spine fixation devin History of esophagogastroduodenoscopy WITH BIOPSY History of lumbar fusion (1990) ;VERTEBRAL History of surgery UTERINE SURGERY History of total hip replacement (02/2013) RIGHT HIP- 02/17 History of total knee arthroplasty LEFT KNEE- 06/18 Hx of arthroscopy of shoulder (1997) S/P arthroscopic knee surgery (2008) Status post right knee replacement Social History Smoking Status: Never smoker Hx Alcohol Use: Yes Alcohol type: wine alcohol intake frequency: a few times a month Hx Substance Use: No substance use type: does not use Physical Exam Vital Signs Last Vital Signs Temp 37.1 C 03/10/20 14:25 Pulse 90 03/10/20 14:25 Resp 18 03/10/20 14:25 BP 164/78 H 03/10/20 14:25 Pulse Ox 100 03/10/20 14:25 Testing Laboratory Results 03/10/20 06:21 03/09/20 08:40 Urine Color Dark Yellow 02/28/20 10:20 Urine Appearance Cloudy (Clear) A 02/28/20 10:20 Urine pH 5.0 (4.5-7.5) 02/28/20 10:20 Ur Specific [place] 1.020 (1.000-1.030) 02/28/20 10:20 Urine Protein Trace (Negative) H 02/28/20 10:20 Urine Glucose (UA) Negative (Negative) 02/28/20 10:20 Urine Ketones Negative (Negative) 02/28/20 10:20 Urine Nitrite Negative (Negative) 02/28/20 10:20 Ur Leukocyte Esterase 2+ (Negative) H 02/28/20 10:20 Urine WBC (Auto) 1-5 /hpf (0-5) 02/28/20 10:20 Urine RBC (Auto) 0-4 /hpf (0-4) 02/28/20 10:20 U Hyaline Cast (Auto) 10-30 /lpf (0-5) H 02/28/20 10:20 U Epithel Cells (Auto) >30 /lpf (0-5) H 02/28/20 10:20 Urine Bacteria (Auto) 4+ (Negative) H 02/28/20 10:20 Blood Type AB Positive 03/09/20 13:16 Antibody Screen POSITIVE A 03/09/20 13:16 03/07/20 09:18 Urine Culture - Final Urine,Indwelling Cath Tabby albicans/dubliniensis 02/28/20 19:20 Aerobic Blood Culture - Final Blood No growth in Aerobic bottle after 5 days. Anaerobic Blood Culture - Final No growth in Anaerobic bottle after 5 days. 02/28/20 19:24 Aerobic Blood Culture - Final Blood No growth in Aerobic bottle after 5 days. Anaerobic Blood Culture - Final No growth in Anaerobic bottle after 5 days. 02/29/20 09:25 Escherichia coli Shiga Toxins Test - Final Stool Stool Culture - Final No Salmonella isolated, No Shigella isolated, No Campylobacter jejuni isolated. 02/28/20 10:20 Urine Culture - Final Urine,Straight Cath Escherichia coli Electrocardiogram Date: 03/01/20 Sinus rhythm with short NM with Premature atrial complexes Left axis deviation Low voltage QRS Abnormal ECG When compared with ECG of 28-FEB-2020 09:54, Premature atrial complexes are now Present NM interval has decreased Criteria for Inferior infarct are no longer Present Nonspecific T wave abnormality now evident in Lateral leads Confirmed by Jose Alfredo De ([id number]) on 03/02/2020 3:19:38 PM
[2020-03-10] MEDS: LIDOCAINE 5% 1 PATCH TD SCH (09:28)
[2020-03-10] MEDS: PANTOprazole 40 MG in SYRINGE 0 ML IV SCH ×2 (09:28→20:40)
[2020-03-10] MEDS: LOVASTATIN 20 MG TAB PO SCH (11:10)
[2020-03-10] MEDS: CEROVITE ADV FORMULA TAB PO SCH (11:10)
[2020-03-10] MEDS: SACCHAROMYCES BOULARDII 250 MG CAP PO SCH (11:10)
[2020-03-10] MEDS: CHOLECALCIFEROL 1,000 UNITS 25 MCG TAB PO SCH (11:10)
--- NOTE | 2020-03-10 15:15 | History & Physical Bridge Note ---
Date of Service March 10, 2020 History & Physical Bridge Note I have examined the patient, reviewed the History & Physical and in the interval since the performance of the History & Physical I have noted the following changes of clinical significance: no changes noted
[2020-03-10] MEDS ORDERED: PHENYLEPHRINE 100MCG/ML 5ML SYR ONE (15:34)
[2020-03-10] MEDS ORDERED: LIDOCAINE HCL 2% 2 ML VIAL/AMP(20MG/ML) INFIL ONE (15:34)
[2020-03-10] MEDS ORDERED: PROPOFOL IV EMULSION 10 MG/ML 20 ML VIAL IV ONE (15:34)
--- NOTE | 2020-03-10 16:01 | GI REPORT ---
Patient Name: Eula Hogan Procedure Date: 03/10/2020 2:42 PM Date of : 1940 Admit Type: Inpatient Age: 80 Gender: Female Attending MD: Blanca Clark MD Procedure: Upper GI endoscopy Providers: Blanca Clark MD Referring MD: Tarik Rosario Indications: Melena Medicines: Propofol per Anesthesia Complications: No immediate complications. Estimated Blood Loss: Estimated blood loss: none. Procedure: Pre-Anesthesia Assessment: - Prior to the procedure, a History and Physical was performed, and patient medications, allergies and sensitivities were reviewed. The patient's tolerance of previous anesthesia was reviewed. - The risks and benefits of the procedure and the sedation options and risks were discussed with the patient. All questions were answered and informed consent was obtained. - Patient identification and proposed procedure were verified prior to the procedure by the physician and the nurse. The procedure was verified in the procedure room. - Pre-procedure physical examination revealed no contraindications to sedation. After obtaining informed consent, the endoscope was passed under direct vision. Throughout the procedure, the patient's blood pressure, pulse, and oxygen saturations were monitored continuously. The Endoscope was introduced through the mouth, and advanced to the second part of duodenum. The upper GI endoscopy was accomplished without difficulty. The patient tolerated the procedure well. Findings: LA Grade C (one or more mucosal breaks continuous between tops of 2 or more mucosal folds, less than 75% circumference) esophagitis with no bleeding was found in the lower third of the esophagus. Biopsies were taken with a cold forceps for histology. Verification of patient identification for the specimen was done by the physician and nurse using the patient's name and date. Mildly erythematous mucosa was found in the gastric antrum. Biopsies were taken with a cold forceps for Helicobacter pylori testing. One non-obstructing non-bleeding cratered duodenal ulcer with a clean ulcer base (Efrain Class III) was found in the duodenal bulb. The lesion was 15 mm in largest dimension. The second portion of the duodenum was normal. Biopsies were taken with a cold forceps for histology. Impression: - LA Grade C reflux esophagitis. Biopsied. - Erythematous mucosa in the antrum. Biopsied. - One non-bleeding duodenal ulcer with a clean ulcer base (Efrain Class III). - Normal second portion of the duodenum. Biopsied. Recommendation: - Await pathology results. - Full liquid diet. - No aspirin, ibuprofen, naproxen, or other non-steroidal anti-inflammatory drugs. - Use Protonix (pantoprazole) 40 mg PO BID for 3 months. - Repeat upper endoscopy in 3 months to check healing. Blanca Clark MD 03/10/2020 4:01:02 PM This report has been signed electronically. Note Initiated On: 03/10/2020 2:42 PM Number of Addenda: 0 I attest to the content of the Intraoperative Record and orders documented therein, exceptions below {[id number]}
--- NOTE | 2020-03-10 16:07 | GI REPORT ---
Patient Name: Eula Hogan Procedure Date: 03/10/2020 2:43 PM Date of : 1940 Admit Type: Inpatient Age: 80 Gender: Female Attending MD: Blanca Clark MD Procedure: Flexible Sigmoidoscopy Providers: Blanca Clark MD Referring MD: Tarik Rosario Indications: Diarrhea Medicines: Propofol per Anesthesia Complications: No immediate complications. Estimated Blood Loss: Estimated blood loss: none. Procedure: Pre-Anesthesia Assessment: - Prior to the procedure, a History and Physical was performed, and patient medications, allergies and sensitivities were reviewed. The patient's tolerance of previous anesthesia was reviewed. - The risks and benefits of the procedure and the sedation options and risks were discussed with the patient. All questions were answered and informed consent was obtained. - Patient identification and proposed procedure were verified prior to the procedure by the physician and the nurse. The procedure was verified in the procedure room. - Pre-procedure physical examination revealed no contraindications to sedation. After obtaining informed consent, the endoscope was passed under direct vision. Throughout the procedure, the patient's blood pressure, pulse, and oxygen saturations were monitored continuously. The Colonoscope was introduced through the anus and advanced to the sigmoid colon. The flexible sigmoidoscopy was accomplished without difficulty. The patient tolerated the procedure well. The quality of the bowel preparation was good. Findings: The perianal and digital rectal examinations were normal. Segmental severe inflammation characterized by congestion (edema), erythema and deep ulcerations was found in the sigmoid colon. Biopsies were taken with a cold forceps for histology. Verification of patient identification for the specimen was done by the physician and nurse using the patient's name and date. No pseudomembranes seen. Multiple small and large-mouthed diverticula were found in the sigmoid colon. Non-bleeding internal hemorrhoids were found during retroflexion. The hemorrhoids were small. Impression: - Segmental severe inflammation was found in the sigmoid colon, rule out ischemic colitis. Biopsied. - Diverticulosis in the sigmoid colon. - Non-bleeding internal hemorrhoids. Recommendation: - Perform CTA scan (computed tomography) of the abdomen with contrast today. - Start IV Cipro/Flagyl. - Await pathology results. - Repeat flexible sigmoidoscopy in 3 months to check healing. Blanca Clark MD 03/10/2020 4:07:03 PM This report has been signed electronically. Note Initiated On: 03/10/2020 2:43 PM Number of Addenda: 0 I attest to the content of the Intraoperative Record and orders documented therein, exceptions below {[id number]}
--- NOTE | 2020-03-10 16:35 | Anesthesiology Progress Note ---
Date of Service March 10, 2020 Anesthesia Post Procedure Vital Signs Vital Signs: Temp Pulse Pulse Resp BP BP BP 03/10/20 16:15 89 16 149/80 H 03/10/20 16:02 86 18 110/65 03/10/20 15:48 88 16 105/51 L 03/10/20 14:25 37.1 C 90 18 164/78 H 03/10/20 11:20 37.3 C 87 20 154/68 H 03/10/20 07:31 36.6 C 80 20 153/79 H 03/10/20 07:28 82 03/10/20 03:06 37.1 C 89 19 130/83 03/10/20 00:31 105 H 03/09/20 23:35 36.4 C L 92 H 20 153/91 H 03/09/20 22:31 36.7 C 107 H 20 142/70 H 03/09/20 21:25 36.7 C 104 H 20 148/83 H 03/09/20 20:55 37.3 C 98 H 20 148/77 H 03/09/20 20:25 36.9 C 105 H 18 144/80 H 03/09/20 20:10 37.4 C 104 H 20 143/76 H 03/09/20 19:54 37.4 C 120 H 20 145/75 H 03/09/20 19:28 37.3 C 97 H 20 138/79 Pulse Ox 03/10/20 16:15 98 03/10/20 16:02 98 03/10/20 15:48 96 03/10/20 14:25 100 03/10/20 11:20 98 03/10/20 07:31 99 03/10/20 07:28 03/10/20 03:06 97 03/10/20 00:31 03/09/20 23:35 97 03/09/20 22:31 98 03/09/20 21:25 98 03/09/20 20:55 100 03/09/20 20:25 98 03/09/20 20:10 97 03/09/20 19:54 97 03/09/20 19:28 97 Pain Intensity Abdomen: Pain Intensity: 2 Transfer of Care Handoff Completed per policy Notes Mental Status: alert / awake / arousable and participated in evaluation Patient Amnestic to Procedure: Yes Nausea / Vomiting: adequately controlled Pain: adequately controlled Airway Patency, RR, SpO2: stable & adequate BP & HR: stable & adequate Hydration State: stable & adequate Anesthetic Complications: no major complications apparent and Pt Satisfied with anesthetic care
--- NOTE | 2020-03-10 17:13 | Gastroenterology Progress Note ---
Date of Service March 10, 2020 Assessment & Plan (1) Duodenal ulcer: 80 y/o female with ongoing diarrhea, had drop in HGB and rust colored stools, underwent EGD and flex sig today, with duodenal and severe inflammation/ulceration found in the sigmoid, concerning for ischemic colitis as follows: Flex sig: Segmental severe inflammation was found in the sigmoid colon, rule out ischemic colitis. Biopsied. Diverticulosis in the sigmoid colon. EGD: LA Grade C reflux esophagitis. Biopsied. Erythematous mucosa in the antrum. Biopsied. One non-bleeding duodenal ulcer with a clean ulcer base (Efrain Class III). Normal second portion of the duodenum. Biopsied. - Full liquid diet - No NSAIDs, ASA - PPI with Pantoprazole 40 mg BID x 3 months - Urgent CTA abdomen/pelvis with contrast ordered to eval for ischemia - IV Cipro/Flagyl started - Await pathology results - Repeat EGD and full colonoscopy in 3 months to check healing. (2) Colitis: Supervising Physician Co-Signing Physician Notes I performed a history and physical examination of the patient today, including specifically on physical exam - soft abdomen. I have discussed the patient's management with the advanced practitioner. Please refer to the nurse practitioner's note for the documented findings and plan of care. Subjective Pt seen and examined. Continues with loose BMs; intermittent abd discomfort. NPO for procedure. HGB improved to 9.2. No vomiting, chest pain, dyspnea Physical Exam Constitutional: well developed; no acute distress Respiratory: normal respiratory effort, lungs clear to auscultation Cardiovascular: Rate/Rhythm: regular rate and regular rhythm Gastrointestinal (Abdomen): Inspection/Auscultation: abdomen normal to inspection and normal bowel sounds; abdomen not distended Percussion/Palpation: abdomen soft; abdomen nontender Skin: no rashes, warm and dry Psychiatric: A+Ox3, euthymic affect Results & Data ([facility]) Vital Signs (Past 12 Hours) Vital Signs Temp Pulse Pulse Resp BP Pulse Ox 03/10/20 16:33 36.6 C 91 H 18 172/98 H 98 03/10/20 16:15 89 16 149/80 H 98 03/10/20 16:02 86 18 110/65 98 03/10/20 15:48 88 16 105/51 L 96 03/10/20 14:25 37.1 C 90 18 164/78 H 100 03/10/20 11:20 37.3 C 87 20 154/68 H 98 03/10/20 07:31 36.6 C 80 20 153/79 H 99 03/10/20 07:28 80 Laboratory Results 03/10/20 03/09/20 03/09/20 Range/Units 06:21 19:00 13:16 WBC 5.81 (4.8-10.8) K/uL RBC 3.14 L (4.2-5.4) M/uL Hgb 9.2 L (12.0-16.0) g/dL Hct 27.2 L (37-47) % MCV 86.6 (80-100) fL MCH 29.3 (25-34) pg MCHC 33.8 (32-36) g/dL RDW Std Deviation 54.8 H (36.4-46.3) fL RDW Coeff of Rika 17.3 H (11.5-14.5) % Plt Count 446 H (130-400) K/uL MPV 9.1 (7.4-10.4) fL Stl C. diff Tox B Gene Negative Cdiff Gene (Neg) Blood Type AB Positive Antibody Screen POSITIVE A Antibody Identification Non-Specific Cold Antibody Antibody ID Comment Crossmatch See Detail
[2020-03-10] MEDS ORDERED: OPTIRAY 320 125ml IV PRN (17:20)
--- NOTE | 2020-03-10 17:38 | CT Scan Report ---
Study: CT abdomen and pelvic CT angiogram HISTORY: Ischemic bowel COMPARISON: None. FINDINGS: Bilateral pleural effusions. Superimposed bibasilar atelectasis. Bilateral nonobstructing n ephrocalcinosis. Moderate plaque of the distal abdominal aorta. Estimated luminal narrowing is 30%. 50% narrowing orig in left renal artery. Right renal artery is unremarkable. Mild plaque of the celiac axis L-60% narrow ing origin superior mesenteric artery. Nonobstructive bowel pattern. No significant wall thickening of the bulk of the colon. Moderate wall thickening of the sigmoid. No evidence for pneumatosis. IMPRESSION: 1. Moderate atherosclerotic change abdominal aorta with 50% luminal narrowing distally 2. 50% narrowing origin left renal artery. 3. 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 4. No major stenotic process of the mesentery. Electronically signed by: Matt Garcia M.D. 03/10/2020 5:36 PM
--- NOTE | 2020-03-10 17:43 | Hospitalist Progress Note ---
Date of Service March 10, 2020 Assessment & Plan (1) Sepsis: * Secondary to C diff infection - Resolved, gastroenterology recommends 10 days total treatment * Persistent diarrhea while on oral vancomycin was changed with Dificid. * Blood cx drawn AFTER initial abx -- ngtd * discontinued Zosyn IV - patient growing E Coli in urine but never had any urinary symptoms, infectious source is C diff * Stool culture negative * GI Consultation -- appreciate recommendations - continue colestipol Consider adding Metamucil for water absorption * leukocytosis resolved * will try lomotil x 1 dose (2) Blood loss anemia: pt has been having some black stools at home, none here did have a dip in her hgb 03/08 will follow while on eliquis concern for acute blood loss anemia follow am hgb on 03/09 remains less than 8 Patient consented for 1 unit packed red blood cells wit appropriate rise in hgb upper endoscopy and flex sig Flex sig: Segmental severe inflammation was found in the sigmoid colon, rule out ischemic colitis. Biopsied. Diverticulosis in the sigmoid colon. EGD: LA Grade C reflux esophagitis. Biopsied. Erythematous mucosa in the antrum. Biopsied. One non-bleeding duodenal ulcer with a clean ulcer base (Efrain Class III). Normal second portion of the duodenum. Biopsied. nursing reports rust colored stools, recommends no nsaids, no anticoagulation for 48 hours then resume cautiously CTA of abdomen and pelvis IMPRESSION: 1. Moderate atherosclerotic change abdominal aorta with 50% luminal narrowing distally 2. 50% narrowing origin left renal artery. 3. 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 4. No major stenotic process of the mesentery. (3) C. difficile colitis: Initial concern for C. difficile gene positive toxin negative with recommendations by gastroenterology to treat for active infection. Transition to Dificid at this time with a repeat GI consultation for anemia while on anticoagulation with blood noted in her diarrhea. (4) Pancolitis: * Noted on CT abdomen/pelvis Secondary to C. difficile colitis No sign of megacolon * KUB 5 and 03/02 - no sign of obstruction, CT without contrast 03/01 with mild enterocolitis colitis was felt secondary to C. difficile however now that is not improving may consider alternative causes * flex sig suggest ischemic colitis (5) Acute on chronic kidney failure: * Possibly secondary to ATN given sepsis and hypotension on admission * resolved (6) Deep vein thrombosis of right lower extremity: Per nursing patient was refusing SCDS. Today with swelling of the right lower leg and pain in her calf Posterior tibial vein, peroneal vein, as well as anterior tibial veins. Initiated Eliquis - Dr Fisher discussed risks and benefits with patient according to notation prior to starting however with now acute blood loss anemia noted on Eliquis this medication is held repeat an ultrasound comforms a blood clot will have off anticoaguation for 48 hours restarting on 03/12 with bedrest until then (7) Hypertension: * . Resolved (8) Osteoarthritis of left hip: * Noted as severe. Follows locally with Dr. Staley * Ortho consulted - history of avascular necrosis - recommends treating hip pain. Urine cultures thus far positive for E.Coli. No growth from blood cultures so at this time would not recommend aspirating * patient is wheelchair bound at baseline (9) Abnormal CT of the chest: * Pulm nodule noted on CTAP, 5mm * Follow up outpatient, pulmonry nodule program notified (10) Prediabetes: * Denies hx of pre-DM. A1c 5.8 * No current DM meds. follow up with pcp (11) Idiopathic polyneuropathy: * Noted (12) Obstructive sleep apnea: * States no current tx for this (13) Hypothyroidism: * Continue home levothyroxine 150mcg daily. * Last TSH 5.12. * Repeat TSH 1.44, wnl (14) Dyslipidemia: * Continue home lovastatin (15) Anxiety: * Continue home ativan (16) Chronic kidney disease, stage 3 (moderate): * See above (17) Hypomagnesemia: * resolved (18) Gout: Left great toe Uric acid normal Resumed patient's celecoxib 03/04 and increased to bid to treat the gout with improvement of pain and erythema. However kidney function increased so will discontinue. Will hold off on further treatment for now as toe looks normal today (19) DVT prophylaxis: * SCDs * Pt takes aspirin 81mg for prevention, Sister and updated over the phone. They are very adamant that Mr. Hogan be called before any discharge plan is solidified so please call before organizing discharge to [facility]. Admission and Anticipated Discharge Date Admission Date: February 28, 2020 Subjective this pt is doing well still having some diarrhea, her blood count did augment wtih transfusion Review of Systems Review of Systems: Mild distress and fatigue no headache, blurry or double vision no speech or swallowing issues no chest pain, pressure or palpitations no shortness of breath, cough or wheezes no abdominal pain, nausea or vomiting, persistent diarrhea no dysuria, hematuria or frequency Right lower extremity pain and swelling no back pain, CVA tenderness or radicular pain no bruising, bleeding or rashes no focal signs of weakness or numbness or altered sensation no complaints or anxiety or depression. Physical Exam Physical Exam: The patient appeared well nourished and normally developed. Vital signs as documented. Head exam is normocephalic atraumatic no scleral icterus Neck is without JVD, thyromegaly, or carotid bruits. Lungs are clear to auscultation, no focal loss of breath sounds Cardiac exam, Rhythm is regular.. No murmurs, rubs or gallops. Abdominal exam reveals normal bowel sounds, soft non tender, no masses Extremities are right greater than left edema and both pedal pulses are normal. Neurologic exam is alert and oriented, no focal loss of strength or sensation Skin is without bruises or rashes Psychologically is without concerns for anxiety or depression Results & Data Results & Data ([facility]) Vital Signs (Past 12 Hours) Vital Signs Temp Pulse Pulse Resp BP Pulse Ox 03/10/20 16:33 97.9 F 91 H 18 172/98 H 98 03/10/20 16:15 89 16 149/80 H 98 03/10/20 16:02 86 18 110/65 98 03/10/20 15:48 88 16 105/51 L 96 03/10/20 14:25 98.8 F 90 18 164/78 H 100 03/10/20 11:20 99.1 F 87 20 154/68 H 98 03/10/20 07:31 97.9 F 80 20 153/79 H 99 03/10/20 07:28 82 PG Care Time/CCT Total # of Minutes Spent Total Time Spent with Patient: Total time spent is greater than 50% in coordination of care (as documented) at patient's floor/unit and/or counseling patient: Coding Level of Care Code 83486 Subseq Hosp Care Lvl 3 Diagnoses Sepsis A41.9 Blood loss anemia D50.0 C. difficile colitis A04.72 Pancolitis K51.00 Acute on chronic kidney failure N17.9; N18.9 Deep vein thrombosis of right lower extremity I82.401 Hypertension I10 Hypertension type: essential hypertension Osteoarthritis of left hip M16.12 Osteoarthritis type: primary Abnormal CT of the chest R93.89 Prediabetes R73.03 Idiopathic polyneuropathy G60.9 Obstructive sleep apnea G47.33 Hypothyroidism E03.9 Hypothyroidism type: acquired Dyslipidemia E78.5 Anxiety F41.9 Chronic kidney disease, stage 3 (moderate) N18.3 Hypomagnesemia E83.42 Gout M10.9 DVT prophylaxis Z29.9 (1) Hypertension Hypertension type: essential hypertension Qualified Code(s): I10 - Essential (primary) hypertension (2) Osteoarthritis of left hip Osteoarthritis type: primary Qualified Code(s): M16.12 - Unilateral primary osteoarthritis, left hip (3) Hypothyroidism Hypothyroidism type: acquired Qualified Code(s): E03.9 - Hypothyroidism, unspecified
[2020-03-10] MEDS ORDERED: DIPHENOXYLATE/ATROPINE 2.5/0.025MG TAB PO ONE (18:00)
[2020-03-10] MEDS: metroNIDAZOLE 500 MG/100 ML BAG IV SCH (18:53)
[2020-03-10] MEDS: CIPROFLOXACIN / D5W 400 MG/200 ML BAG IV SCH (18:53)
[2020-03-10] MEDS: FIDAXOMICIN 200 MG TAB PO SCH (20:40)
[2020-03-11] MEDS: metroNIDAZOLE 500 MG/100 ML BAG IV SCH ×3 (02:03→17:52)
[2020-03-11] MEDS: SODIUM CHLORIDE 0.9% 1000ML 1,000 ML IV SCH ×2 (02:25→15:05)
[2020-03-11] MEDS: ACETAMINOPHEN 325 MG TAB PO PRN ×2 (03:49→23:25)
[2020-03-11] MEDS: LEVOTHYROXINE SODIUM 150 MCG TABLET PO SCH (06:41)
[2020-03-11] MEDS: CIPROFLOXACIN / D5W 400 MG/200 ML BAG IV SCH ×2 (06:41→17:52)
[2020-03-11] MEDS: FIDAXOMICIN 200 MG TAB PO SCH ×2 (08:07→20:49)
[2020-03-11] MEDS: LIDOCAINE 5% 1 PATCH TD SCH (08:07)
[2020-03-11] MEDS: SACCHAROMYCES BOULARDII 250 MG CAP PO SCH (08:07)
[2020-03-11] MEDS: CEROVITE ADV FORMULA TAB PO SCH (08:08)
[2020-03-11] MEDS: CHOLECALCIFEROL 1,000 UNITS 25 MCG TAB PO SCH (08:08)
[2020-03-11 08:27] LABS: Creatinine Clr Calc Pharmacy 68.1 ml/min; Est GFR (African American) 93.5; Est GFR (Non-African American) 80.7
--- NOTE | 2020-03-11 08:32 | Hospitalist Progress Note ---
Date of Service March 11, 2020 Assessment & Plan (1) Sepsis: * initial concern for C diff infection - Resolved, gastroenterology recommends 10 days total treatment LD 03/12/20 * Persistent diarrhea while on oral vancomycin was changed with Dificid. * Blood cx drawn AFTER initial abx -- ngtd * discontinued Zosyn IV - patient growing E Coli in urine but never had any urinary symptoms, infectious source is C diff * Stool culture negative * GI Consultation -- appreciate recommendations - continue colestipol adding Metamucil for water absorption and lomotil * leukocytosis resolved (2) Blood loss anemia: pt has been having some black stools at home, none here did have a dip in her hgb 03/08 will follow while on eliquis concern for acute blood loss anemia follow am hgb on 03/09 remains less than 8 Patient consented for 1 unit packed red blood cells wit appropriate rise in hgb upper endoscopy and flex sig Flex sig: Segmental severe inflammation was found in the sigmoid colon, rule out ischemic colitis. Biopsied. Diverticulosis in the sigmoid colon. EGD: LA Grade C reflux esophagitis. Biopsied. Erythematous mucosa in the antrum. Biopsied. One non-bleeding duodenal ulcer with a clean ulcer base (Efrain Class III). Normal second portion of the duodenum. Biopsied. nursing reports rust colored stools, recommends no nsaids, no anticoagulation for 48 hours then resume cautiously CTA of abdomen and pelvis IMPRESSION: 1. Moderate atherosclerotic change abdominal aorta with 50% luminal narrowing distally 2. 50% narrowing origin left renal artery. 3. 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 4. No major stenotic process of the mesentery. (3) C. difficile colitis: Initial concern for C. difficile gene positive toxin negative with recommendations by gastroenterology to treat for active infection. Transition to Dificid at this time (4) Pancolitis: * Noted on CT abdomen/pelvis Secondary to C. difficile colitis No sign of megacolon * KUB 03/01 and 03/02 - no sign of obstruction, CT without contrast 03/01 with mild enterocolitis colitis was felt secondary to C. difficile however now flex sig suggest ischemic colitis and this may have been the issue (5) Acute on chronic kidney failure: * Possibly secondary to ATN given sepsis and hypotension on admission * resolved (6) Deep vein thrombosis of right lower extremity: Per nursing patient was refusing SCDS. Today with swelling of the right lower leg and pain in her calf Posterior tibial vein, peroneal vein, as well as anterior tibial veins. Initiated Eliquis - Dr Fisher discussed risks and benefits with patient according to notation prior to starting however with now acute blood loss anemia noted on Eliquis this medication is held repeat an ultrasound comforms a blood clot will have off anticoaguation for 48 hours restarting on 03/12 with bedrest until then (7) Hypertension: * . Resolved (8) Osteoarthritis of left hip: * Noted as severe. Follows locally with Dr. Staley * Ortho consulted - history of avascular necrosis - recommends treating hip pain. Urine cultures thus far positive for E.Coli. No growth from blood cultures so at this time would not recommend aspirating * patient is wheelchair bound at baseline (9) Abnormal CT of the chest: * Pulm nodule noted on CTAP, 5mm * Follow up outpatient, pulmonry nodule program notified (10) Prediabetes: * Denies hx of pre-DM. A1c 5.8 * No current DM meds. follow up with pcp (11) Idiopathic polyneuropathy: * Noted (12) Obstructive sleep apnea: * States no current tx for this (13) Hypothyroidism: * Continue home levothyroxine 150mcg daily. * Last TSH 5.12. * Repeat TSH 1.44, wnl (14) Dyslipidemia: * Continue home lovastatin (15) Anxiety: * Continue home ativan (16) Chronic kidney disease, stage 3 (moderate): * See above (17) Hypomagnesemia: * resolved (18) Gout: Left great toe Uric acid normal Resumed patient's celecoxib 03/04 and increased to bid to treat the gout with improvement of pain and erythema. However kidney function increased so will discontinue. Will hold off on further treatment for now as toe looks normal today (19) DVT prophylaxis: * SCDs * Pt takes aspirin 81mg for prevention, Sister and updated over the phone. They are very adamant that Mr. Hogan be called before any discharge plan is solidified so please call before organizing discharge to [facility]. Admission and Anticipated Discharge Date Admission Date: February 28, 2020 Subjective this pt is doing well still having some diarrhea, her blood count did augment wtih transfusion, her biggest issue seems to be her diarrhea and concerns for her blood clot Review of Systems Review of Systems: Mild distress and fatigue no headache, blurry or double vision no speech or swallowing issues no chest pain, pressure or palpitations no shortness of breath, cough or wheezes no abdominal pain, nausea or vomiting, persistent diarrhea no dysuria, hematuria or frequency Right lower extremity pain and swelling no back pain, CVA tenderness or radicular pain no bruising, bleeding or rashes no focal signs of weakness or numbness or altered sensation no complaints or anxiety or depression. Constitutional: + fever and + chills; no anorexia Gastrointestinal: + abdominal pain, + nausea, + vomiting and + diarrhea/loose stools; no hematemesis Physical Exam Physical Exam: The patient appeared well nourished and normally developed. Vital signs as documented. Head exam is normocephalic atraumatic no scleral icterus Neck is without JVD, thyromegaly, or carotid bruits. Lungs are clear to auscultation, no focal loss of breath sounds Cardiac exam, Rhythm is regular.. No murmurs, rubs or gallops. Abdominal exam reveals normal bowel sounds, soft non tender, no masses Extremities are right greater than left edema and both pedal pulses are normal. Neurologic exam is alert and oriented, no focal loss of strength or sensation Skin is without bruises or rashes Psychologically is without concerns for anxiety or depression Results & Data Results & Data ([facility]) Vital Signs (Past 12 Hours) Vital Signs Temp Pulse Pulse Resp BP BP Pulse Ox 03/11/20 07:47 103 H 16 157/84 H 03/11/20 07:28 87 03/11/20 04:00 98.6 F 100 H 20 152/82 H 97 03/10/20 23:00 98.4 F 105 H 104 H 20 147/84 H 99 PG Care Time/CCT Total # of Minutes Spent Total Time Spent with Patient: Total time spent is greater than 50% in coordination of care (as documented) at patient's floor/unit and/or counseling patient: Coding Level of Care Code 82992 Subseq Hosp Care Lvl 3 Diagnoses Sepsis A41.9 Blood loss anemia D50.0 C. difficile colitis A04.72 Pancolitis K51.00 Acute on chronic kidney failure N17.9; N18.9 Deep vein thrombosis of right lower extremity I82.401 Hypertension I10 Hypertension type: essential hypertension Osteoarthritis of left hip M16.12 Osteoarthritis type: primary Abnormal CT of the chest R93.89 Prediabetes R73.03 Idiopathic polyneuropathy G60.9 Obstructive sleep apnea G47.33 Hypothyroidism E03.9 Hypothyroidism type: acquired Dyslipidemia E78.5 Anxiety F41.9 Chronic kidney disease, stage 3 (moderate) N18.3 Hypomagnesemia E83.42 Gout M10.9 DVT prophylaxis Z29.9 (1) Osteoarthritis of left hip Osteoarthritis type: primary Qualified Code(s): M16.12 - Unilateral primary osteoarthritis, left hip (2) Hypothyroidism Hypothyroidism type: acquired Qualified Code(s): E03.9 - Hypothyroidism, unspecified (3) Hypertension Hypertension type: essential hypertension Qualified Code(s): I10 - Essential (primary) hypertension
[2020-03-11] MEDS: PANTOprazole 40 MG in SYRINGE 0 ML IV SCH ×2 (09:48→20:51)
[2020-03-11] MEDS ORDERED: DIPHENOXYLATE/ATROPINE 2.5/0.025MG TAB PO PRN (11:20)
[2020-03-11] MEDS ORDERED: DIPHENOXYLATE/ATROPINE 2.5/0.025MG TAB PO ONE (11:45)
[2020-03-11] MEDS: DICYCLOMINE HCL 10 MG CAP PO PRN (13:32)
[2020-03-11] MEDS: PSYLLIUM 58.6% POWDER PACKET PO SCH (13:32)
--- NOTE | 2020-03-11 14:49 | Gastroenterology Progress Note ---
Date of Service March 11, 2020 Assessment & Plan (1) Colitis: 80 y/o female with ongoing loose stools, had drop in HGB, and underwent EGD and flex sig yesterday with duodenal ulcer and severe inflammation/ulceration found in the sigmoid, concerning for ischemic colitis. 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 With her presentation of both small and large bowel ulcers, concern is for underlying mesenteric ischemic colitis. Abd is currently soft; she's HD stable, HGB has improved to 9.2. - Recommend vascular surgery consult (either inpt or outpt) to further evaluate for mesenteric ischemia - For loose stools, can use Imodium once a day; would allow some permissive diarrhea as opposed to fully formed stool/constipation which could further irritate the intestinal mucosa - Full liquid diet - No NSAIDs, ASA - PPI with Pantoprazole 40 mg BID x 3 months - Continue IV Cipro/Flagyl - Await pathology results - Repeat EGD and full colonoscopy in 3 months to check healing. - GI will sign off. Please call with questions. Thank you for allowing us to participate in the care of this patient. Please call with any acute changes, questions or concerns. Please see addendum below with additional recommendation from my supervising physician. (2) Duodenal ulcer: Admission and Anticipated Discharge Date Admission Date: February 28, 2020 Supervising Physician Co-Signing Physician Notes I have discussed the patient's management with the advanced practitioner. Please refer to the nurse practitioner's note for the documented findings and plan of care. 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 Recommend Vascular surgery evaluation. Complete a course of ABx. Imodium for diarrhea PRN. Recall GI if needed. Subjective Pt doing "about the same" no acute events overnight. Denies abd pain, n/v, melena, hematochezia. Still having loose stools. Labs, VSS are stable. Results & Data ([facility]) Vital Signs (Past 12 Hours) Vital Signs Temp Pulse Pulse Resp BP BP Pulse Ox 03/11/20 12:03 36.8 C 103 H 18 147/85 H 98 03/11/20 07:47 103 H 16 157/84 H 03/11/20 07:28 87 03/11/20 04:00 37 C 100 H 20 152/82 H 97 Laboratory Results 03/11/20 03/09/20 Range/Units 07:38 13:16 Creatinine 0.70 (0.6-1.2) mg/dl Est Cr Clr Drug Dosing 68.1 ml/min Est GFR ( Amer) 93.5 Est GFR (Non-Af Amer) 80.7 Antibody ID Comment Diagnostic Findings CTA Abd/pelvis 03/10/20: 1. Moderate atherosclerotic change abdominal aorta with 50% luminal narrowing distally 2. 50% narrowing origin left renal artery. 3. 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 4. No major stenotic process of the mesentery.
[2020-03-12] MEDS: metroNIDAZOLE 500 MG/100 ML BAG IV SCH ×3 (02:35→17:36)
[2020-03-12] MEDS: SODIUM CHLORIDE 0.9% 1000ML 1,000 ML IV SCH (02:42)
[2020-03-12] MEDS: CIPROFLOXACIN / D5W 400 MG/200 ML BAG IV SCH ×2 (06:18→18:40)
[2020-03-12] MEDS: LEVOTHYROXINE SODIUM 150 MCG TABLET PO SCH (06:22)
[2020-03-12 06:33] LABS: Hematocrit (blood only) 27.4 % (37-47); Hemoglobin 9.2 g/dL (12.0-16.0); Mean Corpuscular Hemoglobin 28.8 pg (25-34); Mean Corpuscular Hgb Conc 33.6 g/dL (32-36); Mean Corpuscular Volume 85.9 fL (80-100); Platelet Count 488 K/uL (130-400); RDW Coefficient of Variation 17.3 % (11.5-14.5); RDW Standard Deviation 54.1 fL (36.4-46.3); Red Blood Count 3.19 M/uL (4.2-5.4); White Blood Count 7.01 K/uL (4.8-10.8)
[2020-03-12] MEDS: ENOXAPARIN 80 MG/0.8 ML SYR SQ SCH ×2 (06:34→19:34)
[2020-03-12 07:08] LABS: BUN Creatinine Ratio 8.5 (10-20); Calcium 6.9 mg/dl (8.5-10.1); Creatinine Clr Calc Pharmacy 75.2 ml/min; Est GFR (African American) 96.3; Est GFR (Non-African American) 83.1; Potassium 3.2 mmol/L (3.5-5.1)
[2020-03-12] MEDS: SACCHAROMYCES BOULARDII 250 MG CAP PO SCH (08:51)
[2020-03-12] MEDS: LOVASTATIN 20 MG TAB PO SCH (08:51)
[2020-03-12] MEDS: CEROVITE ADV FORMULA TAB PO SCH (08:53)
[2020-03-12] MEDS: CHOLECALCIFEROL 1,000 UNITS 25 MCG TAB PO SCH (08:53)
[2020-03-12] MEDS: PANTOprazole 40 MG in SYRINGE 0 ML IV SCH ×2 (08:54→21:43)
[2020-03-12] MEDS ORDERED: MAGNESIUM SULFATE / D5W 1 GM/100 ML BAG IV ONE (09:00)
[2020-03-12] MEDS: PSYLLIUM 58.6% POWDER PACKET PO SCH (09:08)
[2020-03-12] MEDS: LIDOCAINE 5% 1 PATCH TD SCH (09:08)
[2020-03-12] MEDS: POTASSIUM CHLORIDE 20 MEQ TABCR PO SCH ×2 (09:44→20:51)
[2020-03-12] MEDS ORDERED: FUROSEMIDE 20 MG in SYRINGE 0 ML IV ONE (12:45)
--- NOTE | 2020-03-12 16:37 | Hospitalist Progress Note ---
Date of Service March 12, 2020 Assessment & Plan (1) Sepsis: * Resolved, initial concern for C diff infection -, gastroenterology recommends 10 days total treatment LD 03/12/20 * Persistent diarrhea while on oral vancomycin was changed with Dificid. completed 10 day course * Blood cx drawn AFTER initial abx -- ngtd * discontinued Zosyn IV - patient growing E Coli in urine but never had any urinary symptoms, infectious source is C diff * Stool culture negative * GI Consultation -- appreciate recommendations - Metamucil for water absorption and lomotil * leukocytosis resolved (2) Blood loss anemia: pt has been having some black stools at home, none here did have a dip in her hgb 03/08 will follow while on eliquis concern for acute blood loss anemia follow am hgb on 03/09 remains less than 8 Patient consented for 1 unit packed red blood cells wit appropriate rise in hgb upper endoscopy and flex sig Flex sig: Segmental severe inflammation was found in the sigmoid colon, rule out ischemic colitis. Biopsied. Diverticulosis in the sigmoid colon. EGD: LA Grade C reflux esophagitis. Biopsied. Erythematous mucosa in the antrum. Biopsied. One non-bleeding duodenal ulcer with a clean ulcer base (Efrain Class III). Normal second portion of the duodenum. Biopsied. nursing reports rust colored stools, recommends no nsaids, no anticoagulation for 48 hours then resume cautiously CTA of abdomen and pelvis IMPRESSION: 1. Moderate atherosclerotic change abdominal aorta with 50% luminal narrowing distally 2. 50% narrowing origin left renal artery. 3. 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 4. No major stenotic process of the mesentery. (3) C. difficile colitis: Initial concern for C. difficile gene positive toxin negative with recommendations by gastroenterology to treat for active infection. Transition to Dificid at this time (4) Pancolitis: * Noted on CT abdomen/pelvis Secondary to C. difficile colitis No sign of megacolon * KUB 03/01 and 03/02 - no sign of obstruction, CT without contrast 03/01 with mild enterocolitis colitis was felt secondary to C. difficile however now flex sig suggest ischemic colitis and this may have been the issue (5) Acute on chronic kidney failure: * Possibly secondary to ATN given sepsis and hypotension on admission * resolved (6) Deep vein thrombosis of right lower extremity: Per nursing patient was refusing SCDS. Today with swelling of the right lower leg and pain in her calf Posterior tibial vein, peroneal vein, as well as anterior tibial veins. Initiated Eliquis - Dr Fisher discussed risks and benefits with patient according to notation prior to starting however with now acute blood loss anemia noted on Eliquis this medication is held repeat an ultrasound comforms a blood clot will have off anticoaguation for 48 hours restarting on 03/12 with bedrest until then (7) Hypertension: * . Resolved (8) Osteoarthritis of left hip: * Noted as severe. Follows locally with Dr. Staley * Ortho consulted - history of avascular necrosis - recommends treating hip pain. Urine cultures thus far positive for E.Coli. No growth from blood cultures so at this time would not recommend aspirating * patient is wheelchair bound at baseline (9) Abnormal CT of the chest: * Pulm nodule noted on CTAP, 5mm * Follow up outpatient, pulmonry nodule program notified (10) Prediabetes: * Denies hx of pre-DM. A1c 5.8 * No current DM meds. follow up with pcp (11) Idiopathic polyneuropathy: * Noted (12) Obstructive sleep apnea: * States no current tx for this (13) Hypothyroidism: * Continue home levothyroxine 150mcg daily. * Last TSH 5.12. * Repeat TSH 1.44, wnl (14) Dyslipidemia: * Continue home lovastatin (15) Anxiety: * Continue home ativan (16) Chronic kidney disease, stage 3 (moderate): * See above (17) Hypomagnesemia: * resolved (18) Gout: Left great toe Uric acid normal Resumed patient's celecoxib 03/04 and increased to bid to treat the gout with improvement of pain and erythema. However kidney function increased so will discontinue. Will hold off on further treatment for now as toe looks normal today (19) DVT prophylaxis: * SCDs * Pt takes aspirin 81mg for prevention, Sister and updated over the phone. They are very adamant that Mr. Hogan be called before any discharge plan is solidified so please call before organizing discharge to [facility]. Admission and Anticipated Discharge Date Admission Date: February 28, 2020 Subjective this pt is doing much better diarrhea has improved and lower extremity edema has been helped with diuretics Review of Systems Review of Systems: Mild distress and fatigue no headache, blurry or double vision no speech or swallowing issues no chest pain, pressure or palpitations no shortness of breath, cough or wheezes no abdominal pain, nausea or vomiting, persistent diarrhea no dysuria, hematuria or frequency Right lower extremity pain and swelling no back pain, CVA tenderness or radicular pain no bruising, bleeding or rashes no focal signs of weakness or numbness or altered sensation no complaints or anxiety or depression. Physical Exam Physical Exam: The patient appeared well nourished and normally developed. Vital signs as documented. Head exam is normocephalic atraumatic no scleral icterus Neck is without JVD, thyromegaly, or carotid bruits. Lungs are clear to auscultation, no focal loss of breath sounds Cardiac exam, Rhythm is regular.. No murmurs, rubs or gallops. Abdominal exam reveals normal bowel sounds, soft non tender, no masses Extremities are right greater than left edema and both pedal pulses are normal. Neurologic exam is alert and oriented, no focal loss of strength or sensation Skin is without bruises or rashes Psychologically is without concerns for anxiety or depression Results & Data Results & Data ([facility]) Vital Signs (Past 12 Hours) Vital Signs Temp Pulse Pulse Resp BP Pulse Ox 03/12/20 15:12 98.2 F 111 H 20 116/78 100 03/12/20 14:25 104 H 03/12/20 11:50 99.1 F 106 H 18 129/83 03/12/20 07:00 98.6 F 108 H 96 H 20 137/71 97 PG Care Time/CCT Total # of Minutes Spent Total Time Spent with Patient: Total time spent is greater than 50% in co ordination of care (as documented) at patient's floor/unit and/or counseling patient: Coding Level of Care Code 41364 Subseq Hosp Care Lvl 3 Diagnoses Sepsis A41.9 Blood loss anemia D50.0 C. difficile colitis A04.72 Pancolitis K51.00 Acute on chronic kidney failure N17.9; N18.9 Deep vein thrombosis of right lower extremity I82.401 Hypertension I10 Hypertension type: essential hypertension Osteoarthritis of left hip M16.12 Osteoarthritis type: primary Abnormal CT of the chest R93.89 Prediabetes R73.03 Idiopathic polyneuropathy G60.9 Obstructive sleep apnea G47.33 Hypothyroidism E03.9 Hypothyroidism type: acquired Dyslipidemia E78.5 Anxiety F41.9 Chronic kidney disease, stage 3 (moderate) N18.3 Hypomagnesemia E83.42 Gout M10.9 DVT prophylaxis Z29.9 (1) Hypertension Hypertension type: essential hypertension Qualified Code(s): I10 - Essential (primary) hypertension (2) Osteoarthritis of left hip Osteoarthritis type: primary Qualified Code(s): M16.12 - Unilateral primary osteoarthritis, left hip (3) Hypothyroidism Hypothyroidism type: acquired Qualified Code(s): E03.9 - Hypothyroidism, unspecified
[2020-03-12] MEDS: POTASSIUM CHLORIDE / WTR 10 MEQ/100 ML PLCT IV SCH (22:38)
[2020-03-12] MEDS: CYCLOBENZAPRINE HCL 10 MG TAB PO PRN (23:54)
[2020-03-13] MEDS: POTASSIUM CHLORIDE / WTR 10 MEQ/100 ML PLCT IV SCH ×3 (00:56→02:58)
[2020-03-13] MEDS: metroNIDAZOLE 500 MG/100 ML BAG IV SCH ×2 (02:06→11:07)
[2020-03-13] MEDS: CIPROFLOXACIN / D5W 400 MG/200 ML BAG IV SCH (06:02)
[2020-03-13] MEDS: ENOXAPARIN 80 MG/0.8 ML SYR SQ SCH (06:05)
[2020-03-13] MEDS: LEVOTHYROXINE SODIUM 150 MCG TABLET PO SCH (06:05)
[2020-03-13 07:48] LABS: Hematocrit (blood only) 27.2 % (37-47); Hemoglobin 9.2 g/dL (12.0-16.0); Mean Corpuscular Hemoglobin 29.6 pg (25-34); Mean Corpuscular Hgb Conc 33.8 g/dL (32-36); Mean Corpuscular Volume 87.5 fL (80-100); Mean Platelet Volume 8.8 fL (7.4-10.4); Platelet Count 469 K/uL (130-400); RDW Coefficient of Variation 17.5 % (11.5-14.5); RDW Standard Deviation 55.1 fL (36.4-46.3); Red Blood Count 3.11 M/uL (4.2-5.4); White Blood Count 8.03 K/uL (4.8-10.8)
[2020-03-13] MEDS: LOVASTATIN 20 MG TAB PO SCH (08:15)
[2020-03-13] MEDS: CEROVITE ADV FORMULA TAB PO SCH (08:15)
[2020-03-13] MEDS: SACCHAROMYCES BOULARDII 250 MG CAP PO SCH (08:15)
[2020-03-13 08:16] LABS: BUN Creatinine Ratio 7.5 (10-20); Calcium 6.9 mg/dl (8.5-10.1); Creatinine Clr Calc Pharmacy 70.8 ml/min; Est GFR (African American) 94.4; Est GFR (Non-African American) 81.5; Potassium 3.5 mmol/L (3.5-5.1)
[2020-03-13] MEDS: LIDOCAINE 5% 1 PATCH TD SCH (08:16)
[2020-03-13] MEDS: POTASSIUM CHLORIDE 20 MEQ TABCR PO SCH (08:17)
[2020-03-13] MEDS: CHOLECALCIFEROL 1,000 UNITS 25 MCG TAB PO SCH (08:17)
[2020-03-13] MEDS: PANTOprazole 40 MG in SYRINGE 0 ML IV SCH (08:20)
[2020-03-13] MEDS: PSYLLIUM 58.6% POWDER PACKET PO SCH (08:22)
--- NOTE | 2020-03-13 16:28 | Hospitalist Progress Note ---
Date of Service March 13, 2020 Assessment & Plan (1) Sepsis: * Resolved, initial concern for C diff infection -, gastroenterology recommends 10 days total treatment LD 03/12/20 * Persistent diarrhea while on oral vancomycin was changed with Dificid. completed 10 day course * Blood cx drawn AFTER initial abx -- ngtd * discontinued Zosyn IV - patient growing E Coli in urine but never had any urinary symptoms, infectious source is C diff * Stool culture negative * GI Consultation -- appreciate recommendations - Metamucil for water absorption and lomotil much less frequent stools * leukocytosis resolved (2) Blood loss anemia: pt has been having some black stools at home, further reduced while on eliquis, found to have acute blood loss anemia secondary to duodenal ulcer and esophagitis Patient consented for 1 unit packed red blood cells wit appropriate rise in hgb upper endoscopy and flex sig Flex sig: Segmental severe inflammation was found in the sigmoid colon, rule out ischemic colitis. Biopsied. Diverticulosis in the sigmoid colon. EGD: LA Grade C reflux esophagitis. Biopsied. Erythematous mucosa in the antrum. Biopsied. One non-bleeding duodenal ulcer with a clean ulcer base (Efrain Class III). Normal second portion of the duodenum. Biopsied. recommends no nsaids, resumed anticoagulation with lovenox for 24 hours, stable hgb, now will re start apixiban CTA of abdomen and pelvis IMPRESSION: 1. Moderate atherosclerotic change abdominal aorta with 50% luminal narrowing distally 2. 50% narrowing origin left renal artery. 3. 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 4. No major stenotic process of the mesentery. (3) C. difficile colitis: Initial concern for C. difficile gene positive toxin negative with recommendations by gastroenterology to treat for active infection. completed 10 day course (4) Pancolitis: * Noted on CT abdomen/pelvis Secondary to C. difficile colitis No sign of megacolon * KUB 03/01 and 03/02 - no sign of obstruction, CT without contrast 03/01 with mild enterocolitis colitis was felt secondary to C. difficile however now flex sig suggest ischemic colitis and this may have been the issue (5) Acute on chronic kidney failure: * Possibly secondary to ATN given sepsis and hypotension on admission * resolved (6) Deep vein thrombosis of right lower extremity: Per nursing patient was refusing SCDS. Today with swelling of the right lower leg and pain in her calf Posterior tibial vein, peroneal vein, as well as anterior tibial veins. Initiated Eliquis - Dr Fisher discussed risks and benefits with patient according to notation prior to starting however with now acute blood loss anemia noted on Eliquis this medication is held repeat an ultrasound comforms a blood clot will have off anticoaguation for 48 hours restarting on 03/12 with bedrest until then (7) Hypertension: * . Resolved (8) Osteoarthritis of left hip: * Noted as severe. Follows locally with Dr. Staley * Ortho consulted - history of avascular necrosis - recommends treating hip pain. Urine cultures thus far positive for E.Coli. No growth from blood cultures so at this time would not recommend aspirating * patient is wheelchair bound at baseline (9) Abnormal CT of the chest: * Pulm nodule noted on CTAP, 5mm * Follow up outpatient, pulmonry nodule program notified (10) Prediabetes: * Denies hx of pre-DM. A1c 5.8 * No current DM meds. follow up with pcp (11) Idiopathic polyneuropathy: * Noted (12) Obstructive sleep apnea: * States no current tx for this (13) Hypothyroidism: * Continue home levothyroxine 150mcg daily. * Last TSH 5.12. * Repeat TSH 1.44, wnl (14) Dyslipidemia: * Continue home lovastatin (15) Anxiety: * Continue home ativan (16) Chronic kidney disease, stage 3 (moderate): * See above (17) Hypomagnesemia: * resolved (18) Gout: Left great toe Uric acid normal Resumed patient's celecoxib 03/04 and increased to bid to treat the gout with improvement of pain and erythema. However kidney function increased so will discontinue. Will hold off on further treatment for now as toe looks normal today (19) DVT prophylaxis: * SCDs, now back on eliquis * Pt takes aspirin 81mg for prevention, Sister and updated over the phone. They are very adamant that Mr. Hogan be called before any discharge plan is solidified so please call before organizing discharge to [facility]. Admission and Anticipated Discharge Date Admission Date: February 28, 2020 Subjective pt continues to do well, has some lower extremity swelling will restart her qod lasix starting tomorrow, initial concern for lower oxygen saturation was found to be a faulty oxymeter Review of Systems Review of Systems: Mild distress and fatigue no headache, blurry or double vision no speech or swallowing issues no chest pain, pressure or palpitations no shortness of breath, cough or wheezes no abdominal pain, nausea or vomiting, persistent diarrhea no dysuria, hematuria or frequency Right lower extremity pain and b/l swelling no back pain, CVA tenderness or radicular pain no bruising, bleeding or rashes no focal signs of weakness or numbness or altered sensation no complaints or anxiety or depression. Physical Exam Physical Exam: The patient appeared well nourished and normally developed. Vital signs as documented. Head exam is normocephalic atraumatic no scleral icterus Neck is without JVD, thyromegaly, or carotid bruits. Lungs are clear to auscultation, no focal loss of breath sounds Cardiac exam, Rhythm is regular.. No murmurs, rubs or gallops. Abdominal exam reveals normal bowel sounds, soft non tender, no masses Extremities are right greater than left edema 1-2 + and both pedal pulses are normal. Neurologic exam is alert and oriented, no focal loss of strength or sensation Skin is without bruises or rashes Psychologically is without concerns for anxiety or depression Results & Data Results & Data ([facility]) Vital Signs (Past 12 Hours) Vital Signs Temp Pulse Pulse Resp BP Pulse Ox 03/13/20 12:00 98.2 F 100 H 20 122/81 100 03/13/20 07:00 97.5 F L 98 H 101 H 18 149/64 H 100 PG Care Time/CCT Total # of Minutes Spent Total Time Spent with Patient: Total time spent is greater than 50% in coordination of care (as documented) at patient's floor/unit and/or counseling patient: Coding Level of Care Code 64115 Subseq Hosp Care Lvl 2 Diagnoses Sepsis A41.9 Blood loss anemia D50.0 C. difficile colitis A04.72 Pancolitis K51.00 Acute on chronic kidney failure N17.9; N18.9 Deep vein thrombosis of right lower extremity I82.401 Hypertension I10 Hypertension type: essential hypertension Osteoarthritis of left hip M16.12 Osteoarthritis type: primary Abnormal CT of the chest R93.89 Prediabetes R73.03 Idiopathic polyneuropathy G60.9 Obstructive sleep apnea G47.33 Hypothyroidism E03.9 Hypothyroidism type: acquired Dyslipidemia E78.5 Anxiety F41.9 Chronic kidney disease, stage 3 (moderate) N18.3 Hypomagnesemia E83.42 Gout M10.9 DVT prophylaxis Z29.9 (1) Hypertension Hypertension type: essential hypertension Qualified Code(s): I10 - Essential (primary) hypertension (2) Osteoarthritis of left hip Osteoarthritis type: primary Qualified Code(s): M16.12 - Unilateral primary osteoarthritis, left hip (3) Hypothyroidism Hypothyroidism type: acquired Qualified Code(s): E03.9 - Hypothyroidism, unspecified
[2020-03-13] MEDS: ACETAMINOPHEN 325 MG TAB PO PRN (16:55)
[2020-03-13] MEDS: PANTOprazole 40 MG TAB PO SCH (21:41)
[2020-03-13] MEDS: APIXABAN 5 MG TABLET PO SCH (21:41)
[2020-03-13] MEDS: CYCLOBENZAPRINE HCL 10 MG TAB PO PRN (22:56)
[2020-03-14] MEDS: LEVOTHYROXINE SODIUM 150 MCG TABLET PO SCH (05:50)
[2020-03-14 06:43] LABS: Hematocrit (blood only) 29.7 % (37-47); Hemoglobin 9.9 g/dL (12.0-16.0); Mean Corpuscular Hemoglobin 29.3 pg (25-34); Mean Corpuscular Hgb Conc 33.3 g/dL (32-36); Mean Corpuscular Volume 87.9 fL (80-100); Platelet Count 525 K/uL (130-400); RDW Coefficient of Variation 17.5 % (11.5-14.5); RDW Standard Deviation 55.7 fL (36.4-46.3); Red Blood Count 3.38 M/uL (4.2-5.4); White Blood Count 8.57 K/uL (4.8-10.8)
[2020-03-14 07:09] LABS: BUN Creatinine Ratio 10.2 (10-20); Calcium 7.1 mg/dl (8.5-10.1); Creatinine Clr Calc Pharmacy 74.3 ml/min; Est GFR (African American) 95.8; Est GFR (Non-African American) 82.7; Potassium 3.6 mmol/L (3.5-5.1)
[2020-03-14] MEDS: LIDOCAINE 5% 1 PATCH TD SCH (08:57)
[2020-03-14] MEDS: LOVASTATIN 20 MG TAB PO SCH (08:57)
[2020-03-14] MEDS: SACCHAROMYCES BOULARDII 250 MG CAP PO SCH (08:58)
[2020-03-14] MEDS: PANTOprazole 40 MG TAB PO SCH ×2 (08:58→21:16)
[2020-03-14] MEDS: FUROSEMIDE 20 MG TAB PO SCH (08:58)
[2020-03-14] MEDS: PSYLLIUM 58.6% POWDER PACKET PO SCH (08:59)
[2020-03-14] MEDS: CHOLECALCIFEROL 1,000 UNITS 25 MCG TAB PO SCH (09:00)
[2020-03-14] MEDS: CEROVITE ADV FORMULA TAB PO SCH (09:00)
[2020-03-14] MEDS: ACETAMINOPHEN 325 MG TAB PO PRN ×2 (09:12→19:08)
[2020-03-14] MEDS: APIXABAN 5 MG TABLET PO SCH ×2 (09:18→21:16)
[2020-03-14] MEDS ORDERED: OXYCODONE HCL IR 5 MG TAB (IMMEDIATE RELEASE) PO PRN (12:45)
[2020-03-14] MEDS ORDERED: DICLOFENAC SOD 1% GEL 100 GM TUBE EXT PRN (12:45)
--- NOTE | 2020-03-14 12:56 | Hospitalist Progress Note ---
Date of Service March 14, 2020 Assessment & Plan (1) Sepsis: * Resolved, initial concern for C diff infection -, gastroenterology recommends 10 days total treatment LD 03/12/20 * Persistent diarrhea while on oral vancomycin was changed with Dificid. completed 10 day course * Blood cx drawn AFTER initial abx -- ngtd * discontinued Zosyn IV - patient growing E Coli in urine but never had any urinary symptoms, infectious source is C diff * Stool culture negative * GI Consultation -- appreciate recommendations - Metamucil for water absorption and lomotil much improved stools * leukocytosis resolved (2) Blood loss anemia: s/p 1 unit packed red blood cells wit appropriate rise in hgb upper endoscopy and flex sig Flex sig: Segmental severe inflammation was found in the sigmoid colon, rule out ischemic colitis. Biopsied. Diverticulosis in the sigmoid colon. EGD: LA Grade C reflux esophagitis. Biopsied. Erythematous mucosa in the antrum. Biopsied. One non-bleeding duodenal ulcer with a clean ulcer base (Efrain Class III). Normal second portion of the duodenum. Biopsied. recommends no nsaids, resumed anticoagulation with lovenox for 24 hours, stable hgb, now will re start apixiban CTA of abdomen and pelvis IMPRESSION: 1. Moderate atherosclerotic change abdominal aorta with 50% luminal narrowing distally 2. 50% narrowing origin left renal artery. 3. 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 4. No major stenotic process of the mesentery. (3) C. difficile colitis: Initial concern for C. difficile gene positive toxin negative with re commendations by gastroenterology to treat for active infection. completed 10 day course (4) Pancolitis: * Noted on CT abdomen/pelvis Secondary to C. difficile colitis No sign of megacolon * KUB 03/01 and 03/02 - no sign of obstruction, CT without contrast 03/01 with mild enterocolitis colitis was felt secondary to C. difficile however now flex sig suggest ischemic colitis and this may have been the issue (5) Acute on chronic kidney failure: * Possibly secondary to ATN given sepsis and hypotension on admission * resolved (6) Deep vein thrombosis of right lower extremity: Per nursing patient was refusing SCDS. Today with swelling of the right lower leg and pain in her calf Posterior tibial vein, peroneal vein, as well as anterior tibial veins. Initiated Rin - Dr Fisher discussed risks and benefits with patient according to notation prior to starting however with now acute blood loss anemia noted on Eliquis this medication is held repeat an ultrasound comforms a blood clot will have off anticoaguation for 48 hours restarting on 03/12 with stable hgb (7) Hypertension: * . Resolved (8) Osteoarthritis of left hip: * Noted as severe. Follows locally with Dr. Staley * Ortho consulted - history of avascular necrosis - recommends treating hip pain. Urine cultures thus far positive for E.Coli. No growth from blood cultures so at this time would not recommend aspirating * patient is wheelchair bound at baseline (9) Abnormal CT of the chest: * Pulm nodule noted on CTAP, 5mm * Follow up outpatient, pulmonry nodule program notified (10) Prediabetes: * Denies hx of pre-DM. A1c 5.8 * No current DM meds. follow up with pcp (11) Idiopathic polyneuropathy: * Noted (12) Obstructive sleep apnea: * States no current tx for this (13) Hypothyroidism: * Continue home levothyroxine 150mcg daily. * Last TSH 5.12. * Repeat TSH 1.44, wnl (14) Dyslipidemia: * Continue home lovastatin (15) Anxiety: * Continue home ativan (16) Chronic kidney disease, stage 3 (moderate): * See above (17) Hypomagnesemia: * resolved (18) Gout: Left great toe Uric acid normal Resumed patient's celecoxib 03/04 and increased to bid to treat the gout with improvement of pain and erythema. However kidney function increased so will discontinue. Will hold off on further treatment for now as toe looks normal today (19) DVT prophylaxis: * SCDs, now back on eliquis * Pt takes aspirin 81mg for prevention, Sister and updated over the phone. They are very adamant that Mr. Hogan be called before any discharge plan is solidified so please call before organizing discharge to [facility]. anticipating discharge 03/15/20 Admission and Anticipated Discharge Date Admission Date: February 28, 2020 Subjective pt continues to do well, has some tmj pain of right jaw, will use voltaren gel Review of Systems Review of Systems: Mild distress and fatigue no headache, blurry or double vision no speech or swallowing issues no chest pain, pressure or palpitations no shortness of breath, cough or wheezes no abdominal pain, nausea or vomiting, persistent diarrhea no dysuria, hematuria or frequency Right lower extremity pain and b/l swelling no back pain, CVA tenderness or radicular pain no bruising, bleeding or rashes no focal signs of weakness or numbness or altered sensation no complaints or anxiety or depression. Physical Exam Physical Exam: The patient appeared well nourished and normally developed. Vital signs as documented. Head exam is normocephalic atraumatic no scleral icterus Neck is without JVD, thyromegaly, or carotid bruits. Lungs are clear to auscultation, no focal loss of breath sounds Cardiac exam, Rhythm is regular.. No murmurs, rubs or gallops. Abdominal exam reveals normal bowel sounds, soft non tender, no masses Extremities are right greater than left edema 1 + and both pedal pulses are normal. Neurologic exam is alert and oriented, no focal loss of strength or sensation Skin is without bruises or rashes Psychologically is without concerns for anxiety or depression Results & Data Results & Data ([facility]) Vital Signs (Past 12 Hours) Vital Signs Temp Pulse Pulse Resp BP BP Pulse Ox 03/14/20 11:16 97.9 F 97 H 20 139/77 91 03/14/20 07:24 97.7 F 94 H 18 141/84 H 94 03/14/20 07:00 83 03/14/20 04:09 129/82 03/14/20 03:00 97.5 F L 97 H 20 160/83 H 97 PG Care Time/CCT Total # of Minutes Spent Total Time Spent with Patient: Total time spent is greater than 50% in coordination of care (as documented) at patient's floor/unit and/or counseling patient: Coding Level of Care Code 23802 Subseq Hosp Care Lvl 2 Diagnoses Sepsis A41.9 Blood loss anemia D50.0 C. difficile colitis A04.72 Pancolitis K51.00 Acute on chronic kidney failure N17.9; N18.9 Deep vein thrombosis of right lower extremity I82.401 Hypertension I10 Hypertension type: essential hypertension Osteoarthritis of left hip M16.12 Osteoarthritis type: primary Abnormal CT of the chest R93.89 Prediabetes R73.03 Idiopathic polyneuropathy G60.9 Obstructive sleep apnea G47.33 Hypothyroidism E03.9 Hypothyroidism type: acquired Dyslipidemia E78.5 Anxiety F41.9 Chronic kidney disease, stage 3 (moderate) N18.3 Hypomagnesemia E83.42 Gout M10.9 DVT prophylaxis Z29.9 (1) Hypertension Hypertension type: essential hypertension Qualified Code(s): I10 - Essential (primary) hypertension (2) Osteoarthritis of left hip Osteoarthritis type: primary Qualified Code(s): M16.12 - Unilateral primary osteoarthritis, left hip (3) Hypothyroidism Hypothyroidism type: acquired Qualified Code(s): E03.9 - Hypothyroidism, unspecified
[2020-03-14] MEDS: CYCLOBENZAPRINE HCL 10 MG TAB PO PRN (21:16)
[2020-03-15] MEDS: ACETAMINOPHEN 325 MG TAB PO PRN ×3 (03:34→20:31)
[2020-03-15 07:13] LABS: Hematocrit (blood only) 28.2 % (37-47); Hemoglobin 9.2 g/dL (12.0-16.0); Mean Corpuscular Hemoglobin 28.1 pg (25-34); Mean Corpuscular Hgb Conc 32.6 g/dL (32-36); Mean Corpuscular Volume 86.2 fL (80-100); Mean Platelet Volume 9.2 fL (7.4-10.4); Platelet Count 456 K/uL (130-400); RDW Coefficient of Variation 17.6 % (11.5-14.5); RDW Standard Deviation 54.6 fL (36.4-46.3); Red Blood Count 3.27 M/uL (4.2-5.4); White Blood Count 9.05 K/uL (4.8-10.8)
[2020-03-15 07:18] LABS: BUN Creatinine Ratio 11.6 (10-20); Calcium 6.7 mg/dl (8.5-10.1); Creatinine Clr Calc Pharmacy 76.6 ml/min; Est GFR (African American) 97.3; Potassium 3.6 mmol/L (3.5-5.1)
[2020-03-15] MEDS: LEVOTHYROXINE SODIUM 150 MCG TABLET PO SCH (07:18)
[2020-03-15] MEDS: APIXABAN 5 MG TABLET PO SCH ×2 (09:23→20:32)
[2020-03-15] MEDS: PANTOprazole 40 MG TAB PO SCH ×2 (09:23→20:33)
[2020-03-15] MEDS: CEROVITE ADV FORMULA TAB PO SCH (09:23)
[2020-03-15] MEDS: CHOLECALCIFEROL 1,000 UNITS 25 MCG TAB PO SCH (09:23)
[2020-03-15] MEDS: SACCHAROMYCES BOULARDII 250 MG CAP PO SCH (09:24)
[2020-03-15] MEDS: PSYLLIUM 58.6% POWDER PACKET PO SCH (09:24)
[2020-03-15] MEDS: LIDOCAINE 5% 1 PATCH TD SCH (09:24)
--- NOTE | 2020-03-15 16:19 | Hospitalist Progress Note ---
Date of Service March 15, 2020 Assessment & Plan (1) Sepsis: * Resolved, initial concern for C diff infection -, gastroenterology recommends 10 days total treatment LD 03/12/20 * Persistent diarrhea while on oral vancomycin was changed with Dificid. completed 10 day course * Blood cx drawn AFTER initial abx -- ngtd * discontinued Zosyn IV - patient growing E Coli in urine but never had any urinary symptoms, infectious source is C diff * Stool culture negative * GI Consultation -- appreciate recommendations - Metamucil for water absorption and lomotil much improved stools * no fever, WBC normal at 9k today (2) Blood loss anemia: s/p 1 unit packed red blood cells with appropriate rise in hgb Hb is 9.2 today, stable for several days, no signs of any active bleeding upper endoscopy and flex sig Flex sig: Segmental severe inflammation was found in the sigmoid colon, rule out ischemic colitis. Biopsied. Diverticulosis in the sigmoid colon. EGD: LA Grade C reflux esophagitis. Biopsied. Erythematous mucosa in the antrum. Biopsied. One non-bleeding duodenal ulcer with a clean ulcer base (Efrain Class III). Normal second portion of the duodenum. Biopsied. all pathology reviewed today, no signs of metaplasia or malignancy, some signs of chronic inflammation recommends no nsaids, safely resumed Eliquis CTA of abdomen and pelvis IMPRESSION: 1. Moderate atherosclerotic change abdominal aorta with 50% luminal narrowing distally 2. 50% narrowing origin left renal artery. 3. 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 4. No major stenotic process of the mesentery. (3) C. difficile colitis: Initial concern for C. difficile gene positive toxin negative with recommendations by gastroenterology to treat for active infection. completed 10 day course no abdominal pain, WBC normal still with some loose stools (4) Pancolitis: * Noted on CT abdomen/pelvis Secondary to C. difficile colitis No sign of megacolon * KUB 03/01 and 03/02 - no sign of obstruction, CT without contrast 03/01 with mild enterocolitis colitis was felt secondary to C. difficile however now flex sig suggest ischemic colitis and this may have been the issue (5) Acute on chronic kidney failure: * Possibly secondary to ATN given sepsis and hypotension on admission * resolved, Cr is normal, making adequate urine, electrolytes stable (6) Deep vein thrombosis of right lower extremity: Per nursing patient was refusing SCDS. developed swelling of the right lower leg and pain in her calf Posterior tibial vein, peroneal vein, as well as anterior tibial veins. Initiated Eliquis - Dr Fisher discussed risks and benefits with patient according to notation prior to starting however with now acute blood loss anemia noted on Eliquis this medication is held repeat an ultrasound comforms a blood clot will have off anticoaguation for 48 hours restarting on 03/12 with stable hgb (7) Hypertension: * . Resolved (8) Osteoarthritis of left hip: * Noted as severe. Follows locally with Dr. Staley * Ortho consulted - history of avascular necrosis - recommends treating hip pain. Urine cultures thus far positive for E.Coli. No growth from blood cultures so at this time would not recommend aspirating * patient is wheelchair bound at baseline (9) Abnormal CT of the chest: * Pulm nodule noted on CTAP, 5mm * Follow up outpatient, pulmonry nodule program notified (10) Prediabetes: * Denies hx of pre-DM. A1c 5.8 * No current DM meds. follow up with pcp (11) Idiopathic polyneuropathy: * Noted (12) Obstructive sleep apnea: * States no current tx for this (13) Hypothyroidism: * Continue home levothyroxine 150mcg daily. * Last TSH 5.12. * Repeat TSH 1.44, wnl (14) Dyslipidemia: * Continue home lovastatin (15) Anxiety: * Continue home ativan (16) Chronic kidney disease, stage 3 (moderate): * See above, Cr is stable (17) Hypomagnesemia: * resolved (18) Gout: Left great toe Uric acid normal Resumed patient's celecoxib 03/04 and increased to bid to treat the gout with improvement of pain and erythema. However kidney function increased so will discontinue. Will hold off on further treatment for now as toe looks normal today (19) DVT prophylaxis: * SCDs, now back on eliquis * Pt takes aspirin 81mg for prevention, updated over the phone. plan for d/c tomorrow to [facility], CM aware of plan Admission and Anticipated Discharge Date Admission Date: February 28, 2020 Anticipated date of discharge: 03/16/20 Subjective patient doing well, sitting up in her chair, eating well moving her bowels, they are not as loose but definitely not solid no blood seen reviewed labs, WBC is normal, Hb is stable, > 9 ever since PRBC transfusion 20 minute talk with her over the phone he expressed his frustrations over lack of communication with him I fully updated him about her clinical status, lab work, vitals and plan for discharge he agrees with [facility] but he would like to see her when she is transported I spoke with CM, they will set up transport tomorrow, will let know the timing of discharge Review of Systems Review of Systems: All systems reviewed & are unremarkable except as noted in HPI & below Constitutional: + fatigue and + weakness; no fever, no chills, no sweats and no anorexia Respiratory: no cough and no dyspnea Cardiovascular: no chest pain and no edema Gastrointestinal: + diarrhea/loose stools; no abdominal pain, no nausea, no vomiting and no constipation Physical Exam Constitutional: WD/WN, vitals as above Eyes: PERRL, conjunctivae normal, anicteric sclerae ENMT: external ear and nose normal, oropharynx normal Neck: trachea midline, no thyromegaly Respiratory: normal respiratory effort, lungs clear to auscultation (diminished in bases) Cardiovascular: RRR, no murmur, no edema Gastrointestinal (Abdomen): normal bowel sounds, soft, nontender, no hepatosplenomegaly Musculoskeletal: Head/Neck/Chest: normocephalic and head atraumatic Extremities: extremities normal to inspection and + abnormal strength (very weak, cannot stand or transfer independently) Skin: no rashes, warm and dry Neurologic: patellar DTR's 2+ bilat, sensation intact and PERRL, EOMI, accommodation nl, no face palsy, no dysarthria Psychiatric: A+Ox3, euthymic affect Lymphatic: no cervical or axillary lymphadenopathy Results & Data Results & Data ([facility]) Vital Signs (Past 12 Hours) Vital Signs Temp Pulse Pulse Resp BP Pulse Ox 03/15/20 15:46 36.8 C 84 18 129/76 03/15/20 14:20 96 H 03/15/20 11:14 36.6 C 64 18 134/85 100 03/15/20 07:33 36.8 C 90 20 163/86 H 98 03/15/20 07:00 77 03/15/20 05:06 141/82 H Laboratory Results Laboratory Results - last 24 hr 03/15/20 03/15/20 06:39 06:39 WBC 9.05 RBC 3.27 L Hgb 9.2 L Hct 28.2 L MCV 86.2 MCH 28.1 MCHC 32.6 RDW Std Deviation 54.6 H RDW Coeff of Rika 17.6 H Plt Count 456 H MPV 9.2 Sodium 139 Potassium 3.6 Chloride 108 H Carbon Dioxide 26 Anion Gap 5.0 BUN 7 Creatinine 0.62 Est Cr Clr Drug Dosing 76.6 Est GFR ( Amer) 97.3 Est GFR (Non-Af Amer) 84.0 BUN/Creatinine Ratio 11.6 Glucose 94 Calcium 6.7 L Medications Administered Current Inpatient Medications Acetaminophen (Tylenol) 650 mg PO Q4H PRN PRN Reason: Pain or Fever Stop: 03/29/20 18:52 Last Admin: 03/15/20 09:44 Dose: 650 mg Documented by: Apixaban (Eliquis) 10 mg PO BID [facility] Stop: 03/17/20 21:01 Last Admin: 03/15/20 09:23 Dose: 10 mg Documented by: Aspirin (Ecotrin Ectab) 81 mg PO DAILY [facility] Stop: 03/30/20 08:59 Last Admin: 03/09/20 08:28 Dose: Not Given Documented by: Calcium Carbonate (Tums) 500 mg PO Q6H PRN PRN Reason: Indigestion Stop: 03/30/20 08:50 Last Admin: 03/01/20 09:00 Dose: 500 mg Documented by: Colestipol HCl (Colestid) 1 gm PO BID@1000,2200 [facility] Stop: 04/03/20 21:59 Last Admin: 03/09/20 22:00 Dose: 1 gm Documented by: Cyclobenzaprine HCl (Flexeril) 10 mg PO TID PRN PRN Reason: MUSCLE SPASMS Stop: 03/29/20 19:09 Last Admin: 03/14/20 21:16 Dose: 10 mg Documented by: Diclofenac Sodium (Voltaren 1% Top) 1 gm EXT BID PRN PRN Reason: Pain Stop: 04/13/20 20:59 Dicyclomine HCl (Bentyl) 10 mg PO BID PRN PRN Reason: Cramping Stop: 04/01/20 08:49 Last Admin: 03/11/20 13:32 Dose: 10 mg Documented by: Diphenoxylate HCl/Atropine (Lomotil) 1 tab PO Q8H PRN PRN Reason: Diarrhea Stop: 04/10/20 11:19 Furosemide (Lasix) 20 mg PO Q2D@0900 [facility] Stop: 04/13/20 08:59 Last Admin: 03/14/20 08:58 Dose: 20 mg Documented by: Levothyroxine Sodium (Synthroid) 150 mcg PO DAILYBB [facility] Stop: 03/30/20 06:29 Last Admin: 03/15/20 07:18 Dose: 150 mcg Documented by: Lidocaine (Lidoderm 5%) 1 patch TD DAILY@0900 [facility] Stop: 03/30/20 08:59 Last Admin: 03/15/20 09:24 Dose: 1 patch Documented by: Lorazepam (Ativan) 0.5 mg PO DAILY PRN PRN Reason: Anxiety Stop: 03/29/20 19:40 Last Admin: 03/08/20 21:52 Dose: 0.5 mg Documented by: Lovastatin (Mevacor) 20 mg PO Q48H [facility] Stop: 03/30/20 08:59 Last Admin: 03/14/20 08:57 Dose: 20 mg Documented by: Magnesium Hydroxide (Milk Of Magnesia) 30 ml PO Q12H PRN PRN Reason: Constipation Stop: 03/29/20 18:52 Miconazole Nitrate (Desenex) 1 appln EXT PRN PRN PRN Reason: Affected Skin Folds Stop: 03/29/20 18:30 Miconazole Nitrate (Desenex) 1 appln EXT PRN PRN PRN Reason: Rash Stop: 04/01/20 23:44 Miscellaneous (Remove Lidoderm Patch) 1 ea N/A DAILY@2100 [facility] Stop: 03/30/20 20:59 Last Admin: 03/14/20 21:18 Dose: 1 ea Documented by: Multivitamins/Minerals (Multivitamin W/ Minerals Tab) 1 tab PO DAILY [facility] Stop: 03/30/20 08:59 Last Admin: 03/15/20 09:23 Dose: Not Given Documented by: Ondansetron HCl (Zofran) 4 mg IV Q4H PRN PRN Reason: Nausea Stop: 03/29/20 18:16 Last Admin: 03/03/20 20:35 Dose: 4 mg Documented by: Oxycodone HCl (Roxicodone Immediate Rel) 5 mg PO Q6H PRN PRN Reason: Pain Stop: 03/28/20 12:44 Pantoprazole Sodium (Protonix) 40 mg PO BID [facility] Stop: 04/12/20 20:59 Last Admin: 03/15/20 09:23 Dose: 40 mg Documented by: Psyllium Hydrophilic Mucilloid (Metamucil) 1 pkt PO QAM [facility] Stop: 04/10/20 11:44 Last Admin: 03/15/20 09:24 Dose: 1 pkt Documented by: Saccharomyces Boulardii (Florastor) 250 mg PO DAILY [facility] Stop: 04/09/20 08:59 Last Admin: 03/15/20 09:24 Dose: 250 mg Documented by: Vitamin D (Vitamin D3) 2,000 units PO DAILY [facility] Stop: 03/30/20 08:59 Last Admin: 03/15/20 09:23 Dose: 2,000 units Documented by: PG Care Time/CCT Total # of Minutes Spent Total Time Spent: 36 Total Time Spent with Patient: Total time spent is greater than 50% in coordination of care (as documented) at patient's floor/unit and/or counseling patient: Coding Level of Care Code 90204 Subseq Hosp Care Lvl 3 Diagnoses Sepsis A41.9 Blood loss anemia D50.0 C. difficile colitis A04.72 Pancolitis K51.00 Acute on chronic kidney failure N17.9; N18.9 Deep vein thrombosis of right lower extremity I82.401 Hypertension I10 Hypertension type: essential hypertension Osteoarthritis of left hip M16.12 Osteoarthritis type: primary Abnormal CT of the chest R93.89 Prediabetes R73.03 Idiopathic polyneuropathy G60.9 Obstructive sleep apnea G47.33 Hypothyroidism E03.9 Hypothyroidism type: acquired Dyslipidemia E78.5 Anxiety F41.9 Chronic kidney disease, stage 3 (moderate) N18.3 Hypomagnesemia E83.42 Gout M10.9 DVT prophylaxis Z29.9 (1) Osteoarthritis of left hip Osteoarthritis type: primary Qualified Code(s): M16.12 - Unilateral primary osteoarthritis, left hip (2) Hypothyroidism Hypothyroidism type: acquired Qualified Code(s): E03.9 - Hypothyroidism, unspecified (3) Hypertension Hypertension type: essential hypertension Qualified Code(s): I10 - Essential (primary) hypertension
[2020-03-15] MEDS: CYCLOBENZAPRINE HCL 10 MG TAB PO PRN (20:31)
[2020-03-16] MEDS: LEVOTHYROXINE SODIUM 150 MCG TABLET PO SCH (05:51)
[2020-03-16] MEDS: APIXABAN 5 MG TABLET PO SCH (07:55)
[2020-03-16] MEDS: SACCHAROMYCES BOULARDII 250 MG CAP PO SCH (07:56)
[2020-03-16] MEDS: LOVASTATIN 20 MG TAB PO SCH (07:57)
[2020-03-16] MEDS: PANTOprazole 40 MG TAB PO SCH (07:58)
[2020-03-16] MEDS: CHOLECALCIFEROL 1,000 UNITS 25 MCG TAB PO SCH (07:58)
[2020-03-16 08:00] LABS: Hematocrit (blood only) 29.6 % (37-47); Hemoglobin 9.6 g/dL (12.0-16.0); Mean Corpuscular Hemoglobin 28.5 pg (25-34); Mean Corpuscular Hgb Conc 32.4 g/dL (32-36); Mean Corpuscular Volume 87.8 fL (80-100); Mean Platelet Volume 9.1 fL (7.4-10.4); Platelet Count 501 K/uL (130-400); RDW Coefficient of Variation 17.8 % (11.5-14.5); RDW Standard Deviation 56.9 fL (36.4-46.3); Red Blood Count 3.37 M/uL (4.2-5.4); White Blood Count 7.43 K/uL (4.8-10.8)
[2020-03-16 08:32] LABS: BUN Creatinine Ratio 10.3 (10-20); Calcium 7.4 mg/dl (8.5-10.1); Creatinine Clr Calc Pharmacy 63.2 ml/min; Est GFR (Non-African American) 74.2; Potassium 3.3 mmol/L (3.5-5.1)
[2020-03-16] MEDS: FUROSEMIDE 20 MG TAB PO SCH (09:13)
[2020-03-16] MEDS: CEROVITE ADV FORMULA TAB PO SCH (09:14)
[2020-03-16] MEDS: PSYLLIUM 58.6% POWDER PACKET PO SCH (09:15)
[2020-03-16] MEDS: LIDOCAINE 5% 1 PATCH TD SCH (09:16)
--- NOTE | 2020-03-16 11:20 | Discharge Summary ---
Date of Service March 16, 2020 Admission HPI Per Admitting Provider 80 y/o F c/o n/v/d, abd pain. Pt states she did have have a bowel movement for about 5 days. She takes a stool softener PRN, so she tried taking this, but it did not help. Yesterday, pt tried an enema, however this progressed to watery stools repeatedly throughout the night without any formed stool. Her last diarrhea was in the ED. She has only had the one episode since coming to the ED. In addition to the watery diarrhea, pt developed n/v and RLQ abd pain last night as well. She states her last emesis was early this AM. 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 She feels bloated. Pt denies fever, SOB, chest pain, LE pain or swelling. She states she has never had diarrhea or abd pain like this prior. Pt states that she generally has constipation issues, but maybe 2-3 days between bowel movements at the worst. Never 5 days. Pt was given IVF, abx, zofran in the ED and states she feels much improved, but not at her usual. Still with mild nausea and abd pain. Principal Diagnosis Colitis Discharge Exam Constitutional WD/WN, vitals as above Eyes PERRL, conjunctivae normal, anicteric sclerae ENMT external ear and nose normal, oropharynx normal Neck trachea midline, no thyromegaly Respiratory normal respiratory effort, lungs clear to auscultation (diminished in bases) Cardiovascular RRR, no murmur, no edema Gastrointestinal (Abdomen) normal bowel sounds, soft, nontender, no hepatosplenomegaly Musculoskeletal Head/Neck/Chest: normocephalic and head atraumatic Extremities: extremities normal to inspection and + abnormal strength (very weak, cannot stand or transfer independently) Skin no rashes, warm and dry Neurologic patellar DTR's 2+ bilat, sensation intact and PERRL, EOMI, accommodation nl, no face palsy, no dysarthria Psychiatric A+Ox3, euthymic affect Lymphatic no cervical or axillary lymphadenopathy Discharge Data Allergies Allergy/AdvReac Type Severity Reaction Status Date / Time Sulfa (Sulfonamide Allergy Mild ITCHING- Verified 03/10/20 14:39 Antibiotics) PT TAKES CELEBREX AT HOME latex Allergy Rash Verified 03/10/20 14:39 Consultations 02/28/20 13:26 ED Decision to Admit Stat 02/28/20 18:53 Consult Orthopedic Surgery Routine 02/29/20 11:21 Consult Gastroenterology Routine 03/08/20 16:19 Consult Lung Nodule Program Routine 03/09/20 06:08 Consult Case Management - Discharge Planning Routine Procedures Performed Operation Date: 03/10/20 17:30 Actual Procedures p EGD Biopsy Cytology - Blanca Clark MD s Colonoscopy Biopsy Cytology - Blanca Clark MD Ordered Studies 02/28/20 09:55 CT abd pelvis wo con Stat 03/01/20 18:58 CT abd pelvis wo con Stat 03/07/20 09:31 US venous doppler LE RT Routine 03/09/20 12:27 US venous doppler LE BI Routine 03/10/20 16:13 CT angio abdomen pelvis w con Urgent Hospital Course (1) Sepsis: * Resolved, initial concern for C diff infection, patient completed 10 days of Dificid on 03/12, no further treatment needed at this time * Blood cx drawn AFTER initial abx -- ngtd * Stool culture negative * no fever, WBC normal at 9k today (2) Blood loss anemia: s/p 1 unit packed red blood cells with appropriate rise in hgb Hb is 9.6 on discharge, has been > 9 for several days, no signs of GI bleeding EGD 03/11 with gastritis, esophagitis, one non-bleeding duodenal ulcer GI recommends Protonix 40mg PO BID for 3 months then can reduce to once a day pathology from multiple biopsies negative for malignancy/metaplasia, negative for H pylori, just showed gastritis and esophagitis Flex sigmoidoscopy 03/11 with colitis biopsy shows NO evidence of ischemic changes shows colitis and granulation tissue, no granulomas, no malignancy GI recommends no aspirin, no nsaids, safely resumed Eliquis CTA of abdomen and pelvis IMPRESSION: 1. Moderate atherosclerotic change abdominal aorta with 50% luminal narrowing distally 2. 50% narrowing origin left renal artery. 3. 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 4. No major stenotic process of the mesentery. GI recommends outpatient referral to vascular surgery, can be several weeks from now (3) C. difficile colitis: Initial concern for C. difficile gene positive toxin negative with recommendations by gastroenterology to treat for active infection. completed 10 day course no abdominal pain, WBC normal still with some loose stools but this is want GI wants, see below (4) Pancolitis: Flex sigmoidoscopy on 03/11 with evidence of colitis, ulcers, granulation no granulomas seen on pathology, no malignancy GI recommends keeping stools on the loose side, do NOT want patient to be constipated currently she has some cramping and loose stools in the morning, but pain goes away use Bentyl BID as needed for cramping use Lomotil q8 as needed for diarrhea on Florastor [facility] wants to see patient in follow up in 3 months for repeat endoscopy to document healing (5) Acute on chronic kidney failure: * Possibly secondary to ATN given sepsis and hypotension on admission * resolved, Cr is normal, making adequate urine, electrolytes stable, drinking adequate fluids (6) Deep vein thrombosis of right lower extremity: Per nursing patient was refusing SCDS. developed swelling of the right lower leg and pain in her calf Posterior tibial vein, peroneal vein, as well as anterior tibial veins with non- occlussive DVT continue on Eliquis 10mg BID for 6 more doses to complete the 7 day loading dose, then reduce to 5mg BID would likely need 6 months of treatment no signs of bleeding while on the Eliquis (7) Hypertension: some confusion as to whether she was taking metoprolol and valsartan at home blood pressure has largely been stable off of BP medications, some occasional elevated readings if pressures would be consistently high could resume the Valsartan at a starting dose (8) Osteoarthritis of left hip: * Noted as severe. Follows locally with Dr. Staley * Ortho consulted - history of avascular necrosis - recommends treating hip pain. Urine cultures thus far positive for E.Coli. No growth from blood cultures so at this time would not recommend aspirating * patient is wheelchair bound at baseline (9) Abnormal CT of the chest: * Pulm nodule noted on CTAP, 5mm * Follow up outpatient, pulmonary nodule program notified (10) Prediabetes: * Denies hx of pre-DM. A1c 5.8 * No current DM meds. follow up with pcp (11) Idiopathic polyneuropathy: * Noted (12) Obstructive sleep apnea: * States no current tx for this (13) Hypothyroidism: * Continue home levothyroxine 150mcg daily. * Last TSH 5.12. * Repeat TSH 1.44, wnl (14) Dyslipidemia: * Continue home lovastatin (15) Anxiety: * Continue home ativan (16) Chronic kidney disease, stage 3 (moderate): * See above, Cr is stable (17) Hypomagnesemia: * resolved (18) Gout: Left great toe Uric acid normal no pain today (19) DVT prophylaxis: * SCDs, now back on eliquis updated over the phone. plan for d/c tomorrow to [facility] today Total Time Total Time Spent Total Time Spent (In Minutes): 50 minutes Total Time Includes: Examination of the Patient, Discharge Planning, Medication Reconciliation and Other (discussed with patient's and sister in law) Discharge Plan Discharge Items Patient Disposition: Transfer Inpatient Rehab Fac Reason For Visit: ABDOMINAL PAIN Discharge Diagnosis: C difficile colitis Gastritis Blood loss anemia Bilateral non-oclussive DVT, chronic issue Condition on Discharge: Good Goals: improve strength and mobility improve control over diarrhea with Colestid, already completed treatment with Dificid for C diff Activity: Resume your previous activity Weightbearing: Full weightbearing Non-emergency contact: Primary Care Provider Call non-emergency contact if: you have any medication questions, your symptoms worsen and you have a fever Follow-up/Referrals: Tami Shelby, [Primary Care Provider] - (one week after discharge from rehab) Diet: Heart Healthy Addtl Attending Provider Instructions: Medications: - ELIQUIS: take 10mg twice a day for 6 more doses, then decrease to 5mg twice a day indefinitely for lower extremity DVT - PANTOPRAZOLE: take 40mg twice a day for 3 months, then reduce to 40mg daily - BENTYL: take as needed twice a day for abdominal cramping - LOMOTIL: take every 8 hours as needed for diarrhea - FLORASTOR: take 250mg daily Per gastroenterology, patient cannot have aspirin or NSAIDs due to gastritis, ulcer in duodenum C difficile colitis: completed 10 days total treatment, initially with Vancomycin PO but she did not tolerate, changed to Dificid BID, did quite well no fever, only has intermittent abdominal cramping, WBC normal for days Colitis, possible ischemic colitis: flex sigmoidoscopy with [facility] showed colitis, on pathology there were NO signs of ischemia, just general colitis, no granulomas, no malignancy GI recommends keeping stools on the loose side as constipation could further irritate colon priest use Lomotil PRN every 8 hours, use Bentyl for abdominal cramping initially on some Questran but caused nausea, again, want to avoid constipation, currently her stools are on loose side, not liquid, typically 1-2 times a day GI recommends follow up with vascular surgery as outpatient, CTA of the abdomen showed 50-60% stenosis in SMA, again, there was NO evidence of ischemia on biopsy Gastritis, esophagitis, duodenal ulcer (non-bleeding) biopsy shows chronic gastritis, ulcerative esophagitis, no evidence of malignancy or metaplasia, negative for H pylori GI recommends Pantoprazole 40mg BID for 3 months then decrease to once a day no aspirin or NSAIDs indefinitely needs repeat EGD, colonoscopy in 3 months to assess healing Blood loss anemia: rust colored stools, prompted the EGD and flex sigmoidoscopy transfused one unit of PRBC last week for Hb of 7.8 Hb has been > 9 for 5 days, today it is 9.6, no signs of bleeding while on full anticoagulation for almost a week bilateral lower extremity DVT, non-oclussive started on Eliquis 10mg twice a day for 7 days, needs 6 more doses (3 days), then decrease to 5mg twice a day Pulmonary nodule, 5mm, incidental finding, referral made to pulmonary nodule clinic for repeat CT in 3-6 months, they will schedule Pending Studies at Discharge: No Stand-Alone Forms: My [facility] Skilled Items Patient informed of condition?: Yes DNR: No Discharge Level of Care: Acute rehab Communicable Disease: No Discharge Prognosis: Stable Lines: None Urinary Catheter: No Medications and DC Order Prescriptions: New diphenoxylate-atropine 2.5-0.025 mg Tablet 1 tab PO Q8H PRN (Reason: diarrhea) 30 Days Qty: 60 RF: 0 pantoprazole 40 mg Tablet,Delayed Release (Dr/Ec) 40 mg PO BID 30 Days Qty: 60 RF: 1 dicyclomine 10 mg Capsule 10 mg PO BID PRN (Reason: abdominal discomfort) 30 Days Qty: 30 RF: 0 Saccharomyces boulardii [Florastor] 250 mg Capsule 250 mg PO DAILY 30 Days Qty: 30 RF: 0 Eliquis 5 mg Tablet 10 mg PO BID 3 Days Qty: 12 RF: 0 Eliquis 5 mg tablet 5 mg PO BID Qty: 60 RF: 3 Continued lovastatin 20 mg tablet 20 mg PO Q OTHER DAY Qty: 45 RF: 1 cyclobenzaprine 10 mg tablet 10 mg PO TID PRN (Reason: Pain) Qty: 30 RF: 0 levothyroxine 150 mcg tablet 150 mcg PO DAILY Qty: 30 RF: 2 (DME) Power Wheelchair Device See Rx Instructions .ROUTE .MEDSUPPLY Qty: 1 RF: 0 furosemide [Lasix] 20 mg tablet 20 mg PO Q OTHER DAY 30 Days Qty: 15 RF: 2 acetaminophen [Tylenol Extra Strength] 500 mg Tablet 500 mg PO Q6H PRN (Reason: Pain) RF: 0 Centrum Silver 0.4-300-250 mg-mcg-mcg Tablet 1 tab PO DAILY RF: 0 lidocaine 5 % adhesive patch,medicated 1 patch TOP Q12 PRN (Reason: Pain) RF: 0 cholecalciferol (vitamin D3) [Vitamin D3] 2,000 unit capsule 2,000 unit PO QAM RF: 0 Changed lorazepam 0.5 mg Tablet 0.5 mg PO DAILY PRN (Reason: Anxiety) Qty: 0 RF: 0 Discontinued hydrochlorothiazide 25 mg tablet 25 mg PO DAILY Qty: 90 RF: 3 metoprolol succinate 25 mg tablet extended release 24 hr 50 mg PO QAM Qty: 180 RF: 1 Hold Instructions: Home Medication placed on hold at Doctor's office celecoxib [Celebrex] 200 mg capsule 200 mg PO DAILY Qty: 90 RF: 1 hydrocodone-acetaminophen 5-325 mg tablet 1 tab PO Q12H PRN (Reason: pain) Qty: 30 RF: 0 valsartan 320 mg tablet 320 mg PO DAILY Qty: 90 RF: 1 aspirin 81 mg Tablet,Delayed Release (Dr/Ec) 81 mg PO DAILY RF: 0 Discharge Orders: Discharge Order (Routine); Ordered 03/16/20 Ordered By: Zach Billingsley/Other Patient Handouts: Diet Low Residue Admission Data Admit Date/Time: 02/28/20 17:12 Attending Provider: Zach Montanez Admit Provider: Hilda Vizcaino Primary Care Provider: Tami Shelby Other Providers: Mauri Staley ; Marcell Daniel ; [facility] ; Andrea Mulligan Other Interventions: Discharge Summary Assessment (RN) Last Done: 03/16/20 13:34 Coding Level of Care Code D/C Day Management >30 mins Diagnoses Sepsis A41.9 Blood loss anemia D50.0 C. difficile colitis A04.72 Pancolitis K51.00 Acute on chronic kidney failure N17.9; N18.9 Deep vein thrombosis of right lower extremity I82.401 Hypertension I10 Hypertension type: essential hypertension Osteoarthritis of left hip M16.12 Osteoarthritis type: primary Abnormal CT of the chest R93.89 Prediabetes R73.03 Idiopathic polyneuropathy G60.9 Obstructive sleep apnea G47.33 Hypothyroidism E03.9 Hypothyroidism type: acquired Dyslipidemia E78.5 Anxiety F41.9 Chronic kidney disease, stage 3 (moderate) N18.3 Hypomagnesemia E83.42 Gout M10.9 DVT prophylaxis Z29.9
[2020-03-16] MEDS: ACETAMINOPHEN 325 MG TAB PO PRN (11:55)
[2020-03-16] MEDS ORDERED: COLESTIPOL HCL 1 GM TAB PO SCH (22:00)
== END 2020-03-16 14:38 | DRG 871 ==
LOC: ED 09:44 → 2W 15:29 → SUATTDRO 17:12 → 2W 03-08 16:42

== ENCOUNTER 2024-11-20 15:03 | Inpatient (IN) ==
[2024-11-20] MEDS: ALBUT/IPRATROP 3MG/0.5MG NEB 3 ML VIAL NEB STA (15:53)
[2024-11-20] MEDS: dexAMETHasone**PF** 10 MG/ML VIAL IV ONE (15:54)
[2024-11-20 16:01] LABS: HCO3 VBG 31 mmol/L; Oxygen Saturation VBG < 60.0 %; PCO2 VBG 67 mmHg (38-50); PO2 VBG 29 mmHg; pH VBG 7.27 (7.36-7.41)
--- NOTE | 2024-11-20 16:05 | Emergency Department Note ---
History of Present Illness General Chief Complaint: Shortness of Breath/Dyspnea Time Seen by Provider: 11/20/24 15:34 Source: patient and family (Son at bedside) History of Present Illness Provider Complaint: shortness of breath and cough Onset (ago): day(s) (2) Consistency/Duration: + progressively worsening Relieved By: + nothing Exacerbated By: + exertion and + coughing Context: + recent illness (Patient diagnosed with COVID and pneumonia 2 days ago) Associated symptoms: + cough, + sputum production and + chest congestion Related Data Home oxygen amount: none Home Medications Medication Instructions Recorded Confirmed Type acetaminophen 500 mg tablet 500 mg PO Q6H PRN Pain 08/05/19 11/20/24 History (Tylenol Extra Strength) cholecalciferol (vitamin D3) 50 2,000 unit PO QAM 09/06/19 11/20/24 History mcg (2,000 unit) capsule (Vitamin D3) ultdafzv-yqz-yxxjo acid 0.4 1 tab PO QAM 02/28/20 11/20/24 History mg-lycopene 300 mcg-lutein 250 mcg tablet (Centrum Silver) polyethylene glycol 3350 17 gram 17 g PO DAILY PRN Constipation 07/12/20 11/20/24 History oral powder packet (Miralax) biotin 1,000 mcg chewable tablet 1,000 mcg PO DAILY 09/26/22 11/20/24 History lidocaine 5 % topical patch 1 patch topical Q12 PRN Pain #30 ea 10/05/23 11/20/24 Rx magnesium oxide 400 mg (241.3 mg 400 mg PO DAILY 10/09/23 11/20/24 History magnesium) tablet allopurinol 300 mg tablet 300 mg PO DAILY #90 tabs 01/28/24 11/20/24 Rx nystatin 100,000 unit/gram topical 1 applic topical BID #60 grams 02/19/24 11/20/24 Rx powder apixaban 5 mg (74 tabs) tablets in 5 mg PO BID #200 ea 03/14/24 11/20/24 Rx a dose pack (Eliquis) lovastatin 10 mg tablet 10 mg PO 3XWK #90 tabs 06/10/24 11/20/24 Rx pantoprazole 40 mg tablet,delayed 40 mg PO DAILY #180 tabs 07/02/24 11/20/24 Rx release metoprolol tartrate 25 mg tablet 12.5 mg (1/2 x 25 mg) PO QAM #45 09/11/24 11/20/24 Rx tabs potassium chloride 20 mEq 20 meq PO BID #180 tabs 09/15/24 11/20/24 Rx tablet,extended release lorazepam 0.5 mg tablet 0.5 mg PO HS #45 tabs 09/25/24 11/20/24 Rx Wheelchair (Powered) (Power #1 ea 10/06/24 10/06/24 Rx Wheelchair) celecoxib 100 mg capsule (Celebrex) 100 mg PO DAILY #90 caps 10/06/24 11/20/24 Rx semaglutide (weight loss) 0.25 0.25 mg (0.5 mL) subcut Q7D 4 11/03/24 11/20/24 Rx mg/0.5 mL subcutaneous pen weeks #2 mL injector (Wegovy) levothyroxine 112 mcg tablet 112 mcg PO DAILY #90 tabs 11/10/24 11/20/24 Rx docusate sodium 100 mg capsule 100 mg PO DAILY PRN Constipation 11/20/24 11/20/24 History (Colace) furosemide 40 mg tablet (Lasix) 20 mg PO DAILY edema 11/20/24 11/20/24 History Allergies Allergy/AdvReac Type Severity Reaction Status Date / Time Sulfa (Sulfonamide Allergy Mild ITCHING- Verified 11/20/24 18:13 Antibiotics) PT TAKES CELEBREX AT HOME Past Med/Surg History Problem List (Updated 11/20/24 @ 22:28 by Lex Palbo MD) Hypoxia (Acute) Hypoxia Bilateral pleural effusion COVID (Acute) Obesity Valvular heart disease Ambulatory dysfunction Localized swelling of right lower extremity Osteoporosis Lymphedema Idiopathic scoliosis Hypothyroidism Hypertension Arthritis, degenerative Anxiety Anemia Acid reflux Dyslipidemia Obstructive sleep apnea no cpap Urinary incontinence Chronic kidney disease, stage 3 (moderate) hasnt seen specialist for a while Idiopathic polyneuropathy Osteoarthritis of left hip Elevated alkaline phosphatase level Prediabetes Abnormal CT of the chest Gout Duodenal ulcer Aortic narrowing 03/2020- Moderate atherosclerotic change abdominal aorta with 50% luminal narrowing distally History of deep vein thrombosis (DVT) of lower extremity (03/2020) Medical History Neuropathic pain, leg, bilateral Kidney stones passed on own Peptic ulcer reason for procedure Acquired lymphedema Cardiac murmur not always detected has had since childhood C. difficile colitis Pancolitis Venous hypertension SBO (small bowel obstruction) resolved on own Surgical History History of flexible sigmoidoscopy (03/2020) colitis, diverticulosis History of hysterectomy History of tooth extraction History of adenoidectomy History of tonsillectomy Status post right knee replacement Hx of arthroscopy of shoulder (1997) left S/P arthroscopic knee surgery (2008) bilat x2 each side History of surgery UTERINE SURGERY History of total knee arthroplasty LEFT KNEE- 06/18 History of total hip replacement (02/2013) RIGHT HIP- 02/17 History of esophagogastroduodenoscopy (03/2020) Duodenal ulcer, reflux esophagitis; f/u EGD in Jul 2020 resolved History of appendectomy History of back surgery (11/2011) lumbar post spine fixation devin Family History Father , age 80 of heart disease Cardiac disorder Hypertension Osteoarthritis Mother , age 82 of uncertain cause History of cholecystectomy Hypertension Kidney disease History of kidney stones Grandmother Myocardial infarction 56 Denies family history of Ovarian cancer Prostate cancer Breast cancer Colorectal cancer Social History Smoking Status: Never smoker Second Hand Exposure: No; Do You Dip or Chew Tobacco: No; Hx Alcohol Use: Yes Alcohol type: wine Alcohol Intake Frequency Comment: One glass wine per week Hx Substance Use: No Preferred Language: Iranian Communication Ability: Effective Visual Impairment: No Limitations Hearing Ability: Hard of Hearing 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 Feels Safe at Home: Yes Diet: regular Diet Comment: regular caffeine: Yes during the past year weight has: remained stable Dental Care, Regularly: Yes Physical Activity Frequency: Other Physical Activity Frequency Comment: limited by physical condition, does PT activities Seatbelt Use: always Sunscreen Use: Yes Assistive Devices: Cane and Walker Physical Exam 2 Vital Signs: Vital Signs - 24 hr 11/20/24 14:54 11/20/24 14:54 11/20/24 14:54 Temperature 36.8 C Temperature Source Oral Pulse Rate 65 Pulse Rate [Apical ] Pulse Rate from Sp O2 Sensor Respiratory Rate 24 Respiratory Effort / Characteristics Short of Breath SO B on Exertion Short of Breath Respiratory Depth Normal Respiratory Patter n Tachypnea Blood Pressure 158/96 H Blood Pressure [Le ft Arm] Blood Pressure Evy n 116 Blood Pressure Evy n [Left Arm] Pulse Oximetry 90 90 Oxygen Delivery Me thod Room Air Room Air Room Air Oxygen Flow Rate Sepsis Recent Feve r Within 48 Hours No Sepsis New/Unexpla ined Change in Men venessa Status No Sepsis Action Take n by Nursing No Action Required Oxygen Flow Rate - Titration Pulse Oximetry Pos t Tiitration 11/20/24 14:54 11/20/24 15:28 11/20/24 15:33 Temperature Temperature Source Pulse Rate 61 Pulse Rate [Apical ] 60 Pulse Rate from Sp O2 Sensor 61 Respiratory Rate 23 Respiratory Effort / Characteristics Respiratory Depth Respiratory Patter n Blood Pressure Blood Pressure [Le ft Arm] Blood Pressure Evy n Blood Pressure Evy n [Left Arm] Pulse Oximetry 90 88 L Oxygen Delivery Me thod Room Air Nasal Cannula Oxygen Flow Rate 2 Sepsis Recent Feve r Within 48 Hours Sepsis New/Unexpla ined Change in Men venessa Status Sepsis Action Take n by Nursing Oxygen Flow Rate - Titration Pulse Oximetry Pos t Tiitration 11/20/24 15:42 11/20/24 15:49 11/20/24 16:03 Temperature Temperature Source Pulse Rate 64 61 Pulse Rate [Apical ] Pulse Rate from Sp O2 Sensor 61 Respiratory Rate 19 Respiratory Effort / Characteristics Respiratory Depth Respiratory Patter n Blood Pressure Blood Pressure [Le ft Arm] Blood Pressure Evy n Blood Pressure Evy n [Left Arm] Pulse Oximetry 88 L 100 Oxygen Delivery Me thod Nasal Cannula Oxygen Flow Rate 0 Sepsis Recent Feve r Within 48 Hours Sepsis New/Unexpla ined Change in Men venessa Status Sepsis Action Take n by Nursing Oxygen Flow Rate - Titration 2 Pulse Oximetry Pos t Tiitration 98 11/20/24 16:05 11/20/24 16:05 11/20/24 16:12 Temperature Temperature Source Pulse Rate 60 Pulse Rate [Apical ] Pulse Rate from Sp O2 Sensor 60 Respiratory Rate 23 Respiratory Effort / Characteristics Respiratory Depth Respiratory Patter n Blood Pressure 165/81 H 165/81 H Blood Pressure [Le ft Arm] Blood Pressure Evy n 110 110 Blood Pressure Evy n [Left Arm] Pulse Oximetry 98 Oxygen Delivery Me thod Oxygen Flow Rate Sepsis Recent Feve r Within 48 Hours Sepsis New/Unexpla ined Change in Men venessa Status Sepsis Action Take n by Nursing Oxygen Flow Rate - Titration Pulse Oximetry Pos t Tiitration 11/20/24 16:36 11/20/24 16:42 11/20/24 17:00 Temperature Temperature Source Pulse Rate 61 60 Pulse Rate [Apical ] Pulse Rate from Sp O2 Sensor 62 60 Respiratory Rate 20 19 Respiratory Effort / Characteristics Respiratory Depth Respiratory Patter n Blood Pressure 173/104 H Blood Pressure [Le ft Arm] Blood Pressure Evy n 124 Blood Pressure Evy n [Left Arm] Pulse Oximetry 98 99 Oxygen Delivery Me thod Oxygen Flow Rate Sepsis Recent Feve r Within 48 Hours Sepsis New/Unexpla ined Change in Men venessa Status Sepsis Action Take n by Nursing Oxygen Flow Rate - Titration Pulse Oximetry Pos t Tiitration 11/20/24 17:00 11/20/24 17:00 11/20/24 17:18 Temperature Temperature Source Pulse Rate 57 L 59 L Pulse Rate [Apical ] Pulse Rate from Sp O2 Sensor 57 L 59 L Respiratory Rate 20 19 Respiratory Effort / Characteristics Respiratory Depth Respiratory Patter n Blood Pressure 173/104 H Blood Pressure [Le ft Arm] Blood Pressure Evy n 124 Blood Pressure Evy n [Left Arm] Pulse Oximetry 92 90 Oxygen Delivery Me thod Oxygen Flow Rate Sepsis Recent Feve r Within 48 Hours Sepsis New/Unexpla ined Change in Men venessa Status Sepsis Action Take n by Nursing Oxygen Flow Rate - Titration Pulse Oximetry Pos t Tiitration 11/20/24 17:23 11/20/24 17:27 11/20/24 17:30 Temperature Temperature Source Pulse Rate 64 Pulse Rate [Apical ] 63 Pulse Rate from Sp O2 Sensor 64 Respiratory Rate 20 21 Respiratory Effort / Characteristics Non-Labored Sponta neous Respiratory Depth Normal Respiratory Patter n Blood Pressure 159/88 H Blood Pressure [Le ft Arm] 173/104 H Blood Pressure Evy n 116 Blood Pressure Evy n [Left Arm] 127 Pulse Oximetry 95 96 Oxygen Delivery Me thod Room Air Oxygen Flow Rate Sepsis Recent Feve r Within 48 Hours Sepsis New/Unexpla ined Change in Men venessa Status Sepsis Action Take n by Nursing Oxygen Flow Rate - Titration Pulse Oximetry Pos t Tiitration 11/20/24 17:30 11/20/24 17:33 11/20/24 17:42 Temperature Temperature Source Pulse Rate 65 66 Pulse Rate [Apical ] Pulse Rate from Sp O2 Sensor 65 66 Respiratory Rate 18 21 Respiratory Effort / Characteristics Respiratory Depth Respiratory Patter n Blood Pressure 159/88 H Blood Pressure [Le ft Arm] Blood Pressure Evy n 116 Blood Pressure Evy n [Left Arm] Pulse Oximetry 98 97 Oxygen Delivery Me thod Oxygen Flow Rate Sepsis Recent Feve r Within 48 Hours Sepsis New/Unexpla ined Change in Men venessa Status Sepsis Action Take n by Nursing Oxygen Flow Rate - Titration Pulse Oximetry Pos t Tiitration Physical Exam: Physical Exam GENERAL: oriented to person, place, and time. appears well-developed and well- nourished. HENT: Exam performed. - Head: Normocephalic and atraumatic. EYES: Conjunctivae and EOM are normal. Right eye exhibits no discharge. Left eye exhibits no discharge. No scleral icterus. NECK: Normal range of motion. Neck supple. No JVD present. CV: Normal rate, regular rhythm, normal heart sounds and intact distal pulses. There is no peripheral edema. Palpable radial pulses bue. PULM/CHEST: Rhonchi bilaterally expiratory wheezes bilaterally. ABD: The abdomen is soft. There is no tenderness. NEURO: Motor and sensation grossly intact. SKIN: Skin is warm and dry. He is not diaphoretic. PSYCH: normal mood and affect. Behavior is normal. Judgment and thought content normal. Course Course 1534: The patient was evaluated in room B4. A complete history and physical exam was performed Cardiac monitoring: An order was placed for continuous cardiac monitoring. The monitor shows a rate of 60 with sinus rhythm interpreted by me Patient found to be hypoxic on room air. Supplemental oxygen was applied via nasal cannula which improved the patient's oxygen saturation. Decadron 6 mg IV ordered for the patient. 1705: Vital signs stable on supplemental oxygen via nasal cannula. Labs show white blood cell count 10.28 hemoglobin 10.5 platelet count 280 VBG shows venous pH of 7.27 venous pCO2 of 67 high-sensitivity troponin 49.5. Procalcitonin 0.42 lactic acid 1.1 chest x-ray shows pneumonia thought to be secondary to COVID. [facility] Administered Medications Acetaminophen (Acetaminophen 325 Mg Tab) 650 mg PO Q4H PRN PRN Reason: Pain or Fever Stop: 12/20/24 19:53 Last Admin: 11/20/24 22:05 Dose: 650 mg Documented By: BETH Apixaban (Apixaban 5 Mg Tablet) 5 mg PO BID SANJAY Stop: 12/20/24 20:59 Last Admin: 11/20/24 22:05 Dose: 5 mg Documented By: BETH Discontinued Medications Albuterol (Albut/Ipratrop 3mg/0.5mg Neb 3 Ml Vial) 3 ml NEB NOW STA; Protocol Stop: 11/20/24 15:46 Last Admin: 11/20/24 15:53 Dose: 3 ml Documented By: DANIELLE Dexamethasone Sodium Phosphate (DexamethasonePf 10 Mg/Ml Vial) 6 mg IV NOW ONE Stop: 11/20/24 15:46 Last Admin: 11/20/24 15:54 Dose: 6 mg Documented By: DANIELLE Furosemide (Furosemide 40 Mg/4 Ml Vial) 40 mg IV ONE ONE Stop: 11/20/24 17:39 Last Admin: 11/20/24 18:07 Dose: 40 mg Documented By: DANIELLE Medical Decision Making Laboratory Data Attestation: I reviewed the patient's lab results. 11/20/24 15:43 11/20/24 15:43 Lab Results 11/20/24 11/20/24 11/20/24 Range/Units 15:43 15:55 16:11 WBC 10.28 (4.8-10.8) K/ul RBC 3.46 L (4.20-5.40) M/uL Hgb 10.5 L (12.0-16.0) g/dl Hct 33.1 L (37.0-47.0) % MCV 95.7 (80.0-100.0) fL MCH 30.3 (25.0-34.0) pg MCHC 31.7 L (32.0-36.0) g/dL RDW Std Deviation 56.4 H (36.4-46.3) fL RDW Coeff of Rika 16.1 H (11.5-14.5) % Plt Count 280 (130-400) K/uL MPV 10.3 (9.4-12.4) fL Immature Gran % (Auto) 0.4 % Neut % (Auto) 87.2 % Lymph % (Auto) 5.8 % [place] % (Auto) 6.5 % Eos % (Auto) 0.0 % Baso % (Auto) 0.1 % Neut # (Auto) 8.96 H (1.40-6.50) K/uL Lymph # (Auto) 0.60 L (1.20-3.40) K/uL [place] # (Auto) 0.67 H (0.11-0.59) K/uL Eos # (Auto) 0.00 (0.00-0.50) K/uL Baso # (Auto) 0.01 (0.00-0.20) K/uL Immature Gran # (Auto) 0.04 (0.01-0.20) K/uL PT 11.7 (9.0-12.0) Seconds INR 1.1 (0.9-1.1) APTT 36 H (21-31) Seconds PTT Ratio 1.3 VBG pH 7.27 L (7.36-7.41) VBG pCO2 67 H (38-50) mmHg VBG pO2 29 mmHg VBG HCO3 31 mmol/L VBG O2 Saturation < 60.0 % VBG Base Excess 2.0 mEq/L Sodium 136 (136-145) mmol/L Potassium 4.8 (3.5-5.1) mmol/L Chloride 100 (98-107) mmol/L Carbon Dioxide 31 (21-32) mmol/L Anion Gap 5 (3-11) BUN 27 H (6-23) mg/dl Creatinine 1.14 (0.6-1.2) mg/dl Est Cr Clr Drug Dosing 41.8 ml/min eGFR 46.88 BUN/Creatinine Ratio 23.7 H (10-20) Glucose 119 H (70-99(Fasting)) mg/dl Lactate 1.1 (0.4-2.0) mmol/L Calcium 9.6 (8.6-10.3) mg/dl Magnesium 1.9 (1.7-2.4) mg/dl Total Bilirubin 0.4 (0.2-1.0) mg/dl AST 29 (13-39) U/L ALT 15 (7-52) U/L Alkaline Phosphatase 303 H (34-104) U/L Troponin I High Sens 49.5 H (0-14) pg/ml Total Protein 7.6 (6.0-8.3) gm/dl Albumin 3.6 (3.4-5.0) gm/dl Globulin 4.0 (2.5-4.0) gm/dl Albumin/Globulin Ratio 0.9 (0.9-2) SARS-CoV-2 (PCR) POSITIVE A (Negative) Influenza Type A (PCR) Negative (Neg) Influenza Type B (PCR) Negative (Neg) RSV (RT-PCR) Negative (Neg) Imaging Data Attestation: I personally reviewed and interpreted this imaging study as follows: My Impression: Chest x-ray: Right-sided infiltrate Radiologist's Impression: Chest X-Ray 11/20/24 15:19 EXAM: XR chest 1V portable CLINICAL HISTORY: Dyspnea. TECHNIQUE: CR Chest (1 views) frontal portable view. COMPARISON: 02/28/2020. FINDINGS: There is an ill-defined airspace opacity is seen involving the left lower and middle lung zones with obliteration of the left costophrenic angle suggesting pleural effusion. There is a heterogeneous airspace opacity is seen involving the right lower lung zone, to lesser extent, the right middle and upper lung zones with obliteration of the right costophrenic angle denoting pleural effusion. Enlarged cardiac size and shape. Left glenohumeral advanced osteoarthritis. Thoracic dextroscoliosis, degenerative changes of the shoulder joints, thoracic spine and spinal fixation surgery. IMPRESSION: Bilateral pulmonary airspace opacities could be infection versus pulmonary edema. Clinical correlation is advised. New finding. Bilateral pleural effusion, larger on the left side. New finding. Electronically signed by Jossue Conway 11-20-2024 4:[address] 11/20/24 16:05 EXAM: CT Head Without Intravenous Contrast INDICATION: Headache. TECHNIQUE: Axial computed tomography images of the head/brain without intravenous contrast. Sagittal and/or coronal reformats are provided. Sagittal and coronal reformatted images were created and reviewed. This CT exam was performed using one or more of the following dose reduction techniques: automated exposure control, adjustment of the mA and/or kV according to patient size, and/or use of iterative reconstruction technique. COMPARISON: 08/05/2019 FINDINGS: Limitations: None. Brain and extra-axial spaces: There is age appropriate cortical atrophy and chronic ischemic periventricular white matter hypodensity. No acute infarct, hemorrhage or mass noted. Bones/joints: No acute changes. Soft tissues: No significant abnormality noted. Vasculature: No acute abnormality noted. Sinuses: There is now mild to moderate mucosal thickening of the bilateral sphenoid sinuses. Mastoid air cells: No mastoid effusion. Orbits: No significant abnormality noted. IMPRESSION: 1. Cerebral atrophy. No acute changes. 2. Mild to moderate chronic bilateral sphenoid sinusitis. ACT 112: Negative or not required by law. Electronically signed by Sheyla Mcfarland 11-20-2024 4:54 PM [facility] Narrative 1534: The patient was evaluated in room B4. A complete history and physical exam was performed Cardiac monitoring: An order was placed for continuous cardiac monitoring. The monitor shows a rate of 60 with sinus rhythm interpreted by me Patient found to be hypoxic on room air. Supplemental oxygen was applied via nasal cannula which improved the patient's oxygen saturation. Decadron 6 mg IV ordered for the patient. 1705: Vital signs stable on supplemental oxygen via nasal cannula. Labs show white blood cell count 10.28 hemoglobin 10.5 platelet count 280 VBG shows venous pH of 7.27 venous pCO2 of 67 high-sensitivity troponin 49.5. Procalcitonin 0.42 lactic acid 1.1 chest x-ray shows pneumonia thought to be secondary to COVID. [facility]. Impression & Plan COVID, Hypoxia Critical Care Time Critical Care Time: Yes Total Critical Care Time: 68 I have personally spent greater than 68 minutes of critical care time in the direct management of this patient. This includes bedside care, interpretation of diagnostic studies, and testing, discussion with consultants, patient, and family members, and other required patient management activities. This 68 minutes is in excess of all separately billable procedures. Discharge Plan Visit Data Chief Complaint: Shortness of Breath/Dyspnea ED Provider: Lex Pablo Discharge Problem: COVID, Hypoxia Patient Disposition: Admitted As Inpatient Discharge Instructions Interventions: ED Discharge Assessment Last Done: 11/20/24 19:54
[2024-11-20 16:15] LABS: Basophils # (auto) 0.01 K/uL (0.00-0.20); Basophils % (auto) 0.1 %; Hematocrit (blood only) 33.1 % (37.0-47.0); Hemoglobin 10.5 g/dl (12.0-16.0); Immature Granulocytes # (auto) 0.04 K/uL (0.01-0.20); Immature Granulocytes % (auto) 0.4 %; Lymphocytes % (auto) 5.8 %; Mean Corpuscular Hemoglobin 30.3 pg (25.0-34.0); Mean Corpuscular Hgb Conc 31.7 g/dL (32.0-36.0); Mean Corpuscular Volume 95.7 fL (80.0-100.0); Mean Platelet Volume 10.3 fL (9.4-12.4); Monocytes # (auto) 0.67 K/uL (0.11-0.59); Monocytes % (auto) 6.5 %; Neutrophils # (auto) 8.96 K/uL (1.40-6.50); Neutrophils % (auto) 87.2 %; Platelet Count 280 K/uL (130-400); RDW Coefficient of Variation 16.1 % (11.5-14.5); RDW Standard Deviation 56.4 fL (36.4-46.3); Red Blood Count 3.46 M/uL (4.20-5.40); White Blood Count 10.28 K/ul (4.8-10.8)
[2024-11-20 16:23] LABS: Albumin Globulin Ratio 0.9 (0.9-2); Albumin Level 3.6 gm/dl (3.4-5.0); BUN Creatinine Ratio 23.7 (10-20); Bilirubin,Total 0.4 mg/dl (0.2-1.0); Calcium 9.6 mg/dl (8.6-10.3); Creatinine Clr Calc Pharmacy 41.8 ml/min; Potassium 4.8 mmol/L (3.5-5.1); Total Protein 7.6 gm/dl (6.0-8.3)
[2024-11-20 16:41] LABS: Magnesium 1.9 mg/dl (1.7-2.4)
[2024-11-20 16:46] LABS: Troponin I High Sensitivity 49.5 pg/ml (0-14)
--- NOTE | 2024-11-20 16:50 | XRay Report ---
EXAM: XR chest 1V portable CLINICAL HISTORY: Dyspnea. TECHNIQUE: CR Chest (1 views) frontal portable view. COMPARISON: 02/28/2020. FINDINGS: There is an ill-defined airspace opacity is seen involving the left lower and middle lung zones with obliteration of the left costophrenic angle suggesting pleural effusion. There is a heterogeneous airspace opacity is seen involving the right lower lung zone, to lesser extent, the right middle and upper lung zones with obliteration of the right costophrenic angle denoting pleural effusion. Enlarged cardiac size and shape. Left glenohumeral advanced osteoarthritis. Thoracic dextroscoliosis, degenerative changes of the shoulder joints, thoracic spine and spinal fixation surgery. IMPRESSION: Bilateral pulmonary airspace opacities could be infection versus pulmonary edema. Clinical correlation is advised. New finding. Bilateral pleural effusion, larger on the left side. New finding. Electronically signed by Jossue Conway 11-20-2024 4:47 PM
--- NOTE | 2024-11-20 16:57 | CT Scan Report ---
EXAM: CT Head Without Intravenous Contrast INDICATION: Headache. TECHNIQUE: Axial computed tomography images of the head/brain without intravenous contrast. Sagittal and/or coronal reformats are provided. Sagittal and coronal reformatted images were created and reviewed. This CT exam was performed using one or more of the following dose reduction techniques: automated exposure control, adjustment of the mA and/or kV according to patient size, and/or use of iterative reconstruction technique. COMPARISON: 08/05/2019 FINDINGS: Limitations: None. Brain and extra-axial spaces: There is age appropriate cortical atrophy and chronic ischemic periventricular white matter hypodensity. No acute infarct, hemorrhage or mass noted. Bones/joints: No acute changes. Soft tissues: No significant abnormality noted. Vasculature: No acute abnormality noted. Sinuses: There is now mild to moderate mucosal thickening of the bilateral sphenoid sinuses. Mastoid air cells: No mastoid effusion. Orbits: No significant abnormality noted. IMPRESSION: 1. Cerebral atrophy. No acute changes. 2. Mild to moderate chronic bilateral sphenoid sinusitis. ACT 112: Negative or not required by law. Electronically signed by Sheyla Mcfarland 11-20-2024 4:54 PM
[2024-11-20 17:03] LABS: Influenza A virus by PCR Negative (Neg); Influenza B virus by PCR Negative (Neg); RSV by PCR Negative (Neg); SARS CoV2 RNA(COVID-19) Ceph POSITIVE (Negative)
[2024-11-20 17:06] LABS: INR 1.1 (0.9-1.1); Partial Thromboplastin Ratio 1.3; Partial Thromboplastin Time 36 Seconds (21-31); Prothrombin Time 11.7 Seconds (9.0-12.0)
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
[2024-11-20] MEDS: FUROSEMIDE 40 MG/4 ML VIAL IV ONE (18:07)
[2024-11-20] MEDS ORDERED: POLYETHYLENE (MIRALAX) 17 GM PACK PO PRN (19:54)
[2024-11-20] MEDS: APIXABAN 5 MG TABLET PO SCH (22:05)
[2024-11-20] MEDS: ACETAMINOPHEN 325 MG TAB PO PRN (22:05)
[2024-11-20] MEDS: LORazepam 0.5 MG TAB PO PRN (23:19)
[2024-11-21 05:12] LABS: Hematocrit (blood only) 31.8 % (37.0-47.0); Hemoglobin 10.2 g/dl (12.0-16.0); Immature Granulocytes # (auto) 0.02 K/uL (0.01-0.20); Immature Granulocytes % (auto) 0.4 %; Lymphocytes # (auto) 0.65 K/uL (1.20-3.40); Mean Corpuscular Hemoglobin 30.1 pg (25.0-34.0); Mean Corpuscular Hgb Conc 32.1 g/dL (32.0-36.0); Mean Corpuscular Volume 93.8 fL (80.0-100.0); Mean Platelet Volume 10.5 fL (9.4-12.4); Monocytes # (auto) 0.24 K/uL (0.11-0.59); Monocytes % (auto) 4.4 %; Neutrophils % (auto) 83.2 %; Platelet Count 268 K/uL (130-400); RDW Coefficient of Variation 15.9 % (11.5-14.5); RDW Standard Deviation 54.6 fL (36.4-46.3); Red Blood Count 3.39 M/uL (4.20-5.40); White Blood Count 5.41 K/ul (4.8-10.8)
[2024-11-21 05:28] LABS: BUN Creatinine Ratio 27.4 (10-20); Calcium 9.3 mg/dl (8.6-10.3); Potassium 4.3 mmol/L (3.5-5.1)
[2024-11-21] MEDS: LEVOTHYROXINE SODIUM 112 MCG TABLET PO SCH (06:40)
[2024-11-21] MEDS ORDERED: dexAMETHasone**PF** 10 MG/ML VIAL IV SCH (09:00)
[2024-11-21] MEDS: dexAMETHasone 6 MG in SYRINGE 0 ML IV SCH (09:45)
[2024-11-21] MEDS: allopurinoL 300 MG TAB PO SCH (09:46)
[2024-11-21] MEDS: FUROSEMIDE 40 MG/4 ML VIAL IV SCH (09:46)
[2024-11-21] MEDS: POTASSIUM CHLORIDE CRTAB 20 MEQ TABCR PO SCH (09:46)
[2024-11-21] MEDS: METOPROLOL TARTRATE 25 MG TAB PO SCH (09:47)
[2024-11-21] MEDS: LOVASTATIN 20 MG TAB PO SCH (09:47)
[2024-11-21] MEDS: PANTOprazole 40 MG TAB PO SCH (09:48)
--- NOTE | 2024-11-21 11:05 | XRay Report ---
XR chest 1V portable HISTORY: 84 years-old Female COVID, pneumonia, ?CHF, interval change acute shortness of breath COMPARISON: 11/20/2024 TECHNIQUE: AP view of the chest FINDINGS: Cardiac silhouette is enlarged. Pulmonary vascular congestion with interstitial coarsening. Small ple ural effusions with bibasilar consolidation. Findings have overall mildly improved. Degenerative campbell ges of the shoulders and spine with lumbar spinal fusion hardware. IMPRESSION: 1. Cardiomegaly with mildly improved pulmonary edema. 2. Small pleural effusions with mildly improved aeration of the lung bases. ACT 112: Negative or not required by law. The above report was generated using voice recognition software. It may contain grammatical, syntax o r spelling errors. Electronically signed by: Bo Quesada M.D. 11/21/2024 11:04 AM
[2024-11-21] MEDS: ALBUT/IPRATROP 3MG/0.5MG NEB 3 ML VIAL NEB SCH (13:17)
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
--- NOTE | 2024-11-21 16:25 | XCELERA ---
[id number] \\[id number]
[2024-11-21] MEDS: cefTRIAXone SODIUM 2,000 MG/50 ML BAG IV SCH (16:32)
[2024-11-21] MEDS: DOXYCYCLINE HYCLATE 100 MG CAP PO SCH (20:29)
[2024-11-21] MEDS: guaiFENesin 600 MG TABCR PO SCH (20:30)
[2024-11-21] MEDS: ONDANSETRON INJ 2 MG/ML 2 ML VIAL IV PRN (23:05)
[2024-11-22 07:23] LABS: BUN Creatinine Ratio 35.7 (10-20); C Reactive Protein 9.8 mg/dl (0-0.5); Calcium 9.5 mg/dl (8.6-10.3); Creatinine Clr Calc Pharmacy 41.1 ml/min; Magnesium 1.8 mg/dl (1.7-2.4); Potassium 4.3 mmol/L (3.5-5.1)
[2024-11-22] MEDS: BENZONATATE 100 MG CAPSULE PO PRN (08:27)
[2024-11-22] MEDS: METOPROLOL TARTRATE 25 MG TAB PO SCH (08:30)
[2024-11-22 09:47] LABS: Appearance Urine Clear (Clear); Bacteria Urine Automated 2+ (None Seen); Bilirubin Urine Negative (Negative); Blood Urine 2+ (Negative); Cast Urine Automated 0-2 /lpf (0-2); Color Urine Yellow; Glucose Urine UA Negative (Negative); Ketones Urine Negative (Negative); Leukocyte Esterase Urine 2+ (Negative); Nitrite Urine Negative (Negative); Protein Urine Negative (Negative); RBC Urine Automated >20 /hpf (0-2); Specific Gravity Urine 1.018 (1.000-1.030); Urobilinogen Urine Negative (Negative); WBC Urine Automated 0-5 /hpf (0-5); pH Urine 5.5 (4.5-7.5)
[2024-11-22] MEDS: MICONAZOLE NITRATE POWDER 85 GM EXT PRN (16:19)
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
[2024-11-22] MEDS: LORazepam 0.5 MG TAB PO SCH (22:34)
[2024-11-23 06:44] LABS: Base Excess VBG 12.3 mEq/L; HCO3 VBG 38 mmol/L; Oxygen Saturation VBG 94.3 %; PCO2 VBG 54 mmHg (38-50); PO2 VBG 65 mmHg; pH VBG 7.46 (7.36-7.41)
[2024-11-23 06:56] LABS: Hematocrit (blood only) 33.1 % (37.0-47.0); Hemoglobin 10.8 g/dl (12.0-16.0); Mean Corpuscular Hemoglobin 30.6 pg (25.0-34.0); Mean Corpuscular Hgb Conc 32.6 g/dL (32.0-36.0); Mean Corpuscular Volume 93.8 fL (80.0-100.0); Mean Platelet Volume 10.5 fL (9.4-12.4); Platelet Count 302 K/uL (130-400); RDW Coefficient of Variation 15.5 % (11.5-14.5); RDW Standard Deviation 53.1 fL (36.4-46.3); Red Blood Count 3.53 M/uL (4.20-5.40); White Blood Count 7.09 K/ul (4.8-10.8)
[2024-11-23 07:18] LABS: BUN Creatinine Ratio 40.4 (10-20); Calcium 9.6 mg/dl (8.6-10.3); Creatinine Clr Calc Pharmacy 46.5 ml/min; Potassium 4.7 mmol/L (3.5-5.1)
[2024-11-23] MEDS: FUROSEMIDE INJ 20 MG/2 ML VIAL IV ONE (08:16)
[2024-11-23] MEDS: SODIUM CHLORIDE 0.65% NA SOLN 45 ML (OCEAN) PRN (15:59)
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
--- NOTE | 2024-11-23 19:41 | XRay Report ---
EXAM: X-ray chest one-view portable CLINICAL HISTORY: COVID-19 pneumonia, CHF PRIORS: None TECHNIQUE: AP portable upright FINDINGS: The chest is well-expanded. Patient is rotated. Surgical hardware present involving the lumbar spine. Mild diffuse interstitial prominence again noted with prominence of the right perihilar blood vessels, mildly improved.. Trachea is patent. Cardiac silhouette is enlarged. Osseous structures demonstrate no acute abnormality. No radiopaque foreign body. IMPRESSION: Mild improvement of the chest with decreased interstitial changes and no lobar pneumonia. Electronically signed by Judy Vargas 11-23-2024 7:41 PM
[2024-11-23] MEDS: FORMOTEROL 20 MCG/2 ML VIAL NEB SCH (20:25)
[2024-11-24 07:28] LABS: BUN Creatinine Ratio 41.2 (10-20); C Reactive Protein 3.11 mg/dl (0-0.5); Creatinine Clr Calc Pharmacy 47.1 ml/min; Potassium 4.5 mmol/L (3.5-5.1)
[2024-11-24] MEDS: METOPROLOL TARTRATE 50 MG TAB PO SCH (09:22)
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
[2024-11-25 06:55] LABS: Basophils # (auto) 0.01 K/uL (0.00-0.20); Basophils % (auto) 0.1 %; Hematocrit (blood only) 34.6 % (37.0-47.0); Hemoglobin 11.6 g/dl (12.0-16.0); Immature Granulocytes # (auto) 0.04 K/uL (0.01-0.20); Immature Granulocytes % (auto) 0.5 %; Lymphocytes % (auto) 19.1 %; Mean Corpuscular Hemoglobin 30.5 pg (25.0-34.0); Mean Corpuscular Hgb Conc 33.5 g/dL (32.0-36.0); Mean Corpuscular Volume 91.1 fL (80.0-100.0); Mean Platelet Volume 10.3 fL (9.4-12.4); Monocytes # (auto) 0.85 K/uL (0.11-0.59); Monocytes % (auto) 10.8 %; Neutrophils # (auto) 5.44 K/uL (1.40-6.50); Neutrophils % (auto) 69.5 %; Platelet Count 357 K/uL (130-400); RDW Coefficient of Variation 15.2 % (11.5-14.5); RDW Standard Deviation 50.7 fL (36.4-46.3); White Blood Count 7.84 K/ul (4.8-10.8)
[2024-11-25 07:18] LABS: BUN Creatinine Ratio 41.6 (10-20); Potassium 4.2 mmol/L (3.5-5.1)
[2024-11-25] MEDS: FUROSEMIDE 20 MG TAB PO SCH (09:25)
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
[2024-11-26] MEDS: dexAMETHasone 1 MG TAB PO SCH (09:18)
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
[2024-11-26] MEDS: FUROSEMIDE INJ 20 MG/2 ML VIAL IV ONE (17:17)
[2024-11-26] MEDS: CALCIUM CARBONATE 500 MG CHEWABLE TAB PO PRN (21:13)
[2024-11-27] MEDS: dexAMETHasone 4 MG TAB PO SCH (08:51)
[2024-11-27 12:18] LABS: BUN Creatinine Ratio 41.3 (10-20); Calcium 9.5 mg/dl (8.6-10.3); Creatinine Clr Calc Pharmacy 43.7 ml/min; Potassium 3.8 mmol/L (3.5-5.1)
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
[2024-11-28] MEDS: DOCUSATE SODIUM 100 MG CAP PO PRN (08:21)
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
[2024-11-28 19:09] VITALS: TEMP 98.4
[2024-11-29 08:11] VITALS: BP 192/79; PULSE 66; RESP 18; O2SAT 92
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
== END 2024-11-29 12:59 | disposition home health service (06) | DRG 177 ==
LOC: ED 15:03 → SUATTDRO 17:50 → EDINP 17:50 → 2N 19:55 → 3N 11-26 21:06